=== PATIENT | female | born 1950 | race African-American/Black ===

== ENCOUNTER 2021-03-23 11:01 | Observation (INO) | payer OTHER ==
--- OUTSIDE RECORDS SUMMARY | 2021-03-23 11:04 | XMS REPORT | Continuity of Care Document ---
:1950 Author Organization [facility] t Address [address] [place] [address] [address]. [place] [place] [address] Care Team Providers Name Role Phone Saw Dockery MD Attending Clinician Problems This patient has no known problems. Allergies, Adverse Reactions, Alerts This patient has no known allergies or adverse reactions. Medications This patient has no known medications. Procedures This patient has no known procedures. Encounters Start End Encounter Admission Attending Care Care Encounter Source Date/Time Date/Time Type Type Clinicians Facility Department ID 2021-03-12 2021-03-12 Office GUMARO Dockery [id number] 08:30:27 09:00:27 Visit [facility] [id number] Saw Briceno [id number] Radu [id number] nal 044 Office Building One Results This patient has no known results.
--- NOTE | 2021-03-23 12:38 | RAD REPORT ---
EXAM DESCRIPTION: RAD - Chest Single View - 03/23/2021 12:23 pm CLINICAL HISTORY: right scapular pain, chest pain COMPARISON: July 2017 TECHNIQUE: AP portable chest image was obtained 03/23/2021 12:23 pm . FINDINGS: Lung volumes are much lower than the comparison study. This accentuates heart, vasculature and lung markings. No peripheral mass or consolidations seen. Mild failure or volume overload could be masked in this setting. Heart size magnified by shallow inspiration. No measurable pleural effusio n and no pneumothorax. No acute bony abnormality seen. No acute aortic findings suspected. IMPRESSION: No peripheral mass or consolidation. Heart, vasculature and lung markings are accentuated by shallow inspiration potentially masking mild failure or volume overload.
[2021-03-23 14:21] LABS: Absolute Lymphocytes (CBC) 1.5 K/uL (0.7-4.9); Basophils % 0.9 % (0-1.3); Hematocrit 29.1 % (36.0-45.0); Lymphocytes % 20.8 % (15.3-44.8); RBC Red Blood Cell Count 3.13 M/uL (3.86-4.86)
[2021-03-23 14:29] LABS: Urine Blood Negative (Negative); Urine Glucose Negative (Negative); Urine Protein 2+ (Negative); Urine Specific Gravity 1.015 (1.005-1.030)
[2021-03-23 14:40] LABS: ALT/SGPT 41 U/L (12-78); AST/SGOT 22 U/L (15-37); Albumin 3.3 g/dL (3.4-5.0); Alkaline Phosphatase 115 U/L (45-117); BUN Blood Urea Nitrogen 40 mg/dL (7-18); Bicarbonate 29 mmol/L (21-32); Bilirubin Direct < 0.1 mg/dL (0-0.2); Bilirubin Total 0.2 mg/dL (0.2-1.0); Glucose Level 105 mg/dL (74-106); NT PRO-BNP 319 pg/mL (<125); Potassium 3.8 mmol/L (3.5-5.1); Protein, Total 6.6 g/dL (6.4-8.2); Sodium Level 142 mmol/L (136-145); Troponin (Emerg Dept Use Only) < 0.02 ng/mL (0.0-0.045)
--- NOTE | 2021-03-23 15:20 | ER ---
Nurse's Notes [facility] Name: Sara Duran Age: 70 yrs Sex: Female : 1950 Arrival Date: 03/23/2021 Time: 11:08 Bed 18 Private MD: Tu Dockery Diagnosis: Chest pain, unspecified Presentation: 03/23 11:14 Chief complaint: Patient states: "I am having pain under my right shoulder blade in my jd3 chest. I saw my doctor and he thinks it was a torn muscle and he gave me something over the weekend and it help a little and it seems like it just keeps getting worse.". Coronavirus screen: At this time, the client does not indicate any symptoms associated with coronavirus-19. Ebola Screen: Patient negative for fever greater than or equal to 101.5 degrees Fahrenheit, and additional compatible Ebola Virus Disease symptoms. Initial Sepsis Screen: Does the patient meet any 2 criteria? No. Patient's initial sepsis screen is negative. Does the patient have a suspected source of infection? No. Patient's initial sepsis screen is negative. Risk Assessment: Do you want to hurt yourself or someone else? Patient reports no desire to harm self or others. Onset of symptoms was March 23, 2021. 11:14 Method Of Arrival: Wheelchair jd3 11:14 Acuity: ISIAH 3 jd3 Triage Assessment: 11:15 General: Appears in no apparent distress. uncomfortable, obese, Behavior is bp cooperative, appropriate for age, anxious. Pain: Complains of pain in chest. EENT: No deficits noted. Neuro: No deficits noted. Cardiovascular: Rhythm is sinus rhythm. Respiratory: No deficits noted. GI: No signs and/or symptoms were reported involving the gastrointestinal system. : No signs and/or symptoms were reported regarding the genitourinary system. Derm: No deficits noted. Musculoskeletal: No deficits noted. Historical: - Allergies: 19:37 TETRACYCLINES; jb4 19:37 Suprax; jb4 19:37 Azithromycin; jb4 19:37 Codeine; jb4 19:37 Adhesives; jb4 - PMHx: 19:37 Asthma; Hyperlipidemia; Hypertension; jb4 - Immunization history:: Adult Immunizations up to date, Client reports receiving the 2nd dose of the Covid vaccine. - Social history:: Smoking status: unknown. - Family history:: not pertinent. - Hospitalizations: : No recent hospitalization is reported. Screenin:30 Abuse screen: Denies threats or abuse. Denies injuries from another. Nutritional bp screening: No deficits noted. Tuberculosis screening: No symptoms or risk factors identified. Fall Risk None identified. Assessment: 13:30 Reassessment: UNABLE TO OBTAIN PIV OR BLOOD DESPITE MX NURSE INTERVENTION AND U/S. bp NOTIFIED. 14:01 Reassessment: PHLEBOTOMY AT B/S. PIV ON HOLD PENDING FINAL RESULTS. bp 16:00 Reassessment: No changes from previously documented assessment. Patient and/or family bp updated on plan of care and expected duration. Pain level reassessed. Patient is alert, oriented x 3, equal unlabored respirations, skin warm/dry/pink. ADMIT INITIATED. 18:00 Reassessment: No changes from previously documented assessment. Patient and/or family bp updated on plan of care and expected duration. Pain level reassessed. Patient is alert, oriented x 3, equal unlabored respirations, skin warm/dry/pink. COPY OF COVID VAXX ON CHART. 19:00 Reassessment: Patient appears in no apparent distress at this time. Patient and/or jb4 family updated on plan of care and expected duration. Pain level reassessed. Patient is alert, oriented x 3, equal unlabored respirations, skin warm/dry/pink. 19:38 Reassessment: Patient appears in no apparent distress at this time. Patient and/or jb4 family updated on plan of care and expected duration. Pain level reassessed. Patient is alert, oriented x 3, equal unlabored respirations, skin warm/dry/pink. 19:41 Reassessment: attempted to call report twice, no answer each time. jb4 21:04 Reassessment: Patient appears in no apparent distress at this time. Patient and/or jb4 family updated on plan of care and expected duration. Pain level reassessed. Patient is alert, oriented x 3, equal unlabored respirations, skin warm/dry/pink. Vital Signs: 11:16 BP 168 / 63; Pulse 88; Resp 17 S; Temp 98(TE); Pulse Ox 98% on R/A; Weight 95.25 kg jd3 (R); Height 5 ft. 2 in. (157.48 cm) (R); Pain 10/10; 13:00 BP 142 / 60; Pulse 75; Resp 16; Pulse Ox 98% ; bp 14:00 BP 128 / 64; Pulse 87; Resp 22; Pulse Ox 100% ; bp 16:00 BP 162 / 63; Pulse 84; Resp 17; Pulse Ox 100% ; bp 18:00 BP 141 / 55; Pulse 93; Resp 18; Pulse Ox 99% on R/A; bp 19:00 BP 145 / 59; Pulse 90; Resp 18; Pulse Ox 100% on R/A; jb4 20:00 BP 160 / 54; Pulse 85; Resp 16; Pulse Ox 100% on R/A; jb4 11:16 Body Mass Index 38.41 (95.25 kg, 157.48 cm) jd3 ED Course: 11:08 Patient arrived in ED. ds1 11:09 Tu Dockery MD is Private Physician. ds1 11:16 Triage completed. jd3 11:17 Arm band placed on. jd3 11:19 Patient has correct armband on for positive identification. Placed in gown. Bed in low mh5 position. Call light in reach. Side rails up X 1. Adult w/ patient. Warm blanket given. Pillow given. cardiac monitor on. Pulse ox on. NIBP on. 11:19 EKG done, by ED staff, reviewed by Kenneth Boss MD. mh5 11:25 Kenneth Boss MD is Attending Physician. rn 11:26 Jordan Dhaliwal, ALEJANDRO is Primary Nurse. bp 11:30 Patient maintains SpO2 saturation greater than 95% on room air. bp 11:39 EKG done. mh5 12:23 XRAY Chest (1 view) In Process Unspecified. EDMS 15:20 Sher Boss MD is Hospitalizing Provider. rn 17:00 Inserted saline lock: 22 gauge in left antecubital area, using aseptic technique. ss ,using aseptic technique. Insertion VIA Ultrasound guided by me. Pt tolerated well. 18:26 No provider procedures requiring assistance completed. ss 18:26 Patient admitted, IV remains in place. ss Administered Medications: No medications were administered Outcome: 15:20 Decision to Hospitalize by Provider. rn 20:06 Admitted to Tele accompanied by nurse, via wheelchair, room 406, with chart, Report jb4 called to ALEJANDRO Campuzano 20:06 Condition: stable 20:06 Discharge instructions given to patient, Instructed on the need for admit, Demonstrated understanding of instructions. 21:04 Patient left the ED. jb4 Signatures: Dispatcher [employer] EDMA Whit Otero ds1 Kenneth Boss MD MD rn Smirch, Shelby, RN RN ss Tu Cardenas RN RN jb4 Anamaria Bentley Jonathon, RN RN jJordan Andino RN RN bp
--- NOTE | 2021-03-23 15:20 | EDPHYS ---
Physician Documentation [facility] Name: Sara Duran Age: 70 yrs Sex: Female : 1950 Arrival Date: 03/23/2021 Time: 11:08 Bed 18 Private MD: Tu Dockery ED Physician Kenneth Boss HPI: 03/23 14:33 This 70 yrs old Black Female presents to ER via Wheelchair with complaints of Chest rn Pain. 14:34 The pain does not radiate. Associated signs and symptoms: Pertinent negatives: rn abdominal pain, diaphoresis, palpitations, shortness of breath, syncope, vomiting. The chest pain is described as sharp, stabbing. Duration: The patient or guardian reports multiple episodes, that are intermittent. Modifying factors: The symptoms are alleviated by nothing. the symptoms are aggravated by deep breath. Severity of pain: At its worst the pain was moderate in the emergency department the pain is unchanged. The patient has experienced similar episodes in the past. The patient has been recently seen by a physician:. Reports approx 4 weeks of right scapular region pain, no trauma, no fever or cough, reports pain with deep breath, laying on right side, and movement. Seen by multiple providers and told most likely muscle but she feels is something more serious. . Historical: - Allergies: 19:37 TETRACYCLINES; jb4 19:37 Suprax; jb4 19:37 Azithromycin; jb4 19:37 Codeine; jb4 19:37 Adhesives; jb4 - PMHx: 19:37 Asthma; Hyperlipidemia; Hypertension; jb4 - Immunization history:: Adult Immunizations up to date, Client reports receiving the 2nd dose of the Covid vaccine. - Social history:: Smoking status: unknown. - Family history:: not pertinent. - Hospitalizations: : No recent hospitalization is reported. ROS: 14:34 Constitutional: Negative for fever, chills, and weight loss, Eyes: Negative for injury, rn pain, redness, and discharge, Neck: Negative for injury, pain, and swelling, Cardiovascular: Negative for palpitations, and edema, Respiratory: Negative for shortness of breath, cough, wheezing, and pleuritic chest pain, Abdomen/GI: Negative for abdominal pain, nausea, vomiting, diarrhea, and constipation, Back: Negative for injury : Negative for injury, bleeding, discharge, and swelling, MS/Extremity: Negative for injury and deformity, Skin: Negative for injury, rash, and discoloration, Neuro: Negative for headache, weakness, numbness, tingling, and seizure. Exam: 14:34 Constitutional: This is a well developed, well nourished patient who is awake, alert, rn and in no acute distress. Head/Face: Normocephalic, atraumatic. Eyes: Periorbital areas with no swelling, redness, or edema. Cardiovascular: Regular rate and rhythm. No pulse deficits. Respiratory: No increased work of breathing, no retractions or nasal flaring. Abdomen/GI: soft, non-tender Skin: Warm, dry MS/ Extremity: Pulses equal, no cyanosis. Neuro: Awake and alert, GCS 15 Vital Signs: 11:16 BP 168 / 63; Pulse 88; Resp 17 S; Temp 98(TE); Pulse Ox 98% on R/A; Weight 95.25 kg jd3 (R); Height 5 ft. 2 in. (157.48 cm) (R); Pain 10/10; 13:00 BP 142 / 60; Pulse 75; Resp 16; Pulse Ox 98% ; bp 14:00 BP 128 / 64; Pulse 87; Resp 22; Pulse Ox 100% ; bp 16:00 BP 162 / 63; Pulse 84; Resp 17; Pulse Ox 100% ; bp 18:00 BP 141 / 55; Pulse 93; Resp 18; Pulse Ox 99% on R/A; bp 19:00 BP 145 / 59; Pulse 90; Resp 18; Pulse Ox 100% on R/A; jb4 20:00 BP 160 / 54; Pulse 85; Resp 16; Pulse Ox 100% on R/A; jb4 11:16 Body Mass Index 38.41 (95.25 kg, 157.48 cm) jd3 MDM: 11:25 Patient medically screened. rn 15:18 Differential diagnosis: acute myocardial infarction, acute pericarditis, coronary rn artery disease cholecystitis, Cholelithiasis costochondritis, esophagitis, gastritis, gastroesophageal reflux disease (GERD), pleurisy, pneumothorax, pulmonary embolus, stable angina. Data reviewed: vital signs, nurses notes, lab test result(s), EKG, radiologic studies, plain films, and as a result, I will admit patient. Counseling: I had a detailed discussion with the patient and/or guardian regarding: the historical points, exam findings, and any diagnostic results supporting the discharge/admit diagnosis, lab results, radiology results, the need for further work-up and treatment in the hospital. Response to treatment: the patient's symptoms have mildly improved after treatment, and as a result, I will admit patient. Admission orders: after a detailed discussion of the patient's condition and case, the admit orders are written by me. ED course: Pt with neg trop and NSR on ECG without ischemia, still having scapular pain/chest pain, elevated d-dimer, unable to get IV access at this time and nursing has tried with u/s, attempting midline right now for admission. Creatinine too high for CT PE anyway, will admit to hospitalist service for chest pain rule out and V/Q scan in AM. . 03/23 11:33 Order name: Basic Metabolic Panel; Complete Time: 15:10 03/23 11:33 Order name: CBC with Diff; Complete Time: 14:25 03/23 11:33 Order name: LFT's; Complete Time: 15:10 03/23 11:33 Order name: NT PRO-BNP; Complete Time: 15:10 03/23 11:33 Order name: Troponin (emerg Dept Use Only); Complete Time: 15:10 03/23 11:33 Order name: D-Dimer; Complete Time: 15:10 03/23 11:33 Order name: XRAY Chest (1 view); Complete Time: 12:39 03/23 11:33 Order name: EKG; Complete Time: 11:35 03/23 14:28 Order name: Urine Dipstick-Ancillary; Complete Time: 14:34 [facility] 03/23 16:46 Order name: CT-CHEST WITHOUT CONTRAST [facility] 03/23 16:46 Order name: Creatine Phosphokinase [facility] 03/23 17:34 Order name: CT [facility] 03/23 17:47 Order name: C-Reactive Protein [facility] 03/23 18:11 Order name: Sedimentation Rate, W[place]gren [facility] 03/23 11:33 Order name: Cardiac monitoring; Complete Time: 11:39 03/23 11:33 Order name: EKG - Nurse/Tech; Complete Time: 11:39 03/23 11:33 Order name: IV Saline Lock; Complete Time: 17:45 rn 03/23 11:33 Order name: Labs collected and sent; Complete Time: 14:01 rn 03/23 11:33 Order name: O2 Per Protocol; Complete Time: 14:00 rn 03/23 11:33 Order name: O2 Sat Monitoring; Complete Time: 14:00 rn 03/23 16:46 Order name: Heart Healthy EDMS Administered Medications: No medications were administered Disposition: 03/23/21 15:20 Hospitalization ordered by Sher Boss for Observation. Diagnosis is Chest pain, unspecified. - Bed requested for Telemetry/MedSurg (observation). - Status is Observation. jb4 - Condition is Stable. - Problem is new. - Symptoms are unchanged. Signatures: Dispatcher [employer] EDMS Soo Romero Diana, RN Kenneth Emerson MD MD rn Bryson, James, RN RN jb4 Sukhi Malloy RN ALEJANDRO jd3 Corrections: (The following items were deleted from the chart) 18:04 15:20 Hospitalization Ordered by Sher Boss MD for Observation. Preliminary bd diagnosis is Chest pain, unspecified. Bed requested for Telemetry/MedSurg (observation). Status is Observation. Condition is Stable. Problem is new. Symptoms are unchanged. rn 18:06 18:04 03/23/2021 15:20 Hospitalization Ordered by Sher Boss MD for Observation. dw Preliminary diagnosis is Chest pain, unspecified. Bed requested for Telemetry/MedSurg (observation). Status is Observation. Condition is Stable. Problem is new. Symptoms are unchanged. bd 21:04 18:03/23/2021 15:20 Hospitalization Ordered by Sher Boss MD for Observation. jb4 Preliminary diagnosis is Chest pain, unspecified. Bed requested for Telemetry/MedSurg (observation). Status is Observation. Condition is Stable. Problem is new. Symptoms are unchanged. dw
--- NOTE | 2021-03-23 16:59 | P.HP ---
Certification for Inpatient Patient admitted to: Observation With expected LOS: <2 Midnights Practitioner: I am a practitioner with admitting privileges, knowledge of patient current condition, hospital course, and medical plan of care. Services: Services provided to patient in accordance with Admission requirements found in Title 42 Section 412.3 of the Code of Federal Regulations Patient History Date of Service: 03/23/21 Reason for admission: R subscapular back pain, r/o PE History of Present Illness: 70yo F, PMH: HTN, Asthma, JERRELL, CKD, h/o shingles. Presents to ED due to worsening R thoracic back pain. Pain began ~4 weeks ago, saw pcp and diagnosed with muscle cramps. She continued to stay very active, using some ice on the area with some alleviation of her symptoms. This continued until yesterday when she began to have more severe pain in the same area. Severe enough to limit what she could do around the house. Tylenol and muscle relaxers were not helping - only making her sleepy. Massage helps as well. Deep breathing and exertion can worsen the pain. She reports some mild SOB and cough over the last week or so. In the ED, CXR was unremarkable, labs notable for Cr: 1.8, elevated d-dimer, negative troponin, EKG WNL. Patient to be placed in obs due to intractable pain, elevated d-dimer, unable to obtain CTA to r/o PE. Allergies codeine [Codeine] Allergy (Intermediate, Verified 12/06/12 06:24) Itching Tetracyclines Allergy (Intermediate, Verified 12/06/12 06:24) Nausea/Vomiting No Known Allergies Allergy (Uncoded 08/21/17 16:02) Unknown Home Medications: Aspirin 81 mg PO DAILY 08/21/17 Budesonide/Formoterol Fumarate [Symbicort 160-4.5 Mcg Inhaler] 1 puff IH BID 08/21/17 Carvedilol [Coreg] 25 mg PO BID 08/21/17 Chlorthalidone 25 mg PO DAILY 08/21/17 Gabapentin [Neurontin*] 100 mg PO BID 08/21/17 Hydrochlorothiazide 50 mg PO DAILY 08/21/17 Spironolactone 25 mg PO DAILY 08/21/17 Valsartan 160 mg PO DAILY 08/21/17 Cefixime [Suprax] 200 mg PO BID #28 tab.chew 08/24/17 Oseltamivir Phosphate [Tamiflu Suspension] 5 ml PO DAILY #10 ml 08/24/17 - Past Medical/Surgical History Diabetic: No -: HTN -: HYPERLIPIDEMIA -: ASTHMA -: NEUROPATHY -: SLEEP APNEA -: CKD -: R ROTATOR CUFF -: HYSTERECTOMY -: R ANKLE - Family History Father -: Hypertension, Cancer Notes: prostate cancer Mother -: Kidney disease Notes: dialysis pt - Social History Smoking Status: Never smoker Alcohol use: No CD- Drugs: No Caffeine use: Yes Place of Residence: Home Review of Systems 10-point ROS is otherwise unremarkable Physical Examination - Physical Exam General: Alert, Oriented x3, Mild distress HEENT: Normocephalic, PERRLA, Mucous membr. moist/pink Neck: Supple Respiratory: Clear to auscultation bilaterally, Normal air movement Cardiovascular: Edema (Trace-1+, bilateral to knee) Capillary refill: <2 Seconds Gastrointestinal: Soft and benign, Non-distended, No tenderness Musculoskeletal: Other (Tenderness and swelling of posterior chest between spine and scapula; no skin changes, no abscess or induration palpated) Integumentary: No rashes, No breakdown Neurological: Normal speech, Normal strength at 5/5 x4 extr, Normal affect - Studies Laboratory Data (last 24 hrs) 03/23/21 14:01: WBC 7.10, Hgb 9.4 L, Hct 29.1 L, Plt Count 195 03/23/21 14:01: Sodium 142, Potassium 3.8, BUN 40 H, Creatinine 1.81 H, Glucose 105, Total Bilirubin 0.2, AST 22, ALT 41, Alkaline Phosphatase 115 Assessment and Plan - Advance Directives Does patient have a Living Will: No Does patient have a Durable POA for Healthcare: No Physician Review Additional Text: Problem List R Back pain, intractable elevated D-dimer, SOB HTN asthma JERRELL on CPAP CKD h/o shingles -area of tenderness with noticeable swelling compared to left -will obtain CT w/o IV contrast due to renal function -PRN pain control -VQ scan in AM to r/o PE, lovenox 1mg/kg ordered -likely muscle spasm, pt has not rested and continued to agitate the area -possible PE, possible zoster. no skin lesions on back, very tender / out of proportion to exam -ESR, CRP, cpk ordered VTE: lovenox 1mg/kg Code: full Dispo: anticipate dc home tomorrow, pain control, r/o DVT, further eval Time Spent Managing Pts Care (In Minutes): 60
--- NOTE | 2021-03-23 17:31 | RAD REPORT ---
EXAM DESCRIPTION: CT - Thorax Wo Dave - 03/23/2021 5:12 pm CLINICAL HISTORY: R subscapular pain/swelling COMPARISON: No comparisons TECHNIQUE: Axial 5 mm thick images of the chest were obtained without IV contrast. All CT scans are performed using dose optimization technique as appropriate and may include automated exposure control or mA/KV adjustment according to patient size. FINDINGS: Clustered airspace opacities are present in the posterior aspect mid right chest within th e right lower lobe. This is most likely a mild pneumonia and is potentially the source for the patien t's right thoracic pain. No other lung parenchymal process identifiable. No pleural thickening or ple ural effusion. No pneumothorax. No abnormal mediastinal or hilar masses or lymphadenopathy seen. No gross aortic or pulmonary artery finding suspected. Assessment is limited in the absence of IV contrast. No cardiomegaly or pericardi al effusion. No chest wall mass for acute rib finding seen. No abnormality of the right scapula and adjacent muscu lature. Patient does have bilateral shoulder joint degenerative change and possible rotator cuff repa ir on the right. Multiple small nonspecific bilateral axillary lymph nodes. Limited upper abdomen imaging shows a large lobulated 9 centimeter hypodense mass filling most of brown er segments 4, 8 and 5. Within this hypodense mass are numerous variably sized irregular calcificatio ns. There is no relevant history or prior imaging to explain this mass. A 2 centimeter right adrenal mass shows fat attenuation consistent with adrenal adenoma. There is nodularity of the left adrenal g land. Small low-density mass lateral upper pole left kidney is probably a cyst but is not fully candace cterized. IMPRESSION: A mild or early pneumonia in the upper segment right lower lobe is present and could be a source for the patient's right-sided chest or shoulder blade pain. Patient also has degenerative ch danny at the right shoulder joint with what appears to be a remote rotator cuff tear procedure. More significantly the limited imaging of the liver shows a 9 centimeter low-density mass. Coarse daniel cifications are present within the mass. No comparison imaging or pertinent history available that might explain this mass. Primary liver lynsey gnancy would be a primary consideration and can be further evaluated with follow-up outpatient contra st CT abdomen and pelvis or contrast-enhanced MRI of the liver.
[2021-03-23] MEDS ORDERED: ONDANSETRON 4 MG/2 ML VIAL IV PRN (21:37)
[2021-03-23] MEDS: ENOXAPARIN 100 MG/ML SYR SQ SCH (21:37)
[2021-03-23] MEDS ORDERED: ACETAMINOPHEN 500 MG TAB PO PRN (21:37)
[2021-03-23] MEDS ORDERED: ALBUTEROL 2.5 MG/3 ML NEB SOL NEB PRN (21:37)
[2021-03-23] MEDS ORDERED: MORPHINE 2 MG/ML SYR IV PRN (21:37)
[2021-03-23] MEDS: TRAMADOL HCL 50 MG TAB PO PRN (22:34)
[2021-03-24 00:24] VITALS: BMI 38.4
[2021-03-24 04:14] LABS: Albumin 3.1 g/dL (3.4-5.0); Bilirubin Total 0.2 mg/dL (0.2-1.0); Magnesium 2.3 mg/dL (1.8-2.4); Phosphorus 3.7 mg/dL (2.5-4.9); Protein, Total 6.4 g/dL (6.4-8.2)
[2021-03-24 04:21] LABS: Absolute Lymphocytes (CBC) 1.8 K/uL (0.7-4.9); Basophils % 0.9 % (0-1.3); Hematocrit 27.5 % (36.0-45.0); Lymphocytes % 24.5 % (15.3-44.8); MPV 11.5 fL (7.6-11.3); RBC Red Blood Cell Count 2.96 M/uL (3.86-4.86)
[2021-03-24] MEDS: ENOXAPARIN 100 MG/ML SYR SQ SCH (07:39)
[2021-03-24] MEDS: TRAMADOL HCL 50 MG TAB PO PRN ×2 (07:42→12:47)
--- NOTE | 2021-03-24 09:23 | RAD REPORT ---
EXAM DESCRIPTION: US - Abdomen Exam Limited - 03/24/2021 9:01 am CLINICAL HISTORY: RUQ evaluation, right upper quadrant pain COMPARISON: No comparisons FINDINGS: Gallbladder size is normal. No gallstones, wall thickening or pericholecystic fluid. Commo n bile duct is normal with no common duct stone identified. Liver size is normal and shows increased echogenicity likely a mild fatty infiltration. No focal live r lesion. The pancreas is not visualized. No hydronephrosis or solid mass of the right kidney. An 11 millimeter cyst is present in the lower po le. IMPRESSION: No gallbladder or biliary tree abnormality. Suspected mild fatty infiltration of the liver with no focal liver lesion identifiable.
--- NOTE | 2021-03-24 09:56 | RAD REPORT ---
EXAM DESCRIPTION: NM - Vent Perfusion VQ Scan - 03/24/2021 9:42 am CLINICAL HISTORY: r/o PE, shortness of breath COMPARISON: None. TECHNIQUE: The patient was administered 20.5 mCi Xenon 133 gas with posterior projection inspiration , equilibrium, and washout views obtained. The patient was then administered 7.1 mCi Tc-99m MAA label ed RBCs followed by standard 8 view protocol. FINDINGS: There is good distribution of the Xenon with no ventilation defects identified. Mild to mo derate diffuse bilateral air trapping pattern seen. Mild patchy diminished activity scattered in the lung parenchyma. No lobar or segmental sized defects identifiable. A small subsegmental size defect is present posterior mid right lung field. IMPRESSION: Low probability V/Q scan for pulmonary embolism. No ventilation defects. Mild to moderate diffuse air trapping pattern.
[2021-03-24 10:14] VITALS: TEMP 97.1
[2021-03-24 12:38] VITALS: BP 136/74
--- NOTE | 2021-03-24 12:58 | EKG ---
Test Date: 2021-03-23 Test Time: 11:31:34 First Crusher: ERIK MEASUREMENT RESULTS: Intervals: Rate: 87 CA: 156 QRSD: 90 QT: 382 QTc: 459 Harper: P: 57 CA: 156 QRS: 41 T: 55 INTERPRETIVE STATEMENTS: Normal sinus rhythm Normal ECG Compared to ECG 08/21/2017 00:01:52 Sinus tachycardia no longer present Electronically Signed On 03-24-21 12:54:08 CDT by Paresh Gross
--- NOTE | 2021-03-24 13:58 | P.DS ---
Admission Date: 03/23/21 Discharge Date: 03/24/21 Disposition: ROUTINE DISCHARGE Discharge Condition: FAIR Reason for Admission: R subscapular back pain, r/o PE - Problems (1) Chest pain Status: Acute (2) Hypertension Status: Acute (3) Hepatic hemangioma Status: Acute (4) Obesity (BMI 30.0-34.9) Status: Acute Brief History of Present Illness: 70-year-old woman with a history of hypertension, chronic kidney disease, obstructive sleep apnea, prior history of singles presented to the emergency department due to right thoracic back pain of 4 weeks duration. The pain did not respond to Tylenol and muscle relaxants prescribed by his PCP. She presented to the emergency department due to worsening pain. Her chest x-ray in the ED was unremarkable, D-dimer elevated but could not perform CTA to rule out pulmonary embolism due to elevated creatinine up to 1.8. Patient was placed under observation for further evaluation. Hospital Course: Patient placed under observation on the medical floor. Troponin trended negative. V/Q scan done showed low probability for pulmonary embolus. CT chest without contrast reported 9 cm hypodense lesion in the liver with central calcification. I discussed the CT finding with the patient. Patient stated the liver finding is old and it is a hemangioma. Liver ultrasound performed which showed normal gallbladder. Liver finding on the CT discussed with radiology was stated the lesion may be high up and may not be identify by the ultrasound. No abscess, or lesion noted in the right flank where she has point tenderness. Abdominal ultrasound showed no hydronephrosis, it identified 11 mm cyst in the lower pole of the right kidney. PE has been ruled out. Her pain was managed with Flexeril and tramadol. ACS has also been ruled out. Patient is discharged to follow with the PCP. Vital Signs/Physical Exam: Temp Pulse Resp BP Pulse Ox 97.1 F 79 18 136/74 94 03/24/21 08:00 03/24/21 12:00 03/24/21 12:47 03/24/21 12:00 03/24/21 12:47 General: Alert, In no apparent distress, Oriented x3 HEENT: Mucous membr. moist/pink Neck: JVD not distended Respiratory: Clear to auscultation bilaterally, Normal air movement Cardiovascular: No edema, Regular rate/rhythm, Normal S1 S2 Gastrointestinal: Normal bowel sounds, Soft and benign, No tenderness Musculoskeletal: Tenderness (Right flank.) Neurological: Normal speech, Normal strength at 5/5 x4 extr, Cranial nerves 3-12 intact Lymphatics: No axilla or inguinal lymphadenopathy Laboratory Data at Discharge: WBC 7.30 K/uL (4.3-10.9) 03/24/21 03:31 Hgb 9.1 g/dL (12.0-15.0) L 03/24/21 03:31 Hct 27.5 % (36.0-45.0) L 03/24/21 03:31 Plt Count 169 K/uL (152-406) 03/24/21 03:31 Sodium 143 mmol/L (136-145) 03/24/21 03:31 Potassium 4.0 mmol/L (3.5-5.1) 03/24/21 03:31 BUN 33 mg/dL (7-18) H 03/24/21 03:31 Creatinine 1.77 mg/dL (0.55-1.3) H 03/24/21 03:31 Glucose 136 mg/dL (74-106) H 03/24/21 03:31 Phosphorus 3.7 mg/dL (2.5-4.9) 03/24/21 03:31 Magnesium 2.3 mg/dL (1.8-2.4) 03/24/21 03:31 Total Bilirubin 0.2 mg/dL (0.2-1.0) 03/24/21 03:31 AST 21 U/L (15-37) 03/24/21 03:31 ALT 38 U/L (12-78) 03/24/21 03:31 Alkaline Phosphatase 110 U/L (45-117) 03/24/21 03:31 Troponin I < 0.02 ng/mL (0.0-0.045) 03/24/21 12:12 Home Medications: Albuterol Inhaler [Ventolin Inhaler*] 2 puff IH Q6H PRN 03/23/21 Allopurinol 300 mg PO DAILY 03/23/21 Aspirin [Aspirin EC] 81 mg PO DAILY 03/23/21 Budesonide/Formoterol Fumarate [Budesonide-Formoterol 80-4.5] 1 puff IH BID 03/23/21 Carvedilol [Coreg] 25 mg PO BID 03/23/21 Colchicine 0.6 mg PO DAILY PRN 03/23/21 Cyclobenzaprine HCl [Flexeril] 5 mg PO TID PRN 03/23/21 Furosemide [Lasix] 20 mg PO DAILY 03/23/21 Gabapentin 300 mg PO BID 03/23/21 Hydralazine HCl [Apresoline] 50 mg PO TID 03/23/21 Nystatin 100,000 unit PO QID 03/23/21 traMADol HCL [Ultram*] 50 mg PO Q6H PRN #30 tab 03/24/21 New Medications: traMADol HCL [Ultram*] 50 mg PO Q6H PRN #30 tab PRN Reason: Pain Scale 5-7 (Moderate) Diet: AHA Activity: Ad meredith Followup: Tu Dockery MD [Primary Care Provider] - 1-2 Weeks ([facility] to schedule an appointment)
[2021-03-24 16:28] VITALS: O2SAT 96
[2021-03-25] MEDS ORDERED: ENOXAPARIN 100 MG/ML SYR SQ SCH (09:00)
== END 2021-03-24 16:00 | disposition home or self-care (01) ==
LOC: ER 11:01 → ERHOLD 16:40 → 4TH 20:47
PROVIDERS: ADMIT Hospitalist; ATTEND Internal Medicine
DX: R07.9 Chest pain, unspecified (principal); I10 Essential (primary) hypertension; E66.9 Obesity, unspecified; D18.03 Hemangioma of intra-abdominal structures; I12.9 Hypertensive chronic kidney disease with stage 1 through stage 4 chronic kidney disease, or unspecified chronic kidney disease; N18.9 Chronic kidney disease, unspecified; G47.33 Obstructive sleep apnea (adult) (pediatric); R79.89 Other specified abnormal findings of blood chemistry; J45.909 Unspecified asthma, uncomplicated; E78.5 Hyperlipidemia, unspecified; R06.02 Shortness of breath; Z68.38 Body mass index [BMI] 38.0-38.9, adult
CPT/HCPCS: 93005; 85025 ×2; 80048; 36415 ×2; 83735; 82550; 84100; 85379; 80076; 85652; 81003; 84484 ×4; 80053; 84145; 83880; 86140; 71250; 71045; 76705; 97140; 97161; 94760 ×2; 94660; 78582; 99285; J1650 ×2; A9558; A9540; G0378 ×2

== ENCOUNTER 2024-05-30 13:57 | Emergency (ER) | payer OTHER ==
--- OUTSIDE RECORDS SUMMARY | 2024-05-30 14:29 | XMS REPORT | Continuity of Care Document ---
Author Name Unknown Address [address] [facility] [address] [place] [address] [facility] Address [address] [facility] [address] [place] [address] Care Team Providers Care District Extension Service Agent Name Role Phone SHELLIE JARVIS Primary Care Physician Unavailable Shellie Jarvis Attending Clinician Unava ilTYRELL Aguirre Attending Clinician Unavailable TYRELL VINSON Attending Clinician Unavailable JAYJAY SMALLS Attending Clinician Unavailab JENNY Davis Attending Clinician Unavailable JENNY GUZMÁN Attending Clinician Unavailable JACK ROUSSEAU Attending Clinician Unavailable JACK ROUSSEAU Attending Clinician Unavailable SHELLIE JARVIS Attending Clinician Kayy Shellie Monaco MD Attending Clinician Pob, Ad[facility] Lab Main Attending Clinician UnavailRosetta Low DO Attending Clinician [phone] ROSETTA HAM Attending Clinician Unavailable SETH DIAZ Attending Clinician Unavailable ALYX KENNEDY Attending Clinician Unavailable Alyx Kennedy MD Attending Clinician [phone] Unknown, Attending Attending Clinician UnavailLaura Singh MD Attending Clinician [phone] HERLINDA ROBERTS Attending Clinician UnavailHERLINDA Paris Attending Clinician Unavailabl e Doctor Unassigned, [place] Attending Clinician U navailable Lab, Ang - Db Attending Clinician Unavailable Wayne Steel PT, Dara Attending Clinician Un available Herlinda Roberts MD Attending Clinician +[phone] Provider, Urgent Care Day Attending Clinician Un available Conor Carrizales Attending Clinician [phone] Radha ALLEN, Vanessa Attending Clinician UnavailASAEL Montenegro Attending Clinician Unavailable Krystle Elizalde Attending Clinician + [phone] KRYSTLE CLEARY Attending Clinician Unavailable Bridger ALLEN, Tosha Kaminski Attending Clinician Kayy HAMLET Silva Attending Clinician Unavailable HAMLET KATZ Attending Clinician Unavailable MAY SAUER Attending Clinician Unavailab May De La O Attending Clinician [phone] Saira Hernandez OT Attending Clinician Un available LAURA BOYCE Attending Clinician Unavailable Brooke Bland LMSW Attending Clinician Unava ilSeth Lord MD Attending Clinician + [phone] [facility] Attending Clinician Unavailab rosemary Booth GEAR NICKERJosie Attending Clinician [phone] [facility] Attending Clinician Unav GLADYS Hopper Attending Clinician Unavailable Gladys Carter PA-C Attending Clinician + [phone] HematRicardo jefferson MD Attending Clinician [phone] RADIOLOGY Attending Clinician Unavailable Ciro Robledo Attending Clinician +[phone] Shimon Gaffney Attending Clinician + ANDREA VINSON Attending Clinician Unavailable SHIMON VILLALBA Attending Clinician Unavailable ANNE MARIE LICEA Attending Clinician Unavailab ANNE MARIE Alvarez Attending Clinician Unavailab Andrea Medley MD Attending Clinician [phone] CYDNEY MILLARD Attending Clinician Unavailable HARRIET TINAJERO Attending Clinician Unavailable Harriet Moran Attending Clinician [phone] [facility], [facility] Attending Clinicia n Unavailable Martir Bhatti MD Attending Clinicia n Alison TERRELL, Xin Attending Clinician [phone] XIN MORLEY Attending Clinician Unavailable Nurse, [facility] Attending Clinician Unavailable RACHEL MCDOWELL Attending Clinician Unavailable Ja TERRELL, Korey Attending Clinician [phone] Quan TERRELL, Rachel Graham Attending Clinician [phone] Ashleigh Tapia MD Attending Clinician [phone] ASHLEIGH TAPIA Attending Clinician Unavail Babatunde Rm MD Attending Clinician + [phone] BABATUNDE VITALE Attending Clinician Ora zepeda Nurse, Adc Pob Immunization Attending Clinician Unavailable Yaya Allen DO Attending Clinician [phone] YAYA ALLEN Attending Clinician Unavail winsome Smalls MD, Jayjay Obrien Attending Clinician [phone] Only, [facility] Test Attending Clinician Unavailable Lab, [facility] Pob I Attending Clinician Unavailab Angelica Farris Attending Clinician [phone] LUCILA CANELA Attending Clinician Unavailable TYRELL VINSON Admitting Clinician Unavailable JAYJAY SMALLS Admitting Clinician Unavailab LAURA Zavaleta Admitting Clinician Unavailable BABATUNDE VITALE Admitting Clinician Ora Smalls MD, Jayjay Obrien Admitting Clinician [phone] Payers Payer Name Policy Type Policy Number Effective Date Expirati on Date Source [id number] 2022 00:00:00 [employer] O [id number] 2020 00:00:00 [employer]AGE [id number] 2020 00:00:00 Problems Condition Name Condition Details Condition Category Status Onset Date Resolution Date Last Treatment Date Treating Clinician Comments Source Encounter for screening colonoscop y Encounter for screening colonoscop y Disease Active 5-20 00:00: 00 [facility] Metabolic syndrome Metabolic syndrome Disease Active 2-22 00:00: 00 [facility] Impaired mobility Impaired mobility Disease Active 2022-09 1-15 00:00: 00 [facility] Noncomplia nce with treatment plan Noncomplia nce with treatment plan Disease Active 0 9-19 00:00: 00 [facility] Primary osteoarthr itis of both knees Primary osteoarthr itis of both knees Disease Active 0 9-13 00:00: 00 [facility] Recurrent falls Recurrent falls Disease Active 0 9- 00:00: 00 [facility] Sciatica of left side Sciatica of left side Disease Active 0 9-06 00:00: 00 [facility] Injury of back, sequela Injury of back, sequela Disease Active 0 9- 00:00: 00 [facility] Fall, subsequent encounter Fall, subsequent encounter Disease Active 0 9- 00:00: 00 [facility] Sciatica of left side Sciatica of left side Disease Active 0 9- 00:00: 00 [facility] Contusion of left thigh, initial encounter Contusion of left thigh, initial encounter Disease Active 0 9- 00:00: 00 [facility] Gait instabilit y Gait instabilit y Disease Active 0 9-06 00:00: 00 [facility] Liver mass Liver mass Disease Active 0 8-24 00:00: 00 [facility] Bilateral renal cysts Bilateral renal cysts Disease Active 0 8-24 00:00: 00 [facility] Adrenal adenoma, right Adrenal adenoma, right Disease Active 0 8-24 00:00: 00 [facility] Dyslipidem ia Dyslipidem ia Disease Active 0 8-04 00:00: 00 [facility] Elevated liver enzymes Elevated liver enzymes Disease Active 0 7-07 00:00: 00 [facility] Right hand pain Right hand pain Disease Active 0 7-07 00:00: 00 [facility] Complex regional pain syndrome type 1 affecting right hand Complex regional pain syndrome type 1 affecting right hand Disease Active 0 7-07 00:00: 00 [facility] Chronic pain of both knees Chronic pain of both knees Disease Active 0 6-29 00:00: 00 [facility] Chronic pain of both lower extremitie s Chronic pain of both lower extremitie s Disease Active 0 6-29 00:00: 00 [facility] Idiopathic chronic gout without tophus, 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, unspecifie d site Disease Active 0 4-18 00:00: 00 [facility] Abdominal gas pain Abdominal gas pain Disease Active 0 8-05 00:00: 00 [facility] Lumbar radiculopa thy, chronic Lumbar radiculopa thy, chronic Disease Active 0 8-05 00:00: 00 [facility] Arthritis, multiple joint involvemen t Arthritis, multiple joint involvemen t Disease Active 0 8-05 00:00: 00 [facility] Senile osteoporos is Senile osteoporos is Disease Active 8-05 00:00: 00 [facility] Chronic midline thoracic back pain Chronic midline thoracic back pain Disease Active 0 5-05 00:00: 00 [facility] Chronic midline low back pain with bilateral sciatica Chronic midline low back pain with bilateral sciatica Disease Active 0 5-05 00:00: 00 [facility] Medicare annual wellness visit, subsequent Medicare annual wellness visit, subsequent Disease Active 0 5-05 00:00: 00 [facility] Hepatic hemangioma Hepatic hemangioma Disease Active 0 5-05 00:00: 00 [facility] Prediabete s Prediabete s Disease Active 0 5-05 00:00: 00 [facility] BMI 37.0-37.9, adult BMI 37.0-37.9, adult Disease Active 0 5-05 00:00: 00 [facility] Need for hepatitis C screening test Need for hepatitis C screening test Disease Active 0 5-05 00:00: 00 [facility] Stage 3a chronic kidney disease Stage 3a chronic kidney disease Disease Active 0 5-05 00:00: 00 [facility] Edema of both lower extremitie s Edema of both lower extremitie s Disease Active 5-05 00:00: 00 [facility] Spasm of paraspinal muscle Spasm of paraspinal muscle Disease Active 5-05 00:00: 00 [facility] Chronic kidney disease-mi neral and bone disorder Chronic kidney disease-mi neral and bone disorder Disease Active 2020-09 2-30 00:00: 00 [facility] Secondary hyperparat hyroidism Secondary hyperparat hyroidism Disease Active 3-08 00:00: 00 [facility] Insomnia due to medical condition Insomnia due to medical condition Disease Active 6- 00:00: 00 [facility] Anemia of chronic disease Anemia of chronic disease Disease Active 2018-09 00:00: 00 [facility] Chronic diastolic heart failure Chronic diastolic heart failure Disease Active 2018-09 00:00: 00 [facility] Chronic kidney disease, stage 4 (severe) Chronic kidney disease, stage 4 (severe) Disease Active 2018-09 00:00: 00 Overview: Formattin g of this note might be different from the original. Formattin g of this note might be different from the original. Update for Diagnosis Load [facility] Chronic metabolic acidosis Chronic metabolic acidosis Disease Active 2018-09 00:00: 00 [facility] Inflammato ry neuropathy Inflammato ry neuropathy Disease Active 2018-09 00:00: 00 [facility] Iron deficiency Iron deficiency Disease Active 2018-09 00:00: 00 [facility] Mixed hyperlipid emia Mixed hyperlipid emia Disease Active 2018-09 00:00: 00 [facility] Nephrogeno us proteinuri a Nephrogeno us proteinuri a Disease Active 2018-09 0 00:00: 00 [facility] Vitamin D3 deficiency Vitamin D3 deficiency Disease Active 2018-09 00:00: 00 [facility] JERRELL on CPAP JERRELL on CPAP Disease Active 2015-09 00:00: 00 [facility] Asthma Asthma Disease Active 2015-09 1-14 00:00: 00 [facility] Essential hypertensi on Essential hypertensi on Disease Active 2014-09 0-05 00:00: 00 [facility] Biceps tendinopat hy Biceps tendinopat hy Disease Active 2011-09 2- 00:00: 00 Overview: Formattin g of this note might be different from the original. Formattin g of this note might be different from the original. left [facility] Chronic pain syndrome Chronic pain syndrome Problem [facility] [id number] Sacroiliit is Problem [facility] Benign hypertensi ve heart disease with chronic kidney disease Benign hypertensi ve heart disease with chronic kidney disease Disease Resolve d 5-05 00:00: 00 2023-07-07 00:00:00 2023-07-07 13:13:25 [facility] Oral thrush Oral thrush Disease Resolve d 6-29 00:00: 00 2023-04-29 00:00:00 2023-04-29 15:35:49 [facility] Allergies, Adverse Reactions, Alerts Allergy Name Allergy Type Status Severity Reaction(s) Onset Date Inactive Date Treating Clinician Comments Source IODINATE D CONTRAST MEDIA Drug Class Active Other-Cmnt 12-01 00:00: 00 [facility] Iodinate d Contrast Media Drug Allergy Active Other - See comments 12-01 00:00: 00 [facility] ERYTHROM YCIN DRUG Active Other-Cmnt 2018-09 00:00: 00 [facility] Erythrom ycin Drug Allergy Active Other - See comments 2018-09 00:00: 00 [facility] AZITHROM YCIN DRUG INGREDI Active Other-Cmnt 2017-09 00:00: 00 [facility] Azithrom ycin Propensi ty to adverse reaction s Active Other - See comments 2017-09 00:00: 00 Tingling of hands and fingers [facility] AMOXICIL RAMIREZ-POT CLAVULAN ATE DRUG Active Other-Cmnt 2016-0918 00:00: 00 [facility] CEFIXIME DRUG INGREDI Active Low Anxiety 2016-09 00:00: 00 [facility] Amoxicil ramirez-Pot Clavulan ate Propensi ty to adverse reaction s Active Other - See comments 2016-09 00:00: 00 Severe headache [facility] Cefixime Propensi ty to adverse reaction s Active Anxiety 2016-09 00:00: 00 [facility] CODEINE DRUG INGREDI Active Hallucinates 2014-09 0 00:00: 00 [facility] TETRACYC LINE DRUG INGREDI Active N/V 2014-09 0 00:00: 00 [facility] Codeine Propensi ty to adverse reaction s Active Hallucinatio ns 2014-09 0 00:00: 00 [facility] Tetracyc line Propensi ty to adverse reaction s Active Nausea and/or Vomiting 2014-09 0 00:00: 00 [facility] CODEINE DRUG INGREDI Active Hallucinates 2011-09 00:00: 00 [facility] Codeine Propensi ty to adverse reaction s Active Other - See comments 2011-09 00:00: 00 [facility] codeine codeine Active Unknown [facility] tetracai ne tetracai ne Active Unknown [facility] [id number] Drug allergy Active Unknown [facility] Social History Social Habit Start Date Stop Date Quantity Comments Source Sex Assigned At [facility] History of Tobacco Use [facility] Gender identity [facility] Alcoholic beverage intake 2024-04-18 00:00:00 2024-04-18 00:00:00 0 /d [facility] History of Social function 2024-02-13 00:00:00 2024-02-13 00:00:00 [facility] Alcohol intake 2023-12-21 00:00:00 2023-12-21 00:00:00 0 /d [facility] Exposure to SARS-CoV-2 (event) 2023-02-01 00:00:00 2023-02-11 14:41:00 Not sure [facility] Tobacco use and exposure 2022-04-30 00:00:00 2022-04-30 00:00:00 Smokeless tobacco non-user [facility] Smoking Status Start Date Stop Date Source Never smoked tobacco [facility] Medications Ordered Medication Name Filled Medication Name Start Date Stop Date Current Medication? Ordering Clinician Indication Dosage Frequency Signature (SIG) Comments Components Source traMADol HCl 50 MG traMADol HCl 50 MG 05-07 00:00: 00 No 1{table t_as_ne eded} QD traMADol HCl 50 MG ofloxacin 0.3 % ophthalmic solution 05-03 00:00: 00 05-11 04:59 :00 Yes [id number] 1[drp] Place 1 Drop in both eyes 4 (four) times daily for 7 days. [facility] tiZANidine 2 mg tablet 04-24 00:00: 00 Yes [id number] 2mg Take 1 tablet by mouth every 6 (six) hours as needed for Pain (scale 7-10) (muscle spasm). [facility] HYDROcodone -Acetaminop hen 7.5-325 MG HYDROcodone -Acetaminop hen 7.5-325 MG 04-18 00:00: 00 No 1{table t_as_ne eded} QD HYDROcodon e-Acetamin ophen 7.5-325 MG ciprofloxac in HCl 500 mg tablet 03-27 00:00: 00 03-27 00:00 :00 No [id number] 500mg Take 1 tablet by mouth in the morning. [facility] ergocalcife rol, vitamin d2, 1,250 mcg (50,000 unit) capsule 03-13 00:00: 00 Yes [id number] 74098U Take 1 capsule by mouth weekly. [facility] diclofenac dodium (VOLTAREN) 1 % gel 03-02 00:00: 00 Yes [id number] 4g Apply 4 g to area(s) 4 (four) times daily as needed for Pain. Apply 4 g qidApply to area(s) [facility] water for injection, sterile injection 10 mL 02-17 00:00: 00 02-16 22:55 :00 No [id number] 10mL 10 mL, Intravenou s, ONCE, 1 dose, On Tue02/17/24 at 1900, Routine [facility] lidocaine PF 2% (XYLOCAINE- MPF) injection 20 mL 02-16 23:45: 00 02-16 22:53 :00 No [id number] 20mL 20 mL, Injection, ONCE NOW, 1 dose, On Tue02/17/24 at 1845, Routine [facility] sodium chloride (NS) injection 10 mL 02-16 23:45: 00 02-16 22:55 :07 No [id number] 10mL [facility] bacteriosta tic saline 0.9 % injection 10 mL 02-16 23:45: 00 02-16 19:00 :00 No [id number] 10mL 10 mL, Injection, ONCE, 1 dose, On Tue02/17/24 at 1845, Routine [facility] clostridium botulinum toxin (BOTOX) injection 100 Units 02-16 22:45: 00 02-16 21:46 :00 No [id number] 100U 100 Units, Intramuscu lar, ONCE, 1 dose, On Tue02/17/24 at 1745, Routine, lance crewmember approving Restricted medication : JACK ROUSSEAU [facility] lidocaine (XYLOCAINE) 2 % jelly URO-JET 20 mL 02-16 22:45: 00 02-16 21:55 :00 No [id number] 20mL 20 mL, Urethral, ONCE, 1 dose, On Tue02/17/24 at 1745, Routine [facility] peg-electro lyte soln (GOLYTELY) 236-22.74-6 .74 -5.86 gram solution 4,000 mL 02-12 22:45: 00 02-13 10:44 :00 No 4000mL [facility] methylPREDN ISolone (MEDROL, CAROLE,) 4 mg tablets 01-22 00:00: 00 Yes [id number] 9100 Take by mouth SEE-INSTRU CTIONS. follow package directions [facility] cephALEXin 500 mg capsule 01-22 00:00: 00 01-26 00:00 :00 No [id number] 500mg Take 1 capsule by mouth at bedtime for 6 days. 3 days prior to procedure and 3 days after [facility] cyclobenzap rine 5 mg tablet 12-20 14:41: 12 12-20 00:00 :00 No 5mg Take 1 tablet by mouth in the morning and 1 tablet at noon and 1 tablet in the evening. [facility] KCL 20 mEq tablet 12-20 14:39: 38 12-20 00:00 :00 No 20meq Take 1 tablet by mouth in the morning. [facility] valsartan 160 mg tablet 12-20 14:38: 45 12-20 00:00 :00 No 160mg Take 1 tablet by mouth in the morning. [facility] chlorthalid one 25 mg tablet 12-20 14:36: 20 12-20 00:00 :00 No 25mg Take 1 tablet by mouth in the morning. [facility] furosemide 80 mg tablet 12-20 14:36: 17 12-20 00:00 :00 No 80mg Take 1 tablet by mouth every morning. [facility] spironolact one 50 mg tablet 12-20 14:36: 14 12-20 00:00 :00 No 50mg Take 1 tablet by mouth in the morning. [facility] tiZANidine 2 mg tablet 12-20 00:00: 00 04-18 00:00 :00 No [id number] 2mg Take 1 tablet by mouth every 6 (six) hours as needed for Pain (scale 7-10) (muscle spasm). [facility] ALLOPURINOL 100 mg tablet 12-20 00:00: 00 12-20 00:00 :00 No [id number] 100mg TAKE 1 TABLET BY MOUTH EVERY MORNING [facility] valsartan 160 mg tablet 12-18 12:02: 41 Yes 160mg Take 1 tablet by mouth in the morning. [facility] spironolact one 50 mg tablet 12-18 12:02: 41 Yes 50mg Take 1 tablet by mouth in the morning. [facility] KCL 20 mEq tablet 12-18 12:02: 41 Yes 20meq Take 1 tablet by mouth in the morning. [facility] chlorthalid one 25 mg tablet 12-18 12:02: 41 Yes 25mg Take 1 tablet by mouth in the morning. [facility] cyclobenzap rine 5 mg tablet 11-01 12:12: 08 Yes 5mg Take 1 tablet by mouth in the morning and 1 tablet at noon and 1 tablet in the evening. [facility] Trospium 60 mg capsule 09-28 00:00: 00 12-20 00:00 :00 No [id number] 60mg Take 1 capsule by mouth in the morning. [facility] Nitrofurant oin&Nit. Macrocryst (MACROBID) 100 mg capsule 2022-09 00:00: 00 09-28 05:59 :00 No [id number] 100mg Take 1 capsule by mouth in the morning and 1 capsule in the evening. Do all this for 5 days. [facility] traMADoL 50 mg tablet 2022-09 14:28: 58 04-18 00:00 :00 No 50mg Take 1 tablet by mouth every 6 (six) hours as needed. [facility] methocarbam oL 500 mg tablet 2022-09 00:00: 00 12-20 00:00 :00 No [id number] 500mg Take 1 tablet by mouth 4 (four) times daily. [facility] tiZANidine 2 mg tablet 2022-09 00:00: 00 08-09 00:00 :00 No 2mg Take 1 tablet by mouth every 6 (six) hours as needed. [facility] traMADoL 50 mg tablet 2022-09 13:45: 14 Yes 50mg Take 1 tablet by mouth every 6 (six) hours as needed. [facility] furosemide 80 mg tablet 2022-09 13:15: 48 Yes 80mg Take 1 tablet by mouth every morning. [facility] allopurinoL 100 mg tablet 2022-09 00:00: 00 12-20 00:00 :00 No [id number] 100mg Take 1 tablet by mouth every morning. [facility] furosemide 80 mg tablet 2022-09 08:46: 35 Yes 80mg Take 1 tablet by mouth every morning. [facility] lidocaine-p rilocaine 2.5-2.5 % cream 06-19 00:00: 00 Yes Apply 2 g to area(s) 2 (two) times daily as needed for Pain (scale 4-6) [facility] lidocaine 1.8 % PtMd 06-16 00:00: 00 07-07 00:00 :00 No [id number] 1{patch } Apply 1 Patch to area(s) every 48 (forty-eig ht) hours. [facility] Walker [facility]TRA[facility]LIGH T ROLL[facility] 00 Yes [id number] R55/W19.XX XS/M79.604 /R06.02/I5 0.32/I51.7 /E11.3511: Use daily for ambulation /fall precaution (brand pending insurance approval) [facility] methocarbam oL 500 mg tablet 06-08 00:00: 00 08-09 00:00 :00 No [id number] 500mg Take 1 tablet by mouth 4 (four) times daily. [facility] Capsaicin 0.15 % Liqd 06-01 00:00: 00 07-07 00:00 :00 No [id number] Apply to area(s) 2 (two) times daily as needed for Pain (scale 4-6). [facility] methocarbam oL 500 mg tablet 06-01 00:00: 00 06-08 00:00 :00 No [id number] 500mg Take 1 tablet by mouth 3 (three) times daily as needed (Chronic Pain and muscle spasms). [facility] cyclobenzap rine 5 mg tablet 05-29 00:00: 00 06-01 00:00 :00 No [id number] 5mg Take 1 tablet by mouth in the morning and 1 tablet at noon and 1 tablet in the evening. [facility] tens unit electrodes (TENS UNITS ELECTRODES) 2X2 " Pads 05-19 00:00: 00 07-07 00:00 :00 No [id number] Use as directed [facility] TENS unit and electrodes Cmpk 05-19 00:00: 00 07-07 00:00 :00 No [id number] 1U Take 1 Units in the morning. M54.41. use daily on affected areas. Brand as covered by insurance [facility] tiZANidine 2 mg tablet 05-19 00:00: 00 06-01 00:00 :00 No [facility] traMADoL 50 mg tablet 05-04 00:00: 00 07-07 00:00 :00 No Take 1 tablet (50 mg total) by mouth every 6 (six) hours if needed for moderate pain [facility] lidocaine-p rilocaine 5-2.5-2.5 % PaCr 04-01 00:00: 00 Yes [id number] 2g Apply 2 g to area(s) 2 (two) times daily as needed for Pain (scale 4-6). [facility] Diclofenac Sodium (VOLTAREN) 1 % gel 04-01 00:00: 00 03-02 00:00 :00 No [id number] Apply to area(s) 4 (four) times daily. Apply 4 g qid [facility] lidocaine-p rilocaine 5-2.5-2.5 % PaCr 04-01 00:00: 07-04 00:00 :00 No [id number] 2g Apply 2 g to area(s) 2 (two) times daily as needed for Pain (scale 4-6). [facility] TENS unit and electrodes Cmpk 04-01 00:00: 00 05-19 00:00 :00 No [id number] 1U Take 1 Units in the morning. M54.41. use daily on affected areas. Brand as covered by insurance [facility] methocarbam oL 500 mg tablet 04-01 00:00: 00 04-05 00:00 :00 No [id number] 500mg Take 1 tablet by mouth 4 (four) times daily. [facility] nystatin/ma alox/diphen hydrAMINE/l idocaine 2 % viscous 1:1:1:1 Susp suspension 03-24 00:00: 00 04-29 00:00 :00 No [id number] 5mL Take 5 mL by mouth 4 (four) times daily as needed (Sore throat). Gargle and spit, do not swallow [facility] TENS unit and electrodes [facility] 03-24 00:00: 00 04-01 00:00 :00 No [id number] 1U Take 1 Units in the morning. M54.41. use daily on affected areas. Brand as covered by insurance [facility] tiZANidine 2 mg tablet 03-22 00:00: 00 07-07 00:00 :00 No 2mg Take 1 tablet by mouth in the morning and 1 tablet in the evening. [facility] traMADoL 50 mg tablet 03-21 00:00: 00 04-01 00:00 :00 No [id number] 50mg Take 1 tablet by mouth every 4 (four) hours as needed for Pain (scale 7-10). Indication s: acute pain [facility] vibegron (GEMTESA) 75 mg Tab 03-17 00:00: 00 12-20 00:00 :00 No [id number] 75mg Take 75 mg by mouth in the morning. [facility] Trospium 60 mg capsule 03-17 00:00: 00 07-07 00:00 :00 No [id number] 60mg Take 1 capsule by mouth in the morning. [facility] Trospium 60 mg capsule 6-16 00:00: 00 03-17 00:00 :00 No [id number] 60mg Take 1 capsule by mouth in the morning. [facility] methylPREDN ISolone (MEDROL, CAROLE,) 4 mg tablets 03-08 00:00: 00 04-01 00:00 :00 No [id number] 84mg Take 21 tablets by mouth SEE-INSTRU CTIONS. follow package directions [facility] diclofenac 75 mg EC tablet 03-08 00:00: 00 04-01 00:00 :00 No [id number] 75mg Take 1 tablet by mouth in the morning and 1 tablet in the evening. Take with meals. Do all this for 30 days. [facility] ergocalcife rol, vitamin d2, 1,250 mcg (50,000 unit) capsule 02-27 00:00: 00 03-12 00:00 :00 No [id number] Take 1 capsule by mouth weekly. [facility] hydrocortis one (PROCTOSOL HC) 2.5 % rectal cream 01-14 00:00: 00 Yes [id number] Insert into rectum 2 (two) times daily. [facility] aspirin 81 mg EC tablet 18 16:47: 15 Yes [id number] 81mg Take 1 tablet by mouth in the morning. [facility] budesonide/ formoterol fumarate (BUDESONIDE -FORMOTEROL INHALE) 18 16:47: 15 Yes Inhale 2 (two) times daily. [facility] Diclofenac Sodium (VOLTAREN) 1 % gel 18 00:00: 00 04-01 00:00 :00 No [id number] Apply to area(s) 4 (four) times daily. Apply 4 g qid [facility] tiZANidine 2 mg tablet 18 00:00: 00 04-01 00:00 :00 No [id number] 1mg Take 0.5 tablets by mouth every 8 (eight) hours as needed (muscle spasms). [facility] furosemide 20 mg tablet 01-11 00:00: 00 01-11 00:00 :00 No [id number] 20mg Take 1 tablet by mouth in the morning. [facility] hydrALAZINE 25 mg tablet 12-03 00:00: 00 Yes [id number] 25mg Take 1 tablet by mouth in the morning and 1 tablet at noon and 1 tablet in the evening. [facility] vibegron (GEMTESA) 75 mg Tab 11-26 00:00: 00 03-17 00:00 :00 No [id number] 75mg Take 75 mg by mouth in the morning. [facility] hydrALAZINE 25 mg tablet 11-25 16:19: 43 11-25 00:00 :00 No 25mg Take 1 tablet by mouth in the morning and 1 tablet in the evening. [facility] hydrALAZINE 25 mg tablet 11-25 00:00: 00 12-03 00:00 :00 No [id number] 25mg Take 1 tablet by mouth in the morning and 1 tablet at noon and 1 tablet in the evening. [facility] vibegron (GEMTESA) 75 mg Tab 1- 00:00: 00 11-25 00:00 :00 No [id number] 75mg Take 75 mg by mouth in the morning. [facility] estradioL (ESTRACE) 0.01 % (0.1 mg/gram) vaginal cream 10-13 00:00: 00 Yes [id number] Apply 1g vaginally at bedtime every night for 2 weeks and then 2-3 times per week [facility] Iron-Vitami n C 100-250 mg Tab 1-05 00:00: 00 Yes 1{tbl} Take 1 tablet by mouth in the morning. [facility] estradioL (ESTRACE) 0.01 % (0.1 mg/gram) vaginal cream 2021-09 00:00: 00 11-22 00:00 :00 No [id number] Apply 1g vaginally at bedtime every night for 2 weeks and then apply 1g vaginally at bedtime 2-3 times per week [facility] estradioL (ESTRACE) 0.01 % (0.1 mg/gram) vaginal cream 2021-09 00:00: 00 09-23 00:00 :00 No [id number] Apply 1g vaginally at bedtime every night for 2 weeks and then apply 1g vaginally at bedtime 2-3 times per week [facility] traMADoL 50 mg tablet 2021-09 00:00: 00 03-21 00:00 :00 No [id number] 50mg Take 1 tablet by mouth every 6 (six) hours as needed. [facility] methylPREDN ISolone (MEDROL, CAROLE,) 4 mg tablets 2021-09 00:00: 00 11-22 00:00 :00 No [id number] 84mg Take 21 tablets by mouth SEE-INSTRU CTIONS. follow package directions [facility] tiZANidine 2 mg tablet 2021-09 00:00: 00 01-11 00:00 :00 No [id number] 1mg Take 0.5 tablets by mouth every 8 (eight) hours as needed (muscle spasms). [facility] furosemide 20 mg tablet 2021-09 00:00: 00 01-11 00:00 :00 No [id number] 10mg Take 0.5 tablets by mouth in the morning. [facility] vibegron (GEMTESA) 75 mg Tab 2021-09 00:00: 00 03-17 00:00 :00 No [id number] 75mg Take 75 mg by mouth daily. [facility] FUROSEMIDE 20 mg tablet 2021-09 00:00: 00 08-26 00:00 :00 No [id number] 4102 TAKE 1/2 TABLET BY MOUTH DAILY [facility] lidocaine-p rilocaine 5-2.5-2.5 % PaCr 2021-09 0- 00:00: 00 04-01 00:00 :00 No [id number] 2g Apply 2 g to area(s) 2 (two) times daily as needed for Pain (scale 4-6). [facility] lidocaine-p rilocaine 5-2.5-2.5 % PaCr 2021-09 00:00: 00 04-01 00:00 :00 No [id number] 2g Apply 2 g to area(s) 2 (two) times daily as needed for Pain (scale 4-6). [facility] ergocalcife rol, vitamin d2, 1,250 mcg (50,000 unit) capsule 2021-09 00:00: 00 02-27 00:00 :00 No [id number] Take 1 capsule by mouth weekly. [facility] amitriptyli ne 10 mg tablet 2021-09 00:00: 00 11-25 00:00 :00 No [id number] 10mg Take 1 tablet by mouth at bedtime. [facility] tuberculin ppd (TUBERSOL) injection 5 Units 9-14 22:00: 00 06-09 10:00 :00 No [id number] 5U [facility] Simethicone (GAS-X) 125 mg -05 00:00: 00 12-20 00:00 :00 No [id number] 125mg Take 1 capsule by mouth after meals and at bedtime as needed for Gas. [facility] Diclofenac Sodium (VOLTAREN) 1 % gel 04-30 00:00: 00 01-11 00:00 :00 No [id number] 103 Apply to area(s) 4 (four) times daily. Apply 4 g qid [facility] Lidocaine 5 % cream 8 00:00: 00 07-12 00:00 :00 No [id number] 103 Apply to area(s) 2 (two) times daily as needed for Pain (scale 4-6). Apply 5g to affected areas BID PRN [facility] acetaminoph en 650 mg CR tablet 01-28 00:00: 00 04-01 00:00 :00 No [id number] 650mg Take 1 tablet by mouth every 8 (eight) hours as needed for Pain or Fever. [facility] tiZANidine 2 mg tablet 01-28 00:00: 00 09-05 00:00 :00 No [id number] 1mg Take 0.5 tablets by mouth every 8 (eight) hours as needed (muscle spasms). [facility] furosemide (LASIX) 20 mg tablet 01-28 00:00: 00 07-21 00:00 :00 No [id number] 10mg Take 0.5 tablets by mouth daily. [facility] hydrocortis one (PROCTOSOL HC) 2.5 % rectal cream 12-04 00:00: 00 01-14 00:00 :00 No [id number] Insert into rectum 2 (two) times daily. [facility] aspirin (ASPIRIN LOW DOSE) 81 mg EC tablet 2020-09 15:45: 28 Yes [id number] 81mg Take 81 mg by mouth daily. [facility] budesonide/ formoterol fumarate (BUDESONIDE -FORMOTEROL INHALE) 2020-09 15:45: 28 Yes Inhale 2 (two) times daily. [facility] hydrALAZINE 25 mg tablet 05-27 11:06: 45 Yes 25mg Take 25 mg by mouth 2 (two) times daily. [facility] albuterol 90 mcg/actuati on inhaler 2017-09 00:00: 00 Yes [id number] 2{puff} Inhale 2 Puffs every 6 (six) hours as needed for Wheezing or Shortness of Breath. [facility] Colchicine 0.6 MG Colchicine 0.6 MG No Colchicine 0.6 MG predniSONE 5 MG predniSONE 5 MG No predniSONE 5 MG Gabapentin 300 MG Gabapentin 300 MG No Gabapentin 300 MG Ezetimibe 10 MG Ezetimibe 10 MG No Ezetimibe 10 MG Telmisartan 20 MG Telmisartan 20 MG No Telmisarta n 20 MG Torsemide 20 MG Torsemide 20 MG No Torsemide 20 MG Methocarbam ol 500 MG Methocarbam ol 500 MG No 1{table ts} 6xD Methocarba mol 500 MG Allopurinol 300 MG Allopurinol 300 MG No Allopurino l 300 MG Carvedilol 25 MG Carvedilol 25 MG No Carvedilol 25 MG Trimethopri m 100 MG Trimethopri m 100 MG No Trimethopr im 100 MG Immunizations Ordered Immunization Name Filled Immunization Name Date Status Comments Source SARS-COV-2 COVID-19 MIGUEL-SUCROSE VACCINE 12 YRS+, BIVALENT 0.3ML, IM, ([facility]) 2022-08-17 00:00:00 Completed [facility] SARS-COV-2 COVID-19 MIGUEL-SUCROSE VACCINE 12 YRS+, BIVALENT 0.3ML, IM, ([facility]) 2022-08-17 00:00:00 Completed [facility] SARS-COV-2 COVID-19 MIGUEL-SUCROSE VACCINE 12 YRS+, BIVALENT 0.3ML, IM, ([facility]) 2022-08-17 00:00:00 Completed [facility] SARS-COV-2 COVID-19 MIGUEL-SUCROSE VACCINE 12 YRS+, BIVALENT 0.3ML, IM, ([facility]) 2022-08-17 00:00:00 Completed [facility] SARS-COV-2 COVID-19 MIGUEL-SUCROSE VACCINE 12 YRS+, BIVALENT 0.3ML, IM, ([facility]) 2022-08-17 00:00:00 Completed [facility] SARS-COV-2 COVID-19 MIGUEL-SUCROSE VACCINE 12 YRS+, BIVALENT 0.3ML, IM, ([facility]) 2022-08-17 00:00:00 Completed [facility] SARS-COV-2 COVID-19 MIGUEL-SUCROSE VACCINE 12 YRS+, BIVALENT 0.3ML, IM, ([facility]) 2022-08-17 00:00:00 Completed [facility] SARS-COV-2 COVID-19 MIGUEL-SUCROSE VACCINE 12 YRS+, BIVALENT 0.3ML, IM, ([facility]) 2022-08-17 00:00:00 Completed [facility] SARS-COV-2 COVID-19 MIGUEL-SUCROSE VACCINE 12 YRS+, BIVALENT 0.3ML, IM, ([facility]) 2022-08-17 00:00:00 Completed [facility] SARS-COV-2 COVID-19 MIGUEL-SUCROSE VACCINE 12 YRS+, BIVALENT 0.3ML, IM, ([facility]) 2022-08-17 00:00:00 Completed [facility] SARS-COV-2 COVID-19 MIGUEL-SUCROSE VACCINE 12 YRS+, BIVALENT 0.3ML, IM, ([facility]) 2022-08-17 00:00:00 Completed [facility] SARS-COV-2 COVID-19 MIGUEL-SUCROSE VACCINE 12 YRS+, BIVALENT 0.3ML, IM, ([facility]) 2022-08-17 00:00:00 Completed [facility] SARS-COV-2 COVID-19 MIGUEL-SUCROSE VACCINE 12 YRS+, BIVALENT 0.3ML, IM, ([facility]) 2022-08-17 00:00:00 Completed [facility] SARS-COV-2 COVID-19 MIGUEL-SUCROSE VACCINE 12 YRS+, BIVALENT 0.3ML, IM, ([facility]) 2022-08-17 00:00:00 Completed [facility] SARS-COV-2 COVID-19 MIGUEL-SUCROSE VACCINE 12 YRS+, BIVALENT 0.3ML, IM, ([facility]) 2022-08-17 00:00:00 Completed [facility] SARS-COV-2 COVID-19 MIGUEL-SUCROSE VACCINE 12 YRS+, BIVALENT 0.3ML, IM, ([facility]) 2022-08-17 00:00:00 Completed [facility] SARS-COV-2 COVID-19 MIGUEL-SUCROSE VACCINE 12 YRS+, BIVALENT 0.3ML, IM, ([facility]) 2022-08-17 00:00:00 Completed [facility] SARS-COV-2 COVID-19 MIGUEL-SUCROSE VACCINE 12 YRS+, BIVALENT 0.3ML, IM, ([facility]) 2022-08-17 00:00:00 Completed [facility] SARS-COV-2 COVID-19 MIGUEL-SUCROSE VACCINE 12 YRS+, BIVALENT 0.3ML, IM, ([facility]) 2022-08-17 00:00:00 Completed [facility] SARS-COV-2 COVID-19 MIGUEL-SUCROSE VACCINE 12 YRS+, BIVALENT 0.3ML, IM, ([facility] [employer] [facility]) 2022-08-17 00:00:00 Completed [facility] SARS-COV-2 COVID-19 MIGUEL-SUCROSE VACCINE 12 YRS+, BIVALENT 0.3ML, IM, ([facility] [employer] [facility]) 2022-08-17 00:00:00 Completed [facility] SARS-COV-2 COVID-19 MIGUEL-SUCROSE VACCINE 12 YRS+, BIVALENT 0.3ML, IM, ([facility] [employer]) 2022-08-17 00:00:00 Completed [facility] SARS-COV-2 COVID-19 MIGUEL-SUCROSE VACCINE 12 YRS+, BIVALENT 0.3ML, IM, ([facility]) 2022-08-17 00:00:00 Completed [facility] SARS-COV-2 COVID-19 MIGUEL-SUCROSE VACCINE 12 YRS+, BIVALENT 0.3ML, IM, ([facility]) 2022-08-17 00:00:00 Completed [facility] SARS-COV-2 COVID-19 MIGUEL-SUCROSE VACCINE 12 YRS+, BIVALENT 0.3ML, IM, ([facility]) 2022-08-17 00:00:00 Completed [facility] SARS-COV-2 COVID-19 MIGUEL-SUCROSE VACCINE 12 YRS+, BIVALENT 0.3ML, IM, ([facility]) 2022-08-17 00:00:00 Completed [facility] SARS-COV-2 COVID-19 MIGUEL-SUCROSE VACCINE 12 YRS+, BIVALENT 0.3ML, IM, ([facility]) 2022-08-17 00:00:00 Completed [facility] SARS-COV-2 COVID-19 MIGUEL-SUCROSE VACCINE 12 YRS+, BIVALENT 0.3ML, IM, ([facility]) 2022-08-17 00:00:00 Completed [facility] SARS-COV-2 COVID-19 MIGUEL-SUCROSE VACCINE 12 YRS+, BIVALENT 0.3ML, IM, ([facility]) 2022-08-17 00:00:00 Completed [facility] SARS-COV-2 COVID-19 MIGUEL-SUCROSE VACCINE 12 YRS+, BIVALENT 0.3ML, IM, ([facility]) 2022-08-17 00:00:00 Completed [facility] SARS-COV-2 COVID-19 MIGUEL-SUCROSE VACCINE 12 YRS+, BIVALENT 0.3ML, IM, ([facility]) 2022-08-17 00:00:00 Completed [facility] SARS-COV-2 COVID-19 MIGUEL-SUCROSE VACCINE 12 YRS+, BIVALENT 0.3ML, IM, ([facility]) 2022-08-17 00:00:00 Completed [facility] SARS-COV-2 COVID-19 MIGUEL-SUCROSE VACCINE 12 YRS+, BIVALENT 0.3ML, IM, ([facility]) 2022-08-17 00:00:00 Completed [facility] SARS-COV-2 COVID-19 MIGUEL-SUCROSE VACCINE 12 YRS+, BIVALENT 0.3ML, IM, ([facility]) 2022-08-17 00:00:00 Completed [facility] SARS-COV-2 COVID-19 MIGUEL-SUCROSE VACCINE 12 YRS+, BIVALENT 0.3ML, IM, ([facility]) 2022-08-17 00:00:00 Completed [facility] SARS-COV-2 COVID-19 MIGUEL-SUCROSE VACCINE 12 YRS+, BIVALENT 0.3ML, IM, ([facility]) 2022-08-17 00:00:00 Completed [facility] SARS-COV-2 COVID-19 MIGUEL-SUCROSE VACCINE 12 YRS+, BIVALENT 0.3ML, IM, ([facility]) 2022-08-17 00:00:00 Completed [facility] SARS-COV-2 COVID-19 MIGUEL-SUCROSE VACCINE 12 YRS+, BIVALENT 0.3ML, IM, ([facility]) 2022-08-17 00:00:00 Completed [facility] SARS-COV-2 COVID-19 MIGUEL-SUCROSE VACCINE 12 YRS+, BIVALENT 0.3ML, IM, ([facility]) 2022-08-17 00:00:00 Completed [facility] SARS-COV-2 COVID-19 MIGUEL-SUCROSE VACCINE 12 YRS+, BIVALENT 0.3ML, IM, ([facility]) 2022-08-17 00:00:00 Completed [facility] SARS-COV-2 COVID-19 MIGUEL-SUCROSE VACCINE 12 YRS+, BIVALENT 0.3ML, IM, ([facility]) 2022-08-17 00:00:00 Completed [facility] SARS-COV-2 COVID-19 MIGUEL-SUCROSE VACCINE 12 YRS+, BIVALENT 0.3ML, IM, ([facility]) 2022-08-17 00:00:00 Completed [facility] SARS-COV-2 COVID-19 MIGUEL-SUCROSE VACCINE 12 YRS+, BIVALENT 0.3ML, IM, (P[facility] TOP) 2022-08-17 00:00:00 Completed [facility] SARS-COV-2 COVID-19 MIGUEL-SUCROSE VACCINE 12 YRS+, BIVALENT 0.3ML, IM, (P[facility]ER S[facility] TOP) 2022-08-17 00:00:00 Completed [facility] SARS-COV-2 COVID-19 MIGUEL-SUCROSE VACCINE 12 YRS+, BIVALENT 0.3ML, IM, (PFI[employer]ER SON TOP) 2022-08-17 00:00:00 Completed [facility] SARS-COV-2 COVID-19 MIGUEL-SUCROSE VACCINE 12 YRS+, BIVALENT 0.3ML, IM, (PFI[facility]ER SON TOP) 2022-08-17 00:00:00 Completed [facility] SARS-COV-2 COVID-19 MIGUEL-SUCROSE VACCINE 12 YRS+, BIVALENT 0.3ML, IM, (PFI[facility]ER SON TOP) 2022-08-17 00:00:00 Completed [facility] SARS-COV-2 COVID-19 MIGUEL-SUCROSE VACCINE 12 YRS+, BIVALENT 0.3ML, IM, (PFIZER SON TOP) 2022-08-17 00:00:00 Completed [facility] SARS-COV-2 COVID-19 MIGUEL-SUCROSE VACCINE 12 YRS+, BIVALENT 0.3ML, IM, (PFIZER SON TOP) 2022-08-17 00:00:00 Completed [facility] SARS-COV-2 COVID-19 MIGUEL-SUCROSE VACCINE 12 YRS+, BIVALENT 0.3ML, IM, (PFIZER SON TOP) 2022-08-17 00:00:00 Completed [facility] SARS-COV-2 COVID-19 MIGUEL-SUCROSE VACCINE 12 YRS+, BIVALENT 0.3ML, IM, (PFI[facility]ER SON TOP) 2022-08-17 00:00:00 Completed [facility] SARS-COV-2 COVID-19 MIGUEL-SUCROSE VACCINE 12 YRS+, BIVALENT 0.3ML, IM, (PFIZER SON TOP) 2022-08-17 00:00:00 Completed [facility] SARS-COV-2 COVID-19 MIGUEL-SUCROSE VACCINE 12 YRS+, BIVALENT 0.3ML, IM, (PFIZER SON TOP) 2022-08-17 00:00:00 Completed [facility] SARS-COV-2 COVID-19 MIGUEL-SUCROSE VACCINE 12 YRS+, BIVALENT 0.3ML, IM, (PFIZER SON TOP) 2022-08-17 00:00:00 Completed [facility] SARS-COV-2 COVID-19 MIGUEL-SUCROSE VACCINE 12 YRS+, BIVALENT 0.3ML, IM, (PFI[facility]ER SON TOP) 2022-08-17 00:00:00 Completed [facility] SARS-COV-2 COVID-19 MIGUEL-SUCROSE VACCINE 12 YRS+, BIVALENT 0.3ML, IM, (PFIZER SON TOP) 2022-08-17 00:00:00 Completed [facility] SARS-COV-2 COVID-19 MIGUEL-SUCROSE VACCINE 12 YRS+, BIVALENT 0.3ML, IM, (PFIZER SON TOP) 2022-08-17 00:00:00 Completed [facility] SARS-COV-2 COVID-19 MIGUEL-SUCROSE VACCINE 12 YRS+, BIVALENT 0.3ML, IM, (PFIZER SON TOP) 2022-08-17 00:00:00 Completed [facility] SARS-COV-2 COVID-19 MIGUEL-SUCROSE VACCINE 12 YRS+, BIVALENT 0.3ML, IM, (PFIZER SON TOP) 2022-08-17 00:00:00 Completed [facility] SARS-COV-2 COVID-19 MIGUEL-SUCROSE VACCINE 12 YRS+, BIVALENT 0.3ML, IM, (PFIZER SON TOP) 2022-08-17 00:00:00 Completed [facility] SARS-COV-2 COVID-19 MIGUEL-SUCROSE VACCINE 12 YRS+, BIVALENT 0.3ML, IM, (PFIZER SON TOP) 2022-08-17 00:00:00 Completed [facility] SARS-COV-2 COVID-19 MIGUEL-SUCROSE VACCINE 12 YRS+, BIVALENT 0.3ML, IM, (PFIZER SON TOP) 2022-08-17 00:00:00 Completed [facility] SARS-COV-2 COVID-19 MIGUEL-SUCROSE VACCINE 12 YRS+, BIVALENT 0.3ML, IM, (PFIZER SON TOP) 2022-08-17 00:00:00 Completed [facility] SARS-COV-2 COVID-19 MIGUEL-SUCROSE VACCINE 12 YRS+, BIVALENT 0.3ML, IM, (PFIZER SON TOP) 2022-08-17 00:00:00 Completed [facility] SARS-COV-2 COVID-19 MIGUEL-SUCROSE VACCINE 12 YRS+, BIVALENT 0.3ML, IM, (PFIZER SON TOP) 2022-08-17 00:00:00 Completed [facility] SARS-COV-2 COVID-19 MIGUEL-SUCROSE VACCINE 12 YRS+, BIVALENT 0.3ML, IM, (PFIZER SON TOP) 2022-08-17 00:00:00 Completed [facility] SARS-COV-2 COVID-19 MIGUEL-SUCROSE VACCINE 12 YRS+, BIVALENT 0.3ML, IM, (PFIZER SON TOP) 2022-08-17 00:00:00 Completed [facility] SARS-COV-2 COVID-19 MIGUEL-SUCROSE VACCINE 12 YRS+, BIVALENT 0.3ML, IM, (PFIZER SON TOP) 2022-08-17 00:00:00 Completed [facility] SARS-COV-2 COVID-19 MIGUEL-SUCROSE VACCINE 12 YRS+, BIVALENT 0.3ML, IM, (PFIZER SON TOP) 2022-08-17 00:00:00 Completed [facility] SARS-COV-2 COVID-19 MIGUEL-SUCROSE VACCINE 12 YRS+, BIVALENT 0.3ML, IM, (PFIZER SON TOP) 2022-08-17 00:00:00 Completed [facility] SARS-COV-2 COVID-19 MIGUEL-SUCROSE VACCINE 12 YRS+, BIVALENT 0.3ML, IM, (PFIZER SON TOP) 2022-08-17 00:00:00 Completed [facility] SARS-COV-2 COVID-19 MIGUEL-SUCROSE VACCINE 12 YRS+, BIVALENT 0.3ML, IM, (PFIZER SON TOP) 2022-08-17 00:00:00 Completed [facility] SARS-COV-2 COVID-19 MIGUEL-SUCROSE VACCINE 12 YRS+, BIVALENT 0.3ML, IM, (PFIZER SON TOP) 2022-08-17 00:00:00 Completed [facility] SARS-COV-2 COVID-19 MIGUEL-SUCROSE VACCINE 12 YRS+, BIVALENT 0.3ML, IM, (PFIZER SON TOP) 2022-08-17 00:00:00 Completed [facility] SARS-COV-2 COVID-19 MIGUEL-SUCROSE VACCINE 12 YRS+, BIVALENT 0.3ML, IM, (PFIZER SON TOP) 2022-08-17 00:00:00 Completed [facility] SARS-COV-2 COVID-19 MIGUEL-SUCROSE VACCINE 12 YRS+, BIVALENT 0.3ML, IM, (PFIZER SON TOP) 2022-08-17 00:00:00 Completed [facility] SARS-COV-2 COVID-19 MIGUEL-SUCROSE VACCINE 12 YRS+, BIVALENT 0.3ML, IM, (PFIZER SON TOP) 2022-08-17 00:00:00 Completed [facility] SARS-COV-2 COVID-19 MIGUEL-SUCROSE VACCINE 12 YRS+, BIVALENT 0.3ML, IM, (PFIZER SON TOP) 2022-08-17 00:00:00 Completed [facility] SARS-COV-2 COVID-19 MIGUEL-SUCROSE VACCINE 12 YRS+, BIVALENT 0.3ML, IM, (PFIZER SON TOP) 2022-08-17 00:00:00 Completed [facility] SARS-COV-2 COVID-19 MIGUEL-SUCROSE VACCINE 12 YRS+, BIVALENT 0.3ML, IM, (PFIZER SON TOP) 2022-08-17 00:00:00 Completed [facility] SARS-COV-2 COVID-19 MIGUEL-SUCROSE VACCINE 12 YRS+, BIVALENT 0.3ML, IM, (PFIZER SON TOP) 2022-08-17 00:00:00 Completed [facility] SARS-COV-2 COVID-19 MIGUEL-SUCROSE VACCINE 12 YRS+, BIVALENT 0.3ML, IM, (PFIZER SON TOP) 2022-08-17 00:00:00 Completed [facility] SARS-COV-2 COVID-19 MIGUEL-SUCROSE VACCINE 12 YRS+, BIVALENT 0.3ML, IM, (PFIZER SON TOP) 2022-08-17 00:00:00 Completed [facility] SARS-COV-2 COVID-19 MIGUEL-SUCROSE VACCINE 12 YRS+, BIVALENT 0.3ML, IM, (PFIZER SON TOP) 2022-08-17 00:00:00 Completed [facility] SARS-COV-2 COVID-19 MIGUEL-SUCROSE VACCINE 12 YRS+, BIVALENT 0.3ML, IM, (PFIZER SON TOP) 2022-08-17 00:00:00 Completed [facility] SARS-COV-2 COVID-19 MIGUEL-SUCROSE VACCINE 12 YRS+, BIVALENT 0.3ML, IM, (PFIZER SON TOP) 2022-08-17 00:00:00 Completed [facility] SARS-COV-2 COVID-19 MIGUEL-SUCROSE VACCINE 12 YRS+, BIVALENT 0.3ML, IM, (PFIZER SON TOP) 2022-08-17 00:00:00 Completed [facility] SARS-COV-2 COVID-19 MIGUEL-SUCROSE VACCINE 12 YRS+, BIVALENT 0.3ML, IM, (PFIZER SON TOP) 2022-08-17 00:00:00 Completed [facility] SARS-COV-2 COVID-19 MIGUEL-SUCROSE VACCINE 12 YRS+, BIVALENT 0.3ML, IM, (PFIZER SON TOP) 2022-08-17 00:00:00 Completed [facility] SARS-COV-2 COVID-19 MIGUEL-SUCROSE VACCINE 12 YRS+, BIVALENT 0.3ML, IM, (PFIZER SON TOP) 2022-08-17 00:00:00 Completed [facility] SARS-COV-2 COVID-19 MIGUEL-SUCROSE VACCINE 12 YRS+, BIVALENT 0.3ML, IM, (PFIZER SON TOP) 2022-08-17 00:00:00 Completed [facility] SARS-COV-2 COVID-19 MIGUEL-SUCROSE VACCINE 12 YRS+, BIVALENT 0.3ML, IM, (PFIZER SON TOP) 2022-08-17 00:00:00 Completed [facility] SARS-COV-2 COVID-19 MIGUEL-SUCROSE VACCINE 12 YRS+, BIVALENT 0.3ML, IM, (PFIZER SON TOP) 2022-08-17 00:00:00 Completed [facility] SARS-COV-2 COVID-19 MIGUEL-SUCROSE VACCINE 12 YRS+, BIVALENT 0.3ML, IM, (PFIZER SON TOP) 2022-08-17 00:00:00 Completed [facility] SARS-COV-2 COVID-19 MIGUEL-SUCROSE VACCINE 12 YRS+, BIVALENT 0.3ML, IM, (PFIZER SON TOP) 2022-08-17 00:00:00 Completed [facility] SARS-COV-2 COVID-19 MIGUEL-SUCROSE VACCINE 12 YRS+, BIVALENT 0.3ML, IM, (PFIZER SON TOP) 2022-08-17 00:00:00 Completed [facility] SARS-COV-2 COVID-19 MIGUEL-SUCROSE VACCINE 12 YRS+, BIVALENT 0.3ML, IM, (PFIZER SON TOP) 2022-08-17 00:00:00 Completed [facility] SARS-COV-2 COVID-19 MIGUEL-SUCROSE VACCINE 12 YRS+, BIVALENT 0.3ML, IM, (PFIZER SON TOP) 2022-08-17 00:00:00 Completed [facility] SARS-COV-2 COVID-19 MIGUEL-SUCROSE VACCINE 12 YRS+, BIVALENT 0.3ML, IM, (PFIZER SON TOP) 2022-08-17 00:00:00 Completed [facility] SARS-COV-2 COVID-19 MIGUEL-SUCROSE VACCINE 12 YRS+, BIVALENT 0.3ML, IM, (PFIZER SON TOP) 2022-08-17 00:00:00 Completed [facility] SARS-COV-2 COVID-19 MIGUEL-SUCROSE VACCINE 12 YRS+, BIVALENT 0.3ML, IM, (PFIZER SON TOP) 2022-08-17 00:00:00 Completed [facility] SARS-COV-2 COVID-19 MIGUEL-SUCROSE VACCINE 12 YRS+, BIVALENT 0.3ML, IM, (PFIZER SON TOP) 2022-08-17 00:00:00 Completed [facility] SARS-COV-2 COVID-19 MIGUEL-SUCROSE VACCINE 12 YRS+, BIVALENT 0.3ML, IM, (PFIZER SON TOP) 2022-08-17 00:00:00 Completed [facility] SARS-COV-2 COVID-19 MIGUEL-SUCROSE VACCINE 12 YRS+, BIVALENT 0.3ML, IM, (PFIZER SON TOP) 2022-08-17 00:00:00 Completed [facility] SARS-COV-2 COVID-19 MIGUEL-SUCROSE VACCINE 12 YRS+, BIVALENT 0.3ML, IM, (PFIZER SON TOP) 2022-08-17 00:00:00 Completed [facility] SARS-COV-2 COVID-19 MIGUEL-SUCROSE VACCINE 12 YRS+, BIVALENT 0.3ML, IM, (PFIZER SON TOP) 2022-08-17 00:00:00 Completed [facility] SARS-COV-2 COVID-19 MIGUEL-SUCROSE VACCINE 12 YRS+, BIVALENT 0.3ML, IM, (PFIZER SON TOP) 2022-08-17 00:00:00 Completed [facility] SARS-COV-2 COVID-19 MIGUEL-SUCROSE VACCINE 12 YRS+, BIVALENT 0.3ML, IM, (PFIZER SON TOP) 2022-08-17 00:00:00 Completed [facility] SARS-COV-2 COVID-19 MIGUEL-SUCROSE VACCINE 12 YRS+, BIVALENT 0.3ML, IM, (PFIZER SON TOP) 2022-08-17 00:00:00 Completed [facility] SARS-COV-2 COVID-19 MIGUEL-SUCROSE VACCINE 12 YRS+, BIVALENT 0.3ML, IM, (PFIZER SON TOP) 2022-08-17 00:00:00 Completed [facility] SARS-COV-2 COVID-19 MIGUEL-SUCROSE VACCINE 12 YRS+, BIVALENT 0.3ML, IM, (PFIZER SON TOP) 2022-08-17 00:00:00 Completed [facility] SARS-COV-2 COVID-19 MIGUEL-SUCROSE VACCINE 12 YRS+, BIVALENT 0.3ML, IM, (PFIZER SON TOP) 2022-08-17 00:00:00 Completed [facility] SARS-COV-2 COVID-19 MIGUEL-SUCROSE VACCINE 12 YRS+, BIVALENT 0.3ML, IM, (PFIZER OSN TOP) 2022-08-17 00:00:00 Completed [facility] SARS-COV-2 COVID-19 MIGUEL-SUCROSE VACCINE 12 YRS+, BIVALENT 0.3ML, IM, (PFIZER SON TOP) 2022-08-17 00:00:00 Completed [facility] SARS-COV-2 COVID-19 MIGEUL-SUCROSE VACCINE 12 YRS+, BIVALENT 0.3ML, IM, (PFIZER SON TOP) 2022-08-17 00:00:00 Completed [facility] SARS-COV-2 COVID-19 MIGUEL-SUCROSE VACCINE 12 YRS+, BIVALENT 0.3ML, IM, (PFIZER SON TOP) 2022-08-17 00:00:00 Completed [facility] SARS-COV-2 COVID-19 MIGUEL-SUCROSE VACCINE 12 YRS+, BIVALENT 0.3ML, IM, (PFIZER SON TOP) 2022-08-17 00:00:00 Completed [facility] SARS-COV-2 COVID-19 MIGUEL-SUCROSE VACCINE 12 YRS+, BIVALENT 0.3ML, IM, (PFIZER SON TOP) 2022-08-17 00:00:00 Completed [facility] SARS-COV-2 COVID-19 MIGUEL-SUCROSE VACCINE 12 YRS+, BIVALENT 0.3ML, IM, (PFIZER SON TOP) 2022-08-17 00:00:00 Completed [facility] SARS-COV-2 COVID-19 MIGUEL-SUCROSE VACCINE 12 YRS+, BIVALENT 0.3ML, IM, (PFIZER SON TOP) 2022-08-17 00:00:00 Completed [facility] SARS-COV-2 COVID-19 MIGUEL-SUCROSE VACCINE 12 YRS+, BIVALENT 0.3ML, IM, (PFIZER SON TOP) 2022-08-17 00:00:00 Completed [facility] SARS-COV-2 COVID-19 MIGUEL-SUCROSE VACCINE 12 YRS+, BIVALENT 0.3ML, IM, (PFIZER SON TOP) 2022-08-17 00:00:00 Completed [facility] SARS-COV-2 COVID-19 MIGUEL-SUCROSE VACCINE 12 YRS+, BIVALENT 0.3ML, IM, (PFIZER SON TOP) 2022-08-17 00:00:00 Completed [facility] SARS-COV-2 COVID-19 MIGUEL-SUCROSE VACCINE 12 YRS+, BIVALENT 0.3ML, IM, (PFIZER SON TOP) 2022-08-17 00:00:00 Completed [facility] SARS-COV-2 COVID-19 MIGUEL-SUCROSE VACCINE 12 YRS+, BIVALENT 0.3ML, IM, (PFIZER [facility]) 2022-08-17 00:00:00 Completed [facility] SARS-COV-2 COVID-19 MIGUEL-SUCROSE VACCINE 12 YRS+, BIVALENT 0.3ML, IM, (PFIZER [facility]) 2022-08-17 00:00:00 Completed [facility] PPD (TB) 2022-06-09 00:00:00 Completed [facility] PPD (TB) 2022-06-09 00:00:00 Completed [facility] PPD (TB) 2022-06-09 00:00:00 Completed [facility] PPD (TB) 2022-06-09 00:00:00 Completed [facility] PPD (TB) 2022-06-09 00:00:00 Completed [facility] PPD (TB) 2022-06-09 00:00:00 Completed [facility] PPD (TB) 2022-06-09 00:00:00 Completed [facility] PPD (TB) 2022-06-09 00:00:00 Completed [facility] PPD (TB) 2022-06-09 00:00:00 Completed [facility] PPD (TB) 2022-06-09 00:00:00 Completed [facility] PPD (TB) 2022-06-09 00:00:00 Completed [facility] PPD (TB) 2022-06-09 00:00:00 Completed [facility] PPD (TB) 2022-06-09 00:00:00 Completed [facility] PPD (TB) 2022-06-09 00:00:00 Completed [facility] PPD (TB) 2022-06-09 00:00:00 Completed [facility] PPD (TB) 2022-06-09 00:00:00 Completed [facility] PPD (TB) 2022-06-09 00:00:00 Completed [facility] PPD (TB) 2022-06-09 00:00:00 Completed [facility] PPD (TB) 2022-06-09 00:00:00 Completed [facility] PPD (TB) 2022-06-09 00:00:00 Completed [facility] PPD (TB) 2022-06-09 00:00:00 Completed [facility] PPD (TB) 2022-06-09 00:00:00 Completed [facility] PPD (TB) 2022-06-09 00:00:00 Completed [facility] PPD (TB) 2022-06-09 00:00:00 Completed [facility] PPD (TB) 2022-06-09 00:00:00 Completed [facility] PPD (TB) 2022-06-09 00:00:00 Completed [facility] PPD (TB) 2022-06-09 00:00:00 Completed [facility] PPD (TB) 2022-06-09 00:00:00 Completed [facility] PPD (TB) 2022-06-09 00:00:00 Completed [facility] PPD (TB) 2022-06-09 00:00:00 Completed [facility] PPD (TB) 2022-06-09 00:00:00 Completed [facility] PPD (TB) 2022-06-09 00:00:00 Completed [facility] PPD (TB) 2022-06-09 00:00:00 Completed [facility] PPD (TB) 2022-06-09 00:00:00 Completed [facility] PPD (TB) 2022-06-09 00:00:00 Completed [facility] PPD (TB) 2022-06-09 00:00:00 Completed [facility] PPD (TB) 2022-06-09 00:00:00 Completed [facility] PPD (TB) 2022-06-09 00:00:00 Completed [facility] PPD (TB) 2022-06-09 00:00:00 Completed [facility] PPD (TB) 2022-06-09 00:00:00 Completed [facility] PPD (TB) 2022-06-09 00:00:00 Completed [facility] PPD (TB) 2022-06-09 00:00:00 Completed [facility] PPD (TB) 2022-06-09 00:00:00 Completed [facility] PPD (TB) 2022-06-09 00:00:00 Completed [facility] PPD (TB) 2022-06-09 00:00:00 Completed [facility] PPD (TB) 2022-06-09 00:00:00 Completed [facility] PPD (TB) 2022-06-09 00:00:00 Completed [facility] PPD (TB) 2022-06-09 00:00:00 Completed [facility] PPD (TB) 2022-06-09 00:00:00 Completed [facility] PPD (TB) 2022-06-09 00:00:00 Completed [facility] PPD (TB) 2022-06-09 00:00:00 Completed [facility] PPD (TB) 2022-06-09 00:00:00 Completed [facility] PPD (TB) 2022-06-09 00:00:00 Completed [facility] PPD (TB) 2022-06-09 00:00:00 Completed [facility] PPD (TB) 2022-06-09 00:00:00 Completed [facility] PPD (TB) 2022-06-09 00:00:00 Completed [facility] PPD (TB) 2022-06-09 00:00:00 Completed [facility] PPD (TB) 2022-06-09 00:00:00 Completed [facility] PPD (TB) 2022-06-09 00:00:00 Completed [facility] PPD (TB) 2022-06-09 00:00:00 Completed [facility] PPD (TB) 2022-06-09 00:00:00 Completed [facility] PPD (TB) 2022-06-09 00:00:00 Completed [facility] PPD (TB) 2022-06-09 00:00:00 Completed [facility] PPD (TB) 2022-06-09 00:00:00 Completed [facility] PPD (TB) 2022-06-09 00:00:00 Completed [facility] PPD (TB) 2022-06-09 00:00:00 Completed [facility] PPD (TB) 2022-06-09 00:00:00 Completed [facility] PPD (TB) 2022-06-09 00:00:00 Completed [facility] PPD (TB) 2022-06-09 00:00:00 Completed [facility] PPD (TB) 2022-06-09 00:00:00 Completed [facility] PPD (TB) 2022-06-09 00:00:00 Completed [facility] PPD (TB) 2022-06-09 00:00:00 Completed [facility] PPD (TB) 2022-06-09 00:00:00 Completed [facility] PPD (TB) 2022-06-09 00:00:00 Completed [facility] PPD (TB) 2022-06-09 00:00:00 Completed [facility] PPD (TB) 2022-06-09 00:00:00 Completed [facility] PPD (TB) 2022-06-09 00:00:00 Completed [facility] PPD (TB) 2022-06-09 00:00:00 Completed [facility] PPD (TB) 2022-06-09 00:00:00 Completed [facility] PPD (TB) 2022-06-09 00:00:00 Completed [facility] PPD (TB) 2022-06-09 00:00:00 Completed [facility] PPD (TB) 2022-06-09 00:00:00 Completed [facility] PPD (TB) 2022-06-09 00:00:00 Completed [facility] PPD (TB) 2022-06-09 00:00:00 Completed [facility] PPD (TB) 2022-06-09 00:00:00 Completed [facility] PPD (TB) 2022-06-09 00:00:00 Completed [facility] PPD (TB) 2022-06-09 00:00:00 Completed [facility] PPD (TB) 2022-06-09 00:00:00 Completed [facility] PPD (TB) 2022-06-09 00:00:00 Completed [facility] PPD (TB) 2022-06-09 00:00:00 Completed [facility] PPD (TB) 2022-06-09 00:00:00 Completed [facility] PPD (TB) 2022-06-09 00:00:00 Completed [facility] PPD (TB) 2022-06-09 00:00:00 Completed [facility] PPD (TB) 2022-06-09 00:00:00 Completed [facility] PPD (TB) 2022-06-09 00:00:00 Completed [facility] PPD (TB) 2022-06-09 00:00:00 Completed [facility] PPD (TB) 2022-06-09 00:00:00 Completed [facility] PPD (TB) 2022-06-09 00:00:00 Completed [facility] PPD (TB) 2022-06-09 00:00:00 Completed [facility] PPD (TB) 2022-06-09 00:00:00 Completed [facility] PPD (TB) 2022-06-09 00:00:00 Completed [facility] PPD (TB) 2022-06-09 00:00:00 Completed [facility] PPD (TB) 2022-06-09 00:00:00 Completed [facility] PPD (TB) 2022-06-09 00:00:00 Completed [facility] PPD (TB) 2022-06-09 00:00:00 Completed [facility] PPD (TB) 2022-06-09 00:00:00 Completed [facility] PPD (TB) 2022-06-09 00:00:00 Completed [facility] PPD (TB) 2022-06-09 00:00:00 Completed [facility] PPD (TB) 2022-06-09 00:00:00 Completed [facility] PPD (TB) 2022-06-09 00:00:00 Completed [facility] PPD (TB) 2022-06-09 00:00:00 Completed [facility] PPD (TB) 2022-06-09 00:00:00 Completed [facility] PPD (TB) 2022-06-09 00:00:00 Completed [facility] PPD (TB) 2022-06-09 00:00:00 Completed [facility] PPD (TB) 2022-06-09 00:00:00 Completed [facility] PPD (TB) 2022-06-09 00:00:00 Completed [facility] PPD (TB) 2022-06-09 00:00:00 Completed [facility] PPD (TB) 2022-06-09 00:00:00 Completed [facility] PPD (TB) 2022-06-09 00:00:00 Completed [facility] PPD (TB) 2022-06-09 00:00:00 Completed [facility] PPD (TB) 2022-06-09 00:00:00 Completed [facility] PPD (TB) 2022-06-09 00:00:00 Completed [facility] PPD (TB) 2022-06-09 00:00:00 Completed [facility] PPD (TB) 2022-06-09 00:00:00 Completed [facility] PPD (TB) 2022-06-09 00:00:00 Completed [facility] PPD (TB) 2022-06-09 00:00:00 Completed [facility] PPD (TB) 2022-06-09 00:00:00 Completed [facility] PPD (TB) 2022-06-09 00:00:00 Completed [facility] PPD (TB) 2022-06-09 00:00:00 Completed [facility] PPD (TB) 2022-06-09 00:00:00 Completed [facility] PPD (TB) 2022-06-09 00:00:00 Completed [facility] PPD (TB) 2022-06-09 00:00:00 Completed [facility] PPD (TB) 2022-06-09 00:00:00 Completed [facility] PPD (TB) 2022-06-09 00:00:00 Completed [facility] PPD (TB) 2022-06-09 00:00:00 Completed [facility] PPD (TB) 2022-06-09 00:00:00 Completed [facility] PPD (TB) 2022-06-09 00:00:00 Completed [facility] PPD (TB) 2022-06-09 00:00:00 Completed [facility] PPD (TB) 2022-06-09 00:00:00 Completed [facility] PPD (TB) 2022-06-09 00:00:00 Completed [facility] PPD (TB) 2022-06-09 00:00:00 Completed [facility] PPD (TB) 2022-06-09 00:00:00 Completed [facility] PPD (TB) 2022-06-09 00:00:00 Completed [facility] PPD (TB) 2022-06-09 00:00:00 Completed [facility] PPD (TB) 2022-06-09 00:00:00 Completed [facility] PPD (TB) 2022-06-09 00:00:00 Completed [facility] PPD (TB) 2022-06-09 00:00:00 Completed [facility] PPD (TB) 2022-06-09 00:00:00 Completed [facility] PPD (TB) 2022-06-09 00:00:00 Completed [facility] PPD (TB) 2022-06-09 00:00:00 Completed [facility] PPD (TB) 2022-06-09 00:00:00 Completed [facility] PPD (TB) 2022-06-09 00:00:00 Completed [facility] PPD (TB) 2022-06-09 00:00:00 Completed [facility] PPD (TB) 2022-06-09 00:00:00 Completed [facility] PPD (TB) 2022-06-09 00:00:00 Completed [facility] PPD (TB) 2022-06-09 00:00:00 Completed [facility] PPD (TB) 2022-06-09 00:00:00 Completed [facility] PPD (TB) 2022-06-09 00:00:00 Completed [facility] PPD (TB) 2022-06-09 00:00:00 Completed [facility] PPD (TB) 2022-06-09 00:00:00 Completed [facility] PPD (TB) 2022-06-09 00:00:00 Completed [facility] PPD (TB) 2022-06-09 00:00:00 Completed [facility] PPD (TB) 2022-06-09 00:00:00 Completed [facility] PPD (TB) 2022-06-09 00:00:00 Completed [facility] PPD (TB) 2022-06-09 00:00:00 Completed [facility] PPD (TB) 2022-06-09 00:00:00 Completed [facility] PPD (TB) 2022-06-09 00:00:00 Completed [facility] PPD (TB) 2022-06-09 00:00:00 Completed [facility] PPD (TB) 2022-06-09 00:00:00 Completed [facility] PPD (TB) 2022-06-09 00:00:00 Completed [facility] PPD (TB) 2022-06-09 00:00:00 Completed [facility] PPD (TB) 2022-06-09 00:00:00 Completed [facility] PPD (TB) 2022-06-09 00:00:00 Completed [facility] PPD (TB) 2022-06-09 00:00:00 Completed [facility] PPD (TB) 2022-06-09 00:00:00 Completed [facility] PPD (TB) 2022-06-09 00:00:00 Completed [facility] PPD (TB) 2022-06-09 00:00:00 Completed [facility] PPD (TB) 2022-06-09 00:00:00 Completed [facility] PPD (TB) 2022-06-09 00:00:00 Completed [facility] PPD (TB) 2022-06-09 00:00:00 Completed [facility] PPD (TB) 2022-06-09 00:00:00 Completed [facility] PPD (TB) 2022-06-09 00:00:00 Completed [facility] PPD (TB) 2022-06-09 00:00:00 Completed [facility] PPD (TB) 2022-06-09 00:00:00 Completed [facility] PPD (TB) 2022-06-09 00:00:00 Completed [facility] PPD (TB) 2022-06-09 00:00:00 Completed [facility] PPD (TB) 2022-06-09 00:00:00 Completed [facility] PPD (TB) 2022-06-09 00:00:00 Completed [facility] PPD (TB) 2022-06-09 00:00:00 Completed [facility] PPD (TB) 2022-06-09 00:00:00 Completed [facility] PPD (TB) 2022-06-09 00:00:00 Completed [facility] PPD (TB) 2022-06-09 00:00:00 Completed [facility] PPD (TB) 2022-06-09 00:00:00 Completed [facility] PPD (TB) 2022-06-09 00:00:00 Completed [facility] PPD (TB) 2022-06-09 00:00:00 Completed [facility] PPD (TB) 2022-06-09 00:00:00 Completed [facility] PPD (TB) 2022-06-09 00:00:00 Completed [facility] PPD (TB) 2022-06-09 00:00:00 Completed [facility] PPD (TB) 2022-06-09 00:00:00 Completed [facility] PPD (TB) 2022-06-09 00:00:00 Completed [facility] PPD (TB) 2022-06-09 00:00:00 Completed [facility] PPD (TB) 2022-06-09 00:00:00 Completed [facility] SARS-COV-2 COVID-19 PFIZER VACCINE 2022-03-30 00:00:00 Completed [facility] SARS-COV-2 COVID-19 PFIZER VACCINE 2022-03-30 00:00:00 Completed [facility] SARS-COV-2 COVID-19 PFIZER VACCINE 2022-03-30 00:00:00 Completed [facility] SARS-COV-2 COVID-19 PFIZER VACCINE 2022-03-30 00:00:00 Completed [facility] SARS-COV-2 COVID-19 PFIZER VACCINE 2022-03-30 00:00:00 Completed [facility] SARS-COV-2 COVID-19 PFIZER VACCINE 2022-03-30 00:00:00 Completed [facility] SARS-COV-2 COVID-19 PFIZER VACCINE 2022-03-30 00:00:00 Completed [facility] SARS-COV-2 COVID-19 PFIZER VACCINE 2022-03-30 00:00:00 Completed [facility] SARS-COV-2 COVID-19 PFIZER VACCINE 2022-03-30 00:00:00 Completed [facility] SARS-COV-2 COVID-19 PFIZER VACCINE 2022-03-30 00:00:00 Completed [facility] SARS-COV-2 COVID-19 PFIZER VACCINE 2022-03-30 00:00:00 Completed [facility] SARS-COV-2 COVID-19 PFIZER VACCINE 2022-03-30 00:00:00 Completed [facility] SARS-COV-2 COVID-19 PFIZER VACCINE 2022-03-30 00:00:00 Completed [facility] SARS-COV-2 COVID-19 PFIZER VACCINE 2022-03-30 00:00:00 Completed [facility] SARS-COV-2 COVID-19 PFIZER VACCINE 2022-03-30 00:00:00 Completed [facility] SARS-COV-2 COVID-19 PFIZER VACCINE 2022-03-30 00:00:00 Completed [facility] SARS-COV-2 COVID-19 PFIZER VACCINE 2022-03-30 00:00:00 Completed [facility] SARS-COV-2 COVID-19 PFIZER VACCINE 2022-03-30 00:00:00 Completed [facility] SARS-COV-2 COVID-19 PFIZER VACCINE 2022-03-30 00:00:00 Completed [facility] SARS-COV-2 COVID-19 PFIZER VACCINE 2022-03-30 00:00:00 Completed [facility] SARS-COV-2 COVID-19 PFIZER VACCINE 2022-03-30 00:00:00 Completed [facility] SARS-COV-2 COVID-19 PFIZER VACCINE 2022-03-30 00:00:00 Completed [facility] SARS-COV-2 COVID-19 PFIZER VACCINE 2022-03-30 00:00:00 Completed [facility] SARS-COV-2 COVID-19 PFIZER VACCINE 2022-03-30 00:00:00 Completed [facility] SARS-COV-2 COVID-19 PFIZER VACCINE 2022-03-30 00:00:00 Completed [facility] SARS-COV-2 COVID-19 PFIZER VACCINE 2022-03-30 00:00:00 Completed [facility] SARS-COV-2 COVID-19 PFIZER VACCINE 2022-03-30 00:00:00 Completed [facility] SARS-COV-2 COVID-19 PFIZER VACCINE 2022-03-30 00:00:00 Completed [facility] SARS-COV-2 COVID-19 PFIZER VACCINE 2022-03-30 00:00:00 Completed [facility] SARS-COV-2 COVID-19 PFIZER VACCINE 2022-03-30 00:00:00 Completed [facility] SARS-COV-2 COVID-19 PFIZER VACCINE 2022-03-30 00:00:00 Completed [facility] SARS-COV-2 COVID-19 PFIZER VACCINE 2022-03-30 00:00:00 Completed [facility] SARS-COV-2 COVID-19 PFIZER VACCINE 2022-03-30 00:00:00 Completed [facility] SARS-COV-2 COVID-19 PFIZER VACCINE 2022-03-30 00:00:00 Completed [facility] SARS-COV-2 COVID-19 PFIZER VACCINE 2022-03-30 00:00:00 Completed [facility] SARS-COV-2 COVID-19 PFIZER VACCINE 2022-03-30 00:00:00 Completed [facility] SARS-COV-2 COVID-19 PFIZER VACCINE 2022-03-30 00:00:00 Completed [facility] SARS-COV-2 COVID-19 PFIZER VACCINE 2022-03-30 00:00:00 Completed [facility] SARS-COV-2 COVID-19 PFIZER VACCINE 2022-03-30 00:00:00 Completed [facility] SARS-COV-2 COVID-19 PFIZER VACCINE 2022-03-30 00:00:00 Completed [facility] SARS-COV-2 COVID-19 PFIZER VACCINE 2022-03-30 00:00:00 Completed [facility] SARS-COV-2 COVID-19 PFIZER VACCINE 2022-03-30 00:00:00 Completed [facility] SARS-COV-2 COVID-19 PFIZER VACCINE 2022-03-30 00:00:00 Completed [facility] SARS-COV-2 COVID-19 PFIZER VACCINE 2022-03-30 00:00:00 Completed [facility] SARS-COV-2 COVID-19 PFIZER VACCINE 2022-03-30 00:00:00 Completed [facility] SARS-COV-2 COVID-19 PFIZER VACCINE 2022-03-30 00:00:00 Completed [facility] SARS-COV-2 COVID-19 PFIZER VACCINE 2022-03-30 00:00:00 Completed [facility] SARS-COV-2 COVID-19 PFIZER VACCINE 2022-03-30 00:00:00 Completed [facility] SARS-COV-2 COVID-19 PFIZER VACCINE 2022-03-30 00:00:00 Completed [facility] SARS-COV-2 COVID-19 PFIZER VACCINE 2022-03-30 00:00:00 Completed [facility] SARS-COV-2 COVID-19 PFIZER VACCINE 2022-03-30 00:00:00 Completed [facility] SARS-COV-2 COVID-19 PFIZER VACCINE 2022-03-30 00:00:00 Completed [facility] SARS-COV-2 COVID-19 PFIZER VACCINE 2022-03-30 00:00:00 Completed [facility] SARS-COV-2 COVID-19 PFIZER VACCINE 2022-03-30 00:00:00 Completed [facility] SARS-COV-2 COVID-19 PFIZER VACCINE 2022-03-30 00:00:00 Completed [facility] SARS-COV-2 COVID-19 PFIZER VACCINE 2022-03-30 00:00:00 Completed [facility] SARS-COV-2 COVID-19 PFIZER VACCINE 2022-03-30 00:00:00 Completed [facility] SARS-COV-2 COVID-19 PFIZER VACCINE 2022-03-30 00:00:00 Completed [facility] SARS-COV-2 COVID-19 PFIZER VACCINE 2022-03-30 00:00:00 Completed [facility] SARS-COV-2 COVID-19 PFIZER VACCINE 2022-03-30 00:00:00 Completed [facility] SARS-COV-2 COVID-19 PFIZER VACCINE 2022-03-30 00:00:00 Completed [facility] SARS-COV-2 COVID-19 PFIZER VACCINE 2022-03-30 00:00:00 Completed [facility] SARS-COV-2 COVID-19 PFIZER VACCINE 2022-03-30 00:00:00 Completed [facility] SARS-COV-2 COVID-19 PFIZER VACCINE 2022-03-30 00:00:00 Completed [facility] SARS-COV-2 COVID-19 PFIZER VACCINE 2022-03-30 00:00:00 Completed [facility] SARS-COV-2 COVID-19 PFIZER VACCINE 2022-03-30 00:00:00 Completed [facility] SARS-COV-2 COVID-19 PFIZER VACCINE 2022-03-30 00:00:00 Completed [facility] SARS-COV-2 COVID-19 PFIZER VACCINE 2022-03-30 00:00:00 Completed [facility] SARS-COV-2 COVID-19 PFIZER VACCINE 2022-03-30 00:00:00 Completed [facility] SARS-COV-2 COVID-19 PFIZER VACCINE 2022-03-30 00:00:00 Completed [facility] SARS-COV-2 COVID-19 PFIZER VACCINE 2022-03-30 00:00:00 Completed [facility] SARS-COV-2 COVID-19 PFIZER VACCINE 2022-03-30 00:00:00 Completed [facility] SARS-COV-2 COVID-19 PFIZER VACCINE 2022-03-30 00:00:00 Completed [facility] SARS-COV-2 COVID-19 PFIZER VACCINE 2022-03-30 00:00:00 Completed [facility] SARS-COV-2 COVID-19 PFIZER VACCINE 2022-03-30 00:00:00 Completed [facility] SARS-COV-2 COVID-19 PFIZER VACCINE 2022-03-30 00:00:00 Completed [facility] SARS-COV-2 COVID-19 PFIZER VACCINE 2022-03-30 00:00:00 Completed [facility] SARS-COV-2 COVID-19 PFIZER VACCINE 2022-03-30 00:00:00 Completed [facility] SARS-COV-2 COVID-19 PFIZER VACCINE 2022-03-30 00:00:00 Completed [facility] SARS-COV-2 COVID-19 PFIZER VACCINE 2022-03-30 00:00:00 Completed [facility] SARS-COV-2 COVID-19 PFIZER VACCINE 2022-03-30 00:00:00 Completed [facility] SARS-COV-2 COVID-19 PFIZER VACCINE 2022-03-30 00:00:00 Completed [facility] SARS-COV-2 COVID-19 PFIZER VACCINE 2022-03-30 00:00:00 Completed [facility] SARS-COV-2 COVID-19 PFIZER VACCINE 2022-03-30 00:00:00 Completed [facility] SARS-COV-2 COVID-19 PFIZER VACCINE 2022-03-30 00:00:00 Completed [facility] SARS-COV-2 COVID-19 PFIZER VACCINE 2022-03-30 00:00:00 Completed [facility] SARS-COV-2 COVID-19 PFIZER VACCINE 2022-03-30 00:00:00 Completed [facility] SARS-COV-2 COVID-19 PFIZER VACCINE 2022-03-30 00:00:00 Completed [facility] SARS-COV-2 COVID-19 PFIZER VACCINE 2022-03-30 00:00:00 Completed [facility] SARS-COV-2 COVID-19 PFIZER VACCINE 2022-03-30 00:00:00 Completed [facility] SARS-COV-2 COVID-19 PFIZER VACCINE 2022-03-30 00:00:00 Completed [facility] SARS-COV-2 COVID-19 PFIZER VACCINE 2022-03-30 00:00:00 Completed [facility] SARS-COV-2 COVID-19 PFIZER VACCINE 2022-03-30 00:00:00 Completed [facility] SARS-COV-2 COVID-19 PFIZER VACCINE 2022-03-30 00:00:00 Completed [facility] SARS-COV-2 COVID-19 PFIZER VACCINE 2022-03-30 00:00:00 Completed [facility] SARS-COV-2 COVID-19 PFIZER VACCINE 2022-03-30 00:00:00 Completed [facility] SARS-COV-2 COVID-19 PFIZER VACCINE 2022-03-30 00:00:00 Completed [facility] SARS-COV-2 COVID-19 PFIZER VACCINE 2022-03-30 00:00:00 Completed [facility] SARS-COV-2 COVID-19 PFIZER VACCINE 2022-03-30 00:00:00 Completed [facility] SARS-COV-2 COVID-19 PFIZER VACCINE 2022-03-30 00:00:00 Completed [facility] SARS-COV-2 COVID-19 PFIZER VACCINE 2022-03-30 00:00:00 Completed [facility] SARS-COV-2 COVID-19 PFIZER VACCINE 2022-03-30 00:00:00 Completed [facility] SARS-COV-2 COVID-19 PFIZER VACCINE 2022-03-30 00:00:00 Completed [facility] SARS-COV-2 COVID-19 PFIZER VACCINE 2022-03-30 00:00:00 Completed [facility] SARS-COV-2 COVID-19 PFIZER VACCINE 2022-03-30 00:00:00 Completed [facility] SARS-COV-2 COVID-19 PFIZER VACCINE 2022-03-30 00:00:00 Completed [facility] SARS-COV-2 COVID-19 PFIZER VACCINE 2022-03-30 00:00:00 Completed [facility] SARS-COV-2 COVID-19 PFIZER VACCINE 2022-03-30 00:00:00 Completed [facility] SARS-COV-2 COVID-19 PFIZER VACCINE 2022-03-30 00:00:00 Completed [facility] SARS-COV-2 COVID-19 PFIZER VACCINE 2022-03-30 00:00:00 Completed [facility] SARS-COV-2 COVID-19 PFIZER VACCINE 2022-03-30 00:00:00 Completed [facility] SARS-COV-2 COVID-19 PFIZER VACCINE 2022-03-30 00:00:00 Completed [facility] SARS-COV-2 COVID-19 PFIZER VACCINE 2022-03-30 00:00:00 Completed [facility] SARS-COV-2 COVID-19 PFIZER VACCINE 2022-03-30 00:00:00 Completed [facility] SARS-COV-2 COVID-19 PFIZER VACCINE 2022-03-30 00:00:00 Completed [facility] SARS-COV-2 COVID-19 PFIZER VACCINE 2022-03-30 00:00:00 Completed [facility] SARS-COV-2 COVID-19 PFIZER VACCINE 2022-03-30 00:00:00 Completed [facility] SARS-COV-2 COVID-19 PFIZER VACCINE 2022-03-30 00:00:00 Completed [facility] SARS-COV-2 COVID-19 PFIZER VACCINE 2022-03-30 00:00:00 Completed [facility] SARS-COV-2 COVID-19 PFIZER VACCINE 2022-03-30 00:00:00 Completed [facility] SARS-COV-2 COVID-19 PFIZER VACCINE 2022-03-30 00:00:00 Completed [facility] SARS-COV-2 COVID-19 PFIZER VACCINE 2022-03-30 00:00:00 Completed [facility] SARS-COV-2 COVID-19 PFIZER VACCINE 2022-03-30 00:00:00 Completed [facility] SARS-COV-2 COVID-19 PFIZER VACCINE 2022-03-30 00:00:00 Completed [facility] SARS-COV-2 COVID-19 PFIZER VACCINE 2022-03-30 00:00:00 Completed [facility] SARS-COV-2 COVID-19 PFIZER VACCINE 2022-03-30 00:00:00 Completed [facility] SARS-COV-2 COVID-19 PFIZER VACCINE 2022-03-30 00:00:00 Completed [facility] SARS-COV-2 COVID-19 PFIZER VACCINE 2022-03-30 00:00:00 Completed [facility] SARS-COV-2 COVID-19 PFIZER VACCINE 2022-03-30 00:00:00 Completed [facility] SARS-COV-2 COVID-19 PFIZER VACCINE 2022-03-30 00:00:00 Completed [facility] SARS-COV-2 COVID-19 PFIZER VACCINE 2022-03-30 00:00:00 Completed [facility] SARS-COV-2 COVID-19 PFIZER VACCINE 2022-03-30 00:00:00 Completed [facility] SARS-COV-2 COVID-19 PFIZER VACCINE 2022-03-30 00:00:00 Completed [facility] SARS-COV-2 COVID-19 PFIZER VACCINE 2022-03-30 00:00:00 Completed [facility] SARS-COV-2 COVID-19 PFIZER VACCINE 2022-03-30 00:00:00 Completed [facility] SARS-COV-2 COVID-19 PFIZER VACCINE 2022-03-30 00:00:00 Completed [facility] SARS-COV-2 COVID-19 PFIZER VACCINE 2022-03-30 00:00:00 Completed [facility] SARS-COV-2 COVID-19 PFIZER VACCINE 2022-03-30 00:00:00 Completed [facility] SARS-COV-2 COVID-19 PFIZER VACCINE 2022-03-30 00:00:00 Completed [facility] SARS-COV-2 COVID-19 PFIZER VACCINE 2022-03-30 00:00:00 Completed [facility] SARS-COV-2 COVID-19 PFIZER VACCINE 2022-03-30 00:00:00 Completed [facility] SARS-COV-2 COVID-19 PFIZER VACCINE 2022-03-30 00:00:00 Completed [facility] SARS-COV-2 COVID-19 PFIZER VACCINE 2022-03-30 00:00:00 Completed [facility] SARS-COV-2 COVID-19 PFIZER VACCINE 2022-03-30 00:00:00 Completed [facility] SARS-COV-2 COVID-19 PFIZER VACCINE 2022-03-30 00:00:00 Completed [facility] SARS-COV-2 COVID-19 PFIZER VACCINE 2022-03-30 00:00:00 Completed [facility] SARS-COV-2 COVID-19 PFIZER VACCINE 2022-03-30 00:00:00 Completed [facility] SARS-COV-2 COVID-19 PFIZER VACCINE 2022-03-30 00:00:00 Completed [facility] SARS-COV-2 COVID-19 PFIZER VACCINE 2022-03-30 00:00:00 Completed [facility] SARS-COV-2 COVID-19 PFIZER VACCINE 2022-03-30 00:00:00 Completed [facility] SARS-COV-2 COVID-19 PFIZER VACCINE 2022-03-30 00:00:00 Completed [facility] SARS-COV-2 COVID-19 PFIZER VACCINE 2022-03-30 00:00:00 Completed [facility] SARS-COV-2 COVID-19 PFIZER VACCINE 2022-03-30 00:00:00 Completed [facility] SARS-COV-2 COVID-19 PFIZER VACCINE 2022-03-30 00:00:00 Completed [facility] SARS-COV-2 COVID-19 PFIZER VACCINE 2022-03-30 00:00:00 Completed [facility] SARS-COV-2 COVID-19 PFIZER VACCINE 2022-03-30 00:00:00 Completed [facility] SARS-COV-2 COVID-19 PFIZER VACCINE 2022-03-30 00:00:00 Completed [facility] SARS-COV-2 COVID-19 PFIZER VACCINE 2022-03-30 00:00:00 Completed [facility] SARS-COV-2 COVID-19 PFIZER VACCINE 2022-03-30 00:00:00 Completed [facility] SARS-COV-2 COVID-19 PFIZER VACCINE 2022-03-30 00:00:00 Completed [facility] SARS-COV-2 COVID-19 PFIZER VACCINE 2022-03-30 00:00:00 Completed [facility] SARS-COV-2 COVID-19 PFIZER VACCINE 2022-03-30 00:00:00 Completed [facility] SARS-COV-2 COVID-19 PFIZER VACCINE 2022-03-30 00:00:00 Completed [facility] SARS-COV-2 COVID-19 PFIZER VACCINE 2022-03-30 00:00:00 Completed [facility] SARS-COV-2 COVID-19 PFIZER VACCINE 2022-03-30 00:00:00 Completed [facility] SARS-COV-2 COVID-19 PFIZER VACCINE 2022-03-30 00:00:00 Completed [facility] SARS-COV-2 COVID-19 PFIZER VACCINE 2022-03-30 00:00:00 Completed [facility] SARS-COV-2 COVID-19 PFIZER VACCINE 2022-03-30 00:00:00 Completed [facility] SARS-COV-2 COVID-19 PFIZER VACCINE 2022-03-30 00:00:00 Completed [facility] SARS-COV-2 COVID-19 PFIZER VACCINE 2022-03-30 00:00:00 Completed [facility] SARS-COV-2 COVID-19 PFIZER VACCINE 2022-03-30 00:00:00 Completed [facility] SARS-COV-2 COVID-19 PFIZER VACCINE 2022-03-30 00:00:00 Completed [facility] SARS-COV-2 COVID-19 PFIZER VACCINE 2022-03-30 00:00:00 Completed [facility] SARS-COV-2 COVID-19 PFIZER VACCINE 2022-03-30 00:00:00 Completed [facility] SARS-COV-2 COVID-19 PFIZER VACCINE 2022-03-30 00:00:00 Completed [facility] SARS-COV-2 COVID-19 PFIZER VACCINE 2022-03-30 00:00:00 Completed [facility] SARS-COV-2 COVID-19 PFIZER VACCINE 2022-03-30 00:00:00 Completed [facility] SARS-COV-2 COVID-19 PFIZER VACCINE 2022-03-30 00:00:00 Completed [facility] SARS-COV-2 COVID-19 PFIZER VACCINE 2022-03-30 00:00:00 Completed [facility] SARS-COV-2 COVID-19 PFIZER VACCINE 2022-03-30 00:00:00 Completed [facility] SARS-COV-2 COVID-19 PFIZER VACCINE 2022-03-30 00:00:00 Completed [facility] SARS-COV-2 COVID-19 PFIZER VACCINE 2022-03-30 00:00:00 Completed [facility] SARS-COV-2 COVID-19 PFIZER VACCINE 2022-03-30 00:00:00 Completed [facility] SARS-COV-2 COVID-19 PFIZER VACCINE 2022-03-30 00:00:00 Completed [facility] SARS-COV-2 COVID-19 PFIZER VACCINE 2022-03-30 00:00:00 Completed [facility] SARS-COV-2 COVID-19 PFIZER VACCINE 2022-03-30 00:00:00 Completed [facility] SARS-COV-2 COVID-19 PFIZER VACCINE 2022-03-30 00:00:00 Completed [facility] SARS-COV-2 COVID-19 PFIZER VACCINE 2022-03-30 00:00:00 Completed [facility] SARS-COV-2 COVID-19 PFIZER VACCINE 2022-03-30 00:00:00 Completed [facility] SARS-COV-2 COVID-19 PFIZER VACCINE 2022-03-30 00:00:00 Completed [facility] SARS-COV-2 COVID-19 PFIZER VACCINE 2022-03-30 00:00:00 Completed [facility] SARS-COV-2 COVID-19 PFIZER VACCINE 2022-03-30 00:00:00 Completed [facility] SARS-COV-2 COVID-19 PFIZER VACCINE 2022-03-30 00:00:00 Completed [facility] SARS-COV-2 COVID-19 PFIZER VACCINE 2022-03-30 00:00:00 Completed [facility] SARS-COV-2 COVID-19 PFIZER VACCINE 2022-03-30 00:00:00 Completed [facility] SARS-COV-2 COVID-19 PFIZER VACCINE 2022-03-30 00:00:00 Completed [facility] SARS-COV-2 COVID-19 PFIZER VACCINE 2022-03-30 00:00:00 Completed [facility] SARS-COV-2 COVID-19 PFIZER VACCINE 2022-03-30 00:00:00 Completed [facility] SARS-COV-2 COVID-19 PFIZER VACCINE 2022-03-30 00:00:00 Completed [facility] SARS-COV-2 COVID-19 PFIZER VACCINE 2022-03-30 00:00:00 Completed [facility] SARS-COV-2 COVID-19 PFIZER VACCINE 2022-03-30 00:00:00 Completed [facility] SARS-COV-2 COVID-19 PFIZER VACCINE 2022-03-30 00:00:00 Completed [facility] Pneumococcal Polysaccharide, PPSV23 (PNEUMOVAX) 2021-09-07 00:00:00 Completed [facility] Pneumococcal Polysaccharide, PPSV23 (PNEUMOVAX) 2021-09-07 00:00:00 Completed [facility] Pneumococcal Polysaccharide, PPSV23 (PNEUMOVAX) 2021-09-07 00:00:00 Completed [facility] Pneumococcal Polysaccharide, PPSV23 (PNEUMOVAX) 2021-09-07 00:00:00 Completed [facility] Pneumococcal Polysaccharide, PPSV23 (PNEUMOVAX) 2021-09-07 00:00:00 Completed [facility] Pneumococcal Polysaccharide, PPSV23 (PNEUMOVAX) 2021-09-07 00:00:00 Completed [facility] Pneumococcal Polysaccharide, PPSV23 (PNEUMOVAX) 2021-09-07 00:00:00 Completed [facility] Pneumococcal Polysaccharide, PPSV23 (PNEUMOVAX) 2021-09-07 00:00:00 Completed [facility] Pneumococcal Polysaccharide, PPSV23 (PNEUMOVAX) 2021-09-07 00:00:00 Completed [facility] Pneumococcal Polysaccharide, PPSV23 (PNEUMOVAX) 2021-09-07 00:00:00 Completed [facility] Pneumococcal Polysaccharide, PPSV23 (PNEUMOVAX) 2021-09-07 00:00:00 Completed [facility] Pneumococcal Polysaccharide, PPSV23 (PNEUMOVAX) 2021-09-07 00:00:00 Completed [facility] Pneumococcal Polysaccharide, PPSV23 (PNEUMOVAX) 2021-09-07 00:00:00 Completed [facility] Pneumococcal Polysaccharide, PPSV23 (PNEUMOVAX) 2021-09-07 00:00:00 Completed [facility] Pneumococcal Polysaccharide, PPSV23 (PNEUMOVAX) 2021-09-07 00:00:00 Completed [facility] Pneumococcal Polysaccharide, PPSV23 (PNEUMOVAX) 2021-09-07 00:00:00 Completed [facility] Pneumococcal Polysaccharide, PPSV23 (PNEUMOVAX) 2021-09-07 00:00:00 Completed [facility] Pneumococcal Polysaccharide, PPSV23 (PNEUMOVAX) 2021-09-07 00:00:00 Completed [facility] Pneumococcal Polysaccharide, PPSV23 (PNEUMOVAX) 2021-09-07 00:00:00 Completed [facility] Pneumococcal Polysaccharide, PPSV23 (PNEUMOVAX) 2021-09-07 00:00:00 Completed [facility] Pneumococcal Polysaccharide, PPSV23 (PNEUMOVAX) 2021-09-07 00:00:00 Completed [facility] Pneumococcal Polysaccharide, PPSV23 (PNEUMOVAX) 2021-09-07 00:00:00 Completed [facility] Pneumococcal Polysaccharide, PPSV23 (PNEUMOVAX) 2021-09-07 00:00:00 Completed [facility] Pneumococcal Polysaccharide, PPSV23 (PNEUMOVAX) 2021-09-07 00:00:00 Completed [facility] Pneumococcal Polysaccharide, PPSV23 (PNEUMOVAX) 2021-09-07 00:00:00 Completed [facility] Pneumococcal Polysaccharide, PPSV23 (PNEUMOVAX) 2021-09-07 00:00:00 Completed [facility] Pneumococcal Polysaccharide, PPSV23 (PNEUMOVAX) 2021-09-07 00:00:00 Completed [facility] Pneumococcal Polysaccharide, PPSV23 (PNEUMOVAX) 2021-09-07 00:00:00 Completed [facility] Pneumococcal Polysaccharide, PPSV23 (PNEUMOVAX) 2021-09-07 00:00:00 Completed [facility] Pneumococcal Polysaccharide, PPSV23 (PNEUMOVAX) 2021-09-07 00:00:00 Completed [facility] Pneumococcal Polysaccharide, PPSV23 (PNEUMOVAX) 2021-09-07 00:00:00 Completed [facility] Pneumococcal Polysaccharide, PPSV23 (PNEUMOVAX) 2021-09-07 00:00:00 Completed [facility] Pneumococcal Polysaccharide, PPSV23 (PNEUMOVAX) 2021-09-07 00:00:00 Completed [facility] Pneumococcal Polysaccharide, PPSV23 (PNEUMOVAX) 2021-09-07 00:00:00 Completed [facility] Pneumococcal Polysaccharide, PPSV23 (PNEUMOVAX) 2021-09-07 00:00:00 Completed [facility] Pneumococcal Polysaccharide, PPSV23 (PNEUMOVAX) 2021-09-07 00:00:00 Completed [facility] Pneumococcal Polysaccharide, PPSV23 (PNEUMOVAX) 2021-09-07 00:00:00 Completed [facility] Pneumococcal Polysaccharide, PPSV23 (PNEUMOVAX) 2021-09-07 00:00:00 Completed [facility] Pneumococcal Polysaccharide, PPSV23 (PNEUMOVAX) 2021-09-07 00:00:00 Completed [facility] Pneumococcal Polysaccharide, PPSV23 (PNEUMOVAX) 2021-09-07 00:00:00 Completed [facility] Pneumococcal Polysaccharide, PPSV23 (PNEUMOVAX) 2021-09-07 00:00:00 Completed [facility] Pneumococcal Polysaccharide, PPSV23 (PNEUMOVAX) 2021-09-07 00:00:00 Completed [facility] Pneumococcal Polysaccharide, PPSV23 (PNEUMOVAX) 2021-09-07 00:00:00 Completed [facility] Pneumococcal Polysaccharide, PPSV23 (PNEUMOVAX) 2021-09-07 00:00:00 Completed [facility] Pneumococcal Polysaccharide, PPSV23 (PNEUMOVAX) 2021-09-07 00:00:00 Completed [facility] Pneumococcal Polysaccharide, PPSV23 (PNEUMOVAX) 2021-09-07 00:00:00 Completed [facility] Pneumococcal Polysaccharide, PPSV23 (PNEUMOVAX) 2021-09-07 00:00:00 Completed [facility] Pneumococcal Polysaccharide, PPSV23 (PNEUMOVAX) 2021-09-07 00:00:00 Completed [facility] Pneumococcal Polysaccharide, PPSV23 (PNEUMOVAX) 2021-09-07 00:00:00 Completed [facility] Pneumococcal Polysaccharide, PPSV23 (PNEUMOVAX) 2021-09-07 00:00:00 Completed [facility] Pneumococcal Polysaccharide, PPSV23 (PNEUMOVAX) 2021-09-07 00:00:00 Completed [facility] Pneumococcal Polysaccharide, PPSV23 (PNEUMOVAX) 2021-09-07 00:00:00 Completed [facility] Pneumococcal Polysaccharide, PPSV23 (PNEUMOVAX) 2021-09-07 00:00:00 Completed [facility] Pneumococcal Polysaccharide, PPSV23 (PNEUMOVAX) 2021-09-07 00:00:00 Completed [facility] Pneumococcal Polysaccharide, PPSV23 (PNEUMOVAX) 2021-09-07 00:00:00 Completed [facility] Pneumococcal Polysaccharide, PPSV23 (PNEUMOVAX) 2021-09-07 00:00:00 Completed [facility] Pneumococcal Polysaccharide, PPSV23 (PNEUMOVAX) 2021-09-07 00:00:00 Completed [facility] Pneumococcal Polysaccharide, PPSV23 (PNEUMOVAX) 2021-09-07 00:00:00 Completed [facility] Pneumococcal Polysaccharide, PPSV23 (PNEUMOVAX) 2021-09-07 00:00:00 Completed [facility] Pneumococcal Polysaccharide, PPSV23 (PNEUMOVAX) 2021-09-07 00:00:00 Completed [facility] Pneumococcal Polysaccharide, PPSV23 (PNEUMOVAX) 2021-09-07 00:00:00 Completed [facility] Pneumococcal Polysaccharide, PPSV23 (PNEUMOVAX) 2021-09-07 00:00:00 Completed [facility] Pneumococcal Polysaccharide, PPSV23 (PNEUMOVAX) 2021-09-07 00:00:00 Completed [facility] Pneumococcal Polysaccharide, PPSV23 (PNEUMOVAX) 2021-09-07 00:00:00 Completed [facility] Pneumococcal Polysaccharide, PPSV23 (PNEUMOVAX) 2021-09-07 00:00:00 Completed [facility] Pneumococcal Polysaccharide, PPSV23 (PNEUMOVAX) 2021-09-07 00:00:00 Completed [facility] Pneumococcal Polysaccharide, PPSV23 (PNEUMOVAX) 2021-09-07 00:00:00 Completed [facility] Pneumococcal Polysaccharide, PPSV23 (PNEUMOVAX) 2021-09-07 00:00:00 Completed [facility] Pneumococcal Polysaccharide, PPSV23 (PNEUMOVAX) 2021-09-07 00:00:00 Completed [facility] Pneumococcal Polysaccharide, PPSV23 (PNEUMOVAX) 2021-09-07 00:00:00 Completed [facility] Pneumococcal Polysaccharide, PPSV23 (PNEUMOVAX) 2021-09-07 00:00:00 Completed [facility] Pneumococcal Polysaccharide, PPSV23 (PNEUMOVAX) 2021-09-07 00:00:00 Completed [facility] Pneumococcal Polysaccharide, PPSV23 (PNEUMOVAX) 2021-09-07 00:00:00 Completed [facility] Pneumococcal Polysaccharide, PPSV23 (PNEUMOVAX) 2021-09-07 00:00:00 Completed [facility] Pneumococcal Polysaccharide, PPSV23 (PNEUMOVAX) 2021-09-07 00:00:00 Completed [facility] Pneumococcal Polysaccharide, PPSV23 (PNEUMOVAX) 2021-09-07 00:00:00 Completed [facility] Pneumococcal Polysaccharide, PPSV23 (PNEUMOVAX) 2021-09-07 00:00:00 Completed [facility] Pneumococcal Polysaccharide, PPSV23 (PNEUMOVAX) 2021-09-07 00:00:00 Completed [facility] Pneumococcal Polysaccharide, PPSV23 (PNEUMOVAX) 2021-09-07 00:00:00 Completed [facility] Pneumococcal Polysaccharide, PPSV23 (PNEUMOVAX) 2021-09-07 00:00:00 Completed [facility] Pneumococcal Polysaccharide, PPSV23 (PNEUMOVAX) 2021-09-07 00:00:00 Completed [facility] Pneumococcal Polysaccharide, PPSV23 (PNEUMOVAX) 2021-09-07 00:00:00 Completed [facility] Pneumococcal Polysaccharide, PPSV23 (PNEUMOVAX) 2021-09-07 00:00:00 Completed [facility] Pneumococcal Polysaccharide, PPSV23 (PNEUMOVAX) 2021-09-07 00:00:00 Completed [facility] Pneumococcal Polysaccharide, PPSV23 (PNEUMOVAX) 2021-09-07 00:00:00 Completed [facility] Pneumococcal Polysaccharide, PPSV23 (PNEUMOVAX) 2021-09-07 00:00:00 Completed [facility] Pneumococcal Polysaccharide, PPSV23 (PNEUMOVAX) 2021-09-07 00:00:00 Completed [facility] Pneumococcal Polysaccharide, PPSV23 (PNEUMOVAX) 2021-09-07 00:00:00 Completed [facility] Pneumococcal Polysaccharide, PPSV23 (PNEUMOVAX) 2021-09-07 00:00:00 Completed [facility] Pneumococcal Polysaccharide, PPSV23 (PNEUMOVAX) 2021-09-07 00:00:00 Completed [facility] Pneumococcal Polysaccharide, PPSV23 (PNEUMOVAX) 2021-09-07 00:00:00 Completed [facility] Pneumococcal Polysaccharide, PPSV23 (PNEUMOVAX) 2021-09-07 00:00:00 Completed [facility] Pneumococcal Polysaccharide, PPSV23 (PNEUMOVAX) 2021-09-07 00:00:00 Completed [facility] Pneumococcal Polysaccharide, PPSV23 (PNEUMOVAX) 2021-09-07 00:00:00 Completed [facility] Pneumococcal Polysaccharide, PPSV23 (PNEUMOVAX) 2021-09-07 00:00:00 Completed [facility] Pneumococcal Polysaccharide, PPSV23 (PNEUMOVAX) 2021-09-07 00:00:00 Completed [facility] Pneumococcal Polysaccharide, PPSV23 (PNEUMOVAX) 2021-09-07 00:00:00 Completed [facility] Pneumococcal Polysaccharide, PPSV23 (PNEUMOVAX) 2021-09-07 00:00[facility]00 [facility] [facility] Pneumococcal Polysaccharide, PPSV23 (PNEUMOVAX) 2021-09-07 00:00:00 Completed [facility] Pneumococcal Polysaccharide, PPSV23 (PNEUMOVAX) 2021-09-07 00:00:00 Completed [facility] Pneumococcal Polysaccharide, PPSV23 (PNEUMOVAX) 2021-09-07 00:00:00 Completed [facility] Pneumococcal Polysaccharide, PPSV23 (PNEUMOVAX) 2021-09-07 00:00:00 Completed [facility] Pneumococcal Polysaccharide, PPSV23 (PNEUMOVAX) 2021-09-07 00:00:00 Completed [facility] Pneumococcal Polysaccharide, PPSV23 (PNEUMOVAX) 2021-09-07 00:00:00 Completed [facility] Pneumococcal Polysaccharide, PPSV23 (PNEUMOVAX) 2021-09-07 00:00:00 Completed [facility] Pneumococcal Polysaccharide, PPSV23 (PNEUMOVAX) 2021-09-07 00:00:00 Completed [facility] Pneumococcal Polysaccharide, PPSV23 (PNEUMOVAX) 2021-09-07 00:00:00 Completed [facility] Pneumococcal Polysaccharide, PPSV23 (PNEUMOVAX) 2021-09-07 00:00:00 Completed [facility] Pneumococcal Polysaccharide, PPSV23 (PNEUMOVAX) 2021-09-07 00:00:00 Completed [facility] Pneumococcal Polysaccharide, PPSV23 (PNEUMOVAX) 2021-09-07 00:00:00 Completed [facility] Pneumococcal Polysaccharide, PPSV23 (PNEUMOVAX) 2021-09-07 00:00:00 Completed [facility] Pneumococcal Polysaccharide, PPSV23 (PNEUMOVAX) 2021-09-07 00:00:00 Completed [facility] Pneumococcal Polysaccharide, PPSV23 (PNEUMOVAX) 2021-09-07 00:00:00 Completed [facility] Pneumococcal Polysaccharide, PPSV23 (PNEUMOVAX) 2021-09-07 00:00:00 Completed [facility] Pneumococcal Polysaccharide, PPSV23 (PNEUMOVAX) 2021-09-07 00:00:00 Completed [facility] Pneumococcal Polysaccharide, PPSV23 (PNEUMOVAX) 2021-09-07 00:00:00 Completed [facility] Pneumococcal Polysaccharide, PPSV23 (PNEUMOVAX) 2021-09-07 00:00:00 Completed [facility] Pneumococcal Polysaccharide, PPSV23 (PNEUMOVAX) 2021-09-07 00:00:00 Completed [facility] Pneumococcal Polysaccharide, PPSV23 (PNEUMOVAX) 2021-09-07 00:00:00 Completed [facility] Pneumococcal Polysaccharide, PPSV23 (PNEUMOVAX) 2021-09-07 00:00:00 Completed [facility] Pneumococcal Polysaccharide, PPSV23 (PNEUMOVAX) 2021-09-07 00:00:00 Completed [facility] Pneumococcal Polysaccharide, PPSV23 (PNEUMOVAX) 2021-09-07 00:00:00 Completed [facility] Pneumococcal Polysaccharide, PPSV23 (PNEUMOVAX) 2021-09-07 00:00:00 Completed [facility] Pneumococcal Polysaccharide, PPSV23 (PNEUMOVAX) 2021-09-07 00:00:00 Completed [facility] Pneumococcal Polysaccharide, PPSV23 (PNEUMOVAX) 2021-09-07 00:00:00 Completed [facility] Pneumococcal Polysaccharide, PPSV23 (PNEUMOVAX) 2021-09-07 00:00:00 Completed [facility] Pneumococcal Polysaccharide, PPSV23 (PNEUMOVAX) 2021-09-07 00:00:00 Completed [facility] Pneumococcal Polysaccharide, PPSV23 (PNEUMOVAX) 2021-09-07 00:00:00 Completed [facility] Pneumococcal Polysaccharide, PPSV23 (PNEUMOVAX) 2021-09-07 00:00:00 Completed [facility] Pneumococcal Polysaccharide, PPSV23 (PNEUMOVAX) 2021-09-07 00:00:00 Completed [facility] Pneumococcal Polysaccharide, PPSV23 (PNEUMOVAX) 2021-09-07 00:00:00 Completed [facility] Pneumococcal Polysaccharide, PPSV23 (PNEUMOVAX) 2021-09-07 00:00:00 Completed [facility] Pneumococcal Polysaccharide, PPSV23 (PNEUMOVAX) 2021-09-07 00:00:00 Completed [facility] Pneumococcal Polysaccharide, PPSV23 (PNEUMOVAX) 2021-09-07 00:00:00 Completed [facility] Pneumococcal Polysaccharide, PPSV23 (PNEUMOVAX) 2021-09-07 00:00:00 Completed [facility] Pneumococcal Polysaccharide, PPSV23 (PNEUMOVAX) 2021-09-07 00:00:00 Completed [facility] Pneumococcal Polysaccharide, PPSV23 (PNEUMOVAX) 2021-09-07 00:00:00 Completed [facility] Pneumococcal Polysaccharide, PPSV23 (PNEUMOVAX) 2021-09-07 00:00:00 Completed [facility] Pneumococcal Polysaccharide, PPSV23 (PNEUMOVAX) 2021-09-07 00:00:00 Completed [facility] Pneumococcal Polysaccharide, PPSV23 (PNEUMOVAX) 2021-09-07 00:00:00 Completed [facility] Pneumococcal Polysaccharide, PPSV23 (PNEUMOVAX) 2021-09-07 00:00:00 Completed [facility] Pneumococcal Polysaccharide, PPSV23 (PNEUMOVAX) 2021-09-07 00:00:00 Completed [facility] Pneumococcal Polysaccharide, PPSV23 (PNEUMOVAX) 2021-09-07 00:00:00 Completed [facility] Pneumococcal Polysaccharide, PPSV23 (PNEUMOVAX) 2021-09-07 00:00:00 Completed [facility] Pneumococcal Polysaccharide, PPSV23 (PNEUMOVAX) 2021-09-07 00:00:00 Completed [facility] Pneumococcal Polysaccharide, PPSV23 (PNEUMOVAX) 2021-09-07 00:00:00 Completed [facility] Pneumococcal Polysaccharide, PPSV23 (PNEUMOVAX) 2021-09-07 00:00:00 Completed [facility] Pneumococcal Polysaccharide, PPSV23 (PNEUMOVAX) 2021-09-07 00:00:00 Completed [facility] Pneumococcal Polysaccharide, PPSV23 (PNEUMOVAX) 2021-09-07 00:00:00 Completed [facility] Pneumococcal Polysaccharide, PPSV23 (PNEUMOVAX) 2021-09-07 00:00:00 Completed [facility] Pneumococcal Polysaccharide, PPSV23 (PNEUMOVAX) 2021-09-07 00:00:00 Completed [facility] Pneumococcal Polysaccharide, PPSV23 (PNEUMOVAX) 2021-09-07 00:00:00 Completed [facility] Pneumococcal Polysaccharide, PPSV23 (PNEUMOVAX) 2021-09-07 00:00:00 Completed [facility] Pneumococcal Polysaccharide, PPSV23 (PNEUMOVAX) 2021-09-07 00:00:00 Completed [facility] Pneumococcal Polysaccharide, PPSV23 (PNEUMOVAX) 2021-09-07 00:00:00 Completed [facility] Pneumococcal Polysaccharide, PPSV23 (PNEUMOVAX) 2021-09-07 00:00:00 Completed [facility] Pneumococcal Polysaccharide, PPSV23 (PNEUMOVAX) 2021-09-07 00:00:00 Completed [facility] Pneumococcal Polysaccharide, PPSV23 (PNEUMOVAX) 2021-09-07 00:00:00 Completed [facility] Pneumococcal Polysaccharide, PPSV23 (PNEUMOVAX) 2021-09-07 00:00:00 Completed [facility] Pneumococcal Polysaccharide, PPSV23 (PNEUMOVAX) 2021-09-07 00:00:00 Completed [facility] Pneumococcal Polysaccharide, PPSV23 (PNEUMOVAX) 2021-09-07 00:00:00 Completed [facility] Pneumococcal Polysaccharide, PPSV23 (PNEUMOVAX) 2021-09-07 00:00:00 Completed [facility] Pneumococcal Polysaccharide, PPSV23 (PNEUMOVAX) 2021-09-07 00:00:00 Completed [facility] Pneumococcal Polysaccharide, PPSV23 (PNEUMOVAX) 2021-09-07 00:00:00 Completed [facility] Pneumococcal Polysaccharide, PPSV23 (PNEUMOVAX) 2021-09-07 00:00:00 Completed [facility] Pneumococcal Polysaccharide, PPSV23 (PNEUMOVAX) 2021-09-07 00:00:00 Completed [facility] Pneumococcal Polysaccharide, PPSV23 (PNEUMOVAX) 2021-09-07 00:00:00 Completed [facility] Pneumococcal Polysaccharide, PPSV23 (PNEUMOVAX) 2021-09-07 00:00:00 Completed [facility] Pneumococcal Polysaccharide, PPSV23 (PNEUMOVAX) 2021-09-07 00:00:00 Completed [facility] Pneumococcal Polysaccharide, PPSV23 (PNEUMOVAX) 2021-09-07 00:00:00 Completed [facility] Pneumococcal Polysaccharide, PPSV23 (PNEUMOVAX) 2021-09-07 00:00:00 Completed [facility] Pneumococcal Polysaccharide, PPSV23 (PNEUMOVAX) 2021-09-07 00:00:00 Completed [facility] Pneumococcal Polysaccharide, PPSV23 (PNEUMOVAX) 2021-09-07 00:00:00 Completed [facility] Pneumococcal Polysaccharide, PPSV23 (PNEUMOVAX) 2021-09-07 00:00:00 Completed [facility] Pneumococcal Polysaccharide, PPSV23 (PNEUMOVAX) 2021-09-07 00:00:00 Completed [facility] Pneumococcal Polysaccharide, PPSV23 (PNEUMOVAX) 2021-09-07 00:00:00 Completed [facility] Pneumococcal Polysaccharide, PPSV23 (PNEUMOVAX) 2021-09-07 00:00:00 Completed [facility] Pneumococcal Polysaccharide, PPSV23 (PNEUMOVAX) 2021-09-07 00:00:00 Completed [facility] Pneumococcal Polysaccharide, PPSV23 (PNEUMOVAX) 2021-09-07 00:00:00 Completed [facility] Pneumococcal Polysaccharide, PPSV23 (PNEUMOVAX) 2021-09-07 00:00:00 Completed [facility] Pneumococcal Polysaccharide, PPSV23 (PNEUMOVAX) 2021-09-07 00:00:00 Completed [facility] Pneumococcal Polysaccharide, PPSV23 (PNEUMOVAX) 2021-09-07 00:00:00 Completed [facility] Pneumococcal Polysaccharide, PPSV23 (PNEUMOVAX) 2021-09-07 00:00:00 Completed [facility] Pneumococcal Polysaccharide, PPSV23 (PNEUMOVAX) 2021-09-07 00:00:00 Completed [facility] Pneumococcal Polysaccharide, PPSV23 (PNEUMOVAX) 2021-09-07 00:00:00 Completed [facility] Pneumococcal Polysaccharide, PPSV23 (PNEUMOVAX) 2021-09-07 00:00:00 Completed [facility] Pneumococcal Polysaccharide, PPSV23 (PNEUMOVAX) 2021-09-07 00:00:00 Completed [facility] Pneumococcal Polysaccharide, PPSV23 (PNEUMOVAX) 2021-09-07 00:00:00 Completed [facility] Pneumococcal Polysaccharide, PPSV23 (PNEUMOVAX) 2021-09-07 00:00:00 Completed [facility] Pneumococcal Polysaccharide, PPSV23 (PNEUMOVAX) 2021-09-07 00:00:00 Completed [facility] Pneumococcal Polysaccharide, PPSV23 (PNEUMOVAX) 2021-09-07 00:00:00 Completed [facility] Pneumococcal Polysaccharide, PPSV23 (PNEUMOVAX) 2021-09-07 00:00:00 Completed [facility] Pneumococcal Polysaccharide, PPSV23 (PNEUMOVAX) 2021-09-07 00:00:00 Completed [facility] Pneumococcal Polysaccharide, PPSV23 (PNEUMOVAX) 2021-09-07 00:00:00 Completed [facility] Pneumococcal Polysaccharide, PPSV23 (PNEUMOVAX) 2021-09-07 00:00:00 Completed [facility] Pneumococcal Polysaccharide, PPSV23 (PNEUMOVAX) 2021-09-07 00:00:00 Completed [facility] Pneumococcal Polysaccharide, PPSV23 (PNEUMOVAX) 2021-09-07 00:00:00 Completed [facility] Pneumococcal Polysaccharide, PPSV23 (PNEUMOVAX) 2021-09-07 00:00:00 Completed [facility] Pneumococcal Polysaccharide, PPSV23 (PNEUMOVAX) 2021-09-07 00:00:00 Completed [facility] Pneumococcal Polysaccharide, PPSV23 (PNEUMOVAX) 2021-09-07 00:00:00 Completed [facility] Pneumococcal Polysaccharide, PPSV23 (PNEUMOVAX) 2021-09-07 00:00:00 Completed [facility] Pneumococcal Polysaccharide, PPSV23 (PNEUMOVAX) 2021-09-07 00:00:00 Completed [facility] Influenza High Dose 2021-08-24 00:00:00 Completed [facility] Influenza High Dose 2021-08-24 00:00:00 Completed [facility] Influenza High Dose 2021-08-24 00:00:00 Completed [facility] Influenza High Dose 2021-08-24 00:00:00 Completed [facility] Influenza High Dose 2021-08-24 00:00:00 Completed [facility] Influenza High Dose 2021-08-24 00:00:00 Completed [facility] Influenza High Dose 2021-08-24 00:00:00 Completed [facility] Influenza High Dose 2021-08-24 00:00:00 Completed [facility] Influenza High Dose 2021-08-24 00:00:00 Completed [facility] Influenza High Dose 2021-08-24 00:00:00 Completed [facility] Influenza High Dose 2021-08-24 00:00:00 Completed [facility] Influenza High Dose 2021-08-24 00:00:00 Completed [facility] Influenza High Dose 2021-08-24 00:00:00 Completed [facility] Influenza High Dose 2021-08-24 00:00:00 Completed [facility] Influenza High Dose 2021-08-24 00:00:00 Completed [facility] Influenza High Dose 2021-08-24 00:00:00 Completed [facility] Influenza High Dose 2021-08-24 00:00:00 Completed [facility] Influenza High Dose 2021-08-24 00:00:00 Completed [facility] Influenza High Dose 2021-08-24 00:00:00 Completed [facility] Influenza High Dose 2021-08-24 00:00:00 Completed [facility] Influenza High Dose 2021-08-24 00:00:00 Completed [facility] Influenza High Dose 2021-08-24 00:00:00 Completed [facility] Influenza High Dose 2021-08-24 00:00:00 Completed [facility] Influenza High Dose 2021-08-24 00:00:00 Completed [facility] Influenza High Dose 2021-08-24 00:00:00 Completed [facility] Influenza High Dose 2021-08-24 00:00:00 Completed [facility] Influenza High Dose 2021-08-24 00:00:00 Completed [facility] Influenza High Dose 2021-08-24 00:00:00 Completed [facility] Influenza High Dose 2021-08-24 00:00:00 Completed [facility] Influenza High Dose 2021-08-24 00:00:00 Completed [facility] Influenza High Dose 2021-08-24 00:00:00 Completed [facility] Influenza High Dose 2021-08-24 00:00:00 Completed [facility] Influenza High Dose 2021-08-24 00:00:00 Completed [facility] Influenza High Dose 2021-08-24 00:00:00 Completed [facility] Influenza High Dose 2021-08-24 00:00:00 Completed [facility] Influenza High Dose 2021-08-24 00:00:00 Completed [facility] Influenza High Dose 2021-08-24 00:00:00 Completed [facility] Influenza High Dose 2021-08-24 00:00:00 Completed [facility] Influenza High Dose 2021-08-24 00:00:00 Completed [facility] Influenza High Dose 2021-08-24 00:00:00 Completed [facility] Influenza High Dose 2021-08-24 00:00:00 Completed [facility] Influenza High Dose 2021-08-24 00:00:00 Completed [facility] Influenza High Dose 2021-08-24 00:00:00 Completed [facility] Influenza High Dose 2021-08-24 00:00:00 Completed [facility] Influenza High Dose 2021-08-24 00:00:00 Completed [facility] Influenza High Dose 2021-08-24 00:00:00 Completed [facility] Influenza High Dose 2021-08-24 00:00:00 Completed [facility] Influenza High Dose 2021-08-24 00:00:00 Completed [facility] Influenza High Dose 2021-08-24 00:00:00 Completed [facility] Influenza High Dose 2021-08-24 00:00:00 Completed [facility] Influenza High Dose 2021-08-24 00:00:00 Completed [facility] Influenza High Dose 2021-08-24 00:00:00 Completed [facility] Influenza High Dose 2021-08-24 00:00:00 Completed [facility] Influenza High Dose 2021-08-24 00:00:00 Completed [facility] Influenza High Dose 2021-08-24 00:00:00 Completed [facility] Influenza High Dose 2021-08-24 00:00:00 Completed [facility] Influenza High Dose 2021-08-24 00:00:00 Completed [facility] Influenza High Dose 2021-08-24 00:00:00 Completed [facility] Influenza High Dose 2021-08-24 00:00:00 Completed [facility] Influenza High Dose 2021-08-24 00:00:00 Completed [facility] Influenza High Dose 2021-08-24 00:00:00 Completed [facility] Influenza High Dose 2021-08-24 00:00:00 Completed [facility] Influenza High Dose 2021-08-24 00:00:00 Completed [facility] Influenza High Dose 2021-08-24 00:00:00 Completed [facility] Influenza High Dose 2021-08-24 00:00:00 Completed [facility] Influenza High Dose 2021-08-24 00:00:00 Completed [facility] Influenza High Dose 2021-08-24 00:00:00 Completed [facility] Influenza High Dose 2021-08-24 00:00:00 Completed [facility] Influenza High Dose 2021-08-24 00:00:00 Completed [facility] Influenza High Dose 2021-08-24 00:00:00 Completed [facility] Influenza High Dose 2021-08-24 00:00:00 Completed [facility] Influenza High Dose 2021-08-24 00:00:00 Completed [facility] Influenza High Dose 2021-08-24 00:00:00 Completed [facility] Influenza High Dose 2021-08-24 00:00:00 Completed [facility] Influenza High Dose 2021-08-24 00:00:00 Completed [facility] Influenza High Dose 2021-08-24 00:00:00 Completed [facility] Influenza High Dose 2021-08-24 00:00:00 Completed [facility] Influenza High Dose 2021-08-24 00:00:00 Completed [facility] Influenza High Dose 2021-08-24 00:00:00 Completed [facility] Influenza High Dose 2021-08-24 00:00:00 Completed [facility] Influenza High Dose 2021-08-24 00:00:00 Completed [facility] Influenza High Dose 2021-08-24 00:00:00 Completed [facility] Influenza High Dose 2021-08-24 00:00:00 Completed [facility] Influenza High Dose 2021-08-24 00:00:00 Completed [facility] Influenza High Dose 2021-08-24 00:00:00 Completed [facility] Influenza High Dose 2021-08-24 00:00:00 Completed [facility] Influenza High Dose 2021-08-24 00:00:00 Completed [facility] Influenza High Dose 2021-08-24 00:00:00 Completed [facility] Influenza High Dose 2021-08-24 00:00:00 Completed [facility] Influenza High Dose 2021-08-24 00:00:00 Completed [facility] Influenza High Dose 2021-08-24 00:00:00 Completed [facility] Influenza High Dose 2021-08-24 00:00:00 Completed [facility] Influenza High Dose 2021-08-24 00:00:00 Completed [facility] Influenza High Dose 2021-08-24 00:00:00 Completed [facility] Influenza High Dose 2021-08-24 00:00:00 Completed [facility] Influenza High Dose 2021-08-24 00:00:00 Completed [facility] Influenza High Dose 2021-08-24 00:00:00 Completed [facility] Influenza High Dose 2021-08-24 00:00:00 Completed [facility] Influenza High Dose 2021-08-24 00:00:00 Completed [facility] Influenza High Dose 2021-08-24 00:00:00 Completed [facility] Influenza High Dose 2021-08-24 00:00:00 Completed [facility] Influenza High Dose 2021-08-24 00:00:00 Completed [facility] Influenza High Dose 2021-08-24 00:00:00 Completed [facility] Influenza High Dose 2021-08-24 00:00:00 Completed [facility] Influenza High Dose 2021-08-24 00:00:00 Completed [facility] Influenza High Dose 2021-08-24 00:00:00 Completed [facility] Influenza High Dose 2021-08-24 00:00:00 Completed [facility] Influenza High Dose 2021-08-24 00:00:00 Completed [facility] Influenza High Dose 2021-08-24 00:00:00 Completed [facility] Influenza High Dose 2021-08-24 00:00:00 Completed [facility] Influenza High Dose 2021-08-24 00:00:00 Completed [facility] Influenza High Dose 2021-08-24 00:00:00 Completed [facility] Influenza High Dose 2021-08-24 00:00:00 Completed [facility] Influenza High Dose 2021-08-24 00:00:00 Completed [facility] Influenza High Dose 2021-08-24 00:00:00 Completed [facility] Influenza High Dose 2021-08-24 00:00:00 Completed [facility] Influenza High Dose 2021-08-24 00:00:00 Completed [facility] Influenza High Dose 2021-08-24 00:00:00 Completed [facility] Influenza High Dose 2021-08-24 00:00:00 Completed [facility] Influenza High Dose 2021-08-24 00:00:00 Completed [facility] Influenza High Dose 2021-08-24 00:00:00 Completed [facility] Influenza High Dose 2021-08-24 00:00:00 Completed [facility] Influenza High Dose 2021-08-24 00:00:00 Completed [facility] Influenza High Dose 2021-08-24 00:00:00 Completed [facility] Influenza High Dose 2021-08-24 00:00:00 Completed [facility] Influenza High Dose 2021-08-24 00:00:00 Completed [facility] Influenza High Dose 2021-08-24 00:00:00 Completed [facility] Influenza High Dose 2021-08-24 00:00:00 Completed [facility] Influenza High Dose 2021-08-24 00:00:00 Completed [facility] Influenza High Dose 2021-08-24 00:00:00 Completed [facility] Influenza High Dose 2021-08-24 00:00:00 Completed [facility] Influenza High Dose 2021-08-24 00:00:00 Completed [facility] Influenza High Dose 2021-08-24 00:00:00 Completed [facility] Influenza High Dose 2021-08-24 00:00:00 Completed [facility] Influenza High Dose 2021-08-24 00:00:00 Completed [facility] Influenza High Dose 2021-08-24 00:00:00 Completed [facility] Influenza High Dose 2021-08-24 00:00:00 Completed [facility] Influenza High Dose 2021-08-24 00:00:00 Completed [facility] Influenza High Dose 2021-08-24 00:00:00 Completed [facility] Influenza High Dose 2021-08-24 00:00:00 Completed [facility] Influenza High Dose 2021-08-24 00:00:00 Completed [facility] Influenza High Dose 2021-08-24 00:00:00 Completed [facility] Influenza High Dose 2021-08-24 00:00:00 Completed [facility] Influenza High Dose 2021-08-24 00:00:00 Completed [facility] Influenza High Dose 2021-08-24 00:00:00 Completed [facility] Influenza High Dose 2021-08-24 00:00:00 Completed [facility] Influenza High Dose 2021-08-24 00:00:00 Completed [facility] Influenza High Dose 2021-08-24 00:00:00 Completed [facility] Influenza High Dose 2021-08-24 00:00:00 Completed [facility] Influenza High Dose 2021-08-24 00:00:00 Completed [facility] Influenza High Dose 2021-08-24 00:00:00 Completed [facility] Influenza High Dose 2021-08-24 00:00:00 Completed [facility] Influenza High Dose 2021-08-24 00:00:00 Completed [facility] Influenza High Dose 2021-08-24 00:00:00 Completed [facility] Influenza High Dose 2021-08-24 00:00:00 Completed [facility] Influenza High Dose 2021-08-24 00:00:00 Completed [facility] Influenza High Dose 2021-08-24 00:00:00 Completed [facility] Influenza High Dose 2021-08-24 00:00:00 Completed [facility] Influenza High Dose 2021-08-24 00:00:00 Completed [facility] Influenza High Dose 2021-08-24 00:00:00 Completed [facility] Influenza High Dose 2021-08-24 00:00:00 Completed [facility] Influenza High Dose 2021-08-24 00:00:00 Completed [facility] Influenza High Dose 2021-08-24 00:00:00 Completed [facility] Influenza High Dose 2021-08-24 00:00:00 Completed [facility] Influenza High Dose 2021-08-24 00:00:00 Completed [facility] Influenza High Dose 2021-08-24 00:00:00 Completed [facility] Influenza High Dose 2021-08-24 00:00:00 Completed [facility] Influenza High Dose 2021-08-24 00:00:00 Completed [facility] Influenza High Dose 2021-08-24 00:00:00 Completed [facility] Influenza High Dose 2021-08-24 00:00:00 Completed [facility] Influenza High Dose 2021-08-24 00:00:00 Completed [facility] Influenza High Dose 2021-08-24 00:00:00 Completed [facility] Influenza High Dose 2021-08-24 00:00:00 Completed [facility] Influenza High Dose 2021-08-24 00:00:00 Completed [facility] Influenza High Dose 2021-08-24 00:00:00 Completed [facility] Influenza High Dose 2021-08-24 00:00:00 Completed [facility] Influenza High Dose 2021-08-24 00:00:00 Completed [facility] Influenza High Dose 2021-08-24 00:00:00 Completed [facility] Influenza High Dose 2021-08-24 00:00:00 Completed [facility] Influenza High Dose 2021-08-24 00:00:00 Completed [facility] Influenza High Dose 2021-08-24 00:00:00 Completed [facility] Influenza High Dose 2021-08-24 00:00:00 Completed [facility] Influenza High Dose 2021-08-24 00:00:00 Completed [facility] Influenza High Dose 2021-08-24 00:00:00 Completed [facility] Influenza High Dose 2021-08-24 00:00:00 Completed [facility] Influenza High Dose 2021-08-24 00:00:00 Completed [facility] Influenza High Dose 2021-08-24 00:00:00 Completed [facility] Influenza High Dose 2021-08-24 00:00:00 Completed [facility] Influenza High Dose 2021-08-24 00:00:00 Completed [facility] Influenza High Dose 2021-08-24 00:00:00 Completed [facility] Influenza High Dose 2021-08-24 00:00:00 Completed [facility] Influenza High Dose 2021-08-24 00:00:00 Completed [facility] Influenza High Dose 2021-08-24 00:00:00 Completed [facility] Influenza High Dose 2021-08-24 00:00:00 Completed [facility] Influenza High Dose 2021-08-24 00:00:00 Completed [facility] Influenza High Dose 2021-08-24 00:00:00 Completed [facility] Influenza High Dose 2021-08-24 00:00:00 Completed [facility] Influenza High Dose 2021-08-24 00:00:00 Completed [facility] Influenza High Dose 2021-08-24 00:00:00 Completed [facility] Influenza High Dose 2021-08-24 00:00:00 Completed [facility] Influenza High Dose 2021-08-24 00:00:00 Completed [facility] Influenza High Dose 2021-08-24 00:00:00 Completed [facility] SARS-COV-2 COVID-19 PFIZER VACCINE 2021-06-29 00:00:00 Completed [facility] SARS-COV-2 COVID-19 PFIZER VACCINE 2021-06-29 00:00:00 Completed [facility] SARS-COV-2 COVID-19 PFIZER VACCINE 2021-06-29 00:00:00 Completed [facility] SARS-COV-2 COVID-19 PFIZER VACCINE 2021-06-29 00:00:00 Completed [facility] SARS-COV-2 COVID-19 PFIZER VACCINE 2021-06-29 00:00:00 Completed [facility] SARS-COV-2 COVID-19 PFIZER VACCINE 2021-06-29 00:00:00 Completed [facility] SARS-COV-2 COVID-19 PFIZER VACCINE 2021-06-29 00:00:00 Completed [facility] SARS-COV-2 COVID-19 PFIZER VACCINE 2021-06-29 00:00:00 Completed [facility] SARS-COV-2 COVID-19 PFIZER VACCINE 2021-06-29 00:00:00 Completed [facility] SARS-COV-2 COVID-19 PFIZER VACCINE 2021-06-29 00:00:00 Completed [facility] SARS-COV-2 COVID-19 PFIZER VACCINE 2021-06-29 00:00:00 Completed [facility] SARS-COV-2 COVID-19 PFIZER VACCINE 2021-06-29 00:00:00 Completed [facility] SARS-COV-2 COVID-19 PFIZER VACCINE 2021-06-29 00:00:00 Completed [facility] SARS-COV-2 COVID-19 PFIZER VACCINE 2021-06-29 00:00:00 Completed [facility] SARS-COV-2 COVID-19 PFIZER VACCINE 2021-06-29 00:00:00 Completed [facility] SARS-COV-2 COVID-19 PFIZER VACCINE 2021-06-29 00:00:00 Completed [facility] SARS-COV-2 COVID-19 PFIZER VACCINE 2021-06-29 00:00:00 Completed [facility] SARS-COV-2 COVID-19 PFIZER VACCINE 2021-06-29 00:00:00 Completed [facility] SARS-COV-2 COVID-19 PFIZER VACCINE 2021-06-29 00:00:00 Completed [facility] SARS-COV-2 COVID-19 PFIZER VACCINE 2021-06-29 00:00:00 Completed [facility] SARS-COV-2 COVID-19 PFIZER VACCINE 2021-06-29 00:00:00 Completed [facility] SARS-COV-2 COVID-19 PFIZER VACCINE 2021-06-29 00:00:00 Completed [facility] SARS-COV-2 COVID-19 PFIZER VACCINE 2021-06-29 00:00:00 Completed [facility] SARS-COV-2 COVID-19 PFIZER VACCINE 2021-06-29 00:00:00 Completed [facility] SARS-COV-2 COVID-19 PFIZER VACCINE 2021-06-29 00:00:00 Completed [facility] SARS-COV-2 COVID-19 PFIZER VACCINE 2021-06-29 00:00:00 Completed [facility] SARS-COV-2 COVID-19 PFIZER VACCINE 2021-06-29 00:00:00 Completed [facility] SARS-COV-2 COVID-19 PFIZER VACCINE 2021-06-29 00:00:00 Completed [facility] SARS-COV-2 COVID-19 PFIZER VACCINE 2021-06-29 00:00:00 Completed [facility] SARS-COV-2 COVID-19 PFIZER VACCINE 2021-06-29 00:00:00 Completed [facility] SARS-COV-2 COVID-19 PFIZER VACCINE 2021-06-29 00:00:00 Completed [facility] SARS-COV-2 COVID-19 PFIZER VACCINE 2021-06-29 00:00:00 Completed [facility] SARS-COV-2 COVID-19 PFIZER VACCINE 2021-06-29 00:00:00 Completed [facility] SARS-COV-2 COVID-19 PFIZER VACCINE 2021-06-29 00:00:00 Completed [facility] SARS-COV-2 COVID-19 PFIZER VACCINE 2021-06-29 00:00:00 Completed [facility] SARS-COV-2 COVID-19 PFIZER VACCINE 2021-06-29 00:00:00 Completed [facility] SARS-COV-2 COVID-19 PFIZER VACCINE 2021-06-29 00:00:00 Completed [facility] SARS-COV-2 COVID-19 PFIZER VACCINE 2021-06-29 00:00:00 Completed [facility] SARS-COV-2 COVID-19 PFIZER VACCINE 2021-06-29 00:00:00 Completed [facility] SARS-COV-2 COVID-19 PFIZER VACCINE 2021-06-29 00:00:00 Completed [facility] SARS-COV-2 COVID-19 PFIZER VACCINE 2021-06-29 00:00:00 Completed [facility] SARS-COV-2 COVID-19 PFIZER VACCINE 2021-06-29 00:00:00 Completed [facility] SARS-COV-2 COVID-19 PFIZER VACCINE 2021-06-29 00:00:00 Completed [facility] SARS-COV-2 COVID-19 PFIZER VACCINE 2021-06-29 00:00:00 Completed [facility] SARS-COV-2 COVID-19 PFIZER VACCINE 2021-06-29 00:00:00 Completed [facility] SARS-COV-2 COVID-19 PFIZER VACCINE 2021-06-29 00:00:00 Completed [facility] SARS-COV-2 COVID-19 PFIZER VACCINE 2021-06-29 00:00:00 Completed [facility] SARS-COV-2 COVID-19 PFIZER VACCINE 2021-06-29 00:00:00 Completed [facility] SARS-COV-2 COVID-19 PFIZER VACCINE 2021-06-29 00:00:00 Completed [facility] SARS-COV-2 COVID-19 PFIZER VACCINE 2021-06-29 00:00:00 Completed [facility] SARS-COV-2 COVID-19 PFIZER VACCINE 2021-06-29 00:00:00 Completed [facility] SARS-COV-2 COVID-19 PFIZER VACCINE 2021-06-29 00:00:00 Completed [facility] SARS-COV-2 COVID-19 PFIZER VACCINE 2021-06-29 00:00:00 Completed [facility] SARS-COV-2 COVID-19 PFIZER VACCINE 2021-06-29 00:00:00 Completed [facility] SARS-COV-2 COVID-19 PFIZER VACCINE 2021-06-29 00:00:00 Completed [facility] SARS-COV-2 COVID-19 PFIZER VACCINE 2021-06-29 00:00:00 Completed [facility] SARS-COV-2 COVID-19 PFIZER VACCINE 2021-06-29 00:00:00 Completed [facility] SARS-COV-2 COVID-19 PFIZER VACCINE 2021-06-29 00:00:00 Completed [facility] SARS-COV-2 COVID-19 PFIZER VACCINE 2021-06-29 00:00:00 Completed [facility] SARS-COV-2 COVID-19 PFIZER VACCINE 2021-06-29 00:00:00 Completed [facility] SARS-COV-2 COVID-19 PFIZER VACCINE 2021-06-29 00:00:00 Completed [facility] SARS-COV-2 COVID-19 PFIZER VACCINE 2021-06-29 00:00:00 Completed [facility] SARS-COV-2 COVID-19 PFIZER VACCINE 2021-06-29 00:00:00 Completed [facility] SARS-COV-2 COVID-19 PFIZER VACCINE 2021-06-29 00:00:00 Completed [facility] SARS-COV-2 COVID-19 PFIZER VACCINE 2021-06-29 00:00:00 Completed [facility] SARS-COV-2 COVID-19 PFIZER VACCINE 2021-06-29 00:00:00 Completed [facility] SARS-COV-2 COVID-19 PFIZER VACCINE 2021-06-29 00:00:00 Completed [facility] SARS-COV-2 COVID-19 PFIZER VACCINE 2021-06-29 00:00:00 Completed [facility] SARS-COV-2 COVID-19 PFIZER VACCINE 2021-06-29 00:00:00 Completed [facility] SARS-COV-2 COVID-19 PFIZER VACCINE 2021-06-29 00:00:00 Completed [facility] SARS-COV-2 COVID-19 PFIZER VACCINE 2021-06-29 00:00:00 Completed [facility] SARS-COV-2 COVID-19 PFIZER VACCINE 2021-06-29 00:00:00 Completed [facility] SARS-COV-2 COVID-19 PFIZER VACCINE 2021-06-29 00:00:00 Completed [facility] SARS-COV-2 COVID-19 PFIZER VACCINE 2021-06-29 00:00:00 Completed [facility] SARS-COV-2 COVID-19 PFIZER VACCINE 2021-06-29 00:00:00 Completed [facility] SARS-COV-2 COVID-19 PFIZER VACCINE 2021-06-29 00:00:00 Completed [facility] SARS-COV-2 COVID-19 PFIZER VACCINE 2021-06-29 00:00:00 Completed [facility] SARS-COV-2 COVID-19 PFIZER VACCINE 2021-06-29 00:00:00 Completed [facility] SARS-COV-2 COVID-19 PFIZER VACCINE 2021-06-29 00:00:00 Completed [facility] SARS-COV-2 COVID-19 PFIZER VACCINE 2021-06-29 00:00:00 Completed [facility] SARS-COV-2 COVID-19 PFIZER VACCINE 2021-06-29 00:00:00 Completed [facility] SARS-COV-2 COVID-19 PFIZER VACCINE 2021-06-29 00:00:00 Completed [facility] SARS-COV-2 COVID-19 PFIZER VACCINE 2021-06-29 00:00:00 Completed [facility] SARS-COV-2 COVID-19 PFIZER VACCINE 2021-06-29 00:00:00 Completed [facility] SARS-COV-2 COVID-19 PFIZER VACCINE 2021-06-29 00:00:00 Completed [facility] SARS-COV-2 COVID-19 PFIZER VACCINE 2021-06-29 00:00:00 Completed [facility] SARS-COV-2 COVID-19 PFIZER VACCINE 2021-06-29 00:00:00 Completed [facility] SARS-COV-2 COVID-19 PFIZER VACCINE 2021-06-29 00:00:00 Completed [facility] SARS-COV-2 COVID-19 PFIZER VACCINE 2021-06-29 00:00:00 Completed [facility] SARS-COV-2 COVID-19 PFIZER VACCINE 2021-06-29 00:00:00 Completed [facility] SARS-COV-2 COVID-19 PFIZER VACCINE 2021-06-29 00:00:00 Completed [facility] SARS-COV-2 COVID-19 PFIZER VACCINE 2021-06-29 00:00:00 Completed [facility] SARS-COV-2 COVID-19 PFIZER VACCINE 2021-06-29 00:00:00 Completed [facility] SARS-COV-2 COVID-19 PFIZER VACCINE 2021-06-29 00:00:00 Completed [facility] SARS-COV-2 COVID-19 PFIZER VACCINE 2021-06-29 00:00:00 Completed [facility] SARS-COV-2 COVID-19 PFIZER VACCINE 2021-06-29 00:00:00 Completed [facility] SARS-COV-2 COVID-19 PFIZER VACCINE 2021-06-29 00:00:00 Completed [facility] SARS-COV-2 COVID-19 PFIZER VACCINE 2021-06-29 00:00:00 Completed [facility] SARS-COV-2 COVID-19 PFIZER VACCINE 2021-06-29 00:00:00 Completed [facility] SARS-COV-2 COVID-19 PFIZER VACCINE 2021-06-29 00:00:00 Completed [facility] SARS-COV-2 COVID-19 PFIZER VACCINE 2021-06-29 00:00:00 Completed [facility] SARS-COV-2 COVID-19 PFIZER VACCINE 2021-06-29 00:00:00 Completed [facility] SARS-COV-2 COVID-19 PFIZER VACCINE 2021-06-29 00:00:00 Completed [facility] SARS-COV-2 COVID-19 PFIZER VACCINE 2021-06-29 00:00:00 Completed [facility] SARS-COV-2 COVID-19 PFIZER VACCINE 2021-06-29 00:00:00 Completed [facility] SARS-COV-2 COVID-19 PFIZER VACCINE 2021-06-29 00:00:00 Completed [facility] SARS-COV-2 COVID-19 PFIZER VACCINE 2021-06-29 00:00:00 Completed [facility] SARS-COV-2 COVID-19 PFIZER VACCINE 2021-06-29 00:00:00 Completed [facility] SARS-COV-2 COVID-19 PFIZER VACCINE 2021-06-29 00:00:00 Completed [facility] SARS-COV-2 COVID-19 PFIZER VACCINE 2021-06-29 00:00:00 Completed [facility] SARS-COV-2 COVID-19 PFIZER VACCINE 2021-06-29 00:00:00 Completed [facility] SARS-COV-2 COVID-19 PFIZER VACCINE 2021-06-29 00:00:00 Completed [facility] SARS-COV-2 COVID-19 PFIZER VACCINE 2021-06-29 00:00:00 Completed [facility] SARS-COV-2 COVID-19 PFIZER VACCINE 2021-06-29 00:00:00 Completed [facility] SARS-COV-2 COVID-19 PFIZER VACCINE 2021-06-29 00:00:00 Completed [facility] SARS-COV-2 COVID-19 PFIZER VACCINE 2021-06-29 00:00:00 Completed [facility] SARS-COV-2 COVID-19 PFIZER VACCINE 2021-06-29 00:00:00 Completed [facility] SARS-COV-2 COVID-19 PFIZER VACCINE 2021-06-29 00:00:00 Completed [facility] SARS-COV-2 COVID-19 PFIZER VACCINE 2021-06-29 00:00:00 Completed [facility] SARS-COV-2 COVID-19 PFIZER VACCINE 2021-06-29 00:00:00 Completed [facility] SARS-COV-2 COVID-19 PFIZER VACCINE 2021-06-29 00:00:00 Completed [facility] SARS-COV-2 COVID-19 PFIZER VACCINE 2021-06-29 00:00:00 Completed [facility] SARS-COV-2 COVID-19 PFIZER VACCINE 2021-06-29 00:00:00 Completed [facility] SARS-COV-2 COVID-19 PFIZER VACCINE 2021-06-29 00:00:00 Completed [facility] SARS-COV-2 COVID-19 PFIZER VACCINE 2021-06-29 00:00:00 Completed [facility] SARS-COV-2 COVID-19 PFIZER VACCINE 2021-06-29 00:00:00 Completed [facility] SARS-COV-2 COVID-19 PFIZER VACCINE 2021-06-29 00:00:00 Completed [facility] SARS-COV-2 COVID-19 PFIZER VACCINE 2021-06-29 00:00:00 Completed [facility] SARS-COV-2 COVID-19 PFIZER VACCINE 2021-06-29 00:00:00 Completed [facility] SARS-COV-2 COVID-19 PFIZER VACCINE 2021-06-29 00:00:00 Completed [facility] SARS-COV-2 COVID-19 PFIZER VACCINE 2021-06-29 00:00:00 Completed [facility] SARS-COV-2 COVID-19 PFIZER VACCINE 2021-06-29 00:00:00 Completed [facility] SARS-COV-2 COVID-19 PFIZER VACCINE 2021-06-29 00:00:00 Completed [facility] SARS-COV-2 COVID-19 PFIZER VACCINE 2021-06-29 00:00:00 Completed [facility] SARS-COV-2 COVID-19 PFIZER VACCINE 2021-06-29 00:00:00 Completed [facility] SARS-COV-2 COVID-19 PFIZER VACCINE 2021-06-29 00:00:00 Completed [facility] SARS-COV-2 COVID-19 PFIZER VACCINE 2021-06-29 00:00:00 Completed [facility] SARS-COV-2 COVID-19 PFIZER VACCINE 2021-06-29 00:00:00 Completed [facility] SARS-COV-2 COVID-19 PFIZER VACCINE 2021-06-29 00:00:00 Completed [facility] SARS-COV-2 COVID-19 PFIZER VACCINE 2021-06-29 00:00:00 Completed [facility] SARS-COV-2 COVID-19 PFIZER VACCINE 2021-06-29 00:00:00 Completed [facility] SARS-COV-2 COVID-19 PFIZER VACCINE 2021-06-29 00:00:00 Completed [facility] SARS-COV-2 COVID-19 PFIZER VACCINE 2021-06-29 00:00:00 Completed [facility] SARS-COV-2 COVID-19 PFIZER VACCINE 2021-06-29 00:00:00 Completed [facility] SARS-COV-2 COVID-19 PFIZER VACCINE 2021-06-29 00:00:00 Completed [facility] SARS-COV-2 COVID-19 PFIZER VACCINE 2021-06-29 00:00:00 Completed [facility] SARS-COV-2 COVID-19 PFIZER VACCINE 2021-06-29 00:00:00 Completed [facility] SARS-COV-2 COVID-19 PFIZER VACCINE 2021-06-29 00:00:00 Completed [facility] SARS-COV-2 COVID-19 PFIZER VACCINE 2021-06-29 00:00:00 Completed [facility] SARS-COV-2 COVID-19 PFIZER VACCINE 2021-06-29 00:00:00 Completed [facility] SARS-COV-2 COVID-19 PFIZER VACCINE 2021-06-29 00:00:00 Completed [facility] SARS-COV-2 COVID-19 PFIZER VACCINE 2021-06-29 00:00:00 Completed [facility] SARS-COV-2 COVID-19 PFIZER VACCINE 2021-06-29 00:00:00 Completed [facility] SARS-COV-2 COVID-19 PFIZER VACCINE 2021-06-29 00:00:00 Completed [facility] SARS-COV-2 COVID-19 PFIZER VACCINE 2021-06-29 00:00:00 Completed [facility] SARS-COV-2 COVID-19 PFIZER VACCINE 2021-06-29 00:00:00 Completed [facility] SARS-COV-2 COVID-19 PFIZER VACCINE 2021-06-29 00:00:00 Completed [facility] SARS-COV-2 COVID-19 PFIZER VACCINE 2021-06-29 00:00:00 Completed [facility] SARS-COV-2 COVID-19 PFIZER VACCINE 2021-06-29 00:00:00 Completed [facility] SARS-COV-2 COVID-19 PFIZER VACCINE 2021-06-29 00:00:00 Completed [facility] SARS-COV-2 COVID-19 PFIZER VACCINE 2021-06-29 00:00:00 Completed [facility] SARS-COV-2 COVID-19 PFIZER VACCINE 2021-06-29 00:00:00 Completed [facility] SARS-COV-2 COVID-19 PFIZER VACCINE 2021-06-29 00:00:00 Completed [facility] SARS-COV-2 COVID-19 PFIZER VACCINE 2021-06-29 00:00:00 Completed [facility] SARS-COV-2 COVID-19 PFIZER VACCINE 2021-06-29 00:00:00 Completed [facility] SARS-COV-2 COVID-19 PFIZER VACCINE 2021-06-29 00:00:00 Completed [facility] SARS-COV-2 COVID-19 PFIZER VACCINE 2021-06-29 00:00:00 Completed [facility] SARS-COV-2 COVID-19 PFIZER VACCINE 2021-06-29 00:00:00 Completed [facility] SARS-COV-2 COVID-19 PFIZER VACCINE 2021-06-29 00:00:00 Completed [facility] SARS-COV-2 COVID-19 PFIZER VACCINE 2021-06-29 00:00:00 Completed [facility] SARS-COV-2 COVID-19 PFIZER VACCINE 2021-06-29 00:00:00 Completed [facility] SARS-COV-2 COVID-19 PFIZER VACCINE 2021-06-29 00:00:00 Completed [facility] SARS-COV-2 COVID-19 PFIZER VACCINE 2021-06-29 00:00:00 Completed [facility] SARS-COV-2 COVID-19 PFIZER VACCINE 2021-06-29 00:00:00 Completed [facility] SARS-COV-2 COVID-19 PFIZER VACCINE 2021-06-29 00:00:00 Completed [facility] SARS-COV-2 COVID-19 PFIZER VACCINE 2021-06-29 00:00:00 Completed [facility] SARS-COV-2 COVID-19 PFIZER VACCINE 2021-06-29 00:00:00 Completed [facility] SARS-COV-2 COVID-19 PFIZER VACCINE 2021-06-29 00:00:00 Completed [facility] SARS-COV-2 COVID-19 PFIZER VACCINE 2021-06-29 00:00:00 Completed [facility] SARS-COV-2 COVID-19 PFIZER VACCINE 2021-06-29 00:00:00 Completed [facility] SARS-COV-2 COVID-19 PFIZER VACCINE 2021-06-29 00:00:00 Completed [facility] SARS-COV-2 COVID-19 PFIZER VACCINE 2021-06-29 00:00:00 Completed [facility] SARS-COV-2 COVID-19 PFIZER VACCINE 2021-06-29 00:00:00 Completed [facility] SARS-COV-2 COVID-19 PFIZER VACCINE 2021-06-29 00:00:00 Completed [facility] SARS-COV-2 COVID-19 PFIZER VACCINE 2021-06-29 00:00:00 Completed [facility] SARS-COV-2 COVID-19 PFIZER VACCINE 2021-06-29 00:00:00 Completed [facility] SARS-COV-2 COVID-19 PFIZER VACCINE 2021-06-29 00:00:00 Completed [facility] SARS-COV-2 COVID-19 PFIZER VACCINE 2021-06-29 00:00:00 Completed [facility] SARS-COV-2 COVID-19 PFIZER VACCINE 2021-06-29 00:00:00 Completed [facility] SARS-COV-2 COVID-19 PFIZER VACCINE 2021-06-29 00:00:00 Completed [facility] SARS-COV-2 COVID-19 PFIZER VACCINE 2021-06-29 00:00:00 Completed [facility] SARS-COV-2 COVID-19 PFIZER VACCINE 2021-06-29 00:00:00 Completed [facility] SARS-COV-2 COVID-19 PFIZER VACCINE 2021-06-29 00:00:00 Completed [facility] SARS-COV-2 COVID-19 PFIZER VACCINE 2021-06-29 00:00:00 Completed [facility] SARS-COV-2 COVID-19 PFIZER VACCINE 2021-06-29 00:00:00 Completed [facility] SARS-COV-2 COVID-19 PFIZER VACCINE 2021-06-29 00:00:00 Completed [facility] SARS-COV-2 COVID-19 PFIZER VACCINE 2021-06-29 00:00:00 Completed [facility] SARS-COV-2 COVID-19 PFIZER VACCINE 2021-06-29 00:00:00 Completed [facility] SARS-COV-2 COVID-19 PFIZER VACCINE 2021-06-29 00:00:00 Completed [facility] SARS-COV-2 COVID-19 PFIZER VACCINE 2021-06-29 00:00:00 Completed [facility] SARS-COV-2 COVID-19 PFIZER VACCINE 2021-06-29 00:00:00 Completed [facility] SARS-COV-2 COVID-19 PFIZER VACCINE 2021-06-29 00:00:00 Completed [facility] SARS-COV-2 COVID-19 PFIZER VACCINE 2020-11-20 00:00:00 Completed [facility] SARS-COV-2 COVID-19 PFIZER VACCINE 2020-11-20 00:00:00 Completed [facility] SARS-COV-2 COVID-19 PFIZER VACCINE 2020-11-20 00:00:00 Completed [facility] SARS-COV-2 COVID-19 PFIZER VACCINE 2020-11-20 00:00:00 Completed [facility] SARS-COV-2 COVID-19 PFIZER VACCINE 2020-11-20 00:00:00 Completed [facility] SARS-COV-2 COVID-19 PFIZER VACCINE 2020-11-20 00:00:00 Completed [facility] SARS-COV-2 COVID-19 PFIZER VACCINE 2020-11-20 00:00:00 Completed [facility] SARS-COV-2 COVID-19 PFIZER VACCINE 2020-11-20 00:00:00 Completed [facility] SARS-COV-2 COVID-19 PFIZER VACCINE 2020-11-20 00:00:00 Completed [facility] SARS-COV-2 COVID-19 PFIZER VACCINE 2020-11-20 00:00:00 Completed [facility] SARS-COV-2 COVID-19 PFIZER VACCINE 2020-11-20 00:00:00 Completed [facility] SARS-COV-2 COVID-19 PFIZER VACCINE 2020-11-20 00:00:00 Completed [facility] SARS-COV-2 COVID-19 PFIZER VACCINE 2020-11-20 00:00:00 Completed [facility] SARS-COV-2 COVID-19 PFIZER VACCINE 2020-11-20 00:00:00 Completed [facility] SARS-COV-2 COVID-19 PFIZER VACCINE 2020-11-20 00:00:00 Completed [facility] SARS-COV-2 COVID-19 PFIZER VACCINE 2020-11-20 00:00:00 Completed [facility] SARS-COV-2 COVID-19 PFIZER VACCINE 2020-11-20 00:00:00 Completed [facility] SARS-COV-2 COVID-19 PFIZER VACCINE 2020-11-20 00:00:00 Completed [facility] SARS-COV-2 COVID-19 PFIZER VACCINE 2020-11-20 00:00:00 Completed [facility] SARS-COV-2 COVID-19 PFIZER VACCINE 2020-11-20 00:00:00 Completed [facility] SARS-COV-2 COVID-19 PFIZER VACCINE 2020-11-20 00:00:00 Completed [facility] SARS-COV-2 COVID-19 PFIZER VACCINE 2020-11-20 00:00:00 Completed [facility] SARS-COV-2 COVID-19 PFIZER VACCINE 2020-11-20 00:00:00 Completed [facility] SARS-COV-2 COVID-19 PFIZER VACCINE 2020-11-20 00:00:00 Completed [facility] SARS-COV-2 COVID-19 PFIZER VACCINE 2020-11-20 00:00:00 Completed [facility] SARS-COV-2 COVID-19 PFIZER VACCINE 2020-11-20 00:00:00 Completed [facility] SARS-COV-2 COVID-19 PFIZER VACCINE 2020-11-20 00:00:00 Completed [facility] SARS-COV-2 COVID-19 PFIZER VACCINE 2020-11-20 00:00:00 Completed [facility] SARS-COV-2 COVID-19 PFIZER VACCINE 2020-11-20 00:00:00 Completed [facility] SARS-COV-2 COVID-19 PFIZER VACCINE 2020-11-20 00:00:00 Completed [facility] SARS-COV-2 COVID-19 PFIZER VACCINE 2020-11-20 00:00:00 Completed [facility] SARS-COV-2 COVID-19 PFIZER VACCINE 2020-11-20 00:00:00 Completed [facility] SARS-COV-2 COVID-19 PFIZER VACCINE 2020-11-20 00:00:00 Completed [facility] SARS-COV-2 COVID-19 PFIZER VACCINE 2020-11-20 00:00:00 Completed [facility] SARS-COV-2 COVID-19 PFIZER VACCINE 2020-11-20 00:00:00 Completed [facility] SARS-COV-2 COVID-19 PFIZER VACCINE 2020-11-20 00:00:00 Completed [facility] SARS-COV-2 COVID-19 PFIZER VACCINE 2020-11-20 00:00:00 Completed [facility] SARS-COV-2 COVID-19 PFIZER VACCINE 2020-11-20 00:00:00 Completed [facility] SARS-COV-2 COVID-19 PFIZER VACCINE 2020-11-20 00:00:00 Completed [facility] SARS-COV-2 COVID-19 PFIZER VACCINE 2020-11-20 00:00:00 Completed [facility] SARS-COV-2 COVID-19 PFIZER VACCINE 2020-11-20 00:00:00 Completed [facility] SARS-COV-2 COVID-19 PFIZER VACCINE 2020-11-20 00:00:00 Completed [facility] SARS-COV-2 COVID-19 PFIZER VACCINE 2020-11-20 00:00:00 Completed [facility] SARS-COV-2 COVID-19 PFIZER VACCINE 2020-11-20 00:00:00 Completed [facility] SARS-COV-2 COVID-19 PFIZER VACCINE 2020-11-20 00:00:00 Completed [facility] SARS-COV-2 COVID-19 PFIZER VACCINE 2020-11-20 00:00:00 Completed [facility] SARS-COV-2 COVID-19 PFIZER VACCINE 2020-11-20 00:00:00 Completed [facility] SARS-COV-2 COVID-19 PFIZER VACCINE 2020-11-20 00:00:00 Completed [facility] SARS-COV-2 COVID-19 PFIZER VACCINE 2020-11-20 00:00:00 Completed [facility] SARS-COV-2 COVID-19 PFIZER VACCINE 2020-11-20 00:00:00 Completed [facility] SARS-COV-2 COVID-19 PFIZER VACCINE 2020-11-20 00:00:00 Completed [facility] SARS-COV-2 COVID-19 PFIZER VACCINE 2020-11-20 00:00:00 Completed [facility] SARS-COV-2 COVID-19 PFIZER VACCINE 2020-11-20 00:00:00 Completed [facility] SARS-COV-2 COVID-19 PFIZER VACCINE 2020-11-20 00:00:00 Completed [facility] SARS-COV-2 COVID-19 PFIZER VACCINE 2020-11-20 00:00:00 Completed [facility] SARS-COV-2 COVID-19 PFIZER VACCINE 2020-11-20 00:00:00 Completed [facility] SARS-COV-2 COVID-19 PFIZER VACCINE 2020-11-20 00:00:00 Completed [facility] SARS-COV-2 COVID-19 PFIZER VACCINE 2020-11-20 00:00:00 Completed [facility] SARS-COV-2 COVID-19 PFIZER VACCINE 2020-11-20 00:00:00 Completed [facility] SARS-COV-2 COVID-19 PFIZER VACCINE 2020-11-20 00:00:00 Completed [facility] SARS-COV-2 COVID-19 PFIZER VACCINE 2020-11-20 00:00:00 Completed [facility] SARS-COV-2 COVID-19 PFIZER VACCINE 2020-11-20 00:00:00 Completed [facility] SARS-COV-2 COVID-19 PFIZER VACCINE 2020-11-20 00:00:00 Completed [facility] SARS-COV-2 COVID-19 PFIZER VACCINE 2020-11-20 00:00:00 Completed [facility] SARS-COV-2 COVID-19 PFIZER VACCINE 2020-11-20 00:00:00 Completed [facility] SARS-COV-2 COVID-19 PFIZER VACCINE 2020-11-20 00:00:00 Completed [facility] SARS-COV-2 COVID-19 PFIZER VACCINE 2020-11-20 00:00:00 Completed [facility] SARS-COV-2 COVID-19 PFIZER VACCINE 2020-11-20 00:00:00 Completed [facility] SARS-COV-2 COVID-19 PFIZER VACCINE 2020-11-20 00:00:00 Completed [facility] SARS-COV-2 COVID-19 PFIZER VACCINE 2020-11-20 00:00:00 Completed [facility] SARS-COV-2 COVID-19 PFIZER VACCINE 2020-11-20 00:00:00 Completed [facility] SARS-COV-2 COVID-19 PFIZER VACCINE 2020-11-20 00:00:00 Completed [facility] SARS-COV-2 COVID-19 PFIZER VACCINE 2020-11-20 00:00:00 Completed [facility] SARS-COV-2 COVID-19 PFIZER VACCINE 2020-11-20 00:00:00 Completed [facility] SARS-COV-2 COVID-19 PFIZER VACCINE 2020-11-20 00:00:00 Completed [facility] SARS-COV-2 COVID-19 PFIZER VACCINE 2020-11-20 00:00:00 Completed [facility] SARS-COV-2 COVID-19 PFIZER VACCINE 2020-11-20 00:00:00 Completed [facility] SARS-COV-2 COVID-19 PFIZER VACCINE 2020-11-20 00:00:00 Completed [facility] SARS-COV-2 COVID-19 PFIZER VACCINE 2020-11-20 00:00:00 Completed [facility] SARS-COV-2 COVID-19 PFIZER VACCINE 2020-11-20 00:00:00 Completed [facility] SARS-COV-2 COVID-19 PFIZER VACCINE 2020-11-20 00:00:00 Completed [facility] SARS-COV-2 COVID-19 PFIZER VACCINE 2020-11-20 00:00:00 Completed [facility] SARS-COV-2 COVID-19 PFIZER VACCINE 2020-11-20 00:00:00 Completed [facility] SARS-COV-2 COVID-19 PFIZER VACCINE 2020-11-20 00:00:00 Completed [facility] SARS-COV-2 COVID-19 PFIZER VACCINE 2020-11-20 00:00:00 Completed [facility] SARS-COV-2 COVID-19 PFIZER VACCINE 2020-11-20 00:00:00 Completed [facility] SARS-COV-2 COVID-19 PFIZER VACCINE 2020-11-20 00:00:00 Completed [facility] SARS-COV-2 COVID-19 PFIZER VACCINE 2020-11-20 00:00:00 Completed [facility] SARS-COV-2 COVID-19 PFIZER VACCINE 2020-11-20 00:00:00 Completed [facility] SARS-COV-2 COVID-19 PFIZER VACCINE 2020-11-20 00:00:00 Completed [facility] SARS-COV-2 COVID-19 PFIZER VACCINE 2020-11-20 00:00:00 Completed [facility] SARS-COV-2 COVID-19 PFIZER VACCINE 2020-11-20 00:00:00 Completed [facility] SARS-COV-2 COVID-19 PFIZER VACCINE 2020-11-20 00:00:00 Completed [facility] SARS-COV-2 COVID-19 PFIZER VACCINE 2020-11-20 00:00:00 Completed [facility] SARS-COV-2 COVID-19 PFIZER VACCINE 2020-11-20 00:00:00 Completed [facility] SARS-COV-2 COVID-19 PFIZER VACCINE 2020-11-20 00:00:00 Completed [facility] SARS-COV-2 COVID-19 PFIZER VACCINE 2020-11-20 00:00:00 Completed [facility] SARS-COV-2 COVID-19 PFIZER VACCINE 2020-11-20 00:00:00 Completed [facility] SARS-COV-2 COVID-19 PFIZER VACCINE 2020-11-20 00:00:00 Completed [facility] SARS-COV-2 COVID-19 PFIZER VACCINE 2020-11-20 00:00:00 Completed [facility] SARS-COV-2 COVID-19 PFIZER VACCINE 2020-11-20 00:00:00 Completed [facility] SARS-COV-2 COVID-19 PFIZER VACCINE 2020-11-20 00:00:00 Completed [facility] SARS-COV-2 COVID-19 PFIZER VACCINE 2020-11-20 00:00:00 Completed [facility] SARS-COV-2 COVID-19 PFIZER VACCINE 2020-11-20 00:00:00 Completed [facility] SARS-COV-2 COVID-19 PFIZER VACCINE 2020-11-20 00:00:00 Completed [facility] SARS-COV-2 COVID-19 PFIZER VACCINE 2020-11-20 00:00:00 Completed [facility] SARS-COV-2 COVID-19 PFIZER VACCINE 2020-11-20 00:00:00 Completed [facility] SARS-COV-2 COVID-19 PFIZER VACCINE 2020-11-20 00:00:00 Completed [facility] SARS-COV-2 COVID-19 PFIZER VACCINE 2020-11-20 00:00:00 Completed [facility] SARS-COV-2 COVID-19 PFIZER VACCINE 2020-11-20 00:00:00 Completed [facility] SARS-COV-2 COVID-19 PFIZER VACCINE 2020-11-20 00:00:00 Completed [facility] SARS-COV-2 COVID-19 PFIZER VACCINE 2020-11-20 00:00:00 Completed [facility] SARS-COV-2 COVID-19 PFIZER VACCINE 2020-11-20 00:00:00 Completed [facility] SARS-COV-2 COVID-19 PFIZER VACCINE 2020-11-20 00:00:00 Completed [facility] SARS-COV-2 COVID-19 PFIZER VACCINE 2020-11-20 00:00:00 Completed [facility] SARS-COV-2 COVID-19 PFIZER VACCINE 2020-11-20 00:00:00 Completed [facility] SARS-COV-2 COVID-19 PFIZER VACCINE 2020-11-20 00:00:00 Completed [facility] SARS-COV-2 COVID-19 PFIZER VACCINE 2020-11-20 00:00:00 Completed [facility] SARS-COV-2 COVID-19 PFIZER VACCINE 2020-11-20 00:00:00 Completed [facility] SARS-COV-2 COVID-19 PFIZER VACCINE 2020-11-20 00:00:00 Completed [facility] SARS-COV-2 COVID-19 PFIZER VACCINE 2020-11-20 00:00:00 Completed [facility] SARS-COV-2 COVID-19 PFIZER VACCINE 2020-11-20 00:00:00 Completed [facility] SARS-COV-2 COVID-19 PFIZER VACCINE 2020-11-20 00:00:00 Completed [facility] SARS-COV-2 COVID-19 PFIZER VACCINE 2020-11-20 00:00:00 Completed [facility] SARS-COV-2 COVID-19 PFIZER VACCINE 2020-11-20 00:00:00 Completed [facility] SARS-COV-2 COVID-19 PFIZER VACCINE 2020-11-20 00:00:00 Completed [facility] SARS-COV-2 COVID-19 PFIZER VACCINE 2020-11-20 00:00:00 Completed [facility] SARS-COV-2 COVID-19 PFIZER VACCINE 2020-11-20 00:00:00 Completed [facility] SARS-COV-2 COVID-19 PFIZER VACCINE 2020-11-20 00:00:00 Completed [facility] SARS-COV-2 COVID-19 PFIZER VACCINE 2020-11-20 00:00:00 Completed [facility] SARS-COV-2 COVID-19 PFIZER VACCINE 2020-11-20 00:00:00 Completed [facility] SARS-COV-2 COVID-19 PFIZER VACCINE 2020-11-20 00:00:00 Completed [facility] SARS-COV-2 COVID-19 PFIZER VACCINE 2020-11-20 00:00:00 Completed [facility] SARS-COV-2 COVID-19 PFIZER VACCINE 2020-11-20 00:00:00 Completed [facility] SARS-COV-2 COVID-19 PFIZER VACCINE 2020-11-20 00:00:00 Completed [facility] SARS-COV-2 COVID-19 PFIZER VACCINE 2020-11-20 00:00:00 Completed [facility] SARS-COV-2 COVID-19 PFIZER VACCINE 2020-11-20 00:00:00 Completed [facility] SARS-COV-2 COVID-19 PFIZER VACCINE 2020-11-20 00:00:00 Completed [facility] SARS-COV-2 COVID-19 PFIZER VACCINE 2020-11-20 00:00:00 Completed [facility] SARS-COV-2 COVID-19 PFIZER VACCINE 2020-11-20 00:00:00 Completed [facility] SARS-COV-2 COVID-19 PFIZER VACCINE 2020-11-20 00:00:00 Completed [facility] SARS-COV-2 COVID-19 PFIZER VACCINE 2020-11-20 00:00:00 Completed [facility] SARS-COV-2 COVID-19 PFIZER VACCINE 2020-11-20 00:00:00 Completed [facility] SARS-COV-2 COVID-19 PFIZER VACCINE 2020-11-20 00:00:00 Completed [facility] SARS-COV-2 COVID-19 PFIZER VACCINE 2020-11-20 00:00:00 Completed [facility] SARS-COV-2 COVID-19 PFIZER VACCINE 2020-11-20 00:00:00 Completed [facility] SARS-COV-2 COVID-19 PFIZER VACCINE 2020-11-20 00:00:00 Completed [facility] SARS-COV-2 COVID-19 PFIZER VACCINE 2020-11-20 00:00:00 Completed [facility] SARS-COV-2 COVID-19 PFIZER VACCINE 2020-11-20 00:00:00 Completed [facility] SARS-COV-2 COVID-19 PFIZER VACCINE 2020-11-20 00:00:00 Completed [facility] SARS-COV-2 COVID-19 PFIZER VACCINE 2020-11-20 00:00:00 Completed [facility] SARS-COV-2 COVID-19 PFIZER VACCINE 2020-11-20 00:00:00 Completed [facility] SARS-COV-2 COVID-19 PFIZER VACCINE 2020-11-20 00:00:00 Completed [facility] SARS-COV-2 COVID-19 PFIZER VACCINE 2020-11-20 00:00:00 Completed [facility] SARS-COV-2 COVID-19 PFIZER VACCINE 2020-11-20 00:00:00 Completed [facility] SARS-COV-2 COVID-19 PFIZER VACCINE 2020-11-20 00:00:00 Completed [facility] SARS-COV-2 COVID-19 PFIZER VACCINE 2020-11-20 00:00:00 Completed [facility] SARS-COV-2 COVID-19 PFIZER VACCINE 2020-11-20 00:00:00 Completed [facility] SARS-COV-2 COVID-19 PFIZER VACCINE 2020-11-20 00:00:00 Completed [facility] SARS-COV-2 COVID-19 PFIZER VACCINE 2020-11-20 00:00:00 Completed [facility] SARS-COV-2 COVID-19 PFIZER VACCINE 2020-11-20 00:00:00 Completed [facility] SARS-COV-2 COVID-19 PFIZER VACCINE 2020-11-20 00:00:00 Completed [facility] SARS-COV-2 COVID-19 PFIZER VACCINE 2020-11-20 00:00:00 Completed [facility] SARS-COV-2 COVID-19 PFIZER VACCINE 2020-11-20 00:00:00 Completed [facility] SARS-COV-2 COVID-19 PFIZER VACCINE 2020-11-20 00:00:00 Completed [facility] SARS-COV-2 COVID-19 PFIZER VACCINE 2020-11-20 00:00:00 Completed [facility] SARS-COV-2 COVID-19 PFIZER VACCINE 2020-11-20 00:00:00 Completed [facility] SARS-COV-2 COVID-19 PFIZER VACCINE 2020-11-20 00:00:00 Completed [facility] SARS-COV-2 COVID-19 PFIZER VACCINE 2020-11-20 00:00:00 Completed [facility] SARS-COV-2 COVID-19 PFIZER VACCINE 2020-11-20 00:00:00 Completed [facility] SARS-COV-2 COVID-19 PFIZER VACCINE 2020-11-20 00:00:00 Completed [facility] SARS-COV-2 COVID-19 PFIZER VACCINE 2020-11-20 00:00:00 Completed [facility] SARS-COV-2 COVID-19 PFIZER VACCINE 2020-11-20 00:00:00 Completed [facility] SARS-COV-2 COVID-19 PFIZER VACCINE 2020-11-20 00:00:00 Completed [facility] SARS-COV-2 COVID-19 PFIZER VACCINE 2020-11-20 00:00:00 Completed [facility] SARS-COV-2 COVID-19 PFIZER VACCINE 2020-11-20 00:00:00 Completed [facility] SARS-COV-2 COVID-19 PFIZER VACCINE 2020-11-20 00:00:00 Completed [facility] SARS-COV-2 COVID-19 PFIZER VACCINE 2020-11-20 00:00:00 Completed [facility] SARS-COV-2 COVID-19 PFIZER VACCINE 2020-11-20 00:00:00 Completed [facility] SARS-COV-2 COVID-19 PFIZER VACCINE 2020-11-20 00:00:00 Completed [facility] SARS-COV-2 COVID-19 PFIZER VACCINE 2020-11-20 00:00:00 Completed [facility] SARS-COV-2 COVID-19 PFIZER VACCINE 2020-11-20 00:00:00 Completed [facility] SARS-COV-2 COVID-19 PFIZER VACCINE 2020-11-20 00:00:00 Completed [facility] SARS-COV-2 COVID-19 PFIZER VACCINE 2020-11-20 00:00:00 Completed [facility] SARS-COV-2 COVID-19 PFIZER VACCINE 2020-11-20 00:00:00 Completed [facility] SARS-COV-2 COVID-19 PFIZER VACCINE 2020-11-20 00:00:00 Completed [facility] SARS-COV-2 COVID-19 PFIZER VACCINE 2020-11-20 00:00:00 Completed [facility] SARS-COV-2 COVID-19 PFIZER VACCINE 2020-11-20 00:00:00 Completed [facility] SARS-COV-2 COVID-19 PFIZER VACCINE 2020-11-20 00:00:00 Completed [facility] SARS-COV-2 COVID-19 PFIZER VACCINE 2020-11-20 00:00:00 Completed [facility] SARS-COV-2 COVID-19 PFIZER VACCINE 2020-11-20 00:00:00 Completed [facility] SARS-COV-2 COVID-19 PFIZER VACCINE 2020-11-20 00:00:00 Completed [facility] SARS-COV-2 COVID-19 PFIZER VACCINE 2020-11-20 00:00:00 Completed [facility] SARS-COV-2 COVID-19 PFIZER VACCINE 2020-11-20 00:00:00 Completed [facility] SARS-COV-2 COVID-19 PFIZER VACCINE 2020-11-20 00:00:00 Completed [facility] SARS-COV-2 COVID-19 PFIZER VACCINE 2020-11-20 00:00:00 Completed [facility] SARS-COV-2 COVID-19 PFIZER VACCINE 2020-11-20 00:00:00 Completed [facility] SARS-COV-2 COVID-19 PFIZER VACCINE 2020-11-20 00:00:00 Completed [facility] SARS-COV-2 COVID-19 PFIZER VACCINE 2020-11-20 00:00:00 Completed [facility] SARS-COV-2 COVID-19 PFIZER VACCINE 2020-11-20 00:00:00 Completed [facility] SARS-COV-2 COVID-19 PFIZER VACCINE 2020-11-20 00:00:00 Completed [facility] SARS-COV-2 COVID-19 PFIZER VACCINE 2020-11-20 00:00:00 Completed [facility] SARS-COV-2 COVID-19 PFIZER VACCINE 2020-10-23 00:00:00 Completed [facility] SARS-COV-2 COVID-19 PFIZER VACCINE 2020-10-23 00:00:00 Completed [facility] SARS-COV-2 COVID-19 PFIZER VACCINE 2020-10-23 00:00:00 Completed [facility] SARS-COV-2 COVID-19 PFIZER VACCINE 2020-10-23 00:00:00 Completed [facility] SARS-COV-2 COVID-19 PFIZER VACCINE 2020-10-23 00:00:00 Completed [facility] SARS-COV-2 COVID-19 PFIZER VACCINE 2020-10-23 00:00:00 Completed [facility] SARS-COV-2 COVID-19 PFIZER VACCINE 2020-10-23 00:00:00 Completed [facility] SARS-COV-2 COVID-19 PFIZER VACCINE 2020-10-23 00:00:00 Completed [facility] SARS-COV-2 COVID-19 PFIZER VACCINE 2020-10-23 00:00:00 Completed [facility] SARS-COV-2 COVID-19 PFIZER VACCINE 2020-10-23 00:00:00 Completed [facility] SARS-COV-2 COVID-19 PFIZER VACCINE 2020-10-23 00:00:00 Completed [facility] SARS-COV-2 COVID-19 PFIZER VACCINE 2020-10-23 00:00:00 Completed [facility] SARS-COV-2 COVID-19 PFIZER VACCINE 2020-10-23 00:00:00 Completed [facility] SARS-COV-2 COVID-19 PFIZER VACCINE 2020-10-23 00:00:00 Completed [facility] SARS-COV-2 COVID-19 PFIZER VACCINE 2020-10-23 00:00:00 Completed [facility] SARS-COV-2 COVID-19 PFIZER VACCINE 2020-10-23 00:00:00 Completed [facility] SARS-COV-2 COVID-19 PFIZER VACCINE 2020-10-23 00:00:00 Completed [facility] SARS-COV-2 COVID-19 PFIZER VACCINE 2020-10-23 00:00:00 Completed [facility] SARS-COV-2 COVID-19 PFIZER VACCINE 2020-10-23 00:00:00 Completed [facility] SARS-COV-2 COVID-19 PFIZER VACCINE 2020-10-23 00:00:00 Completed [facility] SARS-COV-2 COVID-19 PFIZER VACCINE 2020-10-23 00:00:00 Completed [facility] SARS-COV-2 COVID-19 PFIZER VACCINE 2020-10-23 00:00:00 Completed [facility] SARS-COV-2 COVID-19 PFIZER VACCINE 2020-10-23 00:00:00 Completed [facility] SARS-COV-2 COVID-19 PFIZER VACCINE 2020-10-23 00:00:00 Completed [facility] SARS-COV-2 COVID-19 PFIZER VACCINE 2020-10-23 00:00:00 Completed [facility] SARS-COV-2 COVID-19 PFIZER VACCINE 2020-10-23 00:00:00 Completed [facility] SARS-COV-2 COVID-19 PFIZER VACCINE 2020-10-23 00:00:00 Completed [facility] SARS-COV-2 COVID-19 PFIZER VACCINE 2020-10-23 00:00:00 Completed [facility] SARS-COV-2 COVID-19 PFIZER VACCINE 2020-10-23 00:00:00 Completed [facility] SARS-COV-2 COVID-19 PFIZER VACCINE 2020-10-23 00:00:00 Completed [facility] SARS-COV-2 COVID-19 PFIZER VACCINE 2020-10-23 00:00:00 Completed [facility] SARS-COV-2 COVID-19 PFIZER VACCINE 2020-10-23 00:00:00 Completed [facility] SARS-COV-2 COVID-19 PFIZER VACCINE 2020-10-23 00:00:00 Completed [facility] SARS-COV-2 COVID-19 PFIZER VACCINE 2020-10-23 00:00:00 Completed [facility] SARS-COV-2 COVID-19 PFIZER VACCINE 2020-10-23 00:00:00 Completed [facility] SARS-COV-2 COVID-19 PFIZER VACCINE 2020-10-23 00:00:00 Completed [facility] SARS-COV-2 COVID-19 PFIZER VACCINE 2020-10-23 00:00:00 Completed [facility] SARS-COV-2 COVID-19 PFIZER VACCINE 2020-10-23 00:00:00 Completed [facility] SARS-COV-2 COVID-19 PFIZER VACCINE 2020-10-23 00:00:00 Completed [facility] SARS-COV-2 COVID-19 PFIZER VACCINE 2020-10-23 00:00:00 Completed [facility] SARS-COV-2 COVID-19 PFIZER VACCINE 2020-10-23 00:00:00 Completed [facility] SARS-COV-2 COVID-19 PFIZER VACCINE 2020-10-23 00:00:00 Completed [facility] SARS-COV-2 COVID-19 PFIZER VACCINE 2020-10-23 00:00:00 Completed [facility] SARS-COV-2 COVID-19 PFIZER VACCINE 2020-10-23 00:00:00 Completed [facility] SARS-COV-2 COVID-19 PFIZER VACCINE 2020-10-23 00:00:00 Completed [facility] SARS-COV-2 COVID-19 PFIZER VACCINE 2020-10-23 00:00:00 Completed [facility] SARS-COV-2 COVID-19 PFIZER VACCINE 2020-10-23 00:00:00 Completed [facility] SARS-COV-2 COVID-19 PFIZER VACCINE 2020-10-23 00:00:00 Completed [facility] SARS-COV-2 COVID-19 PFIZER VACCINE 2020-10-23 00:00:00 Completed [facility] SARS-COV-2 COVID-19 PFIZER VACCINE 2020-10-23 00:00:00 Completed [facility] SARS-COV-2 COVID-19 PFIZER VACCINE 2020-10-23 00:00:00 Completed [facility] SARS-COV-2 COVID-19 PFIZER VACCINE 2020-10-23 00:00:00 Completed [facility] SARS-COV-2 COVID-19 PFIZER VACCINE 2020-10-23 00:00:00 Completed [facility] SARS-COV-2 COVID-19 PFIZER VACCINE 2020-10-23 00:00:00 Completed [facility] SARS-COV-2 COVID-19 PFIZER VACCINE 2020-10-23 00:00:00 Completed [facility] SARS-COV-2 COVID-19 PFIZER VACCINE 2020-10-23 00:00:00 Completed [facility] SARS-COV-2 COVID-19 PFIZER VACCINE 2020-10-23 00:00:00 [facility] [place] SARS-COV-2 COVID-19 PFIZER VACCINE 2020-10-23 00:00:00 Completed [facility] [place] SARS-COV-2 COVID-19 PFIZER VACCINE 2020-10-23 00:00:00 Completed [facility] SARS-COV-2 COVID-19 PFIZER VACCINE 2020-10-23 00:00:00 Completed [facility] SARS-COV-2 COVID-19 PFIZER VACCINE 2020-10-23 00:00:00 Completed [facility] SARS-COV-2 COVID-19 PFIZER VACCINE 2020-10-23 00:00:00 Completed [facility] SARS-COV-2 COVID-19 PFIZER VACCINE 2020-10-23 00:00:00 Completed [facility] SARS-COV-2 COVID-19 PFIZER VACCINE 2020-10-23 00:00:00 Completed [facility] SARS-COV-2 COVID-19 PFIZER VACCINE 2020-10-23 00:00:00 Completed [facility] SARS-COV-2 COVID-19 PFIZER VACCINE 2020-10-23 00:00:00 Completed [facility] SARS-COV-2 COVID-19 PFIZER VACCINE 2020-10-23 00:00:00 Completed [facility] SARS-COV-2 COVID-19 PFIZER VACCINE 2020-10-23 00:00:00 Completed [facility] SARS-COV-2 COVID-19 PFIZER VACCINE 2020-10-23 00:00:00 Completed [facility] SARS-COV-2 COVID-19 PFIZER VACCINE 2020-10-23 00:00:00 Completed [facility] SARS-COV-2 COVID-19 PFIZER VACCINE 2020-10-23 00:00:00 Completed [facility] SARS-COV-2 COVID-19 PFIZER VACCINE 2020-10-23 00:00:00 Completed [facility] SARS-COV-2 COVID-19 PFIZER VACCINE 2020-10-23 00:00:00 Completed [facility] SARS-COV-2 COVID-19 PFIZER VACCINE 2020-10-23 00:00:00 Completed [facility] SARS-COV-2 COVID-19 PFIZER VACCINE 2020-10-23 00:00:00 Completed [facility] SARS-COV-2 COVID-19 PFIZER VACCINE 2020-10-23 00:00:00 Completed [facility] SARS-COV-2 COVID-19 PFIZER VACCINE 2020-10-23 00:00:00 Completed [facility] SARS-COV-2 COVID-19 PFIZER VACCINE 2020-10-23 00:00:00 Completed [facility] SARS-COV-2 COVID-19 PFIZER VACCINE 2020-10-23 00:00:00 Completed [facility] SARS-COV-2 COVID-19 PFIZER VACCINE 2020-10-23 00:00:00 Completed [facility] SARS-COV-2 COVID-19 PFIZER VACCINE 2020-10-23 00:00:00 Completed [facility] SARS-COV-2 COVID-19 PFIZER VACCINE 2020-10-23 00:00:00 Completed [facility] SARS-COV-2 COVID-19 PFIZER VACCINE 2020-10-23 00:00:00 Completed [facility] SARS-COV-2 COVID-19 PFIZER VACCINE 2020-10-23 00:00:00 Completed [facility] SARS-COV-2 COVID-19 PFIZER VACCINE 2020-10-23 00:00:00 Completed [facility] SARS-COV-2 COVID-19 PFIZER VACCINE 2020-10-23 00:00:00 Completed [facility] SARS-COV-2 COVID-19 PFIZER VACCINE 2020-10-23 00:00:00 Completed [facility] SARS-COV-2 COVID-19 PFIZER VACCINE 2020-10-23 00:00:00 Completed [facility] SARS-COV-2 COVID-19 PFIZER VACCINE 2020-10-23 00:00:00 Completed [facility] SARS-COV-2 COVID-19 PFIZER VACCINE 2020-10-23 00:00:00 Completed [facility] SARS-COV-2 COVID-19 PFIZER VACCINE 2020-10-23 00:00:00 Completed [facility] SARS-COV-2 COVID-19 PFIZER VACCINE 2020-10-23 00:00:00 Completed [facility] SARS-COV-2 COVID-19 PFIZER VACCINE 2020-10-23 00:00:00 Completed [facility] SARS-COV-2 COVID-19 PFIZER VACCINE 2020-10-23 00:00:00 Completed [facility] SARS-COV-2 COVID-19 PFIZER VACCINE 2020-10-23 00:00:00 Completed [facility] SARS-COV-2 COVID-19 PFIZER VACCINE 2020-10-23 00:00:00 Completed [facility] SARS-COV-2 COVID-19 PFIZER VACCINE 2020-10-23 00:00:00 Completed [facility] SARS-COV-2 COVID-19 PFIZER VACCINE 2020-10-23 00:00:00 Completed [facility] SARS-COV-2 COVID-19 PFIZER VACCINE 2020-10-23 00:00:00 Completed [facility] SARS-COV-2 COVID-19 PFIZER VACCINE 2020-10-23 00:00:00 Completed [facility] SARS-COV-2 COVID-19 PFIZER VACCINE 2020-10-23 00:00:00 Completed [facility] SARS-COV-2 COVID-19 PFIZER VACCINE 2020-10-23 00:00:00 Completed [facility] SARS-COV-2 COVID-19 PFIZER VACCINE 2020-10-23 00:00:00 Completed [facility] SARS-COV-2 COVID-19 PFIZER VACCINE 2020-10-23 00:00:00 Completed [facility] SARS-COV-2 COVID-19 PFIZER VACCINE 2020-10-23 00:00:00 Completed [facility] SARS-COV-2 COVID-19 PFIZER VACCINE 2020-10-23 00:00:00 Completed [facility] SARS-COV-2 COVID-19 PFIZER VACCINE 2020-10-23 00:00:00 Completed [facility] SARS-COV-2 COVID-19 PFIZER VACCINE 2020-10-23 00:00:00 Completed [facility] SARS-COV-2 COVID-19 PFIZER VACCINE 2020-10-23 00:00:00 Completed [facility] SARS-COV-2 COVID-19 PFIZER VACCINE 2020-10-23 00:00:00 Completed [facility] SARS-COV-2 COVID-19 PFIZER VACCINE 2020-10-23 00:00:00 Completed [facility] SARS-COV-2 COVID-19 PFIZER VACCINE 2020-10-23 00:00:00 Completed [facility] SARS-COV-2 COVID-19 PFIZER VACCINE 2020-10-23 00:00:00 Completed [facility] SARS-COV-2 COVID-19 PFIZER VACCINE 2020-10-23 00:00:00 Completed [facility] SARS-COV-2 COVID-19 PFIZER VACCINE 2020-10-23 00:00:00 Completed [facility] SARS-COV-2 COVID-19 PFIZER VACCINE 2020-10-23 00:00:00 Completed [facility] SARS-COV-2 COVID-19 PFIZER VACCINE 2020-10-23 00:00:00 Completed [facility] SARS-COV-2 COVID-19 PFIZER VACCINE 2020-10-23 00:00:00 Completed [facility] SARS-COV-2 COVID-19 PFIZER VACCINE 2020-10-23 00:00:00 Completed [facility] SARS-COV-2 COVID-19 PFIZER VACCINE 2020-10-23 00:00:00 Completed [facility] SARS-COV-2 COVID-19 PFIZER VACCINE 2020-10-23 00:00:00 Completed [facility] SARS-COV-2 COVID-19 PFIZER VACCINE 2020-10-23 00:00:00 Completed [facility] SARS-COV-2 COVID-19 PFIZER VACCINE 2020-10-23 00:00:00 Completed [facility] SARS-COV-2 COVID-19 PFIZER VACCINE 2020-10-23 00:00:00 Completed [facility] SARS-COV-2 COVID-19 PFIZER VACCINE 2020-10-23 00:00:00 Completed [facility] SARS-COV-2 COVID-19 PFIZER VACCINE 2020-10-23 00:00:00 Completed [facility] SARS-COV-2 COVID-19 PFIZER VACCINE 2020-10-23 00:00:00 Completed [facility] SARS-COV-2 COVID-19 PFIZER VACCINE 2020-10-23 00:00:00 Completed [facility] SARS-COV-2 COVID-19 PFIZER VACCINE 2020-10-23 00:00:00 Completed [facility] SARS-COV-2 COVID-19 PFIZER VACCINE 2020-10-23 00:00:00 Completed [facility] SARS-COV-2 COVID-19 PFIZER VACCINE 2020-10-23 00:00:00 Completed [facility] SARS-COV-2 COVID-19 PFIZER VACCINE 2020-10-23 00:00:00 Completed [facility] SARS-COV-2 COVID-19 PFIZER VACCINE 2020-10-23 00:00:00 Completed [facility] SARS-COV-2 COVID-19 PFIZER VACCINE 2020-10-23 00:00:00 Completed [facility] SARS-COV-2 COVID-19 PFIZER VACCINE 2020-10-23 00:00:00 Completed [facility] SARS-COV-2 COVID-19 PFIZER VACCINE 2020-10-23 00:00:00 Completed [facility] SARS-COV-2 COVID-19 PFIZER VACCINE 2020-10-23 00:00:00 Completed [facility] SARS-COV-2 COVID-19 PFIZER VACCINE 2020-10-23 00:00:00 Completed [facility] SARS-COV-2 COVID-19 PFIZER VACCINE 2020-10-23 00:00:00 Completed [facility] SARS-COV-2 COVID-19 PFIZER VACCINE 2020-10-23 00:00:00 Completed [facility] SARS-COV-2 COVID-19 PFIZER VACCINE 2020-10-23 00:00:00 Completed [facility] SARS-COV-2 COVID-19 PFIZER VACCINE 2020-10-23 00:00:00 Completed [facility] SARS-COV-2 COVID-19 PFIZER VACCINE 2020-10-23 00:00:00 Completed [facility] SARS-COV-2 COVID-19 PFIZER VACCINE 2020-10-23 00:00:00 Completed [facility] SARS-COV-2 COVID-19 PFIZER VACCINE 2020-10-23 00:00:00 Completed [facility] SARS-COV-2 COVID-19 PFIZER VACCINE 2020-10-23 00:00:00 Completed [facility] SARS-COV-2 COVID-19 PFIZER VACCINE 2020-10-23 00:00:00 Completed [facility] SARS-COV-2 COVID-19 PFIZER VACCINE 2020-10-23 00:00:00 Completed [facility] SARS-COV-2 COVID-19 PFIZER VACCINE 2020-10-23 00:00:00 Completed [facility] SARS-COV-2 COVID-19 PFIZER VACCINE 2020-10-23 00:00:00 Completed [facility] SARS-COV-2 COVID-19 PFIZER VACCINE 2020-10-23 00:00:00 Completed [facility] SARS-COV-2 COVID-19 PFIZER VACCINE 2020-10-23 00:00:00 Completed [facility] SARS-COV-2 COVID-19 PFIZER VACCINE 2020-10-23 00:00:00 Completed [facility] SARS-COV-2 COVID-19 PFIZER VACCINE 2020-10-23 00:00:00 Completed [facility] SARS-COV-2 COVID-19 PFIZER VACCINE 2020-10-23 00:00:00 Completed [facility] SARS-COV-2 COVID-19 PFIZER VACCINE 2020-10-23 00:00:00 Completed [facility] SARS-COV-2 COVID-19 PFIZER VACCINE 2020-10-23 00:00:00 Completed [facility] SARS-COV-2 COVID-19 PFIZER VACCINE 2020-10-23 00:00:00 Completed [facility] SARS-COV-2 COVID-19 PFIZER VACCINE 2020-10-23 00:00:00 Completed [facility] SARS-COV-2 COVID-19 PFIZER VACCINE 2020-10-23 00:00:00 Completed [facility] SARS-COV-2 COVID-19 PFIZER VACCINE 2020-10-23 00:00:00 Completed [facility] SARS-COV-2 COVID-19 PFIZER VACCINE 2020-10-23 00:00:00 Completed [facility] SARS-COV-2 COVID-19 PFIZER VACCINE 2020-10-23 00:00:00 Completed [facility] SARS-COV-2 COVID-19 PFIZER VACCINE 2020-10-23 00:00:00 Completed [facility] SARS-COV-2 COVID-19 PFIZER VACCINE 2020-10-23 00:00:00 Completed [facility] SARS-COV-2 COVID-19 PFIZER VACCINE 2020-10-23 00:00:00 Completed [facility] SARS-COV-2 COVID-19 PFIZER VACCINE 2020-10-23 00:00:00 Completed [facility] SARS-COV-2 COVID-19 PFIZER VACCINE 2020-10-23 00:00:00 Completed [facility] SARS-COV-2 COVID-19 PFIZER VACCINE 2020-10-23 00:00:00 Completed [facility] SARS-COV-2 COVID-19 PFIZER VACCINE 2020-10-23 00:00:00 Completed [facility] SARS-COV-2 COVID-19 PFIZER VACCINE 2020-10-23 00:00:00 Completed [facility] SARS-COV-2 COVID-19 PFIZER VACCINE 2020-10-23 00:00:00 Completed [facility] SARS-COV-2 COVID-19 PFIZER VACCINE 2020-10-23 00:00:00 Completed [facility] SARS-COV-2 COVID-19 PFIZER VACCINE 2020-10-23 00:00:00 Completed [facility] SARS-COV-2 COVID-19 PFIZER VACCINE 2020-10-23 00:00:00 Completed [facility] SARS-COV-2 COVID-19 PFIZER VACCINE 2020-10-23 00:00:00 Completed [facility] SARS-COV-2 COVID-19 PFIZER VACCINE 2020-10-23 00:00:00 Completed [facility] SARS-COV-2 COVID-19 PFIZER VACCINE 2020-10-23 00:00:00 Completed [facility] SARS-COV-2 COVID-19 PFIZER VACCINE 2020-10-23 00:00:00 Completed [facility] SARS-COV-2 COVID-19 PFIZER VACCINE 2020-10-23 00:00:00 Completed [facility] SARS-COV-2 COVID-19 PFIZER VACCINE 2020-10-23 00:00:00 Completed [facility] SARS-COV-2 COVID-19 PFIZER VACCINE 2020-10-23 00:00:00 Completed [facility] SARS-COV-2 COVID-19 PFIZER VACCINE 2020-10-23 00:00:00 Completed [facility] SARS-COV-2 COVID-19 PFIZER VACCINE 2020-10-23 00:00:00 Completed [facility] SARS-COV-2 COVID-19 PFIZER VACCINE 2020-10-23 00:00:00 Completed [facility] SARS-COV-2 COVID-19 PFIZER VACCINE 2020-10-23 00:00:00 Completed [facility] SARS-COV-2 COVID-19 PFIZER VACCINE 2020-10-23 00:00:00 Completed [facility] SARS-COV-2 COVID-19 PFIZER VACCINE 2020-10-23 00:00:00 Completed [facility] SARS-COV-2 COVID-19 PFIZER VACCINE 2020-10-23 00:00:00 Completed [facility] SARS-COV-2 COVID-19 PFIZER VACCINE 2020-10-23 00:00:00 Completed [facility] SARS-COV-2 COVID-19 PFIZER VACCINE 2020-10-23 00:00:00 Completed [facility] SARS-COV-2 COVID-19 PFIZER VACCINE 2020-10-23 00:00:00 Completed [facility] SARS-COV-2 COVID-19 PFIZER VACCINE 2020-10-23 00:00:00 Completed [facility] SARS-COV-2 COVID-19 PFIZER VACCINE 2020-10-23 00:00:00 Completed [facility] SARS-COV-2 COVID-19 PFIZER VACCINE 2020-10-23 00:00:00 Completed [facility] SARS-COV-2 COVID-19 PFIZER VACCINE 2020-10-23 00:00:00 Completed [facility] SARS-COV-2 COVID-19 PFIZER VACCINE 2020-10-23 00:00:00 Completed [facility] SARS-COV-2 COVID-19 PFIZER VACCINE 2020-10-23 00:00:00 Completed [facility] SARS-COV-2 COVID-19 PFIZER VACCINE 2020-10-23 00:00:00 Completed [facility] SARS-COV-2 COVID-19 PFIZER VACCINE 2020-10-23 00:00:00 Completed [facility] SARS-COV-2 COVID-19 PFIZER VACCINE 2020-10-23 00:00:00 Completed [facility] SARS-COV-2 COVID-19 PFIZER VACCINE 2020-10-23 00:00:00 Completed [facility] Influenza High [facility]ose [facility] 2020-05-30 00:00:00 Completed [facility] Influenza High Dose [facility] 2020-05-30 00:00:00 Completed [facility] Influenza High Dose [facility] 2020-05-30 00:00:00 Completed [facility] Influenza High Dose [facility] 2020-05-30 00:00:00 Completed [facility] Influenza High Dose [facility] 2020-05-30 00:00:00 Completed [facility] Influenza High Dose [place] 2020-05-30 00:00:00 Completed [facility] Influenza High Dose [place] 2020-05-30 00:00:00 Completed [facility] Influenza High [facility]ose [place] 2020-05-30 00:00:00 Completed [facility] Influenza High Dose [place] 2020-05-30 00:00:00 Completed [facility] Influenza High Dose [place] 2020-05-30 00:00:00 Completed [facility] Influenza High Dose [place] 2020-05-30 00:00:00 Completed [facility] Influenza High Dose [place] 2020-05-30 00:00:00 Completed [facility] Influenza High Dose [place] 2020-05-30 00:00:00 Completed [facility] Influenza High Dose [place] 2020-05-30 00:00:00 Completed [facility] Influenza High [facility]ose [place] 2020-05-30 00:00:00 Completed [facility] Influenza High Dose [place] 2020-05-30 00:00:00 Completed [facility] Influenza High Dose [place] 2020-05-30 00:00:00 Completed [facility] Influenza High Dose [place] 2020-05-30 00:00:00 Completed [facility] Influenza High Dose [place] 2020-05-30 00:00:00 Completed [facility] Influenza High [facility]ose [place] 2020-05-30 00:00:00 Completed [facility] Influenza High Dose [place] 2020-05-30 00:00:00 Completed [facility] Influenza High Dose [place] 2020-05-30 00:00:00 Completed [facility] Influenza High Dose [place] 2020-05-30 00:00:00 Completed [facility] Influenza High Dose [place] 2020-05-30 00:00:00 Completed [facility] Influenza High Dose [place] 2020-05-30 00:00:00 Completed [facility] Influenza High Dose [place] 2020-05-30 00:00:00 Completed [facility] Influenza High Dose [place] 2020-05-30 00:00:00 Completed [facility] Influenza High Dose [place] 2020-05-30 00:00:00 Completed [facility] Influenza High Dose [place] 2020-05-30 00:00:00 Completed [facility] Influenza High Dose [place] 2020-05-30 00:00:00 Completed [facility] Influenza High Dose [place] 2020-05-30 00:00:00 Completed [facility] Influenza [facility] [place] 2020-05-30 00:00:00 Completed [facility] Influenza High [facility]ose [place] 2020-05-30 00:00:00 Completed [facility] Influenza High Dose [place] 2020-05-30 00:00:00 Completed [facility] Influenza High [facility]ose [place] 2020-05-30 00:00:00 Completed [facility] Influenza High [facility]ose [place] 2020-05-30 00:00:00 Completed [facility] Influenza High [facility]ose [place] 2020-05-30 00:00:00 Completed [facility] Influenza High Dose [place] 2020-05-30 00:00:00 Completed [facility] Influenza High Dose [place] 2020-05-30 00:00:00 Completed [facility] Influenza High [facility] [place] 2020-05-30 00:00:00 Completed [facility] Influenza High [facility]ose [place] 2020-05-30 00:00:00 Completed [facility] Influenza High Dose [place] 2020-05-30 00:00:00 Completed [facility] Influenza High Dose [place] 2020-05-30 00:00:00 Completed [facility] Influenza High [facility] [place] 2020-05-30 00:00:00 Completed [facility] Influenza High [facility]ose [facility] 2020-05-30 00:00:00 Completed [facility] Influenza High Dose [place] 2020-05-30 00:00:00 Completed [facility] Influenza [facility] [place] 2020-05-30 00:00:00 Completed [facility] Influenza High [facility] [place] 2020-05-30 00:00:00 Completed [facility] Influenza [facility] [place] 2020-05-30 00:00:00 Completed [facility] Influenza High [facility]ose [place] 2020-05-30 00:00:00 Completed [facility] Influenza High Dose [place] 2020-05-30 00:00:00 Completed [facility] Influenza [facility] [place] 2020-05-30 00:00:00 Completed [facility] Influenza [facility] [place] 2020-05-30 00:00:00 Completed [facility] Influenza [facility] [place] 2020-05-30 00:00:00 Completed [facility] Influenza High [facility] [place] 2020-05-30 00:00:00 Completed [facility] Influenza [facility] [place] 2020-05-30 00:00:00 Completed [facility] Influenza High [facility] [place] 2020-05-30 00:00:00 Completed [facility] Influenza High [facility] [place] 2020-05-30 00:00:00 Completed [facility] Influenza High Dose [facility] 2020-05-30 00:00:00 Completed [facility] Influenza High [facility] [place] 2020-05-30 00:00:00 Completed [facility] Influenza High [facility] [place] 2020-05-30 00:00:00 Completed [facility] Influenza High Dose [facility] 2020-05-30 00:00:00 Completed [facility] Influenza High Dose [facility] 2020-05-30 00:00:00 Completed [facility] Influenza High Dose [facility] 2020-05-30 00:00:00 Completed [facility] Influenza High Dose [facility] 2020-05-30 00:00:00 Completed [facility] Influenza High Dose [facility] 2020-05-30 00:00:00 Completed [facility] Influenza High Dose [facility] 2020-05-30 00:00:00 Completed [facility] Influenza High Dose [facility] 2020-05-30 00:00:00 Completed [facility] Influenza High Dose [facility] 2020-05-30 00:00:00 Completed [facility] Influenza High Dose [facility] 2020-05-30 00:00:00 Completed [facility] Influenza High Dose [facility] 2020-05-30 00:00:00 Completed [facility] Influenza High Dose [facility] 2020-05-30 00:00:00 Completed [facility] Influenza High Dose [facility] 2020-05-30 00:00:00 Completed [facility] Influenza High Dose [facility] 2020-05-30 00:00:00 Completed [facility] Influenza High Dose [facility] 2020-05-30 00:00:00 Completed [facility] Influenza High Dose [facility] 2020-05-30 00:00:00 Completed [facility] Influenza High Dose [facility] 2020-05-30 00:00:00 Completed [facility] Influenza High Dose [facility] 2020-05-30 00:00:00 Completed [facility] Influenza High Dose [facility] 2020-05-30 00:00:00 Completed [facility] Influenza High Dose [facility] 2020-05-30 00:00:00 Completed [facility] Influenza High Dose [facility] 2020-05-30 00:00:00 Completed [facility] Influenza High Dose [facility] 2020-05-30 00:00:00 Completed [facility] Influenza High Dose [facility] 2020-05-30 00:00:00 Completed [facility] Influenza High Dose [facility] 2020-05-30 00:00:00 Completed [facility] Influenza High Dose [facility] 2020-05-30 00:00:00 Completed [facility] Influenza High Dose [facility] 2020-05-30 00:00:00 Completed [facility] Influenza High Dose [facility] 2020-05-30 00:00:00 Completed [facility] Influenza High Dose [facility] 2020-05-30 00:00:00 Completed [facility] Influenza High Dose [facility] 2020-05-30 00:00:00 Completed [facility] Influenza High Dose [facility] 2020-05-30 00:00:00 Completed [facility] Influenza High Dose [facility] 2020-05-30 00:00:00 Completed [facility] Influenza High Dose [facility] 2020-05-30 00:00:00 Completed [facility] Influenza High Dose [facility] 2020-05-30 00:00:00 Completed [facility] Influenza High Dose [facility] 2020-05-30 00:00:00 Completed [facility] Influenza High Dose [facility] 2020-05-30 00:00:00 Completed [facility] Influenza High Dose [facility] 2020-05-30 00:00:00 Completed [facility] Influenza High Dose [facility] 2020-05-30 00:00:00 Completed [facility] Influenza High Dose [facility] 2020-05-30 00:00:00 Completed [facility] Influenza High Dose [facility] 2020-05-30 00:00:00 Completed [facility] Influenza High Dose [facility] 2020-05-30 00:00:00 Completed [facility] Influenza High Dose [facility] 2020-05-30 00:00:00 Completed [facility] Influenza High Dose [facility] 2020-05-30 00:00:00 Completed [facility] Influenza High Dose [facility] 2020-05-30 00:00:00 Completed [facility] Influenza High Dose [facility] 2020-05-30 00:00:00 Completed [facility] Influenza High Dose [facility] 2020-05-30 00:00:00 Completed [facility] Influenza High Dose [facility] 2020-05-30 00:00:00 Completed [facility] Influenza High Dose [facility] 2020-05-30 00:00:00 Completed [facility] Influenza High Dose [facility] 2020-05-30 00:00:00 Completed [facility] Influenza High Dose [facility] 2020-05-30 00:00:00 Completed [facility] Influenza High Dose [facility] 2020-05-30 00:00:00 Completed [facility] Influenza High Dose [facility] 2020-05-30 00:00:00 Completed [facility] Influenza High Dose [facility] 2020-05-30 00:00:00 Completed [facility] Influenza High Dose [facility] 2020-05-30 00:00:00 Completed [facility] Influenza High Dose [facility] 2020-05-30 00:00:00 Completed [facility] Influenza High Dose [facility] 2020-05-30 00:00:00 Completed [facility] Influenza High Dose [facility] 2020-05-30 00:00:00 Completed [facility] Influenza High Dose [facility] 2020-05-30 00:00:00 Completed [facility] Influenza High Dose Quad 2020-05-30 00:00:00 Completed [facility] Influenza High Dose Quad 2020-05-30 00:00:00 Completed [facility] Influenza High Dose Quad 2020-05-30 00:00:00 Completed [facility] Influenza High Dose Quad 2020-05-30 00:00:00 Completed [facility] Influenza High Dose Quad 2020-05-30 00:00:00 Completed [facility] Influenza High Dose Quad 2020-05-30 00:00:00 Completed [facility] Influenza High Dose Quad 2020-05-30 00:00:00 Completed [facility] Influenza High Dose Quad 2020-05-30 00:00:00 Completed [facility] Influenza High Dose Quad 2020-05-30 00:00:00 Completed [facility] Influenza High Dose Quad 2020-05-30 00:00:00 Completed [facility] Influenza High Dose Quad 2020-05-30 00:00:00 Completed [facility] Influenza High Dose Quad 2020-05-30 00:00:00 Completed [facility] Influenza High Dose Quad 2020-05-30 00:00:00 Completed [facility] Influenza High Dose Quad 2020-05-30 00:00:00 Completed [facility] Influenza High Dose Quad 2020-05-30 00:00:00 Completed [facility] Influenza High Dose Quad 2020-05-30 00:00:00 Completed [facility] Influenza High Dose Quad 2020-05-30 00:00:00 Completed [facility] Influenza High Dose Quad 2020-05-30 00:00:00 Completed [facility] Influenza High Dose Quad 2020-05-30 00:00:00 Completed [facility] Influenza High Dose Quad 2020-05-30 00:00:00 Completed [facility] Influenza High Dose Quad 2020-05-30 00:00:00 Completed [facility] Influenza High Dose Quad 2020-05-30 00:00:00 Completed [facility] Influenza High Dose Quad 2020-05-30 00:00:00 Completed [facility] Influenza High Dose Quad 2020-05-30 00:00:00 Completed [facility] Influenza Virus Vaccine Quad IM 3+ YRS 2019-06-25 00:00:00 Completed [facility] Influenza Virus Vaccine Quad IM 3+ YRS 2019-06-25 00:00:00 Completed [facility] Influenza Virus Vaccine Quad IM 3+ YRS 2019-06-25 00:00:00 Completed [facility] Influenza Virus Vaccine Quad IM 3+ YRS 2019-06-25 00:00:00 Completed [facility] Influenza Virus Vaccine Quad IM 3+ YRS 2019-06-25 00:00:00 Completed [facility] Influenza Virus Vaccine Quad IM 3+ YRS 2019-06-25 00:00:00 Completed [facility] Influenza Virus Vaccine Quad IM 3+ YRS 2019-06-25 00:00:00 Completed [facility] Influenza Virus Vaccine Quad IM 3+ YRS 2019-06-25 00:00:00 Completed [facility] Influenza Virus Vaccine Quad IM 3+ YRS 2019-06-25 00:00:00 Completed [facility] Influenza Virus Vaccine Quad IM 3+ YRS 2019-06-25 00:00:00 Completed [facility] Influenza Virus Vaccine Quad IM 3+ YRS 2019-06-25 00:00:00 Completed [facility] Influenza Virus Vaccine Quad IM 3+ YRS 2019-06-25 00:00:00 Completed [facility] Influenza Virus Vaccine Quad IM 3+ YRS 2019-06-25 00:00:00 Completed [facility] Influenza Virus Vaccine Quad IM 3+ YRS 2019-06-25 00:00:00 Completed [facility] Influenza Virus Vaccine Quad IM 3+ YRS 2019-06-25 00:00:00 Completed [facility] Influenza Virus Vaccine Quad IM 3+ YRS 2019-06-25 00:00:00 Completed [facility] Influenza Virus Vaccine Quad IM 3+ YRS 2019-06-25 00:00:00 Completed [facility] Influenza Virus Vaccine Quad IM 3+ YRS 2019-06-25 00:00:00 Completed [facility] Influenza Virus Vaccine Quad IM 3+ YRS 2019-06-25 00:00:00 Completed [facility] Influenza Virus Vaccine Quad IM 3+ YRS 2019-06-25 00:00:00 Completed [facility] Influenza Virus Vaccine Quad IM 3+ YRS 2019-06-25 00:00:00 Completed [facility] Influenza Virus Vaccine Quad IM 3+ YRS 2019-06-25 00:00:00 Completed [facility] Influenza Virus Vaccine Quad IM 3+ YRS 2019-06-25 00:00:00 Completed [facility] Influenza Virus Vaccine Quad IM 3+ YRS 2019-06-25 00:00:00 Completed [facility] Influenza Virus Vaccine Quad IM 3+ YRS 2019-06-25 00:00:00 Completed [facility] Influenza Virus Vaccine Quad IM 3+ YRS 2019-06-25 00:00:00 Completed [facility] Influenza Virus Vaccine Quad IM 3+ YRS 2019-06-25 00:00:00 Completed [facility] Influenza Virus Vaccine Quad IM 3+ YRS 2019-06-25 00:00:00 Completed [facility] Influenza Virus Vaccine Quad IM 3+ YRS 2019-06-25 00:00:00 Completed [facility] Influenza Virus Vaccine Quad IM 3+ YRS 2019-06-25 00:00:00 Completed [facility] Influenza Virus Vaccine Quad IM 3+ YRS 2019-06-25 00:00:00 Completed [facility] Influenza Virus Vaccine Quad IM 3+ YRS 2019-06-25 00:00:00 Completed [facility] Influenza Virus Vaccine Quad IM 3+ YRS 2019-06-25 00:00:00 Completed [facility] Influenza Virus Vaccine Quad IM 3+ YRS 2019-06-25 00:00:00 Completed [facility] Influenza Virus Vaccine Quad IM 3+ YRS 2019-06-25 00:00:00 Completed [facility] Influenza Virus Vaccine Quad IM 3+ YRS 2019-06-25 00:00:00 Completed [facility] Influenza Virus Vaccine Quad IM 3+ YRS 2019-06-25 00:00:00 Completed [facility] Influenza Virus Vaccine Quad IM 3+ YRS 2019-06-25 00:00:00 Completed [facility] Influenza Virus Vaccine Quad IM 3+ YRS 2019-06-25 00:00:00 Completed [facility] Influenza Virus Vaccine Quad IM 3+ YRS 2019-06-25 00:00:00 Completed [facility] Influenza Virus Vaccine Quad IM 3+ YRS 2019-06-25 00:00:00 Completed [facility] Influenza Virus Vaccine Quad IM 3+ YRS 2019-06-25 00:00:00 Completed [facility] Influenza Virus Vaccine Quad IM 3+ YRS 2019-06-25 00:00:00 Completed [facility] Influenza Virus Vaccine Quad IM 3+ YRS 2019-06-25 00:00:00 Completed [facility] Influenza Virus Vaccine Quad IM 3+ YRS 2019-06-25 00:00:00 Completed [facility] Influenza Virus Vaccine Quad IM 3+ YRS 2019-06-25 00:00:00 Completed [facility] Influenza Virus Vaccine Quad IM 3+ YRS 2019-06-25 00:00:00 Completed [facility] Influenza Virus Vaccine Quad IM 3+ YRS 2019-06-25 00:00:00 Completed [facility] Influenza Virus Vaccine Quad IM 3+ YRS 2019-06-25 00:00:00 Completed [facility] Influenza Virus Vaccine Quad IM 3+ YRS 2019-06-25 00:00:00 Completed [facility] Influenza Virus Vaccine Quad IM 3+ YRS 2019-06-25 00:00:00 Completed [facility] Influenza Virus Vaccine Quad IM 3+ YRS 2019-06-25 00:00:00 Completed [facility] Influenza Virus Vaccine Quad IM 3+ YRS 2019-06-25 00:00:00 Completed [facility] Influenza Virus Vaccine Quad IM 3+ YRS 2019-06-25 00:00:00 Completed [facility] Influenza Virus Vaccine Quad IM 3+ YRS 2019-06-25 00:00:00 Completed [facility] Influenza Virus Vaccine Quad IM 3+ YRS 2019-06-25 00:00:00 Completed [facility] Influenza Virus Vaccine Quad IM 3+ YRS 2019-06-25 00:00:00 Completed [facility] Influenza Virus Vaccine Quad IM 3+ YRS 2019-06-25 00:00:00 Completed [facility] Influenza Virus Vaccine Quad IM 3+ YRS 2019-06-25 00:00:00 Completed [facility] Influenza Virus Vaccine Quad IM 3+ YRS 2019-06-25 00:00:00 Completed [facility] Influenza Virus Vaccine Quad IM 3+ YRS 2019-06-25 00:00:00 Completed [facility] Influenza Virus Vaccine Quad IM 3+ YRS 2019-06-25 00:00:00 Completed [facility] Influenza Virus Vaccine Quad IM 3+ YRS 2019-06-25 00:00:00 Completed [facility] Influenza Virus Vaccine Quad IM 3+ YRS 2019-06-25 00:00:00 Completed [facility] Influenza Virus Vaccine Quad IM 3+ YRS 2019-06-25 00:00:00 Completed [facility] Influenza Virus Vaccine Quad IM 3+ YRS 2019-06-25 00:00:00 Completed [facility] Influenza Virus Vaccine Quad IM 3+ YRS 2019-06-25 00:00:00 Completed [facility] Influenza Virus Vaccine Quad IM 3+ YRS 2019-06-25 00:00:00 Completed [facility] Influenza Virus Vaccine Quad IM 3+ YRS 2019-06-25 00:00:00 Completed [facility] Influenza Virus Vaccine Quad IM 3+ YRS 2019-06-25 00:00:00 Completed [facility] Influenza Virus Vaccine Quad IM 3+ YRS 2019-06-25 00:00:00 Completed [facility] Influenza Virus Vaccine Quad IM 3+ YRS 2019-06-25 00:00:00 Completed [facility] Influenza Virus Vaccine Quad IM 3+ YRS 2019-06-25 00:00:00 Completed [facility] Influenza Virus Vaccine Quad IM 3+ YRS 2019-06-25 00:00:00 Completed [facility] Influenza Virus Vaccine Quad IM 3+ YRS 2019-06-25 00:00:00 Completed [facility] Influenza Virus Vaccine Quad IM 3+ YRS 2019-06-25 00:00:00 Completed [facility] Influenza Virus Vaccine Quad IM 3+ YRS 2019-06-25 00:00:00 Completed [facility] Influenza Virus Vaccine Quad IM 3+ YRS 2019-06-25 00:00:00 Completed [facility] Influenza Virus Vaccine Quad IM 3+ YRS 2019-06-25 00:00:00 Completed [facility] Influenza Virus Vaccine Quad IM 3+ YRS 2019-06-25 00:00:00 Completed [facility] Influenza Virus Vaccine Quad IM 3+ YRS 2019-06-25 00:00:00 Completed [facility] Influenza Virus Vaccine Quad IM 3+ YRS 2019-06-25 00:00:00 Completed [facility] Influenza Virus Vaccine Quad IM 3+ YRS 2019-06-25 00:00:00 Completed [facility] Influenza Virus Vaccine Quad IM 3+ YRS 2019-06-25 00:00:00 Completed [facility] Influenza Virus Vaccine Quad IM 3+ YRS 2019-06-25 00:00:00 Completed [facility] Influenza Virus Vaccine Quad IM 3+ YRS 2019-06-25 00:00:00 Completed [facility] Influenza Virus Vaccine Quad IM 3+ YRS 2019-06-25 00:00:00 Completed [facility] Influenza Virus Vaccine Quad IM 3+ YRS 2019-06-25 00:00:00 Completed [facility] Influenza Virus Vaccine Quad IM 3+ YRS 2019-06-25 00:00:00 Completed [facility] Influenza Virus Vaccine Quad IM 3+ YRS 2019-06-25 00:00:00 Completed [facility] Influenza Virus Vaccine Quad IM 3+ YRS 2019-06-25 00:00:00 Completed [facility] Influenza Virus Vaccine Quad IM 3+ YRS 2019-06-25 00:00:00 Completed [facility] Influenza Virus Vaccine Quad IM 3+ YRS 2019-06-25 00:00:00 Completed [facility] Influenza Virus Vaccine Quad IM 3+ YRS 2019-06-25 00:00:00 Completed [facility] Influenza Virus Vaccine Quad IM 3+ YRS 2019-06-25 00:00:00 Completed [facility] Influenza Virus Vaccine Quad IM 3+ YRS 2019-06-25 00:00:00 Completed [facility] Influenza Virus Vaccine Quad IM 3+ YRS 2019-06-25 00:00:00 Completed [facility] Influenza Virus Vaccine Quad IM 3+ 2019-06-25 00:00:00 Completed [facility] Influenza Virus Vaccine Quad IM 3+ YRS 2019-06-25 00:00:00 Completed [facility] Influenza Virus Vaccine Quad IM 3+ YRS 2019-06-25 00:00:00 Completed [facility] Influenza Virus Vaccine Quad IM 3+ YRS 2019-06-25 00:00:00 Completed [facility] Influenza Virus Vaccine Quad IM 3+ YRS 2019-06-25 00:00:00 Completed [facility] Influenza Virus Vaccine Quad IM 3+ YRS 2019-06-25 00:00:00 Completed [facility] Influenza Virus Vaccine Quad IM 3+ YRS 2019-06-25 00:00:00 Completed [facility] Influenza Virus Vaccine Quad IM 3+ YRS 2019-06-25 00:00:00 Completed [facility] Influenza Virus Vaccine Quad IM 3+ YRS 2019-06-25 00:00:00 Completed [facility] Influenza Virus Vaccine Quad IM 3+ YRS 2019-06-25 00:00:00 Completed [facility] Influenza Virus Vaccine Quad IM 3+ YRS 2019-06-25 00:00:00 Completed [facility] Influenza Virus Vaccine Quad IM 3+ YRS 2019-06-25 00:00:00 Completed [facility] Influenza Virus Vaccine Quad IM 3+ YRS 2019-06-25 00:00:00 Completed [facility] Influenza Virus Vaccine Quad IM 3+ YRS 2019-06-25 00:00:00 Completed [facility] Influenza Virus Vaccine Quad IM 3+ YRS 2019-06-25 00:00:00 Completed [facility] Influenza Virus Vaccine Quad IM 3+ YRS 2019-06-25 00:00:00 Completed [facility] Influenza Virus Vaccine Quad IM 3+ YRS 2019-06-25 00:00:00 Completed [facility] Influenza Virus Vaccine Quad IM 3+ YRS 2019-06-25 00:00:00 Completed [facility] Influenza Virus Vaccine Quad IM 3+ YRS 2019-06-25 00:00:00 Completed [facility] Influenza Virus Vaccine Quad IM 3+ YRS 2019-06-25 00:00:00 Completed [facility] Influenza Virus Vaccine Quad IM 3+ YRS 2019-06-25 00:00:00 Completed [facility] Influenza Virus Vaccine Quad IM 3+ YRS 2019-06-25 00:00:00 Completed [facility] Influenza Virus Vaccine Quad IM 3+ YRS 2019-06-25 00:00:00 Completed [facility] Influenza Virus Vaccine Quad IM 3+ YRS 2019-06-25 00:00:00 Completed [facility] Influenza Virus Vaccine Quad IM 3+ YRS 2019-06-25 00:00:00 Completed [facility] Influenza Virus Vaccine Quad IM 3+ YRS 2019-06-25 00:00:00 Completed [facility] Influenza Virus Vaccine Quad IM 3+ YRS 2019-06-25 00:00:00 Completed [facility] Influenza Virus Vaccine Quad IM 3+ YRS 2019-06-25 00:00:00 Completed [facility] Influenza Virus Vaccine Quad IM 3+ YRS 2019-06-25 00:00:00 Completed [facility] Influenza Virus Vaccine Quad IM 3+ YRS 2019-06-25 00:00:00 Completed [facility] Influenza Virus Vaccine Quad IM 3+ YRS 2019-06-25 00:00:00 Completed [facility] Influenza Virus Vaccine Quad IM 3+ YRS 2019-06-25 00:00:00 Completed [facility] Influenza Virus Vaccine Quad IM 3+ YRS 2019-06-25 00:00:00 Completed [facility] Influenza Virus Vaccine Quad IM 3+ YRS 2019-06-25 00:00:00 Completed [facility] Influenza Virus Vaccine Quad IM 3+ YRS 2019-06-25 00:00:00 Completed [facility] Influenza Virus Vaccine Quad IM 3+ YRS 2019-06-25 00:00:00 Completed [facility] Influenza Virus Vaccine Quad IM 3+ YRS 2019-06-25 00:00:00 Completed [facility] Influenza Virus Vaccine Quad IM 3+ YRS 2019-06-25 00:00:00 Completed [facility] Influenza Virus Vaccine Quad IM 3+ YRS 2019-06-25 00:00:00 Completed [facility] Influenza Virus Vaccine Quad IM 3+ YRS 2019-06-25 00:00:00 Completed [facility] Influenza Virus Vaccine Quad IM 3+ YRS 2019-06-25 00:00:00 Completed [facility] Influenza Virus Vaccine Quad IM 3+ YRS 2019-06-25 00:00:00 Completed [facility] Influenza Virus Vaccine Quad IM 3+ YRS 2019-06-25 00:00:00 Completed [facility] Influenza Virus Vaccine Quad IM 3+ YRS 2019-06-25 00:00:00 Completed [facility] Pneumococcal 13 Conjugate, PCV13 (Prevnar 13) 2018-03-26 00:00:00 Completed [facility] Influenza Virus Vaccine 2018-03-26 00:00:00 Completed [facility] Pneumococcal 13 Conjugate, PCV13 (Prevnar 13) 2018-03-26 00:00:00 Completed [facility] Influenza Virus Vaccine 2018-03-26 00:00:00 Completed [facility] Pneumococcal 13 Conjugate, PCV13 (Prevnar 13) 2018-03-26 00:00:00 Completed [facility] Influenza Virus Vaccine 2018-03-26 00:00:00 Completed [facility] Pneumococcal 13 Conjugate, PCV13 (Prevnar 13) 2018-03-26 00:00:00 Completed [facility] Influenza Virus Vaccine 2018-03-26 00:00:00 Completed [facility] Pneumococcal 13 Conjugate, PCV13 (Prevnar 13) 2018-03-26 00:00:00 Completed [facility] Influenza Virus Vaccine 2018-03-26 00:00:00 Completed [facility] Pneumococcal 13 Conjugate, PCV13 (Prevnar 13) 2018-03-26 00:00:00 Completed [facility] Influenza Virus Vaccine 2018-03-26 00:00:00 Completed [facility] Pneumococcal 13 Conjugate, PCV13 (Prevnar 13) 2018-03-26 00:00:00 Completed [facility] Influenza Virus Vaccine 2018-03-26 00:00:00 Completed [facility] Pneumococcal 13 Conjugate, PCV13 (Prevnar 13) 2018-03-26 00:00:00 Completed [facility] Influenza Virus Vaccine 2018-03-26 00:00:00 Completed [facility] Pneumococcal 13 Conjugate, PCV13 (Prevnar 13) 2018-03-26 00:00:00 Completed [facility] Influenza Virus Vaccine 2018-03-26 00:00:00 Completed [facility] Pneumococcal 13 Conjugate, PCV13 (Prevnar 13) 2018-03-26 00:00:00 Completed [facility] Influenza Virus Vaccine 2018-03-26 00:00:00 Completed [facility] Pneumococcal 13 Conjugate, PCV13 (Prevnar 13) 2018-03-26 00:00:00 Completed [facility] Influenza Virus Vaccine 2018-03-26 00:00:00 Completed [facility] Pneumococcal 13 Conjugate, PCV13 (Prevnar 13) 2018-03-26 00:00:00 Completed [facility] Influenza Virus Vaccine 2018-03-26 00:00:00 Completed [facility] Pneumococcal 13 Conjugate, PCV13 (Prevnar 13) 2018-03-26 00:00:00 Completed [facility] Influenza Virus Vaccine 2018-03-26 00:00:00 Completed [facility] Pneumococcal 13 Conjugate, PCV13 (Prevnar 13) 2018-03-26 00:00:00 Completed [facility] Influenza Virus Vaccine 2018-03-26 00:00:00 Completed [facility] Pneumococcal 13 Conjugate, PCV13 (Prevnar 13) 2018-03-26 00:00:00 Completed [facility] Influenza Virus Vaccine 2018-03-26 00:00:00 Completed [facility] Pneumococcal 13 Conjugate, PCV13 (Prevnar 13) 2018-03-26 00:00:00 Completed [facility] Influenza Virus Vaccine 2018-03-26 00:00:00 Completed [facility] Pneumococcal 13 Conjugate, PCV13 (Prevnar 13) 2018-03-26 00:00:00 Completed [facility] Influenza Virus Vaccine 2018-03-26 00:00:00 Completed [facility] Pneumococcal 13 Conjugate, PCV13 (Prevnar 13) 2018-03-26 00:00:00 Completed [facility] Influenza Virus Vaccine 2018-03-26 00:00:00 Completed [facility] Pneumococcal 13 Conjugate, PCV13 (Prevnar 13) 2018-03-26 00:00:00 Completed [facility] Influenza Virus Vaccine 2018-03-26 00:00:00 Completed [facility] Pneumococcal 13 Conjugate, PCV13 (Prevnar 13) 2018-03-26 00:00:00 Completed [facility] Influenza Virus Vaccine 2018-03-26 00:00:00 Completed [facility] Pneumococcal 13 Conjugate, PCV13 (Prevnar 13) 2018-03-26 00:00:00 Completed [facility] Influenza Virus Vaccine 2018-03-26 00:00:00 Completed [facility] Pneumococcal 13 Conjugate, PCV13 (Prevnar 13) 2018-03-26 00:00:00 Completed [facility] Influenza Virus Vaccine 2018-03-26 00:00:00 Completed [facility] Pneumococcal 13 Conjugate, PCV13 (Prevnar 13) 2018-03-26 00:00:00 Completed [facility] Influenza Virus Vaccine 2018-03-26 00:00:00 Completed [facility] Pneumococcal 13 Conjugate, PCV13 (Prevnar 13) 2018-03-26 00:00:00 Completed [facility] Influenza Virus Vaccine 2018-03-26 00:00:00 Completed [facility] Pneumococcal 13 Conjugate, PCV13 (Prevnar 13) 2018-03-26 00:00:00 Completed [facility] Influenza Virus Vaccine 2018-03-26 00:00:00 Completed [facility] Pneumococcal 13 Conjugate, PCV13 (Prevnar 13) 2018-03-26 00:00:00 Completed [facility] Influenza Virus Vaccine 2018-03-26 00:00:00 Completed [facility] Pneumococcal 13 Conjugate, PCV13 (Prevnar 13) 2018-03-26 00:00:00 Completed [facility] Influenza Virus Vaccine 2018-03-26 00:00:00 Completed [facility] Pneumococcal 13 Conjugate, PCV13 (Prevnar 13) 2018-03-26 00:00:00 Completed [facility] Influenza Virus Vaccine 2018-03-26 00:00:00 Completed [facility] Pneumococcal 13 Conjugate, PCV13 (Prevnar 13) 2018-03-26 00:00:00 Completed [facility] Influenza Virus Vaccine 2018-03-26 00:00:00 Completed [facility] Pneumococcal 13 Conjugate, PCV13 (Prevnar 13) 2018-03-26 00:00:00 Completed [facility] Influenza Virus Vaccine 2018-03-26 00:00:00 Completed [facility] Pneumococcal 13 Conjugate, PCV13 (Prevnar 13) 2018-03-26 00:00:00 Completed [facility] Influenza Virus Vaccine 2018-03-26 00:00:00 Completed [facility] Pneumococcal 13 Conjugate, PCV13 (Prevnar 13) 2018-03-26 00:00:00 Completed [facility] Influenza Virus Vaccine 2018-03-26 00:00:00 Completed [facility] Pneumococcal 13 Conjugate, PCV13 (Prevnar 13) 2018-03-26 00:00:00 Completed [facility] Influenza Virus Vaccine 2018-03-26 00:00:00 Completed [facility] Pneumococcal 13 Conjugate, PCV13 (Prevnar 13) 2018-03-26 00:00:00 Completed [facility] Influenza Virus Vaccine 2018-03-26 00:00:00 Completed [facility] Pneumococcal 13 Conjugate, PCV13 (Prevnar 13) 2018-03-26 00:00:00 Completed [facility] Influenza Virus Vaccine 2018-03-26 00:00:00 Completed [facility] Pneumococcal 13 Conjugate, PCV13 (Prevnar 13) 2018-03-26 00:00:00 Completed [facility] Influenza Virus Vaccine 2018-03-26 00:00:00 Completed [facility] Pneumococcal 13 Conjugate, PCV13 (Prevnar 13) 2018-03-26 00:00:00 Completed [facility] Influenza Virus Vaccine 2018-03-26 00:00:00 Completed [facility] Pneumococcal 13 Conjugate, PCV13 (Prevnar 13) 2018-03-26 00:00:00 Completed [facility] Influenza Virus Vaccine 2018-03-26 00:00:00 Completed [facility] Pneumococcal 13 Conjugate, PCV13 (Prevnar 13) 2018-03-26 00:00:00 Completed [facility] Influenza Virus Vaccine 2018-03-26 00:00:00 Completed [facility] Pneumococcal 13 Conjugate, PCV13 (Prevnar 13) 2018-03-26 00:00:00 Completed [facility] Influenza Virus Vaccine 2018-03-26 00:00:00 Completed [facility] Pneumococcal 13 Conjugate, PCV13 (Prevnar 13) 2018-03-26 00:00:00 Completed [facility] Influenza Virus Vaccine 2018-03-26 00:00:00 Completed [facility] Pneumococcal 13 Conjugate, PCV13 (Prevnar 13) 2018-03-26 00:00:00 Completed [facility] Influenza Virus Vaccine 2018-03-26 00:00:00 Completed [facility] Pneumococcal 13 Conjugate, PCV13 (Prevnar 13) 2018-03-26 00:00:00 Completed [facility] Influenza Virus Vaccine 2018-03-26 00:00:00 Completed [facility] Pneumococcal 13 Conjugate, PCV13 (Prevnar 13) 2018-03-26 00:00:00 Completed [facility] Influenza Virus Vaccine 2018-03-26 00:00:00 Completed [facility] Pneumococcal 13 Conjugate, PCV13 (Prevnar 13) 2018-03-26 00:00:00 Completed [facility] Influenza Virus Vaccine 2018-03-26 00:00:00 Completed [facility] Pneumococcal 13 Conjugate, PCV13 (Prevnar 13) 2018-03-26 00:00:00 Completed [facility] Influenza Virus Vaccine 2018-03-26 00:00:00 Completed [facility] Pneumococcal 13 Conjugate, PCV13 (Prevnar 13) 2018-03-26 00:00:00 Completed [facility] Influenza Virus Vaccine 2018-03-26 00:00:00 Completed [facility] Pneumococcal 13 Conjugate, PCV13 (Prevnar 13) 2018-03-26 00:00:00 Completed [facility] Influenza Virus Vaccine 2018-03-26 00:00:00 Completed [facility] Pneumococcal 13 Conjugate, PCV13 (Prevnar 13) 2018-03-26 00:00:00 Completed [facility] Influenza Virus Vaccine 2018-03-26 00:00:00 Completed [facility] Pneumococcal 13 Conjugate, PCV13 (Prevnar 13) 2018-03-26 00:00:00 Completed [facility] Influenza Virus Vaccine 2018-03-26 00:00:00 Completed [facility] Pneumococcal 13 Conjugate, PCV13 (Prevnar 13) 2018-03-26 00:00:00 Completed [facility] Influenza Virus Vaccine 2018-03-26 00:00:00 Completed [facility] Pneumococcal 13 Conjugate, PCV13 (Prevnar 13) 2018-03-26 00:00:00 Completed [facility] Influenza Virus Vaccine 2018-03-26 00:00:00 Completed [facility] Pneumococcal 13 Conjugate, PCV13 (Prevnar 13) 2018-03-26 00:00:00 Completed [facility] Influenza Virus Vaccine 2018-03-26 00:00:00 Completed [facility] Pneumococcal 13 Conjugate, PCV13 (Prevnar 13) 2018-03-26 00:00:00 Completed [facility] Influenza Virus Vaccine 2018-03-26 00:00:00 Completed [facility] Pneumococcal 13 Conjugate, PCV13 (Prevnar 13) 2018-03-26 00:00:00 Completed [facility] Influenza Virus Vaccine 2018-03-26 00:00:00 Completed [facility] Pneumococcal 13 Conjugate, PCV13 (Prevnar 13) 2018-03-26 00:00:00 Completed [facility] Influenza Virus Vaccine 2018-03-26 00:00:00 Completed [facility] Pneumococcal 13 Conjugate, PCV13 (Prevnar 13) 2018-03-26 00:00:00 Completed [facility] Influenza Virus Vaccine 2018-03-26 00:00:00 Completed [facility] Pneumococcal 13 Conjugate, PCV13 (Prevnar 13) 2018-03-26 00:00:00 Completed [facility] Influenza Virus Vaccine 2018-03-26 00:00:00 Completed [facility] Pneumococcal 13 Conjugate, PCV13 (Prevnar 13) 2018-03-26 00:00:00 Completed [facility] Influenza Virus Vaccine 2018-03-26 00:00:00 Completed [facility] Pneumococcal 13 Conjugate, PCV13 (Prevnar 13) 2018-03-26 00:00:00 Completed [facility] Influenza Virus Vaccine 2018-03-26 00:00:00 Completed [facility] Pneumococcal 13 Conjugate, PCV13 (Prevnar 13) 2018-03-26 00:00:00 Completed [facility] Influenza Virus Vaccine 2018-03-26 00:00:00 Completed [facility] Pneumococcal 13 Conjugate, PCV13 (Prevnar 13) 2018-03-26 00:00:00 Completed [facility] Influenza Virus Vaccine 2018-03-26 00:00:00 Completed [facility] Pneumococcal 13 Conjugate, PCV13 (Prevnar 13) 2018-03-26 00:00:00 Completed [facility] Influenza Virus Vaccine 2018-03-26 00:00:00 Completed [facility] Pneumococcal 13 Conjugate, PCV13 (Prevnar 13) 2018-03-26 00:00:00 Completed [facility] Influenza Virus Vaccine 2018-03-26 00:00:00 Completed [facility] Pneumococcal 13 Conjugate, PCV13 (Prevnar 13) 2018-03-26 00:00:00 Completed [facility] Influenza Virus Vaccine 2018-03-26 00:00:00 Completed [facility] Pneumococcal 13 Conjugate, PCV13 (Prevnar 13) 2018-03-26 00:00:00 Completed [facility] Influenza Virus Vaccine 2018-03-26 00:00:00 Completed [facility] Pneumococcal 13 Conjugate, PCV13 (Prevnar 13) 2018-03-26 00:00:00 Completed [facility] Influenza Virus Vaccine 2018-03-26 00:00:00 Completed [facility] Pneumococcal 13 Conjugate, PCV13 (Prevnar 13) 2018-03-26 00:00:00 Completed [facility] Influenza Virus Vaccine 2018-03-26 00:00:00 Completed [facility] Pneumococcal 13 Conjugate, PCV13 (Prevnar 13) 2018-03-26 00:00:00 Completed [facility] Influenza Virus Vaccine 2018-03-26 00:00:00 Completed [facility] Pneumococcal 13 Conjugate, PCV13 (Prevnar 13) 2018-03-26 00:00:00 Completed [facility] Influenza Virus Vaccine 2018-03-26 00:00:00 Completed [facility] Pneumococcal 13 Conjugate, PCV13 (Prevnar 13) 2018-03-26 00:00:00 Completed [facility] Influenza Virus Vaccine 2018-03-26 00:00:00 Completed [facility] Pneumococcal 13 Conjugate, PCV13 (Prevnar 13) 2018-03-26 00:00:00 Completed [facility] Influenza Virus Vaccine 2018-03-26 00:00:00 Completed [facility] Pneumococcal 13 Conjugate, PCV13 (Prevnar 13) 2018-03-26 00:00:00 Completed [facility] Influenza Virus Vaccine 2018-03-26 00:00:00 Completed [facility] Pneumococcal 13 Conjugate, PCV13 (Prevnar 13) 2018-03-26 00:00:00 Completed [facility] Influenza Virus Vaccine 2018-03-26 00:00:00 Completed [facility] Pneumococcal 13 Conjugate, PCV13 (Prevnar 13) 2018-03-26 00:00:00 Completed [facility] Influenza Virus Vaccine 2018-03-26 00:00:00 Completed [facility] Pneumococcal 13 Conjugate, PCV13 (Prevnar 13) 2018-03-26 00:00:00 Completed [facility] Influenza Virus Vaccine 2018-03-26 00:00:00 Completed [facility] Pneumococcal 13 Conjugate, PCV13 (Prevnar 13) 2018-03-26 00:00:00 Completed [facility] Influenza Virus Vaccine 2018-03-26 00:00:00 Completed [facility] Pneumococcal 13 Conjugate, PCV13 (Prevnar 13) 2018-03-26 00:00:00 Completed [facility] Influenza Virus Vaccine 2018-03-26 00:00:00 Completed [facility] Pneumococcal 13 Conjugate, PCV13 (Prevnar 13) 2018-03-26 00:00:00 Completed [facility] Influenza Virus Vaccine 2018-03-26 00:00:00 Completed [facility] Pneumococcal 13 Conjugate, PCV13 (Prevnar 13) 2018-03-26 00:00:00 Completed [facility] Influenza Virus Vaccine 2018-03-26 00:00:00 Completed [facility] Pneumococcal 13 Conjugate, PCV13 (Prevnar 13) 2018-03-26 00:00:00 Completed [facility] Influenza Virus Vaccine 2018-03-26 00:00:00 Completed [facility] Pneumococcal 13 Conjugate, PCV13 (Prevnar 13) 2018-03-26 00:00:00 Completed [facility] Influenza Virus Vaccine 2018-03-26 00:00:00 Completed [facility] Pneumococcal 13 Conjugate, PCV13 (Prevnar 13) 2018-03-26 00:00:00 Completed [facility] Influenza Virus Vaccine 2018-03-26 00:00:00 Completed [facility] Pneumococcal 13 Conjugate, PCV13 (Prevnar 13) 2018-03-26 00:00:00 Completed [facility] Influenza Virus Vaccine 2018-03-26 00:00:00 Completed [facility] Pneumococcal 13 Conjugate, PCV13 (Prevnar 13) 2018-03-26 00:00:00 Completed [facility] Influenza Virus Vaccine 2018-03-26 00:00:00 Completed [facility] Pneumococcal 13 Conjugate, PCV13 (Prevnar 13) 2018-03-26 00:00:00 Completed [facility] Influenza Virus Vaccine 2018-03-26 00:00:00 Completed [facility] Pneumococcal 13 Conjugate, PCV13 (Prevnar 13) 2018-03-26 00:00:00 Completed [facility] Influenza Virus Vaccine 2018-03-26 00:00:00 Completed [facility] Pneumococcal 13 Conjugate, PCV13 (Prevnar 13) 2018-03-26 00:00:00 Completed [facility] Influenza Virus Vaccine 2018-03-26 00:00:00 Completed [facility] Pneumococcal 13 Conjugate, PCV13 (Prevnar 13) 2018-03-26 00:00:00 Completed [facility] Influenza Virus Vaccine 2018-03-26 00:00:00 Completed [facility] Pneumococcal 13 Conjugate, PCV13 (Prevnar 13) 2018-03-26 00:00:00 Completed [facility] Influenza Virus Vaccine 2018-03-26 00:00:00 Completed [facility] Pneumococcal 13 Conjugate, PCV13 (Prevnar 13) 2018-03-26 00:00:00 Completed [facility] Influenza Virus Vaccine 2018-03-26 00:00:00 Completed [facility] Pneumococcal 13 Conjugate, PCV13 (Prevnar 13) 2018-03-26 00:00:00 Completed [facility] Influenza Virus Vaccine 2018-03-26 00:00:00 Completed [facility] Pneumococcal 13 Conjugate, PCV13 (Prevnar 13) 2018-03-26 00:00:00 Completed [facility] Influenza Virus Vaccine 2018-03-26 00:00:00 Completed [facility] Pneumococcal 13 Conjugate, PCV13 (Prevnar 13) 2018-03-26 00:00:00 Completed [facility] Influenza Virus Vaccine 2018-03-26 00:00:00 Completed [facility] Pneumococcal 13 Conjugate, PCV13 (Prevnar 13) 2018-03-26 00:00:00 Completed [facility] Influenza Virus Vaccine 2018-03-26 00:00:00 Completed [facility] Pneumococcal 13 Conjugate, PCV13 (Prevnar 13) 2018-03-26 00:00:00 Completed [facility] Influenza Virus Vaccine 2018-03-26 00:00:00 Completed [facility] Pneumococcal 13 Conjugate, PCV13 (Prevnar 13) 2018-03-26 00:00:00 Completed [facility] Influenza Virus Vaccine 2018-03-26 00:00:00 Completed [facility] Pneumococcal 13 Conjugate, PCV13 (Prevnar 13) 2018-03-26 00:00:00 Completed [facility] Influenza Virus Vaccine 2018-03-26 00:00:00 Completed [facility] Pneumococcal 13 Conjugate, PCV13 (Prevnar 13) 2018-03-26 00:00:00 Completed [facility] Influenza Virus Vaccine 2018-03-26 00:00:00 Completed [facility] Pneumococcal 13 Conjugate, PCV13 (Prevnar 13) 2018-03-26 00:00:00 Completed [facility] Influenza Virus Vaccine 2018-03-26 00:00:00 Completed [facility] Pneumococcal 13 Conjugate, PCV13 (Prevnar 13) 2018-03-26 00:00:00 Completed [facility] Influenza Virus Vaccine 2018-03-26 00:00:00 Completed [facility] Pneumococcal 13 Conjugate, PCV13 (Prevnar 13) 2018-03-26 00:00:00 Completed [facility] Influenza Virus Vaccine 2018-03-26 00:00:00 Completed [facility] Pneumococcal 13 Conjugate, PCV13 (Prevnar 13) 2018-03-26 00:00:00 Completed [facility] Influenza Virus Vaccine 2018-03-26 00:00:00 Completed [facility] Pneumococcal 13 Conjugate, PCV13 (Prevnar 13) 2018-03-26 00:00:00 Completed [facility] Influenza Virus Vaccine 2018-03-26 00:00:00 Completed [facility] Pneumococcal 13 Conjugate, PCV13 (Prevnar 13) 2018-03-26 00:00:00 Completed [facility] Influenza Virus Vaccine 2018-03-26 00:00:00 Completed [facility] Pneumococcal 13 Conjugate, PCV13 (Prevnar 13) 2018-03-26 00:00:00 Completed [facility] Influenza Virus Vaccine 2018-03-26 00:00:00 Completed [facility] Pneumococcal 13 Conjugate, PCV13 (Prevnar 13) 2018-03-26 00:00:00 Completed [facility] Influenza Virus Vaccine 2018-03-26 00:00:00 Completed [facility] Pneumococcal 13 Conjugate, PCV13 (Prevnar 13) 2018-03-26 00:00:00 Completed [facility] Influenza Virus Vaccine 2018-03-26 00:00:00 Completed [facility] Pneumococcal 13 Conjugate, PCV13 (Prevnar 13) 2018-03-26 00:00:00 Completed [facility] Influenza Virus Vaccine 2018-03-26 00:00:00 Completed [facility] Pneumococcal 13 Conjugate, PCV13 (Prevnar 13) 2018-03-26 00:00:00 Completed [facility] Influenza Virus Vaccine 2018-03-26 00:00:00 Completed [facility] Pneumococcal 13 Conjugate, PCV13 (Prevnar 13) 2018-03-26 00:00:00 Completed [facility] Influenza Virus Vaccine 2018-03-26 00:00:00 Completed [facility] Pneumococcal 13 Conjugate, PCV13 (Prevnar 13) 2018-03-26 00:00:00 Completed [facility] Influenza Virus Vaccine 2018-03-26 00:00:00 Completed [facility] Pneumococcal 13 Conjugate, PCV13 (Prevnar 13) 2018-03-26 00:00:00 Completed [facility] Influenza Virus Vaccine 2018-03-26 00:00:00 Completed [facility] Pneumococcal 13 Conjugate, PCV13 (Prevnar 13) 2018-03-26 00:00:00 Completed [facility] Influenza Virus Vaccine 2018-03-26 00:00:00 Completed [facility] Pneumococcal 13 Conjugate, PCV13 (Prevnar 13) 2018-03-26 00:00:00 Completed [facility] Influenza Virus Vaccine 2018-03-26 00:00:00 Completed [facility] Pneumococcal 13 Conjugate, PCV13 (Prevnar 13) 2018-03-26 00:00:00 Completed [facility] Influenza Virus Vaccine 2018-03-26 00:00:00 Completed [facility] Pneumococcal 13 Conjugate, PCV13 (Prevnar 13) 2018-03-26 00:00:00 Completed [facility] Influenza Virus Vaccine 2018-03-26 00:00:00 Completed [facility] Pneumococcal 13 Conjugate, PCV13 (Prevnar 13) 2018-03-26 00:00:00 Completed [facility] Influenza Virus Vaccine 2018-03-26 00:00:00 Completed [facility] Pneumococcal 13 Conjugate, PCV13 (Prevnar 13) 2018-03-26 00:00:00 Completed [facility] Influenza Virus Vaccine 2018-03-26 00:00:00 Completed [facility] Pneumococcal 13 Conjugate, PCV13 (Prevnar 13) 2018-03-26 00:00:00 Completed [facility] Influenza Virus Vaccine 2018-03-26 00:00:00 Completed [facility] Pneumococcal 13 Conjugate, PCV13 (Prevnar 13) 2018-03-26 00:00:00 Completed [facility] Influenza Virus Vaccine 2018-03-26 00:00:00 Completed [facility] Pneumococcal 13 Conjugate, PCV13 (Prevnar 13) 2018-03-26 00:00:00 Completed [facility] Influenza Virus Vaccine 2018-03-26 00:00:00 Completed [facility] Pneumococcal 13 Conjugate, PCV13 (Prevnar 13) 2018-03-26 00:00:00 Completed [facility] Influenza Virus Vaccine 2018-03-26 00:00:00 Completed [facility] Pneumococcal 13 Conjugate, PCV13 (Prevnar 13) 2018-03-26 00:00:00 Completed [facility] Influenza Virus Vaccine 2018-03-26 00:00:00 Completed [facility] Pneumococcal 13 Conjugate, PCV13 (Prevnar 13) 2018-03-26 00:00:00 Completed [facility] Influenza Virus Vaccine 2018-03-26 00:00:00 Completed [facility] Pneumococcal 13 Conjugate, PCV13 (Prevnar 13) 2018-03-26 00:00:00 Completed [facility] Influenza Virus Vaccine 2018-03-26 00:00:00 Completed [facility] Pneumococcal 13 Conjugate, PCV13 (Prevnar 13) 2018-03-26 00:00:00 Completed [facility] Influenza Virus Vaccine 2018-03-26 00:00:00 Completed [facility] Pneumococcal 13 Conjugate, PCV13 (Prevnar 13) 2018-03-26 00:00:00 Completed [facility] Influenza Virus Vaccine 2018-03-26 00:00:00 Completed [facility] Pneumococcal 13 Conjugate, PCV13 (Prevnar 13) 2018-03-26 00:00:00 Completed [facility] Influenza Virus Vaccine 2018-03-26 00:00:00 Completed [facility] Pneumococcal 13 Conjugate, PCV13 (Prevnar 13) 2018-03-26 00:00:00 Completed [facility] Influenza Virus Vaccine 2018-03-26 00:00:00 Completed [facility] Pneumococcal 13 Conjugate, PCV13 (Prevnar 13) 2018-03-26 00:00:00 Completed [facility] Influenza Virus Vaccine 2018-03-26 00:00:00 Completed [facility] Pneumococcal 13 Conjugate, PCV13 (Prevnar 13) 2018-03-26 00:00:00 Completed [facility] Influenza Virus Vaccine 2018-03-26 00:00:00 Completed [facility] Pneumococcal 13 Conjugate, PCV13 (Prevnar 13) 2018-03-26 00:00:00 Completed [facility] Influenza Virus Vaccine 2018-03-26 00:00:00 Completed [facility] Pneumococcal 13 Conjugate, PCV13 (Prevnar 13) 2018-03-26 00:00:00 Completed [facility] Influenza Virus Vaccine 2018-03-26 00:00:00 Completed [facility] Pneumococcal 13 Conjugate, PCV13 (Prevnar 13) 2018-03-26 00:00:00 Completed [facility] Influenza Virus Vaccine 2018-03-26 00:00:00 Completed [facility] Pneumococcal 13 Conjugate, PCV13 (Prevnar 13) 2018-03-26 00:00:00 Completed [facility] Influenza Virus Vaccine 2018-03-26 00:00:00 Completed [facility] Pneumococcal 13 Conjugate, PCV13 (Prevnar 13) 2018-03-26 00:00:00 Completed [facility] Influenza Virus Vaccine 2018-03-26 00:00:00 Completed [facility] Pneumococcal 13 Conjugate, PCV13 (Prevnar 13) 2018-03-26 00:00:00 Completed [facility] Influenza Virus Vaccine 2018-03-26 00:00:00 Completed [facility] Pneumococcal 13 Conjugate, PCV13 (Prevnar 13) 2018-03-26 00:00:00 Completed [facility] Influenza Virus Vaccine 2018-03-26 00:00:00 Completed [facility] Pneumococcal 13 Conjugate, PCV13 (Prevnar 13) 2018-03-26 00:00:00 Completed [facility] Influenza Virus Vaccine 2018-03-26 00:00:00 Completed [facility] Pneumococcal 13 Conjugate, PCV13 (Prevnar 13) 2018-03-26 00:00:00 Completed [facility] Influenza Virus Vaccine 2018-03-26 00:00:00 Completed [facility] Pneumococcal 13 Conjugate, PCV13 (Prevnar 13) 2018-03-26 00:00:00 Completed [facility] Influenza Virus Vaccine 2018-03-26 00:00:00 Completed [facility] Pneumococcal 13 Conjugate, PCV13 (Prevnar 13) 2018-03-26 00:00:00 Completed [facility] Influenza Virus Vaccine 2018-03-26 00:00:00 Completed [facility] Pneumococcal 13 Conjugate, PCV13 (Prevnar 13) 2018-03-26 00:00:00 Completed [facility] Influenza Virus Vaccine 2018-03-26 00:00:00 Completed [facility] Pneumococcal 13 Conjugate, PCV13 (Prevnar 13) 2018-03-26 00:00:00 Completed [facility] Influenza Virus Vaccine 2018-03-26 00:00:00 Completed [facility] Pneumococcal 13 Conjugate, PCV13 (Prevnar 13) 2018-03-26 00:00:00 Completed [facility] Influenza Virus Vaccine 2018-03-26 00:00:00 Completed [facility] Pneumococcal 13 Conjugate, PCV13 (Prevnar 13) 2018-03-26 00:00:00 Completed [facility] Influenza Virus Vaccine 2018-03-26 00:00:00 Completed [facility] Pneumococcal 13 Conjugate, PCV13 (Prevnar 13) 2018-03-26 00:00:00 Completed [facility] Influenza Virus Vaccine 2018-03-26 00:00:00 Completed [facility] Pneumococcal 13 Conjugate, PCV13 (Prevnar 13) 2018-03-26 00:00:00 Completed [facility] Influenza Virus Vaccine 2018-03-26 00:00:00 Completed [facility] Pneumococcal 13 Conjugate, PCV13 (Prevnar 13) 2018-03-26 00:00:00 Completed [facility] Influenza Virus Vaccine 2018-03-26 00:00:00 Completed [facility] Pneumococcal 13 Conjugate, PCV13 (Prevnar 13) 2018-03-26 00:00:00 Completed [facility] Influenza Virus Vaccine 2018-03-26 00:00:00 Completed [facility] Pneumococcal 13 Conjugate, PCV13 (Prevnar 13) 2018-03-26 00:00:00 Completed [facility] Influenza Virus Vaccine 2018-03-26 00:00:00 Completed [facility] Pneumococcal 13 Conjugate, PCV13 (Prevnar 13) 2018-03-26 00:00:00 Completed [facility] Influenza Virus Vaccine 2018-03-26 00:00:00 Completed [facility] Pneumococcal 13 Conjugate, PCV13 (Prevnar 13) 2018-03-26 00:00:00 Completed [facility] Influenza Virus Vaccine 2018-03-26 00:00:00 Completed [facility] Pneumococcal 13 Conjugate, PCV13 (Prevnar 13) 2018-03-26 00:00:00 Completed [facility] Influenza Virus Vaccine 2018-03-26 00:00:00 Completed [facility] Pneumococcal 13 Conjugate, PCV13 (Prevnar 13) 2018-03-26 00:00:00 Completed [facility] Influenza Virus Vaccine 2018-03-26 00:00:00 Completed [facility] Pneumococcal 13 Conjugate, PCV13 (Prevnar 13) 2018-03-26 00:00:00 Completed [facility] Influenza Virus Vaccine 2018-03-26 00:00:00 Completed [facility] Pneumococcal 13 Conjugate, PCV13 (Prevnar 13) 2018-03-26 00:00:00 Completed [facility] Influenza Virus Vaccine 2018-03-26 00:00:00 Completed [facility] Pneumococcal 13 Conjugate, PCV13 (Prevnar 13) 2018-03-26 00:00:00 Completed [facility] Influenza Virus Vaccine 2018-03-26 00:00:00 Completed [facility] Pneumococcal 13 Conjugate, PCV13 (Prevnar 13) 2018-03-26 00:00:00 Completed [facility] Influenza Virus Vaccine 2018-03-26 00:00:00 Completed [facility] Pneumococcal 13 Conjugate, PCV13 (Prevnar 13) 2018-03-26 00:00:00 Completed [facility] Influenza Virus Vaccine 2018-03-26 00:00:00 Completed [facility] Pneumococcal 13 Conjugate, PCV13 (Prevnar 13) 2018-03-26 00:00:00 Completed [facility] Influenza Virus Vaccine 2018-03-26 00:00:00 Completed [facility] Pneumococcal 13 Conjugate, PCV13 (Prevnar 13) 2018-03-26 00:00:00 Completed [facility] Influenza Virus Vaccine 2018-03-26 00:00:00 Completed [facility] Pneumococcal 13 Conjugate, PCV13 (Prevnar 13) 2018-03-26 00:00:00 Completed [facility] Influenza Virus Vaccine 2018-03-26 00:00:00 Completed [facility] Pneumococcal 13 Conjugate, PCV13 (Prevnar 13) 2018-03-26 00:00:00 Completed [facility] Influenza Virus Vaccine 2018-03-26 00:00:00 Completed [facility] Pneumococcal 13 Conjugate, PCV13 (Prevnar 13) 2018-03-26 00:00:00 Completed [facility] Influenza Virus Vaccine 2018-03-26 00:00:00 Completed [facility] Pneumococcal 13 Conjugate, PCV13 (Prevnar 13) 2018-03-26 00:00:00 Completed [facility] Influenza Virus Vaccine 2018-03-26 00:00:00 Completed [facility] Pneumococcal 13 Conjugate, PCV13 (Prevnar 13) 2018-03-26 00:00:00 Completed [facility] Influenza Virus Vaccine 2018-03-26 00:00:00 Completed [facility] Pneumococcal 13 Conjugate, PCV13 (Prevnar 13) 2018-03-26 00:00:00 Completed [facility] Influenza Virus Vaccine 2018-03-26 00:00:00 Completed [facility] Pneumococcal 13 Conjugate, PCV13 (Prevnar 13) 2018-03-26 00:00:00 Completed [facility] Influenza Virus Vaccine 2018-03-26 00:00:00 Completed [facility] Pneumococcal 13 Conjugate, PCV13 (Prevnar 13) 2018-03-26 00:00:00 Completed [facility] Influenza Virus Vaccine 2018-03-26 00:00:00 Completed [facility] Pneumococcal 13 Conjugate, PCV13 (Prevnar 13) 2018-03-26 00:00:00 Completed [facility] Influenza Virus Vaccine 2018-03-26 00:00:00 Completed [facility] Pneumococcal 13 Conjugate, PCV13 (Prevnar 13) 2018-03-26 00:00:00 Completed [facility] Influenza Virus Vaccine 2018-03-26 00:00:00 Completed [facility] Pneumococcal 13 Conjugate, PCV13 (Prevnar 13) 2018-03-26 00:00:00 Completed [facility] Influenza Virus Vaccine 2018-03-26 00:00:00 Completed [facility] Pneumococcal 13 Conjugate, PCV13 (Prevnar 13) 2018-03-26 00:00:00 Completed [facility] Influenza Virus Vaccine 2018-03-26 00:00:00 Completed [facility] Pneumococcal 13 Conjugate, PCV13 (Prevnar 13) 2018-03-26 00:00:00 Completed [facility] Influenza Virus Vaccine 2018-03-26 00:00:00 Completed [facility] Pneumococcal 13 Conjugate, PCV13 (Prevnar 13) 2018-03-26 00:00:00 Completed [facility] Influenza Virus Vaccine 2018-03-26 00:00:00 Completed [facility] Pneumococcal 13 Conjugate, PCV13 (Prevnar 13) 2018-03-26 00:00:00 Completed [facility] Influenza Virus Vaccine 2018-03-26 00:00:00 Completed [facility] Pneumococcal 13 Conjugate, PCV13 (Prevnar 13) 2018-03-26 00:00:00 Completed [facility] Influenza Virus Vaccine 2018-03-26 00:00:00 Completed [facility] Pneumococcal 13 Conjugate, PCV13 (Prevnar 13) 2018-03-26 00:00:00 Completed [facility] Influenza Virus Vaccine 2018-03-26 00:00:00 Completed [facility] Pneumococcal 13 Conjugate, PCV13 (Prevnar 13) 2018-03-26 00:00:00 Completed [facility] Influenza Virus Vaccine 2018-03-26 00:00:00 Completed [facility] Pneumococcal 13 Conjugate, PCV13 (Prevnar 13) 2018-03-26 00:00:00 Completed [facility] Influenza Virus Vaccine 2018-03-26 00:00:00 Completed [facility] Pneumococcal 13 Conjugate, PCV13 (Prevnar 13) 2018-03-26 00:00:00 Completed [facility] Influenza Virus Vaccine 2018-03-26 00:00:00 Completed [facility] Pneumococcal 13 Conjugate, PCV13 (Prevnar 13) 2018-03-26 00:00:00 Completed [facility] Influenza Virus Vaccine 2018-03-26 00:00:00 Completed [facility] Pneumococcal 13 Conjugate, PCV13 (Prevnar 13) 2018-03-26 00:00:00 Completed [facility] Influenza Virus Vaccine 2018-03-26 00:00:00 Completed [facility] Pneumococcal 13 Conjugate, PCV13 (Prevnar 13) 2018-03-26 00:00:00 Completed [facility] Influenza Virus Vaccine 2018-03-26 00:00:00 Completed [facility] Pneumococcal 13 Conjugate, PCV13 (Prevnar 13) 2018-03-26 00:00:00 Completed [facility] Influenza Virus Vaccine 2018-03-26 00:00:00 Completed [facility] Pneumococcal 13 Conjugate, PCV13 (Prevnar 13) 2018-03-26 00:00:00 Completed [facility] Influenza Virus Vaccine 2018-03-26 00:00:00 Completed [facility] Pneumococcal 13 Conjugate, PCV13 (Prevnar 13) 2018-03-26 00:00:00 Completed [facility] Influenza Virus Vaccine 2018-03-26 00:00:00 Completed [facility] Pneumococcal 13 Conjugate, PCV13 (Prevnar 13) 2018-03-26 00:00:00 Completed [facility] Influenza Virus Vaccine 2018-03-26 00:00:00 Completed [facility] Pneumococcal 13 Conjugate, PCV13 (Prevnar 13) 2018-03-26 00:00:00 Completed [facility] Influenza Virus Vaccine 2018-03-26 00:00:00 Completed [facility] Pneumococcal 13 Conjugate, PCV13 (Prevnar 13) 2018-03-26 00:00:00 Completed [facility] Influenza Virus Vaccine 2018-03-26 00:00:00 Completed [facility] Pneumococcal 13 Conjugate, PCV13 (Prevnar 13) 2018-03-26 00:00:00 Completed [facility] Influenza Virus Vaccine 2018-03-26 00:00:00 Completed [facility] Pneumococcal 13 Conjugate, PCV13 (Prevnar 13) 2018-03-26 00:00:00 Completed [facility] Influenza Virus Vaccine 2018-03-26 00:00:00 Completed [facility] Pneumococcal 13 Conjugate, PCV13 (Prevnar 13) 2018-03-26 00:00:00 Completed [facility] Influenza Virus Vaccine 2018-03-26 00:00:00 Completed [facility] Pneumococcal 13 Conjugate, PCV13 (Prevnar 13) 2018-03-26 00:00:00 Completed [facility] Influenza Virus Vaccine 2018-03-26 00:00:00 Completed [facility] Pneumococcal 13 Conjugate, PCV13 (Prevnar 13) 2018-03-26 00:00:00 Completed [facility] Influenza Virus Vaccine 2018-03-26 00:00:00 Completed [facility] Pneumococcal 13 Conjugate, PCV13 (Prevnar 13) 2018-03-26 00:00:00 Completed [facility] Influenza Virus Vaccine 2018-03-26 00:00:00 Completed [facility] Pneumococcal 13 Conjugate, PCV13 (Prevnar 13) 2018-03-26 00:00:00 Completed [facility] Influenza Virus Vaccine 2018-03-26 00:00:00 Completed [facility] Pneumococcal 13 Conjugate, PCV13 (Prevnar 13) 2018-03-26 00:00:00 Completed [facility] Influenza Virus Vaccine 2018-03-26 00:00:00 Completed [facility] Pneumococcal 13 Conjugate, PCV13 (Prevnar 13) 2018-03-26 00:00:00 Completed [facility] Influenza Virus Vaccine 2018-03-26 00:00:00 Completed [facility] Pneumococcal 13 Conjugate, PCV13 (Prevnar 13) 2018-03-26 00:00:00 Completed [facility] Influenza Virus Vaccine 2018-03-26 00:00:00 Completed [facility] Influenza High Dose 2015-06-30 00:00:00 Completed [facility] Influenza High Dose 2015-06-30 00:00:00 Completed [facility] Influenza High Dose 2015-06-30 00:00:00 Completed [facility] Influenza High Dose 2015-06-30 00:00:00 Completed [facility] Influenza High Dose 2015-06-30 00:00:00 Completed [facility] Influenza High Dose 2015-06-30 00:00:00 Completed [facility] Influenza High Dose 2015-06-30 00:00:00 Completed [facility] Influenza High Dose 2015-06-30 00:00:00 Completed [facility] Influenza High Dose 2015-06-30 00:00:00 Completed [facility] Influenza High Dose 2015-06-30 00:00:00 Completed [facility] Influenza High Dose 2015-06-30 00:00:00 Completed [facility] Influenza High Dose 2015-06-30 00:00:00 Completed [facility] Influenza High Dose 2015-06-30 00:00:00 Completed [facility] Influenza High Dose 2015-06-30 00:00:00 Completed [facility] Influenza High Dose 2015-06-30 00:00:00 Completed [facility] Influenza High Dose 2015-06-30 00:00:00 Completed [facility] Influenza High Dose 2015-06-30 00:00:00 Completed [facility] Influenza High Dose 2015-06-30 00:00:00 Completed [facility] Influenza High Dose 2015-06-30 00:00:00 Completed [facility] Influenza High Dose 2015-06-30 00:00:00 Completed [facility] Influenza High Dose 2015-06-30 00:00:00 Completed [facility] Influenza High Dose 2015-06-30 00:00:00 Completed [facility] Influenza High Dose 2015-06-30 00:00:00 Completed [facility] Influenza High Dose 2015-06-30 00:00:00 Completed [facility] Influenza High Dose 2015-06-30 00:00:00 Completed [facility] Influenza High Dose 2015-06-30 00:00:00 Completed [facility] Influenza High Dose 2015-06-30 00:00:00 Completed [facility] Influenza High Dose 2015-06-30 00:00:00 Completed [facility] Influenza High Dose 2015-06-30 00:00:00 Completed [facility] Influenza High Dose 2015-06-30 00:00:00 Completed [facility] Influenza High Dose 2015-06-30 00:00:00 Completed [facility] Influenza High Dose 2015-06-30 00:00:00 Completed [facility] Influenza High Dose 2015-06-30 00:00:00 Completed [facility] Influenza High Dose 2015-06-30 00:00:00 Completed [facility] Influenza High Dose 2015-06-30 00:00:00 Completed [facility] Influenza High Dose 2015-06-30 00:00:00 Completed [facility] Influenza High Dose 2015-06-30 00:00:00 Completed [facility] Influenza High Dose 2015-06-30 00:00:00 Completed [facility] Influenza High Dose 2015-06-30 00:00:00 Completed [facility] Influenza High Dose 2015-06-30 00:00:00 Completed [facility] Influenza High Dose 2015-06-30 00:00:00 Completed [facility] Influenza High Dose 2015-06-30 00:00:00 Completed [facility] Influenza High Dose 2015-06-30 00:00:00 Completed [facility] Influenza High Dose 2015-06-30 00:00:00 Completed [facility] Influenza High Dose 2015-06-30 00:00:00 Completed [facility] Influenza High Dose 2015-06-30 00:00:00 Completed [facility] Influenza High Dose 2015-06-30 00:00:00 Completed [facility] Influenza High Dose 2015-06-30 00:00:00 Completed [facility] Influenza High Dose 2015-06-30 00:00:00 Completed [facility] Influenza High Dose 2015-06-30 00:00:00 Completed [facility] Influenza High Dose 2015-06-30 00:00:00 Completed [facility] Influenza High Dose 2015-06-30 00:00:00 Completed [facility] Influenza High Dose 2015-06-30 00:00:00 Completed [facility] Influenza High Dose 2015-06-30 00:00:00 Completed [facility] Influenza High Dose 2015-06-30 00:00:00 Completed [facility] Influenza High Dose 2015-06-30 00:00:00 Completed [facility] Influenza High Dose 2015-06-30 00:00:00 Completed [facility] Influenza High Dose 2015-06-30 00:00:00 Completed [facility] Influenza High Dose 2015-06-30 00:00:00 Completed [facility] Influenza High Dose 2015-06-30 00:00:00 Completed [facility] Influenza High Dose 2015-06-30 00:00:00 Completed [facility] Influenza High Dose 2015-06-30 00:00:00 Completed [facility] Influenza High Dose 2015-06-30 00:00:00 Completed [facility] Influenza High Dose 2015-06-30 00:00:00 Completed [facility] Influenza High Dose 2015-06-30 00:00:00 Completed [facility] Influenza High Dose 2015-06-30 00:00:00 Completed [facility] Influenza High Dose 2015-06-30 00:00:00 Completed [facility] Influenza High Dose 2015-06-30 00:00:00 Completed [facility] Influenza High Dose 2015-06-30 00:00:00 Completed [facility] Influenza High Dose 2015-06-30 00:00:00 Completed [facility] Influenza High Dose 2015-06-30 00:00:00 Completed [facility] Influenza High Dose 2015-06-30 00:00:00 Completed [facility] Influenza High Dose 2015-06-30 00:00:00 Completed [facility] Influenza High Dose 2015-06-30 00:00:00 Completed [facility] Influenza High Dose 2015-06-30 00:00:00 Completed [facility] Influenza High Dose 2015-06-30 00:00:00 Completed [facility] Influenza High Dose 2015-06-30 00:00:00 Completed [facility] Influenza High Dose 2015-06-30 00:00:00 Completed [facility] Influenza High Dose 2015-06-30 00:00:00 Completed [facility] Influenza High Dose 2015-06-30 00:00:00 Completed [facility] Influenza High Dose 2015-06-30 00:00:00 Completed [facility] Influenza High Dose 2015-06-30 00:00:00 Completed [facility] Influenza High Dose 2015-06-30 00:00:00 Completed [facility] Influenza High Dose 2015-06-30 00:00:00 Completed [facility] Influenza High Dose 2015-06-30 00:00:00 Completed [facility] Influenza High Dose 2015-06-30 00:00:00 Completed [facility] Influenza High Dose 2015-06-30 00:00:00 Completed [facility] Influenza High Dose 2015-06-30 00:00:00 Completed [facility] Influenza High Dose 2015-06-30 00:00:00 Completed [facility] Influenza High Dose 2015-06-30 00:00:00 Completed [facility] Influenza High Dose 2015-06-30 00:00:00 Completed [facility] Influenza High Dose 2015-06-30 00:00:00 Completed [facility] Influenza High Dose 2015-06-30 00:00:00 Completed [facility] Influenza High Dose 2015-06-30 00:00:00 Completed [facility] Influenza High Dose 2015-06-30 00:00:00 Completed [facility] Influenza High Dose 2015-06-30 00:00:00 Completed [facility] Influenza High Dose 2015-06-30 00:00:00 Completed [facility] Influenza High Dose 2015-06-30 00:00:00 Completed [facility] Influenza High Dose 2015-06-30 00:00:00 Completed [facility] Influenza High Dose 2015-06-30 00:00:00 Completed [facility] Influenza High Dose 2015-06-30 00:00:00 Completed [facility] Influenza High Dose 2015-06-30 00:00:00 Completed [facility] Influenza High Dose 2015-06-30 00:00:00 Completed [facility] Influenza High Dose 2015-06-30 00:00:00 Completed [facility] Influenza High Dose 2015-06-30 00:00:00 Completed [facility] Influenza High Dose 2015-06-30 00:00:00 Completed [facility] Influenza High Dose 2015-06-30 00:00:00 Completed [facility] Influenza High Dose 2015-06-30 00:00:00 Completed [facility] Influenza High Dose 2015-06-30 00:00:00 Completed [facility] Influenza High Dose 2015-06-30 00:00:00 Completed [facility] Influenza High Dose 2015-06-30 00:00:00 Completed [facility] Influenza High Dose 2015-06-30 00:00:00 Completed [facility] Influenza High Dose 2015-06-30 00:00:00 Completed [facility] Influenza High Dose 2015-06-30 00:00:00 Completed [facility] Influenza High Dose 2015-06-30 00:00:00 Completed [facility] Influenza High Dose 2015-06-30 00:00:00 Completed [facility] Influenza High Dose 2015-06-30 00:00:00 Completed [facility] Influenza High Dose 2015-06-30 00:00:00 Completed [facility] Influenza High Dose 2015-06-30 00:00:00 Completed [facility] Influenza High Dose 2015-06-30 00:00:00 Completed [facility] Influenza High Dose 2015-06-30 00:00:00 Completed [facility] Influenza High Dose 2015-06-30 00:00:00 Completed [facility] Influenza High Dose 2015-06-30 00:00:00 Completed [facility] Influenza High Dose 2015-06-30 00:00:00 Completed [facility] Influenza High Dose 2015-06-30 00:00:00 Completed [facility] Influenza High Dose 2015-06-30 00:00:00 Completed [facility] Influenza High Dose 2015-06-30 00:00:00 Completed [facility] Influenza High Dose 2015-06-30 00:00:00 Completed [facility] Influenza High Dose 2015-06-30 00:00:00 Completed [facility] Influenza High Dose 2015-06-30 00:00:00 Completed [facility] Influenza High Dose 2015-06-30 00:00:00 Completed [facility] Influenza High Dose 2015-06-30 00:00:00 Completed [facility] Influenza High Dose 2015-06-30 00:00:00 Completed [facility] Influenza High Dose 2015-06-30 00:00:00 Completed [facility] Influenza High Dose 2015-06-30 00:00:00 Completed [facility] Influenza High Dose 2015-06-30 00:00:00 Completed [facility] Influenza High Dose 2015-06-30 00:00:00 Completed [facility] Influenza High Dose 2015-06-30 00:00:00 Completed [facility] Influenza High Dose 2015-06-30 00:00:00 Completed [facility] Influenza High Dose 2015-06-30 00:00:00 Completed [facility] Influenza High Dose 2015-06-30 00:00:00 Completed [facility] Influenza High Dose 2015-06-30 00:00:00 Completed [facility] Influenza High Dose 2015-06-30 00:00:00 Completed [facility] Influenza High Dose 2015-06-30 00:00:00 Completed [facility] Influenza High Dose 2015-06-30 00:00:00 Completed [facility] Influenza High Dose 2015-06-30 00:00:00 Completed [facility] Influenza High Dose 2015-06-30 00:00:00 Completed [facility] Influenza High Dose 2015-06-30 00:00:00 Completed [facility] Influenza High Dose 2015-06-30 00:00:00 Completed [facility] Influenza High Dose 2015-06-30 00:00:00 Completed [facility] Influenza High Dose 2015-06-30 00:00:00 Completed [facility] Influenza High Dose 2015-06-30 00:00:00 Completed [facility] Influenza High Dose 2015-06-30 00:00:00 Completed [facility] Influenza High Dose 2015-06-30 00:00:00 Completed [facility] Influenza High Dose 2015-06-30 00:00:00 Completed [facility] Influenza High Dose 2015-06-30 00:00:00 Completed [facility] Influenza High Dose 2015-06-30 00:00:00 Completed [facility] Influenza High Dose 2015-06-30 00:00:00 Completed [facility] Influenza High Dose 2015-06-30 00:00:00 Completed [facility] Influenza High Dose 2015-06-30 00:00:00 Completed [facility] Influenza High Dose 2015-06-30 00:00:00 Completed [facility] Influenza High Dose 2015-06-30 00:00:00 Completed [facility] Influenza High Dose 2015-06-30 00:00:00 Completed [facility] Influenza High Dose 2015-06-30 00:00:00 Completed [facility] Influenza High Dose 2015-06-30 00:00:00 Completed [facility] Influenza High Dose 2015-06-30 00:00:00 Completed [facility] Influenza High Dose 2015-06-30 00:00:00 Completed [facility] Influenza High Dose 2015-06-30 00:00:00 Completed [facility] Influenza High Dose 2015-06-30 00:00:00 Completed [facility] Influenza High Dose 2015-06-30 00:00:00 Completed [facility] Influenza High Dose 2015-06-30 00:00:00 Completed [facility] Influenza High Dose 2015-06-30 00:00:00 Completed [facility] Influenza High Dose 2015-06-30 00:00:00 Completed [facility] Influenza High Dose 2015-06-30 00:00:00 Completed [facility] Influenza High Dose 2015-06-30 00:00:00 Completed [facility] Influenza High Dose 2015-06-30 00:00:00 Completed [facility] Influenza High Dose 2015-06-30 00:00:00 Completed [facility] Influenza High Dose 2015-06-30 00:00:00 Completed [facility] Influenza High Dose 2015-06-30 00:00:00 Completed [facility] Influenza High Dose 2015-06-30 00:00:00 Completed [facility] Influenza High Dose 2015-06-30 00:00:00 Completed [facility] Influenza High Dose 2015-06-30 00:00:00 Completed [facility] Influenza High Dose 2015-06-30 00:00:00 Completed [facility] Influenza High Dose 2015-06-30 00:00:00 Completed [facility] Influenza High Dose 2015-06-30 00:00:00 Completed [facility] Influenza High Dose 2015-06-30 00:00:00 Completed [facility] Influenza High Dose 2015-06-30 00:00:00 Completed [facility] Influenza High Dose 2015-06-30 00:00:00 Completed [facility] Influenza High Dose 2015-06-30 00:00:00 Completed [facility] Influenza High Dose 2015-06-30 00:00:00 Completed [facility] [facility] Influenza High Dose 2015-06-30 00:00:00 Completed [facility] Influenza High Dose 2015-06-30 00:00:00 Completed [facility] Influenza High Dose 2015-06-30 00:00:00 Completed [facility] Influenza High Dose 2015-06-30 00:00:00 Completed [facility] Influenza High Dose 2015-06-30 00:00:00 Completed [facility] Influenza High Dose 2015-06-30 00:00:00 Completed [facility] Influenza High Dose 2015-06-30 00:00:00 Completed [facility] Influenza High Dose 2015-06-30 00:00:00 Completed [facility] Influenza High Dose 2015-06-30 00:00:00 Completed [facility] Influenza High Dose 2015-06-30 00:00:00 Completed [facility] Influenza High Dose 2015-06-30 00:00:00 Completed [facility] Influenza High Dose 2015-06-30 00:00:00 Completed [facility] Influenza High Dose Unknown Completed [facility] Pneumococcal 13 Conjugate, PCV13 (Prevnar 13) Unknown Completed [facility] Influenza Virus Vaccine Unknown Completed [facility] SARS-COV-2 COVID-19 PFIZER VACCINE Unknown Completed [facility] SARS-COV-2 COVID-19 PFIZER VACCINE Unknown Completed [facility] SARS-COV-2 COVID-19 PFIZER VACCINE Unknown Completed [facility] Influenza High Dose Unknown Completed [facility] Pneumococcal Polysaccharide, PPSV23 (PNEUMOVAX) Unknown Completed [facility] SARS-COV-2 COVID-19 PFIZER VACCINE Unknown Completed [facility] PPD (TB) Unknown Completed [facility] Influenza Virus Vaccine Quad IM 3+ YRS Unknown Completed [facility] Influenza High Dose Quad Unknown Completed [facility] SARS-COV-2 COVID-19 MIGUEL-SUCROSE VACCINE 12 YRS+, BIVALENT 0.3ML, IM, (PFIZER SON TOP) Unknown Completed [facility] Influenza High Dose Unknown Completed [facility] Pneumococcal 13 Conjugate, PCV13 (Prevnar 13) Unknown Completed [facility] Influenza Virus Vaccine Unknown Completed [facility] SARS-COV-2 COVID-19 PFIZER VACCINE Unknown Completed [facility] SARS-COV-2 COVID-19 PFIZER VACCINE Unknown Completed [facility] SARS-COV-2 COVID-19 PFIZER VACCINE Unknown Completed [facility] Influenza High Dose Unknown Completed [facility] Pneumococcal Polysaccharide, PPSV23 (PNEUMOVAX) Unknown Completed [facility] SARS-COV-2 COVID-19 PFIZER VACCINE Unknown Completed [facility] PPD (TB) Unknown Completed [facility] Influenza Virus Vaccine Quad IM 3+ YRS Unknown Completed [facility] Influenza High Dose Quad Unknown Completed [facility] SARS-COV-2 COVID-19 MIGUEL-SUCROSE VACCINE 12 YRS+, BIVALENT 0.3ML, IM, (PFIZER SON TOP) Unknown Completed [facility] Influenza High Dose Unknown Completed [facility] Pneumococcal 13 Conjugate, PCV13 (Prevnar 13) Unknown Completed [facility] Influenza Virus Vaccine Unknown Completed [facility] SARS-COV-2 COVID-19 PFIZER VACCINE Unknown Completed [facility] SARS-COV-2 COVID-19 PFIZER VACCINE Unknown Completed [facility] SARS-COV-2 COVID-19 PFIZER VACCINE Unknown Completed [facility] Influenza High Dose Unknown Completed [facility] Pneumococcal Polysaccharide, PPSV23 (PNEUMOVAX) Unknown Completed [facility] SARS-COV-2 COVID-19 PFIZER VACCINE Unknown Completed [facility] PPD (TB) Unknown Completed [facility] Influenza Virus Vaccine Quad IM 3+ YRS Unknown Completed [facility] Influenza High Dose Quad Unknown Completed [facility] SARS-COV-2 COVID-19 MIGUEL-SUCROSE VACCINE 12 YRS+, BIVALENT 0.3ML, IM, (PFIZER SON TOP) Unknown Completed [facility] Influenza High Dose Unknown Completed [facility] Pneumococcal 13 Conjugate, PCV13 (Prevnar 13) Unknown Completed [facility] Influenza Virus Vaccine Unknown Completed [facility] SARS-COV-2 COVID-19 PFIZER VACCINE Unknown Completed [facility] SARS-COV-2 COVID-19 PFIZER VACCINE Unknown Completed [facility] SARS-COV-2 COVID-19 PFIZER VACCINE Unknown Completed [facility] Influenza High Dose Unknown Completed [facility] Pneumococcal Polysaccharide, PPSV23 (PNEUMOVAX) Unknown Completed [facility] SARS-COV-2 COVID-19 PFIZER VACCINE Unknown Completed [facility] PPD (TB) Unknown Completed [facility] Influenza Virus Vaccine Quad IM 3+ YRS Unknown Completed [facility] Influenza High Dose Quad Unknown Completed [facility] SARS-COV-2 COVID-19 MIGUEL-SUCROSE VACCINE 12 YRS+, BIVALENT 0.3ML, IM, (PFIZER SON TOP) Unknown Completed [facility] Influenza High Dose Unknown Completed [facility] Pneumococcal 13 Conjugate, PCV13 (Prevnar 13) Unknown Completed [facility] Influenza Virus Vaccine Unknown Completed [facility] SARS-COV-2 COVID-19 PFIZER VACCINE Unknown Completed [facility] SARS-COV-2 COVID-19 PFIZER VACCINE Unknown Completed [facility] SARS-COV-2 COVID-19 PFIZER VACCINE Unknown Completed [facility] Influenza High Dose Unknown Completed [facility] Pneumococcal Polysaccharide, PPSV23 (PNEUMOVAX) Unknown Completed [facility] SARS-COV-2 COVID-19 PFIZER VACCINE Unknown Completed [facility] PPD (TB) Unknown Completed [facility] Influenza Virus Vaccine Quad IM 3+ YRS Unknown Completed [facility] Influenza High Dose Quad Unknown Completed [facility] SARS-COV-2 COVID-19 MIGUEL-SUCROSE VACCINE 12 YRS+, BIVALENT 0.3ML, IM, (PFIZER SON TOP) Unknown Completed [facility] Influenza High Dose Unknown Completed [facility] Pneumococcal 13 Conjugate, PCV13 (Prevnar 13) Unknown Completed [facility] Influenza Virus Vaccine Unknown Completed [facility] SARS-COV-2 COVID-19 PFIZER VACCINE Unknown Completed [facility] SARS-COV-2 COVID-19 PFIZER VACCINE Unknown Completed [facility] SARS-COV-2 COVID-19 PFIZER VACCINE Unknown Completed [facility] Influenza High Dose Unknown Completed [facility] Pneumococcal Polysaccharide, PPSV23 (PNEUMOVAX) Unknown Completed [facility] SARS-COV-2 COVID-19 PFIZER VACCINE Unknown Completed [facility] PPD (TB) Unknown Completed [facility] Influenza Virus Vaccine Quad IM 3+ YRS Unknown Completed [facility] Influenza High Dose Quad Unknown Completed [facility] SARS-COV-2 COVID-19 MIGUEL-SUCROSE VACCINE 12 YRS+, BIVALENT 0.3ML, IM, (PFIZER SON TOP) Unknown Completed [facility] Influenza High Dose Unknown Completed [facility] Pneumococcal 13 Conjugate, PCV13 (Prevnar 13) Unknown Completed [facility] Influenza Virus Vaccine Unknown Completed [facility] SARS-COV-2 COVID-19 PFIZER VACCINE Unknown Completed [facility] SARS-COV-2 COVID-19 PFIZER VACCINE Unknown Completed [facility] SARS-COV-2 COVID-19 PFIZER VACCINE Unknown Completed [facility] Influenza High Dose Unknown Completed [facility] Pneumococcal Polysaccharide, PPSV23 (PNEUMOVAX) Unknown Completed [facility] SARS-COV-2 COVID-19 PFIZER VACCINE Unknown Completed [facility] PPD (TB) Unknown Completed [facility] Influenza Virus Vaccine Quad IM 3+ YRS Unknown Completed [facility] Influenza High Dose Quad Unknown Completed [facility] SARS-COV-2 COVID-19 MIGUEL-SUCROSE VACCINE 12 YRS+, BIVALENT 0.3ML, IM, (PFIZER SON TOP) Unknown Completed [facility] Influenza High Dose Unknown Completed [facility] Pneumococcal 13 Conjugate, PCV13 (Prevnar 13) Unknown Completed [facility] Influenza Virus Vaccine Unknown Completed [facility] SARS-COV-2 COVID-19 PFIZER VACCINE Unknown Completed [facility] SARS-COV-2 COVID-19 PFIZER VACCINE Unknown Completed [facility] SARS-COV-2 COVID-19 PFIZER VACCINE Unknown Completed [facility] Influenza High Dose Unknown Completed [facility] Pneumococcal Polysaccharide, PPSV23 (PNEUMOVAX) Unknown Completed [facility] SARS-COV-2 COVID-19 PFIZER VACCINE Unknown Completed [facility] PPD (TB) Unknown Completed [facility] Influenza Virus Vaccine Quad IM 3+ YRS Unknown Completed [facility] Influenza High Dose Quad Unknown Completed [facility] SARS-COV-2 COVID-19 MIGUEL-SUCROSE VACCINE 12 YRS+, BIVALENT 0.3ML, IM, (PFIZER SON TOP) Unknown Completed [facility] Influenza High Dose Unknown Completed [facility] Pneumococcal 13 Conjugate, PCV13 (Prevnar 13) Unknown Completed [facility] Influenza Virus Vaccine Unknown Completed [facility] SARS-COV-2 COVID-19 PFIZER VACCINE Unknown Completed [facility] SARS-COV-2 COVID-19 PFIZER VACCINE Unknown Completed [facility] SARS-COV-2 COVID-19 PFIZER VACCINE Unknown Completed [facility] Influenza High Dose Unknown Completed [facility] Pneumococcal Polysaccharide, PPSV23 (PNEUMOVAX) Unknown Completed [facility] SARS-COV-2 COVID-19 PFIZER VACCINE Unknown Completed [facility] PPD (TB) Unknown Completed [facility] Influenza Virus Vaccine Quad IM 3+ YRS Unknown Completed [facility] Influenza High Dose Quad Unknown Completed [facility] SARS-COV-2 COVID-19 MIGUEL-SUCROSE VACCINE 12 YRS+, BIVALENT 0.3ML, IM, (PFIZER SON TOP) Unknown Completed [facility] Influenza High Dose Unknown Completed [facility] Pneumococcal 13 Conjugate, PCV13 (Prevnar 13) Unknown Completed [facility] Influenza Virus Vaccine Unknown Completed [facility] SARS-COV-2 COVID-19 PFIZER VACCINE Unknown Completed [facility] SARS-COV-2 COVID-19 PFIZER VACCINE Unknown Completed [facility] SARS-COV-2 COVID-19 PFIZER VACCINE Unknown Completed [facility] Influenza High Dose Unknown Completed [facility] Pneumococcal Polysaccharide, PPSV23 (PNEUMOVAX) Unknown Completed [facility] SARS-COV-2 COVID-19 PFIZER VACCINE Unknown Completed [facility] PPD (TB) Unknown Completed [facility] Influenza Virus Vaccine Quad IM 3+ YRS Unknown Completed [facility] Influenza High Dose Quad Unknown Completed [facility] SARS-COV-2 COVID-19 MIGUEL-SUCROSE VACCINE 12 YRS+, BIVALENT 0.3ML, IM, (PFIZER SON TOP) Unknown Completed [facility] Influenza High Dose Unknown Completed [facility] Pneumococcal 13 Conjugate, PCV13 (Prevnar 13) Unknown Completed [facility] Influenza Virus Vaccine Unknown Completed [facility] SARS-COV-2 COVID-19 PFIZER VACCINE Unknown Completed [facility] SARS-COV-2 COVID-19 PFIZER VACCINE Unknown Completed [facility] SARS-COV-2 COVID-19 PFIZER VACCINE Unknown Completed [facility] Influenza High Dose Unknown Completed [facility] Pneumococcal Polysaccharide, PPSV23 (PNEUMOVAX) Unknown Completed [facility] SARS-COV-2 COVID-19 PFIZER VACCINE Unknown Completed [facility] PPD (TB) Unknown Completed [facility] Influenza Virus Vaccine Quad IM 3+ YRS Unknown Completed [facility] Influenza High Dose Quad Unknown Completed [facility] SARS-COV-2 COVID-19 MIGUEL-SUCROSE VACCINE 12 YRS+, BIVALENT 0.3ML, IM, (PFIZER SON TOP) Unknown Completed [facility] Influenza High Dose Unknown Completed [facility] Pneumococcal 13 Conjugate, PCV13 (Prevnar 13) Unknown Completed [facility] Influenza Virus Vaccine Unknown Completed [facility] SARS-COV-2 COVID-19 PFIZER VACCINE Unknown Completed [facility] SARS-COV-2 COVID-19 PFIZER VACCINE Unknown Completed [facility] SARS-COV-2 COVID-19 PFIZER VACCINE Unknown Completed [facility] Influenza High Dose Unknown Completed [facility] Pneumococcal Polysaccharide, PPSV23 (PNEUMOVAX) Unknown Completed [facility] SARS-COV-2 COVID-19 PFIZER VACCINE Unknown Completed [facility] PPD (TB) Unknown Completed [facility] Influenza Virus Vaccine Quad IM 3+ YRS Unknown Completed [facility] Influenza High Dose Quad Unknown Completed [facility] SARS-COV-2 COVID-19 MIGUEL-SUCROSE VACCINE 12 YRS+, BIVALENT 0.3ML, IM, (PFIZER SON TOP) Unknown Completed [facility] Influenza High Dose Unknown Completed [facility] Pneumococcal 13 Conjugate, PCV13 (Prevnar 13) Unknown Completed [facility] Influenza Virus Vaccine Unknown Completed [facility] SARS-COV-2 COVID-19 PFIZER VACCINE Unknown Completed [facility] SARS-COV-2 COVID-19 PFIZER VACCINE Unknown Completed [facility] SARS-COV-2 COVID-19 PFIZER VACCINE Unknown Completed [facility] Influenza High Dose Unknown Completed [facility] Pneumococcal Polysaccharide, PPSV23 (PNEUMOVAX) Unknown Completed [facility] SARS-COV-2 COVID-19 PFIZER VACCINE Unknown Completed [facility] PPD (TB) Unknown Completed [facility] Influenza Virus Vaccine Quad IM 3+ YRS Unknown Completed [facility] Influenza High Dose Quad Unknown Completed [facility] SARS-COV-2 COVID-19 MIGUEL-SUCROSE VACCINE 12 YRS+, BIVALENT 0.3ML, IM, (PFIZER SON TOP) Unknown Completed [facility] Influenza High Dose Unknown Completed [facility] Pneumococcal 13 Conjugate, PCV13 (Prevnar 13) Unknown Completed [facility] Influenza Virus Vaccine Unknown Completed [facility] SARS-COV-2 COVID-19 PFIZER VACCINE Unknown Completed [facility] SARS-COV-2 COVID-19 PFIZER VACCINE Unknown Completed [facility] SARS-COV-2 COVID-19 PFIZER VACCINE Unknown Completed [facility] Influenza High Dose Unknown Completed [facility] Pneumococcal Polysaccharide, PPSV23 (PNEUMOVAX) Unknown Completed [facility] SARS-COV-2 COVID-19 PFIZER VACCINE Unknown Completed [facility] PPD (TB) Unknown Completed [facility] Influenza Virus Vaccine Quad IM 3+ YRS Unknown Completed [facility] Influenza High Dose Quad Unknown Completed [facility] SARS-COV-2 COVID-19 MIGUEL-SUCROSE VACCINE 12 YRS+, BIVALENT 0.3ML, IM, (PFIZER SON TOP) Unknown Completed [facility] Influenza High Dose Unknown Completed [facility] Pneumococcal 13 Conjugate, PCV13 (Prevnar 13) Unknown Completed [facility] Influenza Virus Vaccine Unknown Completed [facility] SARS-COV-2 COVID-19 PFIZER VACCINE Unknown Completed [facility] SARS-COV-2 COVID-19 PFIZER VACCINE Unknown Completed [facility] SARS-COV-2 COVID-19 PFIZER VACCINE Unknown Completed [facility] Influenza High Dose Unknown Completed [facility] Pneumococcal Polysaccharide, PPSV23 (PNEUMOVAX) Unknown Completed [facility] SARS-COV-2 COVID-19 PFIZER VACCINE Unknown Completed [facility] PPD (TB) Unknown Completed [facility] Influenza Virus Vaccine Quad IM 3+ YRS Unknown Completed [facility] Influenza High Dose Quad Unknown Completed [facility] SARS-COV-2 COVID-19 MIGUEL-SUCROSE VACCINE 12 YRS+, BIVALENT 0.3ML, IM, (PFIZER SON TOP) Unknown Completed [facility] Influenza High Dose Unknown Completed [facility] Pneumococcal 13 Conjugate, PCV13 (Prevnar 13) Unknown Completed [facility] Influenza Virus Vaccine Unknown Completed [facility] SARS-COV-2 COVID-19 PFIZER VACCINE Unknown Completed [facility] SARS-COV-2 COVID-19 PFIZER VACCINE Unknown Completed [facility] SARS-COV-2 COVID-19 PFIZER VACCINE Unknown Completed [facility] Influenza High Dose Unknown Completed [facility] Pneumococcal Polysaccharide, PPSV23 (PNEUMOVAX) Unknown Completed [facility] SARS-COV-2 COVID-19 PFIZER VACCINE Unknown Completed [facility] PPD (TB) Unknown Completed [facility] Influenza Virus Vaccine Quad IM 3+ YRS Unknown Completed [facility] Influenza High Dose Quad Unknown Completed [facility] SARS-COV-2 COVID-19 MIGUEL-SUCROSE VACCINE 12 YRS+, BIVALENT 0.3ML, IM, (PFIZER SON TOP) Unknown Completed [facility] Influenza High Dose Unknown Completed [facility] Pneumococcal 13 Conjugate, PCV13 (Prevnar 13) Unknown Completed [facility] Influenza Virus Vaccine Unknown Completed [facility] SARS-COV-2 COVID-19 PFIZER VACCINE Unknown Completed [facility] SARS-COV-2 COVID-19 PFIZER VACCINE Unknown Completed [facility] SARS-COV-2 COVID-19 PFIZER VACCINE Unknown Completed [facility] Influenza High Dose Unknown Completed [facility] Pneumococcal Polysaccharide, PPSV23 (PNEUMOVAX) Unknown Completed [facility] SARS-COV-2 COVID-19 PFIZER VACCINE Unknown Completed [facility] PPD (TB) Unknown Completed [facility] Influenza Virus Vaccine Quad IM 3+ YRS Unknown Completed [facility] Influenza High Dose Quad Unknown Completed [facility] SARS-COV-2 COVID-19 MIGUEL-SUCROSE VACCINE 12 YRS+, BIVALENT 0.3ML, IM, (PFIZER SON TOP) Unknown Completed [facility] Influenza High Dose Unknown Completed [facility] Pneumococcal 13 Conjugate, PCV13 (Prevnar 13) Unknown Completed [facility] Influenza Virus Vaccine Unknown Completed [facility] SARS-COV-2 COVID-19 PFIZER VACCINE Unknown Completed [facility] SARS-COV-2 COVID-19 PFIZER VACCINE Unknown Completed [facility] SARS-COV-2 COVID-19 PFIZER VACCINE Unknown Completed [facility] Influenza High Dose Unknown Completed [facility] Pneumococcal Polysaccharide, PPSV23 (PNEUMOVAX) Unknown Completed [facility] SARS-COV-2 COVID-19 PFIZER VACCINE Unknown Completed [facility] PPD (TB) Unknown Completed [facility] Influenza Virus Vaccine Quad IM 3+ YRS Unknown Completed [facility] Influenza High Dose Quad Unknown Completed [facility] SARS-COV-2 COVID-19 MIGUEL-SUCROSE VACCINE 12 YRS+, BIVALENT 0.3ML, IM, (PFIZER SON TOP) Unknown Completed [facility] Influenza High Dose Unknown Completed [facility] Pneumococcal 13 Conjugate, PCV13 (Prevnar 13) Unknown Completed [facility] Influenza Virus Vaccine Unknown Completed [facility] SARS-COV-2 COVID-19 PFIZER VACCINE Unknown Completed [facility] SARS-COV-2 COVID-19 PFIZER VACCINE Unknown Completed [facility] SARS-COV-2 COVID-19 PFIZER VACCINE Unknown Completed [facility] Influenza High Dose Unknown Completed [facility] Pneumococcal Polysaccharide, PPSV23 (PNEUMOVAX) Unknown [facility]-C[facility] COVID-19 PFIZER VACCINE Unknown Completed [facility] PPD (TB) Unknown Completed [facility] Influenza Virus Vaccine Quad IM 3+ YRS Unknown Completed [facility] Influenza High Dose Quad Unknown Completed [facility] SARS-COV-2 COVID-19 MIGUEL-SUCROSE VACCINE 12 YRS+, BIVALENT 0.3ML, IM, (PFIZER SON TOP) Unknown Completed [facility] Influenza High Dose Unknown Completed [facility] Pneumococcal 13 Conjugate, PCV13 (Prevnar 13) Unknown Completed [facility] Influenza Virus Vaccine Unknown Completed [facility] SARS-COV-2 COVID-19 PFIZER VACCINE Unknown Completed [facility] SARS-COV-2 COVID-19 PFIZER VACCINE Unknown Completed [facility] SARS-COV-2 COVID-19 PFIZER VACCINE Unknown Completed [facility] Influenza High Dose Unknown Completed [facility] Pneumococcal Polysaccharide, PPSV23 (PNEUMOVAX) Unknown Completed [facility] SARS-COV-2 COVID-19 PFIZER VACCINE Unknown Completed [facility] PPD (TB) Unknown Completed [facility] Influenza Virus Vaccine Quad IM 3+ YRS Unknown Completed [facility] Influenza High Dose Quad Unknown Completed [facility] SARS-COV-2 COVID-19 MIGUEL-SUCROSE VACCINE 12 YRS+, BIVALENT 0.3ML, IM, (PFIZER SON TOP) Unknown Completed [facility] Influenza Virus Vaccine,quad Im,preserve Free 65+ (FLUAD) Unknown Completed [facility] Influenza High Dose Unknown Completed [facility] Pneumococcal 13 Conjugate, PCV13 (Prevnar 13) Unknown Completed [facility] Influenza Virus Vaccine Unknown Completed [facility] SARS-COV-2 COVID-19 PFIZER VACCINE Unknown Completed [facility] SARS-COV-2 COVID-19 PFIZER VACCINE Unknown Completed [facility] SARS-COV-2 COVID-19 PFIZER VACCINE Unknown Completed [facility] Influenza High Dose Unknown Completed [facility] Pneumococcal Polysaccharide, PPSV23 (PNEUMOVAX) Unknown Completed [facility] SARS-COV-2 COVID-19 PFIZER VACCINE Unknown Completed [facility] PPD (TB) Unknown Completed [facility] Influenza Virus Vaccine Quad IM 3+ YRS Unknown Completed [facility] Influenza High Dose Quad Unknown Completed [facility] SARS-COV-2 COVID-19 MIGUEL-SUCROSE VACCINE 12 YRS+, BIVALENT 0.3ML, IM, (PFIZER SON TOP) Unknown Completed [facility] Influenza Virus Vaccine,quad Im,preserve Free 65+ (FLUAD) Unknown Completed [facility] Influenza High Dose Unknown Completed [facility] Pneumococcal 13 Conjugate, PCV13 (Prevnar 13) Unknown Completed [facility] Influenza Virus Vaccine Unknown Completed [facility] SARS-COV-2 COVID-19 PFIZER VACCINE Unknown Completed [facility] SARS-COV-2 COVID-19 PFIZER VACCINE Unknown Completed [facility] SARS-COV-2 COVID-19 PFIZER VACCINE Unknown Completed [facility] Influenza High Dose Unknown Completed [facility] Pneumococcal Polysaccharide, PPSV23 (PNEUMOVAX) Unknown Completed [facility] SARS-COV-2 COVID-19 PFIZER VACCINE Unknown Completed [facility] PPD (TB) Unknown Completed [facility] Influenza Virus Vaccine Quad IM 3+ YRS Unknown Completed [facility] Influenza High Dose Quad Unknown Completed [facility] SARS-COV-2 COVID-19 MIGUEL-SUCROSE VACCINE 12 YRS+, BIVALENT 0.3ML, IM, (PFIZER SON TOP) Unknown Completed [facility] Influenza Virus Vaccine,quad Im,preserve Free 65+ (FLUAD) Unknown Completed [facility] Influenza High Dose Unknown Completed [facility] Pneumococcal 13 Conjugate, PCV13 (Prevnar 13) Unknown Completed [facility] Influenza Virus Vaccine Unknown Completed [facility] SARS-COV-2 COVID-19 PFIZER VACCINE Unknown Completed [facility] SARS-COV-2 COVID-19 PFIZER VACCINE Unknown Completed [facility] SARS-COV-2 COVID-19 PFIZER VACCINE Unknown Completed [facility] Influenza High Dose Unknown Completed [facility] Pneumococcal Polysaccharide, PPSV23 (PNEUMOVAX) Unknown Completed [facility] SARS-COV-2 COVID-19 PFIZER VACCINE Unknown Completed [facility] PPD (TB) Unknown Completed [facility] Influenza Virus Vaccine Quad IM 3+ YRS Unknown Completed [facility] Influenza High Dose Quad Unknown Completed [facility] SARS-COV-2 COVID-19 MIGUEL-SUCROSE VACCINE 12 YRS+, BIVALENT 0.3ML, IM, (PFIZER SON TOP) Unknown Completed [facility] Influenza Virus Vaccine,quad Im,preserve Free 65+ (FLUAD) Unknown Completed [facility] Influenza High Dose Unknown Completed [facility] Pneumococcal 13 Conjugate, PCV13 (Prevnar 13) Unknown Completed [facility] Influenza Virus Vaccine Unknown Completed [facility] SARS-COV-2 COVID-19 PFIZER VACCINE Unknown Completed [facility] SARS-COV-2 COVID-19 PFIZER VACCINE Unknown Completed [facility] SARS-COV-2 COVID-19 PFIZER VACCINE Unknown Completed [facility] Influenza High Dose Unknown Completed [facility] Pneumococcal Polysaccharide, PPSV23 (PNEUMOVAX) Unknown Completed [facility] SARS-COV-2 COVID-19 PFIZER VACCINE Unknown Completed [facility] PPD (TB) Unknown Completed [facility] Influenza Virus Vaccine Quad IM 3+ YRS Unknown Completed [facility] Influenza High Dose Quad Unknown Completed [facility] SARS-COV-2 COVID-19 MIGUEL-SUCROSE VACCINE 12 YRS+, BIVALENT 0.3ML, IM, (PFIZER SON TOP) Unknown Completed [facility] Influenza Virus Vaccine,quad Im,preserve Free 65+ (FLUAD) Unknown Completed [facility] Influenza High Dose Unknown Completed [facility] Pneumococcal 13 Conjugate, PCV13 (Prevnar 13) Unknown Completed [facility] Influenza Virus Vaccine Unknown Completed [facility] SARS-COV-2 COVID-19 PFIZER VACCINE Unknown Completed [facility] SARS-COV-2 COVID-19 PFIZER VACCINE Unknown Completed [facility] SARS-COV-2 COVID-19 PFIZER VACCINE Unknown Completed [facility] Influenza High Dose Unknown Completed [facility] Pneumococcal Polysaccharide, PPSV23 (PNEUMOVAX) Unknown Completed [facility] SARS-COV-2 COVID-19 PFIZER VACCINE Unknown Completed [facility] PPD (TB) Unknown Completed [facility] Influenza Virus Vaccine Quad IM 3+ YRS Unknown Completed [facility] Influenza High Dose Quad Unknown Completed [facility] SARS-COV-2 COVID-19 MIGUEL-SUCROSE VACCINE 12 YRS+, BIVALENT 0.3ML, IM, (PFIZER SON TOP) Unknown Completed [facility] Influenza Virus Vaccine,quad Im,preserve Free 65+ (FLUAD) Unknown Completed [facility] Influenza High Dose Unknown Completed [facility] Pneumococcal 13 Conjugate, PCV13 (Prevnar 13) Unknown Completed [facility] Influenza Virus Vaccine Unknown Completed [facility] SARS-COV-2 COVID-19 PFIZER VACCINE Unknown Completed [facility] SARS-COV-2 COVID-19 PFIZER VACCINE Unknown Completed [facility] SARS-COV-2 COVID-19 PFIZER VACCINE Unknown Completed [facility] Influenza High Dose Unknown Completed [facility] Pneumococcal Polysaccharide, PPSV23 (PNEUMOVAX) Unknown Completed [facility] SARS-COV-2 COVID-19 PFIZER VACCINE Unknown Completed [facility] PPD (TB) Unknown Completed [facility] Influenza Virus Vaccine Quad IM 3+ YRS Unknown Completed [facility] Influenza High Dose Quad Unknown Completed [facility] SARS-COV-2 COVID-19 MIGUEL-SUCROSE VACCINE 12 YRS+, BIVALENT 0.3ML, IM, (PFIZER SON TOP) Unknown Completed [facility] Influenza Virus Vaccine,quad Im,preserve Free 65+ (FLUAD) Unknown Completed [facility] Influenza High Dose Unknown Completed [facility] Pneumococcal 13 Conjugate, PCV13 (Prevnar 13) Unknown Completed [facility] Influenza Virus Vaccine Unknown Completed [facility] SARS-COV-2 COVID-19 PFIZER VACCINE Unknown Completed [facility] SARS-COV-2 COVID-19 PFIZER VACCINE Unknown Completed [facility] SARS-COV-2 COVID-19 PFIZER VACCINE Unknown Completed [facility] Influenza High Dose Unknown Completed [facility] Pneumococcal Polysaccharide, PPSV23 (PNEUMOVAX) Unknown Completed [facility] SARS-COV-2 COVID-19 PFIZER VACCINE Unknown Completed [facility] PPD (TB) Unknown Completed [facility] Influenza Virus Vaccine Quad IM 3+ YRS Unknown Completed [facility] Influenza High Dose Quad Unknown Completed [facility] SARS-COV-2 COVID-19 MIGUEL-SUCROSE VACCINE 12 YRS+, BIVALENT 0.3ML, IM, (PFIZER SON TOP) Unknown Completed [facility] Influenza Virus Vaccine,quad Im,preserve Free 65+ (FLUAD) Unknown Completed [facility] Influenza High Dose Unknown Completed [facility] Pneumococcal 13 Conjugate, PCV13 (Prevnar 13) Unknown Completed [facility] Influenza Virus Vaccine Unknown Completed [facility] SARS-COV-2 COVID-19 PFIZER VACCINE Unknown Completed [facility] SARS-COV-2 COVID-19 PFIZER VACCINE Unknown Completed [facility] SARS-COV-2 COVID-19 PFIZER VACCINE Unknown Completed [facility] Influenza High Dose Unknown Completed [facility] Pneumococcal Polysaccharide, PPSV23 (PNEUMOVAX) Unknown Completed [facility] SARS-COV-2 COVID-19 PFIZER VACCINE Unknown Completed [facility] PPD (TB) Unknown Completed [facility] Influenza Virus Vaccine Quad IM 3+ YRS Unknown Completed [facility] Influenza High Dose Quad Unknown Completed [facility] SARS-COV-2 COVID-19 MIGUEL-SUCROSE VACCINE 12 YRS+, BIVALENT 0.3ML, IM, (PFIZER SON TOP) Unknown Completed [facility] Influenza Virus Vaccine,quad Im,preserve Free 65+ (FLUAD) Unknown Completed [facility] Influenza High Dose Unknown Completed [facility] Pneumococcal 13 Conjugate, PCV13 (Prevnar 13) Unknown Completed [facility] Influenza Virus Vaccine Unknown Completed [facility] SARS-COV-2 COVID-19 PFIZER VACCINE Unknown Completed [facility] SARS-COV-2 COVID-19 PFIZER VACCINE Unknown Completed [facility] SARS-COV-2 COVID-19 PFIZER VACCINE Unknown Completed [facility] Influenza High Dose Unknown Completed [facility] Pneumococcal Polysaccharide, PPSV23 (PNEUMOVAX) Unknown Completed [facility] SARS-COV-2 COVID-19 PFIZER VACCINE Unknown Completed [facility] PPD (TB) Unknown Completed [facility] Influenza Virus Vaccine Quad IM 3+ YRS Unknown Completed [facility] Influenza High Dose Quad Unknown Completed [facility] SARS-COV-2 COVID-19 MIGUEL-SUCROSE VACCINE 12 YRS+, BIVALENT 0.3ML, IM, (PFIZER SON TOP) Unknown Completed [facility] Influenza Virus Vaccine,quad Im,preserve Free 65+ (FLUAD) Unknown Completed [facility] Influenza High Dose Unknown Completed [facility] Pneumococcal 13 Conjugate, PCV13 (Prevnar 13) Unknown Completed [facility] Influenza Virus Vaccine Unknown Completed [facility] SARS-COV-2 COVID-19 PFIZER VACCINE Unknown Completed [facility] SARS-COV-2 COVID-19 PFIZER VACCINE Unknown Completed [facility] SARS-COV-2 COVID-19 PFIZER VACCINE Unknown Completed [facility] Influenza High Dose Unknown Completed [facility] Pneumococcal Polysaccharide, PPSV23 (PNEUMOVAX) Unknown Completed [facility] SARS-COV-2 COVID-19 PFIZER VACCINE Unknown Completed [facility] PPD (TB) Unknown Completed [facility] Influenza Virus Vaccine Quad IM 3+ YRS Unknown Completed [facility] Influenza High Dose Quad Unknown Completed [facility] SARS-COV-2 COVID-19 MIGUEL-SUCROSE VACCINE 12 YRS+, BIVALENT 0.3ML, IM, (PFIZER SON TOP) Unknown Completed [facility] Influenza Virus Vaccine,quad Im,preserve Free 65+ (FLUAD) Unknown Completed [facility] Influenza High Dose Unknown Completed [facility] Pneumococcal 13 Conjugate, PCV13 (Prevnar 13) Unknown Completed [facility] Influenza Virus Vaccine Unknown Completed [facility] SARS-COV-2 COVID-19 PFIZER VACCINE Unknown Completed [facility] SARS-COV-2 COVID-19 PFIZER VACCINE Unknown Completed [facility] SARS-COV-2 COVID-19 PFIZER VACCINE Unknown Completed [facility] Influenza High Dose Unknown Completed [facility] Pneumococcal Polysaccharide, PPSV23 (PNEUMOVAX) Unknown Completed [facility] SARS-COV-2 COVID-19 PFIZER VACCINE Unknown Completed [facility] PPD (TB) Unknown Completed [facility] Influenza Virus Vaccine Quad IM 3+ YRS Unknown Completed [facility] Influenza High Dose Quad Unknown Completed [facility] SARS-COV-2 COVID-19 MIGUEL-SUCROSE VACCINE 12 YRS+, BIVALENT 0.3ML, IM, (PFIZER SON TOP) Unknown Completed [facility] Influenza Virus Vaccine,quad Im,preserve Free 65+ (FLUAD) Unknown Completed [facility] Influenza High Dose Unknown Completed [facility] Pneumococcal 13 Conjugate, PCV13 (Prevnar 13) Unknown Completed [facility] Influenza Virus Vaccine Unknown Completed [facility] SARS-COV-2 COVID-19 PFIZER VACCINE Unknown Completed [facility] SARS-COV-2 COVID-19 PFIZER VACCINE Unknown Completed [facility] SARS-COV-2 COVID-19 PFIZER VACCINE Unknown Completed [facility] Influenza High Dose Unknown Completed [facility] Pneumococcal Polysaccharide, PPSV23 (PNEUMOVAX) Unknown Completed [facility] SARS-COV-2 COVID-19 PFIZER VACCINE Unknown Completed [facility] PPD (TB) Unknown Completed [facility] Influenza Virus Vaccine Quad IM 3+ YRS Unknown Completed [facility] Influenza High Dose Quad Unknown Completed [facility] SARS-COV-2 COVID-19 MIGUEL-SUCROSE VACCINE 12 YRS+, BIVALENT 0.3ML, IM, (PFIZER SON TOP) Unknown Completed [facility] Influenza Virus Vaccine,quad Im,preserve Free 65+ (FLUAD) Unknown Completed [facility] Influenza High Dose Unknown Completed [facility] Pneumococcal 13 Conjugate, PCV13 (Prevnar 13) Unknown Completed [facility] Influenza Virus Vaccine Unknown Completed [facility] SARS-COV-2 COVID-19 PFIZER VACCINE Unknown Completed [facility] SARS-COV-2 COVID-19 PFIZER VACCINE Unknown Completed [facility] SARS-COV-2 COVID-19 PFIZER VACCINE Unknown Completed [facility] Influenza High Dose Unknown Completed [facility] Pneumococcal Polysaccharide, PPSV23 (PNEUMOVAX) Unknown Completed [facility] SARS-COV-2 COVID-19 PFIZER VACCINE Unknown Completed [facility] PPD (TB) Unknown Completed [facility] Influenza Virus Vaccine Quad IM 3+ YRS Unknown Completed [facility] Influenza High Dose Quad Unknown Completed [facility] SARS-COV-2 COVID-19 MIGUEL-SUCROSE VACCINE 12 YRS+, BIVALENT 0.3ML, IM, (PFIZER SON TOP) Unknown Completed [facility] Influenza Virus Vaccine,quad Im,preserve Free 65+ (FLUAD) Unknown Completed [facility] Influenza High Dose Unknown Completed [facility] Pneumococcal 13 Conjugate, PCV13 (Prevnar 13) Unknown Completed [facility] Influenza Virus Vaccine Unknown Completed [facility] SARS-COV-2 COVID-19 PFIZER VACCINE Unknown Completed [facility] SARS-COV-2 COVID-19 PFIZER VACCINE Unknown Completed [facility] SARS-COV-2 COVID-19 PFIZER VACCINE Unknown Completed [facility] Influenza High Dose Unknown Completed [facility] Pneumococcal Polysaccharide, PPSV23 (PNEUMOVAX) Unknown Completed [facility] SARS-COV-2 COVID-19 PFIZER VACCINE Unknown Completed [facility] PPD (TB) Unknown Completed [facility] Influenza Virus Vaccine Quad IM 3+ YRS Unknown Completed [facility] Influenza High Dose Quad Unknown Completed [facility] SARS-COV-2 COVID-19 MIGUEL-SUCROSE VACCINE 12 YRS+, BIVALENT 0.3ML, IM, (PFIZER SON TOP) Unknown Completed [facility] Influenza Virus Vaccine,quad Im,preserve Free 65+ (FLUAD) Unknown Completed [facility] Influenza High Dose Unknown Completed [facility] Pneumococcal 13 Conjugate, PCV13 (Prevnar 13) Unknown Completed [facility] Influenza Virus Vaccine Unknown Completed [facility] SARS-COV-2 COVID-19 PFIZER VACCINE Unknown Completed [facility] SARS-COV-2 COVID-19 PFIZER VACCINE Unknown Completed [facility] SARS-COV-2 COVID-19 PFIZER VACCINE Unknown Completed [facility] Influenza High Dose Unknown Completed [facility] Pneumococcal Polysaccharide, PPSV23 (PNEUMOVAX) Unknown Completed [facility] SARS-COV-2 COVID-19 PFIZER VACCINE Unknown Completed [facility] PPD (TB) Unknown Completed [facility] Influenza Virus Vaccine Quad IM 3+ YRS Unknown Completed [facility] Influenza High Dose Quad Unknown Completed [facility] SARS-COV-2 COVID-19 MIGUEL-SUCROSE VACCINE 12 YRS+, BIVALENT 0.3ML, IM, (PFIZER OSN TOP) Unknown Completed [facility] Influenza Virus Vaccine,quad Im,preserve Free 65+ (FLUAD) Unknown Completed [facility] Influenza High Dose Unknown Completed [facility] Pneumococcal 13 Conjugate, PCV13 (Prevnar 13) Unknown Completed [facility] Influenza Virus Vaccine Unknown Completed [facility] SARS-COV-2 COVID-19 PFIZER VACCINE Unknown Completed [facility] SARS-COV-2 COVID-19 PFIZER VACCINE Unknown Completed [facility] SARS-COV-2 COVID-19 PFIZER VACCINE Unknown Completed [facility] Influenza High Dose Unknown Completed [facility] Pneumococcal Polysaccharide, PPSV23 (PNEUMOVAX) Unknown Completed [facility] SARS-COV-2 COVID-19 PFIZER VACCINE Unknown Completed [facility] PPD (TB) Unknown Completed [facility] Influenza Virus Vaccine Quad IM 3+ YRS Unknown Completed [facility] Influenza High Dose Quad Unknown Completed [facility] SARS-COV-2 COVID-19 MIGUEL-SUCROSE VACCINE 12 YRS+, BIVALENT 0.3ML, IM, (PFIZER SON TOP) Unknown Completed [facility] Influenza Virus Vaccine,quad Im,preserve Free 65+ (FLUAD) Unknown Completed [facility] Influenza High Dose Unknown Completed [facility] Pneumococcal 13 Conjugate, PCV13 (Prevnar 13) Unknown Completed [facility] Influenza Virus Vaccine Unknown Completed [facility] SARS-COV-2 COVID-19 PFIZER VACCINE Unknown Completed [facility] SARS-COV-2 COVID-19 PFIZER VACCINE Unknown Completed [facility] SARS-COV-2 COVID-19 PFIZER VACCINE Unknown Completed [facility] Influenza High Dose Unknown Completed [facility] Pneumococcal Polysaccharide, PPSV23 (PNEUMOVAX) Unknown Completed [facility] SARS-COV-2 COVID-19 PFIZER VACCINE Unknown Completed [facility] PPD (TB) Unknown Completed [facility] Influenza Virus Vaccine Quad IM 3+ YRS Unknown Completed [facility] Influenza High Dose Quad Unknown Completed [facility] SARS-COV-2 COVID-19 MIGUEL-SUCROSE VACCINE 12 YRS+, BIVALENT 0.3ML, IM, (PFIZER SON TOP) Unknown Completed [facility] Influenza Virus Vaccine,quad Im,preserve Free 65+ (FLUAD) Unknown Completed [facility] Influenza High Dose Unknown Completed [facility] Pneumococcal 13 Conjugate, PCV13 (Prevnar 13) Unknown Completed [facility] Influenza Virus Vaccine Unknown Completed [facility] SARS-COV-2 COVID-19 PFIZER VACCINE Unknown Completed [facility] SARS-COV-2 COVID-19 PFIZER VACCINE Unknown Completed [facility] SARS-COV-2 COVID-19 PFIZER VACCINE Unknown Completed [facility] Influenza High Dose Unknown Completed [facility] Pneumococcal Polysaccharide, PPSV23 (PNEUMOVAX) Unknown Completed [facility] SARS-COV-2 COVID-19 PFIZER VACCINE Unknown Completed [facility] PPD (TB) Unknown Completed [facility] Influenza Virus Vaccine Quad IM 3+ YRS Unknown Completed [facility] Influenza High Dose Quad Unknown Completed [facility] SARS-COV-2 COVID-19 MIGUEL-SUCROSE VACCINE 12 YRS+, BIVALENT 0.3ML, IM, (PFIZER SON TOP) Unknown Completed [facility] Influenza High Dose Unknown Completed [facility] Pneumococcal 13 Conjugate, PCV13 (Prevnar 13) Unknown Completed [facility] Influenza Virus Vaccine Unknown Completed [facility] SARS-COV-2 COVID-19 PFIZER VACCINE Unknown Completed [facility] SARS-COV-2 COVID-19 PFIZER VACCINE Unknown Completed [facility] SARS-COV-2 COVID-19 PFIZER VACCINE Unknown Completed [facility] Influenza High Dose Unknown Completed [facility] Pneumococcal Polysaccharide, PPSV23 (PNEUMOVAX) Unknown Completed [facility] SARS-COV-2 COVID-19 PFIZER VACCINE Unknown Completed [facility] PPD (TB) Unknown Completed [facility] Influenza Virus Vaccine Quad IM 3+ YRS Unknown Completed [facility] Influenza High Dose Quad Unknown Completed [facility] SARS-COV-2 COVID-19 MIGUEL-SUCROSE VACCINE 12 YRS+, BIVALENT 0.3ML, IM, (PFIZER SON TOP) Unknown Completed [facility] Influenza High Dose Unknown Completed [facility] Pneumococcal 13 Conjugate, PCV13 (Prevnar 13) Unknown Completed [facility] Influenza Virus Vaccine Unknown Completed [facility] SARS-COV-2 COVID-19 PFIZER VACCINE Unknown Completed [facility] SARS-COV-2 COVID-19 PFIZER VACCINE Unknown Completed [facility] SARS-COV-2 COVID-19 PFIZER VACCINE Unknown Completed [facility] Influenza High Dose Unknown Completed [facility] Pneumococcal Polysaccharide, PPSV23 (PNEUMOVAX) Unknown Completed [facility] SARS-COV-2 COVID-19 PFIZER VACCINE Unknown Completed [facility] PPD (TB) Unknown Completed [facility] Influenza Virus Vaccine Quad IM 3+ YRS Unknown Completed [facility] Influenza High Dose Quad Unknown Completed [facility] SARS-COV-2 COVID-19 MIGUEL-SUCROSE VACCINE 12 YRS+, BIVALENT 0.3ML, IM, (PFIZER SON TOP) Unknown Completed [facility] Influenza Virus Vaccine,quad Im,preserve Free 65+ (FLUAD) Unknown Completed [facility] Influenza High Dose Unknown Completed [facility] Pneumococcal 13 Conjugate, PCV13 (Prevnar 13) Unknown Completed [facility] Influenza Virus Vaccine Unknown Completed [facility] SARS-COV-2 COVID-19 PFIZER VACCINE Unknown Completed [facility] SARS-COV-2 COVID-19 PFIZER VACCINE Unknown Completed [facility] SARS-COV-2 COVID-19 PFIZER VACCINE Unknown Completed [facility] Influenza High Dose Unknown Completed [facility] Pneumococcal Polysaccharide, PPSV23 (PNEUMOVAX) Unknown Completed [facility] SARS-COV-2 COVID-19 PFIZER VACCINE Unknown Completed [facility] PPD (TB) Unknown Completed [facility] Influenza Virus Vaccine Quad IM 3+ YRS Unknown Completed [facility] Influenza High Dose Quad Unknown Completed [facility] SARS-COV-2 COVID-19 MIGUEL-SUCROSE VACCINE 12 YRS+, BIVALENT 0.3ML, IM, (PFIZER SON TOP) Unknown Completed [facility] Influenza Virus Vaccine,quad Im,preserve Free 65+ (FLUAD) Unknown Completed [facility] Influenza High Dose Unknown Completed [facility] Pneumococcal 13 Conjugate, PCV13 (Prevnar 13) Unknown Completed [facility] Influenza Virus Vaccine Unknown Completed [facility] SARS-COV-2 COVID-19 PFIZER VACCINE Unknown Completed [facility] SARS-COV-2 COVID-19 PFIZER VACCINE Unknown Completed [facility] SARS-COV-2 COVID-19 PFIZER VACCINE Unknown Completed [facility] Influenza High Dose Unknown Completed [facility] Pneumococcal Polysaccharide, PPSV23 (PNEUMOVAX) Unknown Completed [facility] SARS-COV-2 COVID-19 PFIZER VACCINE Unknown Completed [facility] PPD (TB) Unknown Completed [facility] Influenza Virus Vaccine Quad IM 3+ YRS Unknown Completed [facility] Influenza High Dose Quad Unknown Completed [facility] SARS-COV-2 COVID-19 MIGUEL-SUCROSE VACCINE 12 YRS+, BIVALENT 0.3ML, IM, (PFIZER SON TOP) Unknown Completed [facility] Influenza Virus Vaccine,quad Im,preserve Free 65+ (FLUAD) Unknown Completed [facility] Influenza High Dose Unknown Completed [facility] Pneumococcal 13 Conjugate, PCV13 (Prevnar 13) Unknown Completed [facility] Influenza Virus Vaccine Unknown Completed [facility] SARS-COV-2 COVID-19 PFIZER VACCINE Unknown Completed [facility] SARS-COV-2 COVID-19 PFIZER VACCINE Unknown Completed [facility] SARS-COV-2 COVID-19 PFIZER VACCINE Unknown Completed [facility] Influenza High Dose Unknown Completed [facility] Pneumococcal Polysaccharide, PPSV23 (PNEUMOVAX) Unknown Completed [facility] SARS-COV-2 COVID-19 PFIZER VACCINE Unknown Completed [facility] PPD (TB) Unknown Completed [facility] Influenza Virus Vaccine Quad IM 3+ YRS Unknown Completed [facility] Influenza High Dose Quad Unknown Completed [facility] SARS-COV-2 COVID-19 MIGUEL-SUCROSE VACCINE 12 YRS+, BIVALENT 0.3ML, IM, (PFIZER SON TOP) Unknown Completed [facility] Influenza Virus Vaccine,quad Im,preserve Free 65+ (FLUAD) Unknown Completed [facility] Influenza High Dose Unknown Completed [facility] Pneumococcal 13 Conjugate, PCV13 (Prevnar 13) Unknown Completed [facility] Influenza Virus Vaccine Unknown Completed [facility] SARS-COV-2 COVID-19 PFIZER VACCINE Unknown Completed [facility] SARS-COV-2 COVID-19 PFIZER VACCINE Unknown Completed [facility] SARS-COV-2 COVID-19 PFIZER VACCINE Unknown Completed [facility] Influenza High Dose Unknown Completed [facility] Pneumococcal Polysaccharide, PPSV23 (PNEUMOVAX) Unknown Completed [facility] SARS-COV-2 COVID-19 PFIZER VACCINE Unknown Completed [facility] PPD (TB) Unknown Completed [facility] Influenza Virus Vaccine Quad IM 3+ YRS Unknown Completed [facility] Influenza High Dose Quad Unknown Completed [facility] SARS-COV-2 COVID-19 MIGUEL-SUCROSE VACCINE 12 YRS+, BIVALENT 0.3ML, IM, (PFIZER SON TOP) Unknown Completed [facility] Influenza Virus Vaccine,quad Im,preserve Free 65+ (FLUAD) Unknown Completed [facility] Influenza High Dose Unknown Completed [facility] Pneumococcal 13 Conjugate, PCV13 (Prevnar 13) Unknown Completed [facility] Influenza Virus Vaccine Unknown Completed [facility] SARS-COV-2 COVID-19 PFIZER VACCINE Unknown Completed [facility] SARS-COV-2 COVID-19 PFIZER VACCINE Unknown Completed [facility] SARS-COV-2 COVID-19 PFIZER VACCINE Unknown Completed [facility] Influenza High Dose Unknown Completed [facility] Pneumococcal Polysaccharide, PPSV23 (PNEUMOVAX) Unknown Completed [facility] SARS-COV-2 COVID-19 PFIZER VACCINE Unknown Completed [facility] PPD (TB) Unknown Completed [facility] Influenza Virus Vaccine Quad IM 3+ YRS Unknown Completed [facility] Influenza High Dose Quad Unknown Completed [facility] SARS-COV-2 COVID-19 MIGUEL-SUCROSE VACCINE 12 YRS+, BIVALENT 0.3ML, IM, (PFIZER SON TOP) Unknown Completed [facility] Influenza Virus Vaccine,quad Im,preserve Free 65+ (FLUAD) Unknown Completed [facility] Influenza High Dose Unknown Completed [facility] Pneumococcal 13 Conjugate, PCV13 (Prevnar 13) Unknown Completed [facility] Influenza Virus Vaccine Unknown Completed [facility] SARS-COV-2 COVID-19 PFIZER VACCINE Unknown Completed [facility] SARS-COV-2 COVID-19 PFIZER VACCINE Unknown Completed [facility] SARS-COV-2 COVID-19 PFIZER VACCINE Unknown Completed [facility] Influenza High Dose Unknown Completed [facility] Pneumococcal Polysaccharide, PPSV23 (PNEUMOVAX) Unknown Completed [facility] SARS-COV-2 COVID-19 PFIZER VACCINE Unknown Completed [facility] PPD (TB) Unknown Completed [facility] Influenza Virus Vaccine Quad IM 3+ YRS Unknown Completed [facility] Influenza High Dose Quad Unknown Completed [facility] SARS-COV-2 COVID-19 MIGUEL-SUCROSE VACCINE 12 YRS+, BIVALENT 0.3ML, IM, (PFIZER SON TOP) Unknown Completed [facility] Influenza Virus Vaccine,quad Im,preserve Free 65+ (FLUAD) Unknown Completed [facility] Influenza High Dose Unknown Completed [facility] Pneumococcal 13 Conjugate, PCV13 (Prevnar 13) Unknown Completed [facility] Influenza Virus Vaccine Unknown Completed [facility] SARS-COV-2 COVID-19 PFIZER VACCINE Unknown Completed [facility] SARS-COV-2 COVID-19 PFIZER VACCINE Unknown Completed [facility] SARS-COV-2 COVID-19 PFIZER VACCINE Unknown Completed [facility] Influenza High Dose Unknown Completed [facility] Pneumococcal Polysaccharide, PPSV23 (PNEUMOVAX) Unknown Completed [facility] SARS-COV-2 COVID-19 PFIZER VACCINE Unknown Completed [facility] PPD (TB) Unknown Completed [facility] Influenza Virus Vaccine Quad IM 3+ YRS Unknown Completed [facility] Influenza High Dose Quad Unknown Completed [facility] SARS-COV-2 COVID-19 MIGUEL-SUCROSE VACCINE 12 YRS+, BIVALENT 0.3ML, IM, (PFIZER SON TOP) Unknown Completed [facility] Influenza Virus Vaccine,quad Im,preserve Free 65+ (FLUAD) Unknown Completed [facility] Influenza High Dose Unknown Completed [facility] Pneumococcal 13 Conjugate, PCV13 (Prevnar 13) Unknown Completed [facility] Influenza Virus Vaccine Unknown Completed [facility] SARS-COV-2 COVID-19 PFIZER VACCINE Unknown Completed [facility] SARS-COV-2 COVID-19 PFIZER VACCINE Unknown Completed [facility] SARS-COV-2 COVID-19 PFIZER VACCINE Unknown Completed [facility] Influenza High Dose Unknown Completed [facility] Pneumococcal Polysaccharide, PPSV23 (PNEUMOVAX) Unknown Completed [facility] SARS-COV-2 COVID-19 PFIZER VACCINE Unknown Completed [facility] PPD (TB) Unknown Completed [facility] Influenza Virus Vaccine Quad IM 3+ YRS Unknown Completed [facility] Influenza High Dose Quad Unknown Completed [facility] SARS-COV-2 COVID-19 MIGUEL-SUCROSE VACCINE 12 YRS+, BIVALENT 0.3ML, IM, (PFIZER SON TOP) Unknown Completed [facility] Influenza Virus Vaccine,quad Im,preserve Free 65+ (FLUAD) Unknown Completed [facility] Influenza High Dose Unknown Completed [facility] Pneumococcal 13 Conjugate, PCV13 (Prevnar 13) Unknown Completed [facility] Influenza Virus Vaccine Unknown Completed [facility] SARS-COV-2 COVID-19 PFIZER VACCINE Unknown Completed [facility] SARS-COV-2 COVID-19 PFIZER VACCINE Unknown Completed [facility] SARS-COV-2 COVID-19 PFIZER VACCINE Unknown Completed [facility] Influenza High Dose Unknown Completed [facility] Pneumococcal Polysaccharide, PPSV23 (PNEUMOVAX) Unknown Completed [facility] SARS-COV-2 COVID-19 PFIZER VACCINE Unknown Completed [facility] PPD (TB) Unknown Completed [facility] Influenza Virus Vaccine Quad IM 3+ YRS Unknown Completed [facility] Influenza High Dose Quad Unknown Completed [facility] SARS-COV-2 COVID-19 MIGUEL-SUCROSE VACCINE 12 YRS+, BIVALENT 0.3ML, IM, (PFIZER SON TOP) Unknown Completed [facility] Influenza Virus Vaccine,quad Im,preserve Free 65+ (FLUAD) Unknown Completed [facility] Influenza High Dose Unknown Completed [facility] Pneumococcal 13 Conjugate, PCV13 (Prevnar 13) Unknown Completed [facility] Influenza Virus Vaccine Unknown Completed [facility] SARS-COV-2 COVID-19 PFIZER VACCINE Unknown Completed [facility] SARS-COV-2 COVID-19 PFIZER VACCINE Unknown Completed [facility] SARS-COV-2 COVID-19 PFIZER VACCINE Unknown Completed [facility] Influenza High Dose Unknown Completed [facility] Pneumococcal Polysaccharide, PPSV23 (PNEUMOVAX) Unknown Completed [facility] SARS-COV-2 COVID-19 PFIZER VACCINE Unknown Completed [facility] PPD (TB) Unknown Completed [facility] Influenza Virus Vaccine Quad IM 3+ YRS Unknown Completed [facility] Influenza High Dose Quad Unknown Completed [facility] SARS-COV-2 COVID-19 MIGUEL-SUCROSE VACCINE 12 YRS+, BIVALENT 0.3ML, IM, (PFIZER SON TOP) Unknown Completed [facility] Influenza Virus Vaccine,quad Im,preserve Free 65+ (FLUAD) Unknown Completed [facility] Influenza High Dose Unknown Completed [facility] Pneumococcal 13 Conjugate, PCV13 (Prevnar 13) Unknown Completed [facility] Influenza Virus Vaccine Unknown Completed [facility] SARS-COV-2 COVID-19 PFIZER VACCINE Unknown Completed [facility] SARS-COV-2 COVID-19 PFIZER VACCINE Unknown Completed [facility] SARS-COV-2 COVID-19 PFIZER VACCINE Unknown Completed [facility] Influenza High Dose Unknown Completed [facility] Pneumococcal Polysaccharide, PPSV23 (PNEUMOVAX) Unknown Completed [facility] SARS-COV-2 COVID-19 PFIZER VACCINE Unknown Completed [facility] PPD (TB) Unknown Completed [facility] Influenza Virus Vaccine Quad IM 3+ YRS Unknown Completed [facility] Influenza High Dose Quad Unknown Completed [facility] SARS-COV-2 COVID-19 MIGUEL-SUCROSE VACCINE 12 YRS+, BIVALENT 0.3ML, IM, (PFIZER SON TOP) Unknown Completed [facility] Influenza Virus Vaccine,quad Im,preserve Free 65+ (FLUAD) Unknown Completed [facility] Influenza High Dose Unknown Completed [facility] Pneumococcal 13 Conjugate, PCV13 (Prevnar 13) Unknown Completed [facility] Influenza Virus Vaccine Unknown Completed [facility] SARS-COV-2 COVID-19 PFIZER VACCINE Unknown Completed [facility] SARS-COV-2 COVID-19 PFIZER VACCINE Unknown Completed [facility] SARS-COV-2 COVID-19 PFIZER VACCINE Unknown Completed [facility] Influenza High Dose Unknown Completed [facility] Pneumococcal Polysaccharide, PPSV23 (PNEUMOVAX) Unknown Completed [facility] SARS-COV-2 COVID-19 PFIZER VACCINE Unknown Completed [facility] PPD (TB) Unknown Completed [facility] Influenza Virus Vaccine Quad IM 3+ YRS Unknown Completed [facility] Influenza High Dose Quad Unknown Completed [facility] SARS-COV-2 COVID-19 MIGUEL-SUCROSE VACCINE 12 YRS+, BIVALENT 0.3ML, IM, (PFIZER SON TOP) Unknown Completed [facility] Influenza Virus Vaccine,quad Im,preserve Free 65+ (FLUAD) Unknown Completed [facility] Influenza High Dose Unknown Completed [facility] Pneumococcal 13 Conjugate, PCV13 (Prevnar 13) Unknown Completed [facility] Influenza Virus Vaccine Unknown Completed [facility] SARS-COV-2 COVID-19 PFIZER VACCINE Unknown Completed [facility] SARS-COV-2 COVID-19 PFIZER VACCINE Unknown Completed [facility] SARS-COV-2 COVID-19 PFIZER VACCINE Unknown Completed [facility] Influenza High Dose Unknown Completed [facility] Pneumococcal Polysaccharide, PPSV23 (PNEUMOVAX) Unknown Completed [facility] SARS-COV-2 COVID-19 PFIZER VACCINE Unknown Completed [facility] PPD (TB) Unknown Completed [facility] Influenza Virus Vaccine Quad IM 3+ YRS Unknown Completed [facility] Influenza High Dose Quad Unknown Completed [facility] SARS-COV-2 COVID-19 MIGUEL-SUCROSE VACCINE 12 YRS+, BIVALENT 0.3ML, IM, (PFIZER SON TOP) Unknown Completed [facility] Influenza Virus Vaccine,quad Im,preserve Free 65+ (FLUAD) Unknown Completed [facility] Influenza High Dose Unknown Completed [facility] Pneumococcal 13 Conjugate, PCV13 (Prevnar 13) Unknown Completed [facility] Influenza Virus Vaccine Unknown Completed [facility] SARS-COV-2 COVID-19 PFIZER VACCINE Unknown Completed [facility] SARS-COV-2 COVID-19 PFIZER VACCINE Unknown Completed [facility] SARS-COV-2 COVID-19 PFIZER VACCINE Unknown Completed [facility] Influenza High Dose Unknown Completed [facility] Pneumococcal Polysaccharide, PPSV23 (PNEUMOVAX) Unknown Completed [facility] SARS-COV-2 COVID-19 PFIZER VACCINE Unknown Completed [facility] PPD (TB) Unknown Completed [facility] Influenza Virus Vaccine Quad IM 3+ YRS Unknown Completed [facility] Influenza High Dose Quad Unknown Completed [facility] SARS-COV-2 COVID-19 MIGUEL-SUCROSE VACCINE 12 YRS+, BIVALENT 0.3ML, IM, (PFIZER SON TOP) Unknown Completed [facility] Influenza Virus Vaccine,quad Im,preserve Free 65+ (FLUAD) Unknown Completed [facility] Influenza High Dose Unknown Completed [facility] Pneumococcal 13 Conjugate, PCV13 (Prevnar 13) Unknown Completed [facility] Influenza Virus Vaccine Unknown Completed [facility] SARS-COV-2 COVID-19 PFIZER VACCINE Unknown Completed [facility] SARS-COV-2 COVID-19 PFIZER VACCINE Unknown Completed [facility] SARS-COV-2 COVID-19 PFIZER VACCINE Unknown Completed [facility] Influenza High Dose Unknown Completed [facility] Pneumococcal Polysaccharide, PPSV23 (PNEUMOVAX) Unknown Completed [facility] SARS-COV-2 COVID-19 PFIZER VACCINE Unknown Completed [facility] PPD (TB) Unknown Completed [facility] Influenza Virus Vaccine Quad IM 3+ YRS Unknown Completed [facility] Influenza High Dose Quad Unknown Completed [facility] SARS-COV-2 COVID-19 MIGUEL-SUCROSE VACCINE 12 YRS+, BIVALENT 0.3ML, IM, (PFIZER SON TOP) Unknown Completed [facility] Influenza Virus Vaccine,quad Im,preserve Free 65+ (FLUAD) Unknown Completed [facility] Influenza High Dose Unknown Completed [facility] Pneumococcal 13 Conjugate, PCV13 (Prevnar 13) Unknown Completed [facility] Influenza Virus Vaccine Unknown Completed [facility] SARS-COV-2 COVID-19 PFIZER VACCINE Unknown Completed [facility] SARS-COV-2 COVID-19 PFIZER VACCINE Unknown Completed [facility] SARS-COV-2 COVID-19 PFIZER VACCINE Unknown Completed [facility] Influenza High Dose Unknown Completed [facility] Pneumococcal Polysaccharide, PPSV23 (PNEUMOVAX) Unknown Completed [facility] SARS-COV-2 COVID-19 PFIZER VACCINE Unknown Completed [facility] PPD (TB) Unknown Completed [facility] Influenza Virus Vaccine Quad IM 3+ YRS Unknown Completed [facility] Influenza High Dose Quad Unknown Completed [facility] SARS-COV-2 COVID-19 MIGUEL-SUCROSE VACCINE 12 YRS+, BIVALENT 0.3ML, IM, (PFIZER SON TOP) Unknown Completed [facility] Influenza Virus Vaccine,quad Im,preserve Free 65+ (FLUAD) Unknown Completed [facility] Influenza High Dose Unknown Completed [facility] Pneumococcal 13 Conjugate, PCV13 (Prevnar 13) Unknown Completed [facility] Influenza Virus Vaccine Unknown Completed [facility] SARS-COV-2 COVID-19 PFIZER VACCINE Unknown Completed [facility] SARS-COV-2 COVID-19 PFIZER VACCINE Unknown Completed [facility] SARS-COV-2 COVID-19 PFIZER VACCINE Unknown Completed [facility] Influenza High Dose Unknown Completed [facility] Pneumococcal Polysaccharide, PPSV23 (PNEUMOVAX) Unknown Completed [facility] SARS-COV-2 COVID-19 PFIZER VACCINE Unknown Completed [facility] PPD (TB) Unknown Completed [facility] Influenza Virus Vaccine Quad IM 3+ YRS Unknown Completed [facility] Influenza High Dose Quad Unknown Completed [facility] SARS-COV-2 COVID-19 MIGUEL-SUCROSE VACCINE 12 YRS+, BIVALENT 0.3ML, IM, (PFIZER SON TOP) Unknown Completed [facility] Influenza Virus Vaccine,quad Im,preserve Free 65+ (FLUAD) Unknown Completed [facility] Influenza High Dose Unknown Completed [facility] Pneumococcal 13 Conjugate, PCV13 (Prevnar 13) Unknown Completed [facility] Influenza Virus Vaccine Unknown Completed [facility] SARS-COV-2 COVID-19 PFIZER VACCINE Unknown Completed [facility] SARS-COV-2 COVID-19 PFIZER VACCINE Unknown Completed [facility] SARS-COV-2 COVID-19 PFIZER VACCINE Unknown Completed [facility] Influenza High Dose Unknown Completed [facility] Pneumococcal Polysaccharide, PPSV23 (PNEUMOVAX) Unknown Completed [facility] SARS-COV-2 COVID-19 PFIZER VACCINE Unknown Completed [facility] PPD (TB) Unknown Completed [facility] Influenza Virus Vaccine Quad IM 3+ YRS Unknown Completed [facility] Influenza High Dose Quad Unknown Completed [facility] SARS-COV-2 COVID-19 MIGUEL-SUCROSE VACCINE 12 YRS+, BIVALENT 0.3ML, IM, (PFIZER SON TOP) Unknown Completed [facility] Influenza Virus Vaccine,quad Im,preserve Free 65+ (FLUAD) Unknown Completed [facility] Influenza High Dose Unknown Completed [facility] Pneumococcal 13 Conjugate, PCV13 (Prevnar 13) Unknown Completed [facility] Influenza Virus Vaccine Unknown Completed [facility] SARS-COV-2 COVID-19 PFIZER VACCINE Unknown Completed [facility] SARS-COV-2 COVID-19 PFIZER VACCINE Unknown Completed [facility] SARS-COV-2 COVID-19 PFIZER VACCINE Unknown Completed [facility] Influenza High Dose Unknown Completed [facility] Pneumococcal Polysaccharide, PPSV23 (PNEUMOVAX) Unknown Completed [facility] SARS-COV-2 COVID-19 PFIZER VACCINE Unknown Completed [facility] PPD (TB) Unknown Completed [facility] Influenza Virus Vaccine Quad IM 3+ YRS Unknown Completed [facility] Influenza High Dose Quad Unknown Completed [facility] SARS-COV-2 COVID-19 MIGUEL-SUCROSE VACCINE 12 YRS+, BIVALENT 0.3ML, IM, (PFIZER SON TOP) Unknown Completed [facility] Influenza Virus Vaccine,quad Im,preserve Free 65+ (FLUAD) Unknown Completed [facility] Influenza High Dose Unknown Completed [facility] Pneumococcal 13 Conjugate, PCV13 (Prevnar 13) Unknown Completed [facility] Influenza Virus Vaccine Unknown Completed [facility] SARS-COV-2 COVID-19 PFIZER VACCINE Unknown Completed [facility] SARS-COV-2 COVID-19 PFIZER VACCINE Unknown Completed [facility] SARS-COV-2 COVID-19 PFIZER VACCINE Unknown Completed [facility] Influenza High Dose Unknown Completed [facility] Pneumococcal Polysaccharide, PPSV23 (PNEUMOVAX) Unknown Completed [facility] SARS-COV-2 COVID-19 PFIZER VACCINE Unknown Completed [facility] PPD (TB) Unknown Completed [facility] Influenza Virus Vaccine Quad IM 3+ YRS Unknown Completed [facility] Influenza High Dose Quad Unknown Completed [facility] SARS-COV-2 COVID-19 MIGUEL-SUCROSE VACCINE 12 YRS+, BIVALENT 0.3ML, IM, (PFIZER SON TOP) Unknown Completed [facility] Influenza Virus Vaccine,quad Im,preserve Free 65+ (FLUAD) Unknown Completed [facility] Influenza High Dose Unknown Completed [facility] Pneumococcal 13 Conjugate, PCV13 (Prevnar 13) Unknown Completed [facility] Influenza Virus Vaccine Unknown Completed [facility] SARS-COV-2 COVID-19 PFIZER VACCINE Unknown Completed [facility] SARS-COV-2 COVID-19 PFIZER VACCINE Unknown Completed [facility] SARS-COV-2 COVID-19 PFIZER VACCINE Unknown Completed [facility] Influenza High Dose Unknown Completed [facility] Pneumococcal Polysaccharide, PPSV23 (PNEUMOVAX) Unknown Completed [facility] SARS-COV-2 COVID-19 PFIZER VACCINE Unknown Completed [facility] PPD (TB) Unknown Completed [facility] Influenza Virus Vaccine Quad IM 3+ YRS Unknown Completed [facility] Influenza High Dose Quad Unknown Completed [facility] SARS-COV-2 COVID-19 MIGUEL-SUCROSE VACCINE 12 YRS+, BIVALENT 0.3ML, IM, (PFIZER SON TOP) Unknown Completed [facility] Influenza Virus Vaccine,quad Im,preserve Free 65+ (FLUAD) Unknown Completed [facility] Influenza High Dose Unknown Completed [facility] Pneumococcal 13 Conjugate, PCV13 (Prevnar 13) Unknown Completed [facility] Influenza Virus Vaccine Unknown Completed [facility] SARS-COV-2 COVID-19 PFIZER VACCINE Unknown Completed [facility] SARS-COV-2 COVID-19 PFIZER VACCINE Unknown Completed [facility] SARS-COV-2 COVID-19 PFIZER VACCINE Unknown Completed [facility] Influenza High Dose Unknown Completed [facility] Pneumococcal Polysaccharide, PPSV23 (PNEUMOVAX) Unknown Completed [facility] SARS-COV-2 COVID-19 PFIZER VACCINE Unknown Completed [facility] PPD (TB) Unknown Completed [facility] Influenza Virus Vaccine Quad IM 3+ YRS Unknown Completed [facility] Influenza High Dose Quad Unknown Completed [facility] SARS-COV-2 COVID-19 MIGUEL-SUCROSE VACCINE 12 YRS+, BIVALENT 0.3ML, IM, (PFIZER SON TOP) Unknown Completed [facility] Influenza Virus Vaccine,quad Im,preserve Free 65+ (FLUAD) Unknown Completed [facility] Influenza High Dose Unknown Completed [facility] Pneumococcal 13 Conjugate, PCV13 (Prevnar 13) Unknown Completed [facility] Influenza Virus Vaccine Unknown Completed [facility] SARS-COV-2 COVID-19 PFIZER VACCINE Unknown Completed [facility] SARS-COV-2 COVID-19 PFIZER VACCINE Unknown Completed [facility] SARS-COV-2 COVID-19 PFIZER VACCINE Unknown Completed [facility] Influenza High Dose Unknown Completed [facility] Pneumococcal Polysaccharide, PPSV23 (PNEUMOVAX) Unknown Completed [facility] SARS-COV-2 COVID-19 PFIZER VACCINE Unknown Completed [facility] PPD (TB) Unknown Completed [facility] Influenza Virus Vaccine Quad IM 3+ YRS Unknown Completed [facility] Influenza High Dose Quad Unknown Completed [facility] SARS-COV-2 COVID-19 MIGUEL-SUCROSE VACCINE 12 YRS+, BIVALENT 0.3ML, IM, (PFIZER SON TOP) Unknown Completed [facility] Influenza Virus Vaccine,quad Im,preserve Free 65+ (FLUAD) Unknown Completed [facility] Influenza High Dose Unknown Completed [facility] Pneumococcal 13 Conjugate, PCV13 (Prevnar 13) Unknown Completed [facility] Influenza Virus Vaccine Unknown Completed [facility] SARS-COV-2 COVID-19 PFIZER VACCINE Unknown Completed [facility] SARS-COV-2 COVID-19 PFIZER VACCINE Unknown Completed [facility] SARS-COV-2 COVID-19 PFIZER VACCINE Unknown Completed [facility] Influenza High Dose Unknown Completed [facility] Pneumococcal Polysaccharide, PPSV23 (PNEUMOVAX) Unknown Completed [facility] SARS-COV-2 COVID-19 PFIZER VACCINE Unknown Completed [facility] PPD (TB) Unknown Completed [facility] Influenza Virus Vaccine Quad IM 3+ YRS Unknown Completed [facility] Influenza High Dose Quad Unknown Completed [facility] SARS-COV-2 COVID-19 MIGUEL-SUCROSE VACCINE 12 YRS+, BIVALENT 0.3ML, IM, (PFIZER SON TOP) Unknown Completed [facility] Influenza Virus Vaccine,quad Im,preserve Free 65+ (FLUAD) Unknown Completed [facility] Influenza High Dose Unknown Completed [facility] Pneumococcal 13 Conjugate, PCV13 (Prevnar 13) Unknown Completed [facility] Influenza Virus Vaccine Unknown Completed [facility] SARS-COV-2 COVID-19 PFIZER VACCINE Unknown Completed [facility] SARS-COV-2 COVID-19 PFIZER VACCINE Unknown Completed [facility] SARS-COV-2 COVID-19 PFIZER VACCINE Unknown Completed [facility] Influenza High Dose Unknown Completed [facility] Pneumococcal Polysaccharide, PPSV23 (PNEUMOVAX) Unknown Completed [facility] SARS-COV-2 COVID-19 PFIZER VACCINE Unknown Completed [facility] PPD (TB) Unknown Completed [facility] Influenza Virus Vaccine Quad IM 3+ YRS Unknown Completed [facility] Influenza High Dose Quad Unknown Completed [facility] SARS-COV-2 COVID-19 MIGUEL-SUCROSE VACCINE 12 YRS+, BIVALENT 0.3ML, IM, (PFIZER SON TOP) Unknown Completed [facility] Influenza Virus Vaccine,quad Im,preserve Free 65+ (FLUAD) Unknown Completed [facility] Influenza High Dose Unknown Completed [facility] Pneumococcal 13 Conjugate, PCV13 (Prevnar 13) Unknown Completed [facility] Influenza Virus Vaccine Unknown Completed [facility] SARS-COV-2 COVID-19 PFIZER VACCINE Unknown Completed [facility] SARS-COV-2 COVID-19 PFIZER VACCINE Unknown Completed [facility] SARS-COV-2 COVID-19 PFIZER VACCINE Unknown Completed [facility] Influenza High Dose Unknown Completed [facility] Pneumococcal Polysaccharide, PPSV23 (PNEUMOVAX) Unknown Completed [facility] SARS-COV-2 COVID-19 PFIZER VACCINE Unknown Completed [facility] PPD (TB) Unknown Completed [facility] Influenza Virus Vaccine Quad IM 3+ YRS Unknown Completed [facility] Influenza High Dose Quad Unknown Completed [facility] SARS-COV-2 COVID-19 MIGUEL-SUCROSE VACCINE 12 YRS+, BIVALENT 0.3ML, IM, (PFIZER SON TOP) Unknown Completed [facility] Influenza Virus Vaccine,quad Im,preserve Free 65+ (FLUAD) Unknown Completed [facility] Influenza High Dose Unknown Completed [facility] Pneumococcal 13 Conjugate, PCV13 (Prevnar 13) Unknown Completed [facility] Influenza Virus Vaccine Unknown Completed [facility] SARS-COV-2 COVID-19 PFIZER VACCINE Unknown Completed [facility] SARS-COV-2 COVID-19 PFIZER VACCINE Unknown Completed [facility] SARS-COV-2 COVID-19 PFIZER VACCINE Unknown Completed [facility] Influenza High Dose Unknown Completed [facility] Pneumococcal Polysaccharide, PPSV23 (PNEUMOVAX) Unknown Completed [facility] SARS-COV-2 COVID-19 PFIZER VACCINE Unknown Completed [facility] PPD (TB) Unknown Completed [facility] Influenza Virus Vaccine Quad IM 3+ YRS Unknown Completed [facility] Influenza High Dose Quad Unknown Completed [facility] SARS-COV-2 COVID-19 MIGEUL-SUCROSE VACCINE 12 YRS+, BIVALENT 0.3ML, IM, (PFIZER SON TOP) Unknown Completed [facility] Influenza Virus Vaccine,quad Im,preserve Free 65+ (FLUAD) Unknown Completed [facility] Influenza High Dose Unknown Completed [facility] Pneumococcal 13 Conjugate, PCV13 (Prevnar 13) Unknown Completed [facility] Influenza Virus Vaccine Unknown Completed [facility] SARS-COV-2 COVID-19 PFIZER VACCINE Unknown Completed [facility] SARS-COV-2 COVID-19 PFIZER VACCINE Unknown Completed [facility] SARS-COV-2 COVID-19 PFIZER VACCINE Unknown Completed [facility] Influenza High Dose Unknown Completed [facility] Pneumococcal Polysaccharide, PPSV23 (PNEUMOVAX) Unknown Completed [facility] SARS-COV-2 COVID-19 PFIZER VACCINE Unknown Completed [facility] PPD (TB) Unknown Completed [facility] Influenza Virus Vaccine Quad IM 3+ YRS Unknown Completed [facility] Influenza High Dose Quad Unknown Completed [facility] SARS-COV-2 COVID-19 MIGUEL-SUCROSE VACCINE 12 YRS+, BIVALENT 0.3ML, IM, (PFIZER OSN TOP) Unknown Completed [facility] Influenza Virus Vaccine,quad Im,preserve Free 65+ (FLUAD) Unknown Completed [facility] Influenza High Dose Unknown Completed [facility] Pneumococcal 13 Conjugate, PCV13 (Prevnar 13) Unknown Completed [facility] Influenza Virus Vaccine Unknown Completed [facility] SARS-COV-2 COVID-19 PFIZER VACCINE Unknown Completed [facility] SARS-COV-2 COVID-19 PFIZER VACCINE Unknown Completed [facility] SARS-COV-2 COVID-19 PFIZER VACCINE Unknown Completed [facility] Influenza High Dose Unknown Completed [facility] Pneumococcal Polysaccharide, PPSV23 (PNEUMOVAX) Unknown Completed [facility] SARS-COV-2 COVID-19 PFIZER VACCINE Unknown Completed [facility] PPD (TB) Unknown Completed [facility] Influenza Virus Vaccine Quad IM 3+ YRS Unknown Completed [facility] Influenza High Dose Quad Unknown Completed [facility] SARS-COV-2 COVID-19 MIGUEL-SUCROSE VACCINE 12 YRS+, BIVALENT 0.3ML, IM, (PFIZER SON TOP) Unknown Completed [facility] Influenza Virus Vaccine,quad Im,preserve Free 65+ (FLUAD) Unknown Completed [facility] Influenza High Dose Unknown Completed [facility] Pneumococcal 13 Conjugate, PCV13 (Prevnar 13) Unknown Completed [facility] Influenza Virus Vaccine Unknown Completed [facility] SARS-COV-2 COVID-19 PFIZER VACCINE Unknown Completed [facility] SARS-COV-2 COVID-19 PFIZER VACCINE Unknown Completed [facility] SARS-COV-2 COVID-19 PFIZER VACCINE Unknown Completed [facility] Influenza High Dose Unknown Completed [facility] Pneumococcal Polysaccharide, PPSV23 (PNEUMOVAX) Unknown Completed [facility] SARS-COV-2 COVID-19 PFIZER VACCINE Unknown Completed [facility] PPD (TB) Unknown Completed [facility] Influenza Virus Vaccine Quad IM 3+ YRS Unknown Completed [facility] Influenza High Dose Quad Unknown Completed [facility] SARS-COV-2 COVID-19 MIGUEL-SUCROSE VACCINE 12 YRS+, BIVALENT 0.3ML, IM, (PFIZER SON TOP) Unknown Completed [facility] Influenza Virus Vaccine,quad Im,preserve Free 65+ (FLUAD) Unknown Completed [facility] Influenza High Dose Unknown Completed [facility] Pneumococcal 13 Conjugate, PCV13 (Prevnar 13) Unknown Completed [facility] Influenza Virus Vaccine Unknown Completed [facility] SARS-COV-2 COVID-19 PFIZER VACCINE Unknown Completed [facility] SARS-COV-2 COVID-19 PFIZER VACCINE Unknown Completed [facility] SARS-COV-2 COVID-19 PFIZER VACCINE Unknown Completed [facility] Influenza High Dose Unknown Completed [facility] Pneumococcal Polysaccharide, PPSV23 (PNEUMOVAX) Unknown Completed [facility] SARS-COV-2 COVID-19 PFIZER VACCINE Unknown Completed [facility] PPD (TB) Unknown Completed [facility] Influenza Virus Vaccine Quad IM 3+ YRS Unknown Completed [facility] Influenza High Dose Quad Unknown Completed [facility] SARS-COV-2 COVID-19 MIGUEL-SUCROSE VACCINE 12 YRS+, BIVALENT 0.3ML, IM, (PFIZER SON TOP) Unknown Completed [facility] Influenza Virus Vaccine,quad Im,preserve Free 65+ (FLUAD) Unknown Completed [facility] Influenza High Dose Unknown Completed [facility] Pneumococcal 13 Conjugate, PCV13 (Prevnar 13) Unknown Completed [facility] Influenza Virus Vaccine Unknown Completed [facility] SARS-COV-2 COVID-19 PFIZER VACCINE Unknown Completed [facility] SARS-COV-2 COVID-19 PFIZER VACCINE Unknown Completed [facility] SARS-COV-2 COVID-19 PFIZER VACCINE Unknown Completed [facility] Influenza High Dose Unknown Completed [facility] Pneumococcal Polysaccharide, PPSV23 (PNEUMOVAX) Unknown Completed [facility] SARS-COV-2 COVID-19 PFIZER VACCINE Unknown Completed [facility] PPD (TB) Unknown Completed [facility] Influenza Virus Vaccine Quad IM 3+ YRS Unknown Completed [facility] Influenza High Dose Quad Unknown Completed [facility] SARS-COV-2 COVID-19 MIGUEL-SUCROSE VACCINE 12 YRS+, BIVALENT 0.3ML, IM, (PFIZER SON TOP) Unknown Completed [facility] Influenza Virus Vaccine,quad Im,preserve Free 65+ (FLUAD) Unknown Completed [facility] Influenza High Dose Unknown Completed [facility] Pneumococcal 13 Conjugate, PCV13 (Prevnar 13) Unknown Completed [facility] Influenza Virus Vaccine Unknown Completed [facility] SARS-COV-2 COVID-19 PFIZER VACCINE Unknown Completed [facility] SARS-COV-2 COVID-19 PFIZER VACCINE Unknown Completed [facility] SARS-COV-2 COVID-19 PFIZER VACCINE Unknown Completed [facility] Influenza High Dose Unknown Completed [facility] Pneumococcal Polysaccharide, PPSV23 (PNEUMOVAX) Unknown Completed [facility] SARS-COV-2 COVID-19 PFIZER VACCINE Unknown Completed [facility] PPD (TB) Unknown Completed [facility] Influenza Virus Vaccine Quad IM 3+ YRS Unknown Completed [facility] Influenza High Dose Quad Unknown Completed [facility] SARS-COV-2 COVID-19 MIGUEL-SUCROSE VACCINE 12 YRS+, BIVALENT 0.3ML, IM, (PFIZER SON TOP) Unknown Completed [facility] Influenza Virus Vaccine,quad Im,preserve Free 65+ (FLUAD) Unknown Completed [facility] Influenza High Dose Unknown Completed [facility] Pneumococcal 13 Conjugate, PCV13 (Prevnar 13) Unknown Completed [facility] Influenza Virus Vaccine Unknown Completed [facility] SARS-COV-2 COVID-19 PFIZER VACCINE Unknown Completed [facility] SARS-COV-2 COVID-19 PFIZER VACCINE Unknown Completed [facility] SARS-COV-2 COVID-19 PFIZER VACCINE Unknown Completed [facility] Influenza High Dose Unknown Completed [facility] Pneumococcal Polysaccharide, PPSV23 (PNEUMOVAX) Unknown Completed [facility] SARS-COV-2 COVID-19 PFIZER VACCINE Unknown Completed [facility] PPD (TB) Unknown Completed [facility] Influenza Virus Vaccine Quad IM 3+ YRS Unknown Completed [facility] Influenza High Dose Quad Unknown Completed [facility] SARS-COV-2 COVID-19 MIGUEL-SUCROSE VACCINE 12 YRS+, BIVALENT 0.3ML, IM, (PFIZER SON TOP) Unknown Completed [facility] Influenza Virus Vaccine,quad Im,preserve Free 65+ (FLUAD) Unknown Completed [facility] Influenza High Dose Unknown Completed [facility] Pneumococcal 13 Conjugate, PCV13 (Prevnar 13) Unknown Completed [facility] Influenza Virus Vaccine Unknown Completed [facility] SARS-COV-2 COVID-19 PFIZER VACCINE Unknown Completed [facility] SARS-COV-2 COVID-19 PFIZER VACCINE Unknown Completed [facility] SARS-COV-2 COVID-19 PFIZER VACCINE Unknown Completed [facility] Influenza High Dose Unknown Completed [facility] Pneumococcal Polysaccharide, PPSV23 (PNEUMOVAX) Unknown Completed [facility] SARS-COV-2 COVID-19 PFIZER VACCINE Unknown Completed [facility] PPD (TB) Unknown Completed [facility] Influenza Virus Vaccine Quad IM 3+ YRS Unknown Completed [facility] Influenza High Dose Quad Unknown Completed [facility] SARS-COV-2 COVID-19 MIGUEL-SUCROSE VACCINE 12 YRS+, BIVALENT 0.3ML, IM, (PFIZER SON TOP) Unknown Completed [facility] Influenza Virus Vaccine,quad Im,preserve Free 65+ (FLUAD) Unknown Completed [facility] Influenza High Dose Unknown Completed [facility] Pneumococcal 13 Conjugate, PCV13 (Prevnar 13) Unknown Completed [facility] Influenza Virus Vaccine Unknown Completed [facility] SARS-COV-2 COVID-19 PFIZER VACCINE Unknown Completed [facility] SARS-COV-2 COVID-19 PFIZER VACCINE Unknown Completed [facility] SARS-COV-2 COVID-19 PFIZER VACCINE Unknown Completed [facility] Influenza High Dose Unknown Completed [facility] Pneumococcal Polysaccharide, PPSV23 (PNEUMOVAX) Unknown Completed [facility] SARS-COV-2 COVID-19 PFIZER VACCINE Unknown Completed [facility] PPD (TB) Unknown Completed [facility] Influenza Virus Vaccine Quad IM 3+ YRS Unknown Completed [facility] Influenza High Dose Quad Unknown Completed [facility] SARS-COV-2 COVID-19 MIGUEL-SUCROSE VACCINE 12 YRS+, BIVALENT 0.3ML, IM, (PFIZER SON TOP) Unknown Completed [facility] Influenza Virus Vaccine,quad Im,preserve Free 65+ (FLUAD) Unknown Completed [facility] Influenza High Dose Unknown Completed [facility] Pneumococcal 13 Conjugate, PCV13 (Prevnar 13) Unknown Completed [facility] Influenza Virus Vaccine Unknown Completed [facility] SARS-COV-2 COVID-19 PFIZER VACCINE Unknown Completed [facility] SARS-COV-2 COVID-19 PFIZER VACCINE Unknown Completed [facility] SARS-COV-2 COVID-19 PFIZER VACCINE Unknown Completed [facility] Influenza High Dose Unknown Completed [facility] Pneumococcal Polysaccharide, PPSV23 (PNEUMOVAX) Unknown Completed [facility] SARS-COV-2 COVID-19 PFIZER VACCINE Unknown Completed [facility] PPD (TB) Unknown Completed [facility] Influenza Virus Vaccine Quad IM 3+ YRS Unknown Completed [facility] Influenza High Dose Quad Unknown Completed [facility] SARS-COV-2 COVID-19 MIGUEL-SUCROSE VACCINE 12 YRS+, BIVALENT 0.3ML, IM, (PFIZER SON TOP) Unknown Completed [facility] Influenza Virus Vaccine,quad Im,preserve Free 65+ (FLUAD) Unknown Completed [facility] Influenza High Dose Unknown Completed [facility] Pneumococcal 13 Conjugate, PCV13 (Prevnar 13) Unknown Completed [facility] Influenza Virus Vaccine Unknown Completed [facility] SARS-COV-2 COVID-19 PFIZER VACCINE Unknown Completed [facility] SARS-COV-2 COVID-19 PFIZER VACCINE Unknown Completed [facility] SARS-COV-2 COVID-19 PFIZER VACCINE Unknown Completed [facility] Influenza High Dose Unknown Completed [facility] Pneumococcal Polysaccharide, PPSV23 (PNEUMOVAX) Unknown Completed [facility] SARS-COV-2 COVID-19 PFIZER VACCINE Unknown Completed [facility] PPD (TB) Unknown Completed [facility] Influenza Virus Vaccine Quad IM 3+ YRS Unknown Completed [facility] Influenza High Dose Quad Unknown Completed [facility] SARS-COV-2 COVID-19 MIGUEL-SUCROSE VACCINE 12 YRS+, BIVALENT 0.3ML, IM, (PFIZER SON TOP) Unknown Completed [facility] Influenza Virus Vaccine,quad Im,preserve Free 65+ (FLUAD) Unknown Completed [facility] Influenza High Dose Unknown Completed [facility] Pneumococcal 13 Conjugate, PCV13 (Prevnar 13) Unknown Completed [facility] Influenza Virus Vaccine Unknown Completed [facility] SARS-COV-2 COVID-19 PFIZER VACCINE Unknown Completed [facility] SARS-COV-2 COVID-19 PFIZER VACCINE Unknown Completed [facility] SARS-COV-2 COVID-19 PFIZER VACCINE Unknown Completed [facility] Influenza High Dose Unknown Completed [facility] Pneumococcal Polysaccharide, PPSV23 (PNEUMOVAX) Unknown Completed [facility] SARS-COV-2 COVID-19 PFIZER VACCINE Unknown Completed [facility] PPD (TB) Unknown Completed [facility] Influenza Virus Vaccine Quad IM 3+ YRS Unknown Completed [facility] Influenza High Dose Quad Unknown Completed [facility] SARS-COV-2 COVID-19 MIGUEL-SUCROSE VACCINE 12 YRS+, BIVALENT 0.3ML, IM, (PFIZER SON TOP) Unknown Completed [facility] Influenza Virus Vaccine,quad Im,preserve Free 65+ (FLUAD) Unknown Completed [facility] Influenza High Dose Unknown Completed [facility] Pneumococcal 13 Conjugate, PCV13 (Prevnar 13) Unknown Completed [facility] Influenza Virus Vaccine Unknown Completed [facility] SARS-COV-2 COVID-19 PFIZER VACCINE Unknown Completed [facility] SARS-COV-2 COVID-19 PFIZER VACCINE Unknown Completed [facility] SARS-COV-2 COVID-19 PFIZER VACCINE Unknown Completed [facility] Influenza High Dose Unknown Completed [facility] Pneumococcal Polysaccharide, PPSV23 (PNEUMOVAX) Unknown Completed [facility] SARS-COV-2 COVID-19 PFIZER VACCINE Unknown Completed [facility] PPD (TB) Unknown Completed [facility] Influenza Virus Vaccine Quad IM 3+ YRS Unknown Completed [facility] Influenza High Dose Quad Unknown Completed [facility] SARS-COV-2 COVID-19 MIGUEL-SUCROSE VACCINE 12 YRS+, BIVALENT 0.3ML, IM, (PFIZER SON TOP) Unknown Completed [facility] Influenza Virus Vaccine,quad Im,preserve Free 65+ (FLUAD) Unknown Completed [facility] Influenza High Dose Unknown Completed [facility] Pneumococcal 13 Conjugate, PCV13 (Prevnar 13) Unknown Completed [facility] Influenza Virus Vaccine Unknown Completed [facility] SARS-COV-2 COVID-19 PFIZER VACCINE Unknown Completed [facility] SARS-COV-2 COVID-19 PFIZER VACCINE Unknown Completed [facility] SARS-COV-2 COVID-19 PFIZER VACCINE Unknown Completed [facility] Influenza High Dose Unknown Completed [facility] Pneumococcal Polysaccharide, PPSV23 (PNEUMOVAX) Unknown Completed [facility] SARS-COV-2 COVID-19 PFIZER VACCINE Unknown Completed [facility] PPD (TB) Unknown Completed [facility] Influenza Virus Vaccine Quad IM 3+ YRS [facility] [place] [facility] High Dose Quad Unknown Completed [facility] SARS-COV-2 COVID-19 MIGUEL-SUCROSE VACCINE 12 YRS+, BIVALENT 0.3ML, IM, (PFIZER SON TOP) Unknown Completed [facility] [place] Influ[facility] Virus Vaccine,quad Im,preserve Free 65+ (FLUAD) Unknown Completed [facility] [place] Influ[facility] High Dose Unknown Completed [facility] Pneumococcal 13 Conjugate, PCV13 (Prevnar 13) Unknown Completed [facility] [place] Influenza Virus Vaccine Unknown Completed [facility] SARS-COV-2 COVID-19 PFIZER VACCINE Unknown Completed [facility] SARS-COV-2 COVID-19 PFIZER VACCINE Unknown Completed [facility] SARS-COV-2 COVID-19 PFIZER VACCINE Unknown Completed [facility] [place] Influenza High Dose Unknown Completed [facility] Pneumococcal Polysaccharide, PPSV23 (PNEUMOVAX) Unknown Completed [facility] SARS-COV-2 COVID-19 PFIZER VACCINE Unknown Completed [facility] PPD (TB) Unknown Completed [facility] [place] Influ[facility] Virus Vaccine Quad IM 3+ YRS Unknown Completed [facility] [place] Influenza High Dose Quad Unknown Completed [facility] SARS-COV-2 COVID-19 MIGUEL-SUCROSE VACCINE 12 YRS+, BIVALENT 0.3ML, IM, (PFIZER SON TOP) Unknown Completed [facility] [place] Influenza Virus Vaccine,quad Im,preserve Free 65+ (FLUAD) Unknown Completed [facility] SARS-COV-2 COVID 19 MIGUEL SUCROSE VACCINE 12+, [id number], 0.3 ML (30 MCG), IM PFIZER (SON TOP) Unknown Completed [facility] [place] Influenza High Dose Unknown Completed [facility] Pneumococcal 13 Conjugate, PCV13 (Prevnar 13) Unknown Completed [facility] [place] Influenza Virus Vaccine Unknown Completed [facility] SARS-COV-2 COVID-19 PFIZER VACCINE Unknown Completed [facility] SARS-COV-2 COVID-19 PFIZER VACCINE Unknown Completed [facility] SARS-COV-2 COVID-19 PFIZER VACCINE Unknown Completed [facility] [place] Influenza High Dose Unknown Completed [facility] Pneumococcal Polysaccharide, PPSV23 (PNEUMOVAX) Unknown Completed [facility] SARS-COV-2 COVID-19 PFIZER VACCINE Unknown Completed [facility] PPD (TB) Unknown Completed [facility] [place] Influenza Virus Vaccine Quad IM 3+ YRS Unknown Completed [facility] [place] Influenza High Dose Quad Unknown Completed [facility] SARS-COV-2 COVID-19 MIGUEL-SUCROSE VACCINE 12 YRS+, BIVALENT 0.3ML, IM, (PFIZER SON TOP) Unknown Completed [facility] [place] Influenza Virus Vaccine,quad Im,preserve Free 65+ (FLUAD) Unknown Completed [facility] SARS-COV-2 COVID 19 MIGUEL SUCROSE VACCINE 12+, , 0.3 ML (30 MCG), IM PFIZER (SON TOP) Unknown Completed [facility] [place] Influenza High Dose Unknown Completed [facility] Pneumococcal 13 Conjugate, PCV13 (Prevnar 13) Unknown Completed [facility] [place] Influenza Virus Vaccine Unknown Completed [facility] SARS-COV-2 COVID-19 PFIZER VACCINE Unknown Completed [facility] SARS-COV-2 COVID-19 PFIZER VACCINE Unknown Completed [facility] SARS-COV-2 COVID-19 PFIZER VACCINE Unknown Completed [facility] [place] Influenza High Dose Unknown Completed [facility] Pneumococcal Polysaccharide, PPSV23 (PNEUMOVAX) Unknown Completed [facility] SARS-COV-2 COVID-19 PFIZER VACCINE Unknown Completed [facility] PPD (TB) Unknown Completed [facility] [place] Influenza Virus Vaccine Quad IM 3+ YRS Unknown Completed [facility] [place] Influenza High Dose Quad Unknown Completed [facility] SARS-COV-2 COVID-19 MIGUEL-SUCROSE VACCINE 12 YRS+, BIVALENT 0.3ML, IM, (PFIZER SON TOP) Unknown Completed [facility] [place] Influenza Virus Vaccine,quad Im,preserve Free 65+ (FLUAD) Unknown Completed [facility] SARS-COV-2 COVID 19 MIGUEL SUCROSE VACCINE 12+, [id number], 0.3 ML (30 MCG), IM PFIZER (SON TOP) Unknown Completed [facility] [place] Influenza High Dose Unknown Completed [facility] Pneumococcal 13 Conjugate, PCV13 (Prevnar 13) Unknown Completed [facility] [place] Influenza Virus Vaccine Unknown Completed [facility] SARS-COV-2 COVID-19 PFIZER VACCINE Unknown Completed [facility] SARS-COV-2 COVID-19 PFIZER VACCINE Unknown Completed [facility] SARS-COV-2 COVID-19 PFIZER VACCINE Unknown Completed [facility] [place] Influenza High Dose Unknown Completed [facility] Pneumococcal Polysaccharide, PPSV23 (PNEUMOVAX) Unknown Completed [facility] SARS-COV-2 COVID-19 PFIZER VACCINE Unknown Completed [facility] PPD (TB) Unknown Completed [facility] [place] Influenza Virus Vaccine Quad IM 3+ YRS Unknown Completed [facility] [place] Influenza High Dose Quad Unknown Completed [facility] SARS-COV-2 COVID-19 MIGUEL-SUCROSE VACCINE 12 YRS+, BIVALENT 0.3ML, IM, (PFIZER SON TOP) Unknown Completed [facility] [place] Influenza Virus Vaccine,quad Im,preserve Free 65+ (FLUAD) Unknown Completed [facility] SARS-COV-2 COVID 19 MIGUEL SUCROSE VACCINE 12, [id number], 0.3 ML (30 MCG), IM PFIZER (SON TOP) Unknown Completed [facility] [place] Influenza High Dose Unknown Completed [facility] Pneumococcal 13 Conjugate, PCV13 (Prevnar 13) Unknown Completed [facility] [place] Influenza Virus Vaccine Unknown Completed [facility] SARS-COV-2 COVID-19 PFIZER VACCINE Unknown Completed [facility] SARS-COV-2 COVID-19 PFIZER VACCINE Unknown Completed [facility] SARS-COV-2 COVID-19 PFIZER VACCINE Unknown Completed [facility] [place] Influenza High Dose Unknown Completed [facility] Pneumococcal Polysaccharide, PPSV23 (PNEUMOVAX) Unknown Completed [facility] SARS-COV-2 COVID-19 PFIZER VACCINE Unknown Completed [facility] PPD (TB) Unknown Completed [facility] [place] Influenza Virus Vaccine Quad IM 3+ YRS Unknown Completed [facility] [place] Influenza High Dose Quad Unknown Completed [facility] SARS-COV-2 COVID-19 MIGUEL-SUCROSE VACCINE 12 YRS+, BIVALENT 0.3ML, IM, (PFIZER SON TOP) Unknown Completed [facility] [place] Influenza Virus Vaccine,quad Im,preserve Free 65+ (FLUAD) Unknown Completed [facility] SARS-COV-2 COVID 19 MIGUEL SUCROSE VACCINE 12+, [id number], 0.3 ML (30 MCG), IM PFIZER (SON TOP) Unknown Completed [facility] [place] Influenza High Dose Unknown Completed [facility] Pneumococcal 13 Conjugate, PCV13 (Prevnar 13) Unknown Completed [facility] [place] Influenza Virus Vaccine Unknown Completed [facility] SARS-COV-2 COVID-19 PFIZER VACCINE Unknown Completed [facility] SARS-COV-2 COVID-19 PFIZER VACCINE Unknown Completed [facility] SARS-COV-2 COVID-19 PFIZER VACCINE Unknown Completed [facility] [place] Influenza High Dose Unknown Completed [facility] Pneumococcal Polysaccharide, PPSV23 (PNEUMOVAX) Unknown Completed [facility] SARS-COV-2 COVID-19 PFIZER VACCINE Unknown Completed [facility] PPD (TB) Unknown Completed [facility] [place] Influenza Virus Vaccine Quad IM 3+ YRS Unknown Completed [facility] [place] Influenza High Dose Quad Unknown Completed [facility] SARS-COV-2 COVID-19 MIGUEL-SUCROSE VACCINE 12 YRS+, BIVALENT 0.3ML, IM, (PFIZER SON TOP) Unknown Completed [facility] [place] Influenza Virus Vaccine,quad Im,preserve Free 65+ (FLUAD) Unknown Completed [facility] SARS-COV-2 COVID 19 MIGUEL SUCROSE VACCINE 12, , 0.3 ML (30 MCG), IM PFIZER (SON TOP) Unknown Completed [facility] [place] Influenza High Dose Unknown Completed [facility] Pneumococcal 13 Conjugate, PCV13 (Prevnar 13) Unknown Completed [facility] [place] Influenza Virus Vaccine Unknown Completed [facility] SARS-COV-2 COVID-19 PFIZER VACCINE Unknown Completed [facility] SARS-COV-2 COVID-19 PFIZER VACCINE Unknown Completed [facility] SARS-COV-2 COVID-19 PFIZER VACCINE Unknown Completed [facility] [place] Influenza High Dose Unknown Completed [facility] Pneumococcal Polysaccharide, PPSV23 (PNEUMOVAX) Unknown Completed [facility] SARS-COV-2 COVID-19 PFIZER VACCINE Unknown Completed [facility] [place] PPD (TB) Unknown Completed [facility] [place] Influenza Virus Vaccine Quad IM 3+ YRS Unknown Completed [facility] [place] Influenza High Dose Quad Unknown Completed [facility] SARS-COV-2 COVID-19 MIGUEL-SUCROSE VACCINE 12 YRS+, BIVALENT 0.3ML, IM, (PFIZER SON TOP) Unknown Completed [facility] [place] Influenza Virus Vaccine,quad Im,preserve Free 65+ (FLUAD) Unknown Completed [facility] SARS-COV-2 COVID 19 MIGUEL SUCROSE VACCINE 12+, [id number], 0.3 ML (30 MCG), IM PFIZER (SON TOP) Unknown Completed [facility] [place] Influenza High Dose Unknown Completed [facility] Pneumococcal 13 Conjugate, PCV13 (Prevnar 13) Unknown Completed [facility] [place] Influenza Virus Vaccine Unknown Completed [facility] SARS-COV-2 COVID-19 PFIZER VACCINE Unknown Completed [facility] SARS-COV-2 COVID-19 PFIZER VACCINE Unknown Completed [facility] SARS-COV-2 COVID-19 PFIZER VACCINE Unknown Completed [facility] [place] Influenza High Dose Unknown Completed [facility] Pneumococcal Polysaccharide, PPSV23 (PNEUMOVAX) Unknown Completed [facility] SARS-COV-2 COVID-19 PFIZER VACCINE Unknown Completed [facility] PPD (TB) Unknown Completed [facility] [place] Influenza Virus Vaccine Quad IM 3+ YRS Unknown Completed [facility] [place] Influenza High Dose Quad Unknown Completed [facility] SARS-COV-2 COVID-19 MIGUEL-SUCROSE VACCINE 12 YRS+, BIVALENT 0.3ML, IM, (PFIZER SON TOP) Unknown Completed [facility] [place] Influenza Virus Vaccine,quad Im,preserve Free 65+ (FLUAD) Unknown Completed [facility] SARS-COV-2 COVID 19 MIGUEL SUCROSE VACCINE 12+, , 0.3 ML (30 MCG), IM PFIZER (SON TOP) Unknown Completed [facility] [place] Influenza High Dose Unknown Completed [facility] Pneumococcal 13 Conjugate, PCV13 (Prevnar 13) Unknown Completed [facility] [place] Influenza Virus Vaccine Unknown Completed [facility] SARS-COV-2 COVID-19 PFIZER VACCINE Unknown Completed [facility] SARS-COV-2 COVID-19 PFIZER VACCINE Unknown Completed [facility] SARS-COV-2 COVID-19 PFIZER VACCINE Unknown Completed [facility] [place] Influenza High Dose Unknown Completed [facility] Pneumococcal Polysaccharide, PPSV23 (PNEUMOVAX) Unknown Completed [facility] SARS-COV-2 COVID-19 PFIZER VACCINE Unknown Completed [facility] PPD (TB) Unknown Completed [facility] [place] Influenza Virus Vaccine Quad IM 3+ YRS Unknown Completed [facility] [place] Influenza High Dose Quad Unknown Completed [facility] SARS-COV-2 COVID-19 MIGUEL-SUCROSE VACCINE 12 YRS+, BIVALENT 0.3ML, IM, (PFIZER SON TOP) Unknown Completed [facility] Influenza Virus Vaccine,quad Im,preserve Free 65+ (FLUAD) Unknown Completed [facility] SARS-COV-2 COVID 19 MIGUEL SUCROSE VACCINE 12+, [id number], 0.3 ML (30 MCG), IM PFIZER (SON TOP) Unknown Completed [facility] [place] Influenza High Dose Unknown Completed [facility] Pneumococcal 13 Conjugate, PCV13 (Prevnar 13) Unknown Completed [facility] [place] Influenza Virus Vaccine Unknown Completed [facility] SARS-COV-2 COVID-19 PFIZER VACCINE Unknown Completed [facility] SARS-COV-2 COVID-19 PFIZER VACCINE Unknown Completed [facility] SARS-COV-2 COVID-19 PFIZER VACCINE Unknown Completed [facility] [place] Influenza High Dose Unknown Completed [facility] Pneumococcal Polysaccharide, PPSV23 (PNEUMOVAX) Unknown Completed [facility] SARS-COV-2 COVID-19 PFIZER VACCINE Unknown Completed [facility] [place] PPD (TB) Unknown Completed [facility] [place] Influenza Virus Vaccine Quad IM 3+ YRS Unknown Completed [facility] [place] Influenza High Dose Quad Unknown Completed [facility] SARS-COV-2 COVID-19 MIGUEL-SUCROSE VACCINE 12 YRS+, BIVALENT 0.3ML, IM, (PFIZER SON TOP) Unknown Completed [facility] [place] Influenza Virus Vaccine,quad Im,preserve Free 65+ (FLUAD) Unknown Completed [facility] SARS-COV-2 COVID 19 MIGUEL SUCROSE VACCINE 12+, [id number], 0.3 ML (30 MCG), IM PFIZER (SON TOP) Unknown Completed [facility] [place] Influenza High Dose Unknown Completed [facility] Pneumococcal 13 Conjugate, PCV13 (Prevnar 13) Unknown Completed [facility] [place] Influenza Virus Vaccine Unknown Completed [facility] SARS-COV-2 COVID-19 PFIZER VACCINE Unknown Completed [facility] SARS-COV-2 COVID-19 PFIZER VACCINE Unknown Completed [facility] SARS-COV-2 COVID-19 PFIZER VACCINE Unknown Completed [facility] [place] Influenza High Dose Unknown Completed [facility] Pneumococcal Polysaccharide, PPSV23 (PNEUMOVAX) Unknown Completed [facility] SARS-COV-2 COVID-19 PFIZER VACCINE Unknown Completed [facility] PPD (TB) Unknown Completed [facility] [place] Influenza Virus Vaccine Quad IM 3+ YRS Unknown Completed [facility] [place] Influenza High Dose Quad Unknown Completed [facility] SARS-COV-2 COVID-19 MIGUEL-SUCROSE VACCINE 12 YRS+, BIVALENT 0.3ML, IM, (PFIZER SON TOP) Unknown Completed [facility] Influenza Virus Vaccine,quad Im,preserve Free 65+ (FLUAD) Unknown Completed [facility] SARS-COV-2 COVID 19 MIGUEL SUCROSE VACCINE 12+, , 0.3 ML (30 MCG), IM PFIZER (SON TOP) Unknown Completed [facility] [place] Influenza High Dose Unknown Completed [facility] Pneumococcal 13 Conjugate, PCV13 (Prevnar 13) Unknown Completed [facility] [place] Influenza Virus Vaccine Unknown Completed [facility] SARS-COV-2 COVID-19 PFIZER VACCINE Unknown Completed [facility] SARS-COV-2 COVID-19 PFIZER VACCINE Unknown Completed [facility] SARS-COV-2 COVID-19 PFIZER VACCINE Unknown Completed [facility] [place] Influenza High Dose Unknown Completed [facility] Pneumococcal Polysaccharide, PPSV23 (PNEUMOVAX) Unknown Completed [facility] SARS-COV-2 COVID-19 PFIZER VACCINE Unknown Completed [facility] PPD (TB) Unknown Completed [facility] Influenza Virus Vaccine Quad IM 3+ YRS Unknown Completed [facility] Influenza High Dose Quad Unknown Completed [facility] SARS-COV-2 COVID-19 MIGUEL-SUCROSE VACCINE 12 YRS+, BIVALENT 0.3ML, IM, (PFIZER SON TOP) Unknown Completed [facility] Influenza Virus Vaccine,quad Im,preserve Free 65+ (FLUAD) Unknown Completed [facility] SARS-COV-2 COVID 19 MIGUEL SUCROSE VACCINE 12+, [id number], 0.3 ML (30 MCG), IM PFIZER (SON TOP) Unknown Completed [facility] Influenza High Dose Unknown Completed [facility] Pneumococcal 13 Conjugate, PCV13 (Prevnar 13) Unknown Completed [facility] Influenza Virus Vaccine Unknown Completed [facility] SARS-COV-2 COVID-19 PFIZER VACCINE Unknown Completed [facility] SARS-COV-2 COVID-19 PFIZER VACCINE Unknown Completed [facility] SARS-COV-2 COVID-19 PFIZER VACCINE Unknown Completed [facility] Influenza High Dose Unknown Completed [facility] Pneumococcal Polysaccharide, PPSV23 (PNEUMOVAX) Unknown Completed [facility] SARS-COV-2 COVID-19 PFIZER VACCINE Unknown Completed [facility] PPD (TB) Unknown Completed [facility] Influenza Virus Vaccine Quad IM 3+ YRS Unknown Completed [facility] Influenza High Dose Quad Unknown Completed [facility] SARS-COV-2 COVID-19 MIGUEL-SUCROSE VACCINE 12 YRS+, BIVALENT 0.3ML, IM, (PFIZER SON TOP) Unknown Completed [facility] Influenza Virus Vaccine,quad Im,preserve Free 65+ (FLUAD) Unknown Completed [facility] SARS-COV-2 COVID 19 MIGUEL SUCROSE VACCINE 12+, [id number], 0.3 ML (30 MCG), IM PFIZER (SON TOP) Unknown Completed [facility] Influenza High Dose Unknown Completed [facility] Pneumococcal 13 Conjugate, PCV13 (Prevnar 13) Unknown Completed [facility] Influenza Virus Vaccine Unknown Completed [facility] SARS-COV-2 COVID-19 PFIZER VACCINE Unknown Completed [facility] SARS-COV-2 COVID-19 PFIZER VACCINE Unknown Completed [facility] SARS-COV-2 COVID-19 PFIZER VACCINE Unknown Completed [facility] Influenza High Dose Unknown Completed [facility] Pneumococcal Polysaccharide, PPSV23 (PNEUMOVAX) Unknown Completed [facility] SARS-COV-2 COVID-19 PFIZER VACCINE Unknown Completed [facility] PPD (TB) Unknown Completed [facility] Influenza Virus Vaccine Quad IM 3+ YRS Unknown Completed [facility] Influenza High Dose Quad Unknown Completed [facility] SARS-COV-2 COVID-19 MIGUEL-SUCROSE VACCINE 12 YRS+, BIVALENT 0.3ML, IM, (PFIZER SON TOP) Unknown Completed [facility] Influenza Virus Vaccine,quad Im,preserve Free 65+ (FLUAD) Unknown Completed [facility] SARS-COV-2 COVID 19 MIGUEL SUCROSE VACCINE 12+, [id number], 0.3 ML (30 MCG), IM PFIZER (SON TOP) Unknown Completed [facility] Influenza High Dose Unknown Completed [facility] Pneumococcal 13 Conjugate, PCV13 (Prevnar 13) Unknown Completed [facility] [place] Influenza Virus Vaccine Unknown Completed [facility] SARS-COV-2 COVID-19 PFIZER VACCINE Unknown Completed [facility] SARS-COV-2 COVID-19 PFIZER VACCINE Unknown Completed [facility] SARS-COV-2 COVID-19 PFIZER VACCINE Unknown Completed [facility] Influenza High Dose Unknown Completed [facility] Pneumococcal Polysaccharide, PPSV23 (PNEUMOVAX) Unknown Completed [facility] SARS-COV-2 COVID-19 PFIZER VACCINE Unknown Completed [facility] PPD (TB) Unknown Completed [facility] Influenza Virus Vaccine Quad IM 3+ YRS Unknown Completed [facility] Influenza High Dose Quad Unknown Completed [facility] SARS-COV-2 COVID-19 MIGUEL-SUCROSE VACCINE 12 YRS+, BIVALENT 0.3ML, IM, (PFIZER SON TOP) Unknown Completed [facility] Influenza Virus Vaccine,quad Im,preserve Free 65+ (FLUAD) Unknown Completed [facility] SARS-COV-2 COVID 19 MIGUEL SUCROSE VACCINE 12+, [id number], 0.3 ML (30 MCG), IM PFIZER (SON TOP) Unknown Completed [facility] [place] Influenza High Dose Unknown Completed [facility] Pneumococcal 13 Conjugate, PCV13 (Prevnar 13) Unknown Completed [facility] Influenza Virus Vaccine Unknown Completed [facility] SARS-COV-2 COVID-19 PFIZER VACCINE Unknown Completed [facility] SARS-COV-2 COVID-19 PFIZER VACCINE Unknown Completed [facility] SARS-COV-2 COVID-19 PFIZER VACCINE Unknown Completed [facility] Influenza High Dose Unknown Completed [facility] Pneumococcal Polysaccharide, PPSV23 (PNEUMOVAX) Unknown Completed [facility] SARS-COV-2 COVID-19 PFIZER VACCINE Unknown Completed [facility] [place] PPD (TB) Unknown Completed [facility] Influenza Virus Vaccine Quad IM 3+ YRS Unknown Completed [facility] Influenza High Dose Quad Unknown Completed [facility] SARS-COV-2 COVID-19 MIGUEL-SUCROSE VACCINE 12 YRS+, BIVALENT 0.3ML, IM, (PFIZER SON TOP) Unknown Completed [facility] Influenza Virus Vaccine,quad Im,preserve Free 65+ (FLUAD) Unknown Completed [facility] SARS-COV-2 COVID 19 MIGUEL SUCROSE VACCINE 12+, [id number], 0.3 ML (30 MCG), IM PFIZER (SON TOP) Unknown Completed [facility] Influenza High Dose Unknown Completed [facility] Pneumococcal 13 Conjugate, PCV13 (Prevnar 13) Unknown Completed [facility] Influenza Virus Vaccine Unknown Completed [facility] SARS-COV-2 COVID-19 PFIZER VACCINE Unknown Completed [facility] SARS-COV-2 COVID-19 PFIZER VACCINE Unknown Completed [facility] SARS-COV-2 COVID-19 PFIZER VACCINE Unknown Completed [facility] [place] Influenza High Dose Unknown Completed [facility] Pneumococcal Polysaccharide, PPSV23 (PNEUMOVAX) Unknown Completed [facility] SARS-COV-2 COVID-19 PFIZER VACCINE Unknown Completed [facility] PPD (TB) Unknown Completed [facility] Influenza Virus Vaccine Quad IM 3+ YRS Unknown Completed [facility] Influenza High Dose Quad Unknown Completed [facility] SARS-COV-2 COVID-19 MIGUEL-SUCROSE VACCINE 12 YRS+, BIVALENT 0.3ML, IM, (PFIZER SON TOP) Unknown Completed [facility] Influenza Virus Vaccine,quad Im,preserve Free 65+ (FLUAD) Unknown Completed [facility] SARS-COV-2 COVID 19 MIGUEL SUCROSE VACCINE 12+, , 0.3 ML (30 MCG), IM PFIZER (SON TOP) Unknown Completed [facility] Influenza High Dose Unknown Completed [facility] Pneumococcal 13 Conjugate, PCV13 (Prevnar 13) Unknown Completed [facility] [place] Influenza Virus Vaccine Unknown Completed [facility] SARS-COV-2 COVID-19 PFIZER VACCINE Unknown Completed [facility] SARS-COV-2 COVID-19 PFIZER VACCINE Unknown Completed [facility] SARS-COV-2 COVID-19 PFIZER VACCINE Unknown Completed [facility] Influenza High Dose Unknown Completed [facility] Pneumococcal Polysaccharide, PPSV23 (PNEUMOVAX) Unknown Completed [facility] SARS-COV-2 COVID-19 PFIZER VACCINE Unknown Completed [facility] PPD (TB) Unknown [facility] [facility] Influenza Virus Vaccine Quad IM 3+ YRS Unknown Completed [facility] Influenza High Dose Quad Unknown Completed [facility] SARS-COV-2 COVID-19 MIGUEL-SUCROSE VACCINE 12 YRS+, BIVALENT 0.3ML, IM, (PFIZER SON TOP) Unknown Completed [facility] Influenza Virus Vaccine,quad Im,preserve Free 65+ (FLUAD) Unknown Completed [facility] SARS-COV-2 COVID 19 MIGUEL SUCROSE VACCINE 12+, [id number], 0.3 ML (30 MCG), IM PFIZER (SON TOP) Unknown Completed [facility] Influenza High Dose Unknown Completed [facility] Pneumococcal 13 Conjugate, PCV13 (Prevnar 13) Unknown Completed [facility] Influenza Virus Vaccine Unknown Completed [facility] SARS-COV-2 COVID-19 PFIZER VACCINE Unknown Completed [facility] SARS-COV-2 COVID-19 PFIZER VACCINE Unknown Completed [facility] SARS-COV-2 COVID-19 PFIZER VACCINE Unknown Completed [facility] Influenza High Dose Unknown Completed [facility] Pneumococcal Polysaccharide, PPSV23 (PNEUMOVAX) Unknown Completed [facility] SARS-COV-2 COVID-19 PFIZER VACCINE Unknown Completed [facility] PPD (TB) Unknown Completed [facility] Influenza Virus Vaccine Quad IM 3+ YRS Unknown Completed [facility] Influenza High Dose Quad Unknown Completed [facility] SARS-COV-2 COVID-19 MIGUEL-SUCROSE VACCINE 12 YRS+, BIVALENT 0.3ML, IM, (PFIZER SON TOP) Unknown Completed [facility] Influenza Virus Vaccine,quad Im,preserve Free 65+ (FLUAD) Unknown Completed [facility] SARS-COV-2 COVID 19 MIGUEL SUCROSE VACCINE 12+, [id number], 0.3 ML (30 MCG), IM PFIZER (SON TOP) Unknown Completed [facility] Influenza High Dose Unknown Completed [facility] Pneumococcal 13 Conjugate, PCV13 (Prevnar 13) Unknown Completed [facility] Influenza Virus Vaccine Unknown Completed [facility] SARS-COV-2 COVID-19 PFIZER VACCINE Unknown Completed [facility] SARS-COV-2 COVID-19 PFIZER VACCINE Unknown Completed [facility] SARS-COV-2 COVID-19 PFIZER VACCINE Unknown Completed [facility] Influenza High Dose Unknown Completed [facility] Pneumococcal Polysaccharide, PPSV23 (PNEUMOVAX) Unknown Completed [facility] SARS-COV-2 COVID-19 PFIZER VACCINE Unknown Completed [facility] PPD (TB) Unknown Completed [facility] Influenza Virus Vaccine Quad IM 3+ YRS Unknown Completed [facility] Influenza High Dose Quad Unknown Completed [facility] SARS-COV-2 COVID-19 MIGUEL-SUCROSE VACCINE 12 YRS+, BIVALENT 0.3ML, IM, (PFIZER SON TOP) Unknown Completed [facility] Influenza Virus Vaccine,quad Im,preserve Free 65+ (FLUAD) Unknown Completed [facility] SARS-COV-2 COVID 19 MIGUEL SUCROSE VACCINE 12+, [id number], 0.3 ML (30 MCG), IM PFIZER (SON TOP) Unknown Completed [facility] Influenza High Dose Unknown Completed [facility] Pneumococcal 13 Conjugate, PCV13 (Prevnar 13) Unknown Completed [facility] Influenza Virus Vaccine Unknown Completed [facility] SARS-COV-2 COVID-19 PFIZER VACCINE Unknown Completed [facility] SARS-COV-2 COVID-19 PFIZER VACCINE Unknown Completed [facility] SARS-COV-2 COVID-19 PFIZER VACCINE Unknown Completed [facility] Influenza High Dose Unknown Completed [facility] Pneumococcal Polysaccharide, PPSV23 (PNEUMOVAX) Unknown Completed [facility] SARS-COV-2 COVID-19 PFIZER VACCINE Unknown Completed [facility] PPD (TB) Unknown Completed [facility] Influenza Virus Vaccine Quad IM 3+ YRS Unknown Completed [facility] Influenza High Dose Quad Unknown Completed [facility] SARS-COV-2 COVID-19 MIGUEL-SUCROSE VACCINE 12 YRS+, BIVALENT 0.3ML, IM, (PFIZER SON TOP) Unknown Completed [facility] Influenza Virus Vaccine,quad Im,preserve Free 65+ (FLUAD) Unknown Completed [facility] SARS-COV-2 COVID 19 MIGUEL SUCROSE VACCINE 12+, [id number], 0.3 ML (30 MCG), IM PFIZER (SON TOP) Unknown Completed [facility] Influenza High Dose Unknown Completed [facility] Pneumococcal 13 Conjugate, PCV13 (Prevnar 13) Unknown Completed [facility] Influenza Virus Vaccine Unknown Completed [facility] SARS-COV-2 COVID-19 PFIZER VACCINE Unknown Completed [facility] SARS-COV-2 COVID-19 PFIZER VACCINE Unknown Completed [facility] SARS-COV-2 COVID-19 PFIZER VACCINE Unknown Completed [facility] Influenza High Dose Unknown Completed [facility] Pneumococcal Polysaccharide, PPSV23 (PNEUMOVAX) Unknown Completed [facility] SARS-COV-2 COVID-19 PFIZER VACCINE Unknown Completed [facility] PPD (TB) Unknown Completed [facility] Influenza Virus Vaccine Quad IM 3+ YRS Unknown Completed [facility] Influenza High Dose Quad Unknown Completed [facility] SARS-COV-2 COVID-19 MIGUEL-SUCROSE VACCINE 12 YRS+, BIVALENT 0.3ML, IM, (PFIZER SON TOP) Unknown Completed [facility] Influenza Virus Vaccine,quad Im,preserve Free 65+ (FLUAD) Unknown Completed [facility] SARS-COV-2 COVID 19 MIGUEL SUCROSE VACCINE 12+, [id number], 0.3 ML (30 MCG), IM PFIZER (SON TOP) Unknown Completed [facility] Influenza High Dose Unknown Completed [facility] Pneumococcal 13 Conjugate, PCV13 (Prevnar 13) Unknown Completed [facility] Influenza Virus Vaccine Unknown Completed [facility] SARS-COV-2 COVID-19 PFIZER VACCINE Unknown Completed [facility] SARS-COV-2 COVID-19 PFIZER VACCINE Unknown Completed [facility] SARS-COV-2 COVID-19 PFIZER VACCINE Unknown Completed [facility] Influenza High Dose Unknown Completed [facility] Pneumococcal Polysaccharide, PPSV23 (PNEUMOVAX) Unknown Completed [facility] SARS-COV-2 COVID-19 PFIZER VACCINE Unknown Completed [facility] PPD (TB) Unknown Completed [facility] Influenza Virus Vaccine Quad IM 3+ YRS Unknown Completed [facility] Influenza High Dose Quad Unknown Completed [facility] SARS-COV-2 COVID-19 MIGUEL-SUCROSE VACCINE 12 YRS+, BIVALENT 0.3ML, IM, (PFIZER SON TOP) Unknown Completed [facility] Influenza Virus Vaccine,quad Im,preserve Free 65+ (FLUAD) Unknown Completed [facility] SARS-COV-2 COVID 19 MIGUEL SUCROSE VACCINE 12+, [id number], 0.3 ML (30 MCG), IM PFIZER (SON TOP) Unknown Completed [facility] Influenza High Dose Unknown Completed [facility] Pneumococcal 13 Conjugate, PCV13 (Prevnar 13) Unknown Completed [facility] Influenza Virus Vaccine Unknown Completed [facility] SARS-COV-2 COVID-19 PFIZER VACCINE Unknown Completed [facility] SARS-COV-2 COVID-19 PFIZER VACCINE Unknown Completed [facility] SARS-COV-2 COVID-19 PFIZER VACCINE Unknown Completed [facility] Influenza High Dose Unknown Completed [facility] Pneumococcal Polysaccharide, PPSV23 (PNEUMOVAX) Unknown Completed [facility] SARS-COV-2 COVID-19 PFIZER VACCINE Unknown Completed [facility] PPD (TB) Unknown Completed [facility] Influenza Virus Vaccine Quad IM 3+ YRS Unknown Completed [facility] Influenza High Dose Quad Unknown Completed [facility] SARS-COV-2 COVID-19 MIGUEL-SUCROSE VACCINE 12 YRS+, BIVALENT 0.3ML, IM, (PFIZER SON TOP) Unknown Completed [facility] Influenza Virus Vaccine,quad Im,preserve Free 65+ (FLUAD) Unknown Completed [facility] SARS-COV-2 COVID 19 MIGUEL SUCROSE VACCINE 12+, [id number], 0.3 ML (30 MCG), IM PFIZER (SON TOP) Unknown Completed [facility] Influenza High Dose Unknown Completed [facility] Pneumococcal 13 Conjugate, PCV13 (Prevnar 13) Unknown Completed [facility] Influenza Virus Vaccine Unknown Completed [facility] SARS-COV-2 COVID-19 PFIZER VACCINE Unknown Completed [facility] SARS-COV-2 COVID-19 PFIZER VACCINE Unknown Completed [facility] SARS-COV-2 COVID-19 PFIZER VACCINE Unknown Completed [facility] Influenza High Dose Unknown Completed [facility] Pneumococcal Polysaccharide, PPSV23 (PNEUMOVAX) Unknown Completed [facility] SARS-COV-2 COVID-19 PFIZER VACCINE Unknown Completed [facility] PPD (TB) Unknown Completed [facility] Influenza Virus Vaccine Quad IM 3+ YRS Unknown Completed [facility] Influenza High Dose Quad Unknown Completed [facility] SARS-COV-2 COVID-19 MIGUEL-SUCROSE VACCINE 12 YRS+, BIVALENT 0.3ML, IM, (PFIZER SON TOP) Unknown Completed [facility] Influenza Virus Vaccine,quad Im,preserve Free 65+ (FLUAD) Unknown Completed [facility] SARS-COV-2 COVID 19 MIGUEL SUCROSE VACCINE 12+, [id number], 0.3 ML (30 MCG), IM PFIZER (SON TOP) Unknown Completed [facility] Influenza High Dose Unknown Completed [facility] Pneumococcal 13 Conjugate, PCV13 (Prevnar 13) Unknown Completed [facility] Influenza Virus Vaccine Unknown Completed [facility] SARS-COV-2 COVID-19 PFIZER VACCINE Unknown Completed [facility] SARS-COV-2 COVID-19 PFIZER VACCINE Unknown Completed [facility] SARS-COV-2 COVID-19 PFIZER VACCINE Unknown Completed [facility] Influenza High Dose Unknown Completed [facility] Pneumococcal Polysaccharide, PPSV23 (PNEUMOVAX) Unknown Completed [facility] SARS-COV-2 COVID-19 PFIZER VACCINE Unknown Completed [facility] PPD (TB) Unknown Completed [facility] Influenza Virus Vaccine Quad IM 3+ YRS Unknown Completed [facility] Influenza High Dose Quad Unknown Completed [facility] SARS-COV-2 COVID-19 MIGUEL-SUCROSE VACCINE 12 YRS+, BIVALENT 0.3ML, IM, (PFIZER SON TOP) Unknown Completed [facility] Influenza Virus Vaccine,quad Im,preserve Free 65+ (FLUAD) Unknown Completed [facility] SARS-COV-2 COVID 19 MIGUEL SUCROSE VACCINE 12+, , 0.3 ML (30 MCG), IM PFIZER (SON TOP) Unknown Completed [facility] Influenza High Dose Unknown Completed [facility] Pneumococcal 13 Conjugate, PCV13 (Prevnar 13) Unknown Completed [facility] Influenza Virus Vaccine Unknown Completed [facility] SARS-COV-2 COVID-19 PFIZER VACCINE Unknown Completed [facility] SARS-COV-2 COVID-19 PFIZER VACCINE Unknown Completed [facility] SARS-COV-2 COVID-19 PFIZER VACCINE Unknown Completed [facility] Influenza High Dose Unknown Completed [facility] Pneumococcal Polysaccharide, PPSV23 (PNEUMOVAX) Unknown Completed [facility] SARS-COV-2 COVID-19 PFIZER VACCINE Unknown Completed [facility] PPD (TB) Unknown Completed [facility] Influenza Virus Vaccine Quad IM 3+ YRS Unknown Completed [facility] Influenza High Dose Quad Unknown Completed [facility] SARS-COV-2 COVID-19 MIGUEL-SUCROSE VACCINE 12 YRS+, BIVALENT 0.3ML, IM, (PFIZER SON TOP) Unknown Completed [facility] Influenza Virus Vaccine,quad Im,preserve Free 65+ (FLUAD) Unknown Completed [facility] SARS-COV-2 COVID 19 MIGUEL SUCROSE VACCINE 12+, [id number], 0.3 ML (30 MCG), IM PFIZER (SON TOP) Unknown Completed [facility] Influenza High Dose Unknown Completed [facility] Pneumococcal 13 Conjugate, PCV13 (Prevnar 13) Unknown Completed [facility] Influenza Virus Vaccine Unknown Completed [facility] SARS-COV-2 COVID-19 PFIZER VACCINE Unknown Completed [facility] SARS-COV-2 COVID-19 PFIZER VACCINE Unknown Completed [facility] SARS-COV-2 COVID-19 PFIZER VACCINE Unknown Completed [facility] Influenza High Dose Unknown Completed [facility] Pneumococcal Polysaccharide, PPSV23 (PNEUMOVAX) Unknown Completed [facility] SARS-COV-2 COVID-19 PFIZER VACCINE Unknown Completed [facility] PPD (TB) Unknown Completed [facility] Influenza Virus Vaccine Quad IM 3+ YRS Unknown Completed [facility] Influenza High Dose Quad Unknown Completed [facility] SARS-COV-2 COVID-19 MIGUEL-SUCROSE VACCINE 12 YRS+, BIVALENT 0.3ML, IM, (PFIZER SON TOP) Unknown Completed [facility] Influenza Virus Vaccine,quad Im,preserve Free 65+ (FLUAD) Unknown Completed [facility] SARS-COV-2 COVID 19 MIGUEL SUCROSE VACCINE 12+, [id number], 0.3 ML (30 MCG), IM PFIZER (SON TOP) Unknown Completed [facility] Influenza High Dose Unknown Completed [facility] Pneumococcal 13 Conjugate, PCV13 (Prevnar 13) Unknown Completed [facility] Influenza Virus Vaccine Unknown Completed [facility] SARS-COV-2 COVID-19 PFIZER VACCINE Unknown Completed [facility] SARS-COV-2 COVID-19 PFIZER VACCINE Unknown Completed [facility] SARS-COV-2 COVID-19 PFIZER VACCINE Unknown Completed [facility] Influenza High Dose Unknown Completed [facility] Pneumococcal Polysaccharide, PPSV23 (PNEUMOVAX) Unknown Completed [facility] SARS-COV-2 COVID-19 PFIZER VACCINE Unknown Completed [facility] PPD (TB) Unknown Completed [facility] Influenza Virus Vaccine Quad IM 3+ YRS Unknown Completed [facility] Influenza High Dose Quad Unknown Completed [facility] SARS-COV-2 COVID-19 MIGUEL-SUCROSE VACCINE 12 YRS+, BIVALENT 0.3ML, IM, (PFIZER SON TOP) Unknown Completed [facility] Influenza Virus Vaccine,quad Im,preserve Free 65+ (FLUAD) Unknown Completed [facility] SARS-COV-2 COVID 19 MIGUEL SUCROSE VACCINE 12+, [id number], 0.3 ML (30 MCG), IM PFIZER (SON TOP) Unknown Completed [facility] Influenza High Dose Unknown Completed [facility] Pneumococcal 13 Conjugate, PCV13 (Prevnar 13) Unknown Completed [facility] Influenza Virus Vaccine Unknown Completed [facility] SARS-COV-2 COVID-19 PFIZER VACCINE Unknown Completed [facility] SARS-COV-2 COVID-19 PFIZER VACCINE Unknown Completed [facility] SARS-COV-2 COVID-19 PFIZER VACCINE Unknown Completed [facility] Influenza High Dose Unknown Completed [facility] Pneumococcal Polysaccharide, PPSV23 (PNEUMOVAX) Unknown Completed [facility] SARS-COV-2 COVID-19 PFIZER VACCINE Unknown Completed [facility] PPD (TB) Unknown Completed [facility] Influenza Virus Vaccine Quad IM 3+ YRS Unknown Completed [facility] Influenza High Dose Quad Unknown Completed [facility] SARS-COV-2 COVID-19 MIGUEL-SUCROSE VACCINE 12 YRS+, BIVALENT 0.3ML, IM, (PFIZER SON TOP) Unknown Completed [facility] Influenza Virus Vaccine,quad Im,preserve Free 65+ (FLUAD) Unknown Completed [facility] SARS-COV-2 COVID 19 MIGUEL SUCROSE VACCINE 12+, [id number], 0.3 ML (30 MCG), IM PFIZER (SON TOP) Unknown Completed [facility] Influenza High Dose Unknown Completed [facility] Pneumococcal 13 Conjugate, PCV13 (Prevnar 13) Unknown Completed [facility] Influenza Virus Vaccine Unknown Completed [facility] SARS-COV-2 COVID-19 PFIZER VACCINE Unknown Completed [facility] SARS-COV-2 COVID-19 PFIZER VACCINE Unknown Completed [facility] SARS-COV-2 COVID-19 PFIZER VACCINE Unknown Completed [facility] Influenza High Dose Unknown Completed [facility] Pneumococcal Polysaccharide, PPSV23 (PNEUMOVAX) Unknown Completed [facility] SARS-COV-2 COVID-19 PFIZER VACCINE Unknown Completed [facility] PPD (TB) Unknown Completed [facility] Influenza Virus Vaccine Quad IM 3+ YRS Unknown Completed [facility] Influenza High Dose Quad Unknown Completed [facility] SARS-COV-2 COVID-19 MIGUEL-SUCROSE VACCINE 12 YRS+, BIVALENT 0.3ML, IM, (PFIZER SON TOP) Unknown Completed [facility] Influenza Virus Vaccine,quad Im,preserve Free 65+ (FLUAD) Unknown Completed [facility] SARS-COV-2 COVID 19 MIGUEL SUCROSE VACCINE 12+, [id number], 0.3 ML (30 MCG), IM PFIZER (SON TOP) Unknown Completed [facility] Influenza High Dose Unknown Completed [facility] Pneumococcal 13 Conjugate, PCV13 (Prevnar 13) Unknown Completed [facility] Influenza Virus Vaccine Unknown Completed [facility] SARS-COV-2 COVID-19 PFIZER VACCINE Unknown Completed [facility] SARS-COV-2 COVID-19 PFIZER VACCINE Unknown Completed [facility] SARS-COV-2 COVID-19 PFIZER VACCINE Unknown Completed [facility] Influenza High Dose Unknown Completed [facility] Pneumococcal Polysaccharide, PPSV23 (PNEUMOVAX) Unknown Completed [facility] SARS-COV-2 COVID-19 PFIZER VACCINE Unknown Completed [facility] PPD (TB) Unknown Completed [facility] Influenza Virus Vaccine Quad IM 3+ YRS Unknown Completed [facility] Influenza High Dose Quad Unknown Completed [facility] SARS-COV-2 COVID-19 MIGUEL-SUCROSE VACCINE 12 YRS+, BIVALENT 0.3ML, IM, (PFIZER SON TOP) Unknown Completed [facility] Influenza Virus Vaccine,quad Im,preserve Free 65+ (FLUAD) Unknown Completed [facility] SARS-COV-2 COVID 19 MIGUEL SUCROSE VACCINE 12+, [id number], 0.3 ML (30 MCG), IM PFIZER (SON TOP) Unknown Completed [facility] Influenza High Dose Unknown Completed [facility] Pneumococcal 13 Conjugate, PCV13 (Prevnar 13) Unknown Completed [facility] Influenza Virus Vaccine Unknown Completed [facility] SARS-COV-2 COVID-19 PFIZER VACCINE Unknown Completed [facility] SARS-COV-2 COVID-19 PFIZER VACCINE Unknown Completed [facility] SARS-COV-2 COVID-19 PFIZER VACCINE Unknown Completed [facility] Influenza High Dose Unknown Completed [facility] Pneumococcal Polysaccharide, PPSV23 (PNEUMOVAX) Unknown Completed [facility] SARS-COV-2 COVID-19 PFIZER VACCINE Unknown Completed [facility] PPD (TB) Unknown Completed [facility] Influenza Virus Vaccine Quad IM 3+ YRS Unknown Completed [facility] Influenza High Dose Quad Unknown Completed [facility] SARS-COV-2 COVID-19 MIGUEL-SUCROSE VACCINE 12 YRS+, BIVALENT 0.3ML, IM, (PFIZER SON TOP) Unknown Completed [facility] Influenza Virus Vaccine,quad Im,preserve Free 65+ (FLUAD) Unknown Completed [facility] SARS-COV-2 COVID 19 MIGUEL SUCROSE VACCINE 12+, [id number], 0.3 ML (30 MCG), IM PFIZER (SON TOP) Unknown Completed [facility] Influenza High Dose Unknown Completed [facility] Pneumococcal 13 Conjugate, PCV13 (Prevnar 13) Unknown Completed [facility] Influenza Virus Vaccine Unknown Completed [facility] SARS-COV-2 COVID-19 PFIZER VACCINE Unknown Completed [facility] SARS-COV-2 COVID-19 PFIZER VACCINE Unknown Completed [facility] SARS-COV-2 COVID-19 PFIZER VACCINE Unknown Completed [facility] Influenza High Dose Unknown Completed [facility] Pneumococcal Polysaccharide, PPSV23 (PNEUMOVAX) Unknown Completed [facility] SARS-COV-2 COVID-19 PFIZER VACCINE Unknown Completed [facility] PPD (TB) Unknown Completed [facility] Influenza Virus Vaccine Quad IM 3+ YRS Unknown Completed [facility] Influenza High Dose Quad Unknown Completed [facility] SARS-COV-2 COVID-19 MIGUEL-SUCROSE VACCINE 12 YRS+, BIVALENT 0.3ML, IM, (PFIZER SON TOP) Unknown Completed [facility] Influenza Virus Vaccine,quad Im,preserve Free 65+ (FLUAD) Unknown Completed [facility] SARS-COV-2 COVID 19 MIGUEL SUCROSE VACCINE 12+, , 0.3 ML (30 MCG), IM PFIZER (SON TOP) Unknown Completed [facility] Influenza High Dose Unknown Completed [facility] Pneumococcal 13 Conjugate, PCV13 (Prevnar 13) Unknown Completed [facility] Influenza Virus Vaccine Unknown Completed [facility] SARS-COV-2 COVID-19 PFIZER VACCINE Unknown Completed [facility] SARS-COV-2 COVID-19 PFIZER VACCINE Unknown Completed [facility] SARS-COV-2 COVID-19 PFIZER VACCINE Unknown Completed [facility] Influenza High Dose Unknown Completed [facility] Pneumococcal Polysaccharide, PPSV23 (PNEUMOVAX) Unknown Completed [facility] SARS-COV-2 COVID-19 PFIZER VACCINE Unknown Completed [facility] PPD (TB) Unknown Completed [facility] Influenza Virus Vaccine Quad IM 3+ YRS Unknown Completed [facility] Influenza High Dose Quad Unknown Completed [facility] SARS-COV-2 COVID-19 MIGUEL-SUCROSE VACCINE 12 YRS+, BIVALENT 0.3ML, IM, (PFIZER SON TOP) Unknown Completed [facility] Influenza Virus Vaccine,quad Im,preserve Free 65+ (FLUAD) Unknown Completed [facility] SARS-COV-2 COVID 19 MIGUEL SUCROSE VACCINE 12+, , 0.3 ML (30 MCG), IM PFIZER (SON TOP) Unknown Completed [facility] Influenza High Dose Unknown Completed [facility] Pneumococcal 13 Conjugate, PCV13 (Prevnar 13) Unknown Completed [facility] Influenza Virus Vaccine Unknown Completed [facility] SARS-COV-2 COVID-19 PFIZER VACCINE Unknown Completed [facility] SARS-COV-2 COVID-19 PFIZER VACCINE Unknown Completed [facility] SARS-COV-2 COVID-19 PFIZER VACCINE Unknown Completed [facility] Influenza High Dose Unknown Completed [facility] Pneumococcal Polysaccharide, PPSV23 (PNEUMOVAX) Unknown Completed [facility] SARS-COV-2 COVID-19 PFIZER VACCINE Unknown Completed [facility] PPD (TB) Unknown Completed [facility] Influenza Virus Vaccine Quad IM 3+ YRS Unknown Completed [facility] Influenza High Dose Quad Unknown Completed [facility] SARS-COV-2 COVID-19 MIGUEL-SUCROSE VACCINE 12 YRS+, BIVALENT 0.3ML, IM, (PFIZER SON TOP) Unknown Completed [facility] Influenza Virus Vaccine,quad Im,preserve Free 65+ (FLUAD) Unknown Completed [facility] SARS-COV-2 COVID 19 MIGUEL SUCROSE VACCINE 12+, [id number], 0.3 ML (30 MCG), IM PFIZER (SON TOP) Unknown Completed [facility] Influenza High Dose Unknown Completed [facility] Pneumococcal 13 Conjugate, PCV13 (Prevnar 13) Unknown Completed [facility] Influenza Virus Vaccine Unknown Completed [facility] SARS-COV-2 COVID-19 PFIZER VACCINE Unknown Completed [facility] SARS-COV-2 COVID-19 PFIZER VACCINE Unknown Completed [facility] SARS-COV-2 COVID-19 PFIZER VACCINE Unknown Completed [facility] Influenza High Dose Unknown Completed [facility] Pneumococcal Polysaccharide, PPSV23 (PNEUMOVAX) Unknown Completed [facility] SARS-COV-2 COVID-19 PFIZER VACCINE Unknown Completed [facility] PPD (TB) Unknown Completed [facility] Influenza Virus Vaccine Quad IM 3+ YRS Unknown Completed [facility] Influenza High Dose Quad Unknown Completed [facility] SARS-COV-2 COVID-19 MIGUEL-SUCROSE VACCINE 12 YRS+, BIVALENT 0.3ML, IM, (PFIZER SON TOP) Unknown Completed [facility] Influenza Virus Vaccine,quad Im,preserve Free 65+ (FLUAD) Unknown Completed [facility] SARS-COV-2 COVID 19 MIGUEL SUCROSE VACCINE 12+, , 0.3 ML (30 MCG), IM PFIZER (SON TOP) Unknown Completed [facility] Influenza High Dose Unknown Completed [facility] Pneumococcal 13 Conjugate, PCV13 (Prevnar 13) Unknown Completed [facility] Influenza Virus Vaccine Unknown Completed [facility] SARS-COV-2 COVID-19 PFIZER VACCINE Unknown Completed [facility] SARS-COV-2 COVID-19 PFIZER VACCINE Unknown Completed [facility] SARS-COV-2 COVID-19 PFIZER VACCINE Unknown Completed [facility] Influenza High Dose Unknown Completed [facility] Pneumococcal Polysaccharide, PPSV23 (PNEUMOVAX) Unknown Completed [facility] SARS-COV-2 COVID-19 PFIZER VACCINE Unknown Completed [facility] PPD (TB) Unknown Completed [facility] Influenza Virus Vaccine Quad IM 3+ YRS Unknown Completed [facility] Influenza High Dose Quad Unknown Completed [facility] SARS-COV-2 COVID-19 MIGUEL-SUCROSE VACCINE 12 YRS+, BIVALENT 0.3ML, IM, (PFIZER SON TOP) Unknown Completed [facility] Influenza Virus Vaccine,quad Im,preserve Free 65+ (FLUAD) Unknown Completed [facility] SARS-COV-2 COVID 19 MIGUEL SUCROSE VACCINE 12+, [id number], 0.3 ML (30 MCG), IM PFIZER (SON TOP) Unknown Completed [facility] Influenza High Dose Unknown Completed [facility] Pneumococcal 13 Conjugate, PCV13 (Prevnar 13) Unknown Completed [facility] Influenza Virus Vaccine Unknown Completed [facility] SARS-COV-2 COVID-19 PFIZER VACCINE Unknown Completed [facility] SARS-COV-2 COVID-19 PFIZER VACCINE Unknown Completed [facility] SARS-COV-2 COVID-19 PFIZER VACCINE Unknown Completed [facility] Influenza High Dose Unknown Completed [facility] Pneumococcal Polysaccharide, PPSV23 (PNEUMOVAX) Unknown Completed [facility] SARS-COV-2 COVID-19 PFIZER VACCINE Unknown Completed [facility] PPD (TB) Unknown Completed [facility] Influenza Virus Vaccine Quad IM 3+ YRS Unknown Completed [facility] Influenza High Dose Quad Unknown Completed [facility] SARS-COV-2 COVID-19 MIGUEL-SUCROSE VACCINE 12 YRS+, BIVALENT 0.3ML, IM, (PFIZER SON TOP) Unknown Completed [facility] Influenza Virus Vaccine,quad Im,preserve Free 65+ (FLUAD) Unknown Completed [facility] SARS-COV-2 COVID 19 MIGUEL SUCROSE VACCINE 12+, [id number], 0.3 ML (30 MCG), IM PFIZER (SON TOP) Unknown Completed [facility] Influenza High Dose Unknown Completed [facility] Pneumococcal 13 Conjugate, PCV13 (Prevnar 13) Unknown Completed [facility] Influenza Virus Vaccine Unknown Completed [facility] SARS-COV-2 COVID-19 PFIZER VACCINE Unknown Completed [facility] SARS-COV-2 COVID-19 PFIZER VACCINE Unknown Completed [facility] SARS-COV-2 COVID-19 PFIZER VACCINE Unknown Completed [facility] Influenza High Dose Unknown Completed [facility] Pneumococcal Polysaccharide, PPSV23 (PNEUMOVAX) Unknown Completed [facility] SARS-COV-2 COVID-19 PFIZER VACCINE Unknown Completed [facility] PPD (TB) Unknown Completed [facility] Influenza Virus Vaccine Quad IM 3+ YRS Unknown Completed [facility] Influenza High Dose Quad Unknown Completed [facility] SARS-COV-2 COVID-19 MIGUEL-SUCROSE VACCINE 12 YRS+, BIVALENT 0.3ML, IM, (PFIZER SON TOP) Unknown Completed [facility] Influenza Virus Vaccine,quad Im,preserve Free 65+ (FLUAD) Unknown Completed [facility] SARS-COV-2 COVID 19 MIGUEL SUCROSE VACCINE 12+, 7629-8198, 0.3 ML (30 MCG), IM PFIZER (SON TOP) Unknown Completed [facility] Influenza High Dose Unknown Completed [facility] Pneumococcal 13 Conjugate, PCV13 (Prevnar 13) Unknown Completed [facility] Influenza Virus Vaccine Unknown Completed [facility] SARS-COV-2 COVID-19 PFIZER VACCINE Unknown Completed [facility] SARS-COV-2 COVID-19 PFIZER VACCINE Unknown Completed [facility] SARS-COV-2 COVID-19 PFIZER VACCINE Unknown Completed [facility] Influenza High Dose Unknown Completed [facility] Pneumococcal Polysaccharide, PPSV23 (PNEUMOVAX) Unknown Completed [facility] SARS-COV-2 COVID-19 PFIZER VACCINE Unknown Completed [facility] PPD (TB) Unknown Completed [facility] Influenza Virus Vaccine Quad IM 3+ YRS Unknown Completed [facility] Influenza High Dose Quad Unknown Completed [facility] SARS-COV-2 COVID-19 MIGUEL-SUCROSE VACCINE 12 YRS+, BIVALENT 0.3ML, IM, (PFIZER SON TOP) Unknown Completed [facility] Influenza Virus Vaccine,quad Im,preserve Free 65+ (FLUAD) Unknown Completed [facility] SARS-COV-2 COVID 19 MIGUEL SUCROSE VACCINE 12+, [id number], 0.3 ML (30 MCG), IM PFIZER (SON TOP) Unknown Completed [facility] Influenza High Dose Unknown Completed [facility] Pneumococcal 13 Conjugate, PCV13 (Prevnar 13) Unknown Completed [facility] Influenza Virus Vaccine Unknown Completed [facility] SARS-COV-2 COVID-19 PFIZER VACCINE Unknown Completed [facility] SARS-COV-2 COVID-19 PFIZER VACCINE Unknown Completed [facility] SARS-COV-2 COVID-19 PFIZER VACCINE Unknown Completed [facility] Influenza High Dose Unknown Completed [facility] Pneumococcal Polysaccharide, PPSV23 (PNEUMOVAX) Unknown Completed [facility] SARS-COV-2 COVID-19 PFIZER VACCINE Unknown Completed [facility] PPD (TB) Unknown Completed [facility] Influenza Virus Vaccine Quad IM 3+ YRS Unknown Completed [facility] Influenza High Dose Quad Unknown Completed [facility] SARS-COV-2 COVID-19 MIGUEL-SUCROSE VACCINE 12 YRS+, BIVALENT 0.3ML, IM, (PFIZER SON TOP) Unknown Completed [facility] Influenza Virus Vaccine,quad Im,preserve Free 65+ (FLUAD) Unknown Completed [facility] SARS-COV-2 COVID 19 MIGUEL SUCROSE VACCINE 12+, [id number], 0.3 ML (30 MCG), IM PFIZER (SON TOP) Unknown Completed [facility] Influenza High Dose Unknown Completed [facility] Pneumococcal 13 Conjugate, PCV13 (Prevnar 13) Unknown Completed [facility] Influenza Virus Vaccine Unknown Completed [facility] SARS-COV-2 COVID-19 PFIZER VACCINE Unknown Completed [facility] SARS-COV-2 COVID-19 PFIZER VACCINE Unknown Completed [facility] SARS-COV-2 COVID-19 PFIZER VACCINE Unknown Completed [facility] Influenza High Dose Unknown Completed [facility] Pneumococcal Polysaccharide, PPSV23 (PNEUMOVAX) Unknown Completed [facility] SARS-COV-2 COVID-19 PFIZER VACCINE Unknown Completed [facility] PPD (TB) Unknown Completed [facility] Influenza Virus Vaccine Quad IM 3+ YRS Unknown Completed [facility] Influenza High Dose Quad Unknown Completed [facility] SARS-COV-2 COVID-19 MIGUEL-SUCROSE VACCINE 12 YRS+, BIVALENT 0.3ML, IM, (PFIZER SON TOP) Unknown Completed [facility] Influenza Virus Vaccine,quad Im,preserve Free 65+ (FLUAD) Unknown Completed [facility] SARS-COV-2 COVID 19 MIGUEL SUCROSE VACCINE 12+, [id number], 0.3 ML (30 MCG), IM PFIZER (SON TOP) Unknown Completed [facility] Influenza High Dose Unknown Completed [facility] Pneumococcal 13 Conjugate, PCV13 (Prevnar 13) Unknown Completed [facility] Influenza Virus Vaccine Unknown Completed [facility] SARS-COV-2 COVID-19 PFIZER VACCINE Unknown Completed [facility] SARS-COV-2 COVID-19 PFIZER VACCINE Unknown Completed [facility] SARS-COV-2 COVID-19 PFIZER VACCINE Unknown Completed [facility] Influenza High Dose Unknown Completed [facility] Pneumococcal Polysaccharide, PPSV23 (PNEUMOVAX) Unknown Completed [facility] SARS-COV-2 COVID-19 PFIZER VACCINE Unknown Completed [facility] PPD (TB) Unknown Completed [facility] Influenza Virus Vaccine Quad IM 3+ YRS Unknown Completed [facility] Influenza High Dose Quad Unknown Completed [facility] SARS-COV-2 COVID-19 MIGUEL-SUCROSE VACCINE 12 YRS+, BIVALENT 0.3ML, IM, (PFIZER SON TOP) Unknown Completed [facility] Influenza Virus Vaccine,quad Im,preserve Free 65+ (FLUAD) Unknown Completed [facility] SARS-COV-2 COVID 19 MIGUEL SUCROSE VACCINE 12+, , 0.3 ML (30 MCG), IM PFIZER (SON TOP) Unknown Completed [facility] Influenza High Dose Unknown Completed [facility] Pneumococcal 13 Conjugate, PCV13 (Prevnar 13) Unknown Completed [facility] Influenza Virus Vaccine Unknown Completed [facility] SARS-COV-2 COVID-19 PFIZER VACCINE Unknown Completed [facility] SARS-COV-2 COVID-19 PFIZER VACCINE Unknown Completed [facility] SARS-COV-2 COVID-19 PFIZER VACCINE Unknown Completed [facility] Influenza High Dose Unknown Completed [facility] Pneumococcal Polysaccharide, PPSV23 (PNEUMOVAX) Unknown Completed [facility] SARS-COV-2 COVID-19 PFIZER VACCINE Unknown Completed [facility] PPD (TB) Unknown Completed [facility] Influenza Virus Vaccine Quad IM 3+ YRS Unknown Completed [facility] Influenza High Dose Quad Unknown Completed [facility] SARS-COV-2 COVID-19 MIGUEL-SUCROSE VACCINE 12 YRS+, BIVALENT 0.3ML, IM, (PFIZER SON TOP) Unknown Completed [facility] Influenza Virus Vaccine,quad Im,preserve Free 65+ (FLUAD) Unknown Completed [facility] SARS-COV-2 COVID 19 MIGUEL SUCROSE VACCINE 12+, [id number], 0.3 ML (30 MCG), IM PFIZER (SON TOP) Unknown Completed [facility] Influenza High Dose Unknown Completed [facility] Pneumococcal 13 Conjugate, PCV13 (Prevnar 13) Unknown Completed [facility] Influenza Virus Vaccine Unknown Completed [facility] SARS-COV-2 COVID-19 PFIZER VACCINE Unknown Completed [facility] SARS-COV-2 COVID-19 PFIZER VACCINE Unknown Completed [facility] SARS-COV-2 COVID-19 PFIZER VACCINE Unknown Completed [facility] Influenza High Dose Unknown Completed [facility] Pneumococcal Polysaccharide, PPSV23 (PNEUMOVAX) Unknown Completed [facility] SARS-COV-2 COVID-19 PFIZER VACCINE Unknown Completed [facility] PPD (TB) Unknown Completed [facility] Influenza Virus Vaccine Quad IM 3+ YRS Unknown Completed [facility] Influenza High Dose Quad Unknown Completed [facility] SARS-COV-2 COVID-19 MIGUEL-SUCROSE VACCINE 12 YRS+, BIVALENT 0.3ML, IM, (PFIZER SON TOP) Unknown Completed [facility] Influenza Virus Vaccine,quad Im,preserve Free 65+ (FLUAD) Unknown Completed [facility] SARS-COV-2 COVID 19 MIGUEL SUCROSE VACCINE 12+, 2060-3847, 0.3 ML (30 MCG), IM PFIZER (SON TOP) Unknown Completed [facility] Influenza High Dose Unknown Completed [facility] Pneumococcal 13 Conjugate, PCV13 (Prevnar 13) Unknown Completed [facility] Influenza Virus Vaccine Unknown Completed [facility] SARS-COV-2 COVID-19 PFIZER VACCINE Unknown Completed [facility] SARS-COV-2 COVID-19 PFIZER VACCINE Unknown Completed [facility] SARS-COV-2 COVID-19 PFIZER VACCINE Unknown Completed [facility] Influenza High Dose Unknown Completed [facility] Pneumococcal Polysaccharide, PPSV23 (PNEUMOVAX) Unknown Completed [facility] SARS-COV-2 COVID-19 PFIZER VACCINE Unknown Completed [facility] PPD (TB) Unknown Completed [facility] Influenza Virus Vaccine Quad IM 3+ YRS Unknown Completed [facility] Influenza High Dose Quad Unknown Completed [facility] SARS-COV-2 COVID-19 MIGUEL-SUCROSE VACCINE 12 YRS+, BIVALENT 0.3ML, IM, (PFIZER SON TOP) Unknown Completed [facility] Influenza Virus Vaccine,quad Im,preserve Free 65+ (FLUAD) Unknown Completed [facility] SARS-COV-2 COVID 19 MIGUEL SUCROSE VACCINE 12+, [id number], 0.3 ML (30 MCG), IM PFIZER (SON TOP) Unknown Completed [facility] Influenza High Dose Unknown Completed [facility] Pneumococcal 13 Conjugate, PCV13 (Prevnar 13) Unknown Completed [facility] Influenza Virus Vaccine Unknown Completed [facility] SARS-COV-2 COVID-19 PFIZER VACCINE Unknown Completed [facility] SARS-COV-2 COVID-19 PFIZER VACCINE Unknown Completed [facility] SARS-COV-2 COVID-19 PFIZER VACCINE Unknown Completed [facility] Influenza High Dose Unknown Completed [facility] Pneumococcal Polysaccharide, PPSV23 (PNEUMOVAX) Unknown Completed [facility] SARS-COV-2 COVID-19 PFIZER VACCINE Unknown Completed [facility] PPD (TB) Unknown Completed [facility] Influenza Virus Vaccine Quad IM 3+ YRS Unknown Completed [facility] Influenza High Dose Quad Unknown Completed [facility] SARS-COV-2 COVID-19 MIGUEL-SUCROSE VACCINE 12 YRS+, BIVALENT 0.3ML, IM, (PFIZER SON TOP) Unknown Completed [facility] Influenza Virus Vaccine,quad Im,preserve Free 65+ (FLUAD) Unknown Completed [facility] SARS-COV-2 COVID 19 MIGUEL SUCROSE VACCINE 12+, [id number], 0.3 ML (30 MCG), IM PFIZER (SON TOP) Unknown Completed [facility] Influenza High Dose Unknown Completed [facility] Pneumococcal 13 Conjugate, PCV13 (Prevnar 13) Unknown Completed [facility] Influenza Virus Vaccine Unknown Completed [facility] SARS-COV-2 COVID-19 PFIZER VACCINE Unknown Completed [facility] SARS-COV-2 COVID-19 PFIZER VACCINE Unknown Completed [facility] SARS-COV-2 COVID-19 PFIZER VACCINE Unknown Completed [facility] Influenza High Dose Unknown Completed [facility] Pneumococcal Polysaccharide, PPSV23 (PNEUMOVAX) Unknown Completed [facility] SARS-COV-2 COVID-19 PFIZER VACCINE Unknown Completed [facility] PPD (TB) Unknown Completed [facility] Influenza Virus Vaccine Quad IM 3+ YRS Unknown Completed [facility] Influenza High Dose Quad Unknown Completed [facility] SARS-COV-2 COVID-19 MIGUEL-SUCROSE VACCINE 12 YRS+, BIVALENT 0.3ML, IM, (PFIZER SON TOP) Unknown Completed [facility] Influenza Virus Vaccine,quad Im,preserve Free 65+ (FLUAD) Unknown Completed [facility] SARS-COV-2 COVID 19 MIGUEL SUCROSE VACCINE 12+, 3719-9972, 0.3 ML (30 MCG), IM PFIZER (SON TOP) Unknown Completed [facility] Influenza High Dose Unknown Completed [facility] Pneumococcal 13 Conjugate, PCV13 (Prevnar 13) Unknown Completed [facility] Influenza Virus Vaccine Unknown Completed [facility] SARS-COV-2 COVID-19 PFIZER VACCINE Unknown Completed [facility] SARS-COV-2 COVID-19 PFIZER VACCINE Unknown Completed [facility] SARS-COV-2 COVID-19 PFIZER VACCINE Unknown Completed [facility] Influenza High Dose Unknown Completed [facility] Pneumococcal Polysaccharide, PPSV23 (PNEUMOVAX) Unknown Completed [facility] SARS-COV-2 COVID-19 PFIZER VACCINE Unknown Completed [facility] PPD (TB) Unknown Completed [facility] Influenza Virus Vaccine Quad IM 3+ YRS Unknown Completed [facility] Influenza High Dose Quad Unknown Completed [facility] SARS-COV-2 COVID-19 MIGUEL-SUCROSE VACCINE 12 YRS+, BIVALENT 0.3ML, IM, (PFIZER SON TOP) Unknown Completed [facility] Influenza Virus Vaccine,quad Im,preserve Free 65+ (FLUAD) Unknown Completed [facility] SARS-COV-2 COVID 19 MIGUEL SUCROSE VACCINE 12+, 5310-9058, 0.3 ML (30 MCG), IM PFIZER (SON TOP) Unknown Completed [facility] Influenza High Dose Unknown Completed [facility] Pneumococcal 13 Conjugate, PCV13 (Prevnar 13) Unknown Completed [facility] Influenza Virus Vaccine Unknown Completed [facility] SARS-COV-2 COVID-19 PFIZER VACCINE Unknown Completed [facility] SARS-COV-2 COVID-19 PFIZER VACCINE Unknown Completed [facility] SARS-COV-2 COVID-19 PFIZER VACCINE Unknown Completed [facility] Influenza High Dose Unknown Completed [facility] Pneumococcal Polysaccharide, PPSV23 (PNEUMOVAX) Unknown Completed [facility] SARS-COV-2 COVID-19 PFIZER VACCINE Unknown Completed [facility] PPD (TB) Unknown Completed [facility] Influenza Virus Vaccine Quad IM 3+ YRS Unknown Completed [facility] Influenza High Dose Quad Unknown Completed [facility] SARS-COV-2 COVID-19 MIGUEL-SUCROSE VACCINE 12 YRS+, BIVALENT 0.3ML, IM, (PFIZER SON TOP) Unknown Completed [facility] Influenza Virus Vaccine,quad Im,preserve Free 65+ (FLUAD) Unknown Completed [facility] SARS-COV-2 COVID 19 MIGUEL SUCROSE VACCINE 12+, [id number], 0.3 ML (30 MCG), IM PFIZER (SON TOP) Unknown Completed [facility] Influenza High Dose Unknown Completed [facility] Pneumococcal 13 Conjugate, PCV13 (Prevnar 13) Unknown Completed [facility] Influenza Virus Vaccine Unknown Completed [facility] SARS-COV-2 COVID-19 PFIZER VACCINE Unknown Completed [facility] SARS-COV-2 COVID-19 PFIZER VACCINE Unknown Completed [facility] SARS-COV-2 COVID-19 PFIZER VACCINE Unknown Completed [facility] Influenza High Dose Unknown Completed [facility] Pneumococcal Polysaccharide, PPSV23 (PNEUMOVAX) Unknown Completed [facility] SARS-COV-2 COVID-19 PFIZER VACCINE Unknown Completed [facility] PPD (TB) Unknown Completed [facility] Influenza Virus Vaccine Quad IM 3+ YRS Unknown Completed [facility] Influenza High Dose Quad Unknown Completed [facility] SARS-COV-2 COVID-19 MIGUEL-SUCROSE VACCINE 12 YRS+, BIVALENT 0.3ML, IM, (PFIZER SON TOP) Unknown Completed [facility] Influenza Virus Vaccine,quad Im,preserve Free 65+ (FLUAD) Unknown Completed [facility] SARS-COV-2 COVID 19 MIGUEL SUCROSE VACCINE 12+, [id number], 0.3 ML (30 MCG), IM PFIZER (SON TOP) Unknown Completed [facility] Influenza High Dose Unknown Completed [facility] Pneumococcal 13 Conjugate, PCV13 (Prevnar 13) Unknown Completed [facility] Influenza Virus Vaccine Unknown Completed [facility] SARS-COV-2 COVID-19 PFIZER VACCINE Unknown Completed [facility] SARS-COV-2 COVID-19 PFIZER VACCINE Unknown Completed [facility] SARS-COV-2 COVID-19 PFIZER VACCINE Unknown Completed [facility] Influenza High Dose Unknown Completed [facility] Pneumococcal Polysaccharide, PPSV23 (PNEUMOVAX) Unknown Completed [facility] SARS-COV-2 COVID-19 PFIZER VACCINE Unknown Completed [facility] PPD (TB) Unknown Completed [facility] Influenza Virus Vaccine Quad IM 3+ YRS Unknown Completed [facility] Influenza High Dose Quad Unknown Completed [facility] SARS-COV-2 COVID-19 MIGUEL-SUCROSE VACCINE 12 YRS+, BIVALENT 0.3ML, IM, (PFIZER SON TOP) Unknown Completed [facility] Influenza Virus Vaccine,quad Im,preserve Free 65+ (FLUAD) Unknown Completed [facility] SARS-COV-2 COVID 19 MIGUEL SUCROSE VACCINE 12+, , 0.3 ML (30 MCG), IM PFIZER (SON TOP) Unknown Completed [facility] Influenza High Dose Unknown Completed [facility] Pneumococcal 13 Conjugate, PCV13 (Prevnar 13) Unknown Completed [facility] Influenza Virus Vaccine Unknown Completed [facility] SARS-COV-2 COVID-19 PFIZER VACCINE Unknown Completed [facility] SARS-COV-2 COVID-19 PFIZER VACCINE Unknown Completed [facility] SARS-COV-2 COVID-19 PFIZER VACCINE Unknown Completed [facility] Influenza High Dose Unknown Completed [facility] Pneumococcal Polysaccharide, PPSV23 (PNEUMOVAX) Unknown Completed [facility] SARS-COV-2 COVID-19 PFIZER VACCINE Unknown Completed [facility] PPD (TB) Unknown Completed [facility] Influenza Virus Vaccine Quad IM 3+ YRS Unknown Completed [facility] Influenza High Dose Quad Unknown Completed [facility] SARS-COV-2 COVID-19 MIGUEL-SUCROSE VACCINE 12 YRS+, BIVALENT 0.3ML, IM, (PFIZER SON TOP) Unknown Completed [facility] Influenza Virus Vaccine,quad Im,preserve Free 65+ (FLUAD) Unknown Completed [facility] SARS-COV-2 COVID 19 MIGUEL SUCROSE VACCINE 12+, [id number], 0.3 ML (30 MCG), IM PFIZER (SON TOP) Unknown Completed [facility] Influenza High Dose Unknown Completed [facility] Pneumococcal 13 Conjugate, PCV13 (Prevnar 13) Unknown Completed [facility] Influenza Virus Vaccine Unknown Completed [facility] SARS-COV-2 COVID-19 PFIZER VACCINE Unknown Completed [facility] SARS-COV-2 COVID-19 PFIZER VACCINE Unknown Completed [facility] SARS-COV-2 COVID-19 PFIZER VACCINE Unknown Completed [facility] Influenza High Dose Unknown Completed [facility] Pneumococcal Polysaccharide, PPSV23 (PNEUMOVAX) Unknown Completed [facility] SARS-COV-2 COVID-19 PFIZER VACCINE Unknown Completed [facility] PPD (TB) Unknown Completed [facility] Influenza Virus Vaccine Quad IM 3+ YRS Unknown Completed [facility] Influenza High Dose Quad Unknown Completed [facility] SARS-COV-2 COVID-19 MIGUEL-SUCROSE VACCINE 12 YRS+, BIVALENT 0.3ML, IM, (PFIZER SON TOP) Unknown Completed [facility] Influenza Virus Vaccine,quad Im,preserve Free 65+ (FLUAD) Unknown Completed [facility] SARS-COV-2 COVID 19 MIGUEL SUCROSE VACCINE 12+, [id number], 0.3 ML (30 MCG), IM PFIZER (SON TOP) Unknown Completed [facility] Influenza High Dose Unknown Completed [facility] Pneumococcal 13 Conjugate, PCV13 (Prevnar 13) Unknown Completed [facility] Influenza Virus Vaccine Unknown Completed [facility] SARS-COV-2 COVID-19 PFIZER VACCINE Unknown Completed [facility] SARS-COV-2 COVID-19 PFIZER VACCINE Unknown Completed [facility] SARS-COV-2 COVID-19 PFIZER VACCINE Unknown Completed [facility] Influenza High Dose Unknown Completed [facility] Pneumococcal Polysaccharide, PPSV23 (PNEUMOVAX) Unknown Completed [facility] SARS-COV-2 COVID-19 PFIZER VACCINE Unknown Completed [facility] PPD (TB) Unknown Completed [facility] Influenza Virus Vaccine Quad IM 3+ YRS Unknown Completed [facility] Influenza High Dose Quad Unknown Completed [facility] SARS-COV-2 COVID-19 MIGUEL-SUCROSE VACCINE 12 YRS+, BIVALENT 0.3ML, IM, (PFIZER SON TOP) Unknown Completed [facility] Influenza Virus Vaccine,quad Im,preserve Free 65+ (FLUAD) Unknown Completed [facility] SARS-COV-2 COVID 19 MIGUEL SUCROSE VACCINE 12+, 2713-2814, 0.3 ML (30 MCG), IM PFIZER (SON TOP) Unknown Completed [facility] Influenza High Dose Unknown Completed [facility] Pneumococcal 13 Conjugate, PCV13 (Prevnar 13) Unknown Completed [facility] Influenza Virus Vaccine Unknown Completed [facility] SARS-COV-2 COVID-19 PFIZER VACCINE Unknown Completed [facility] SARS-COV-2 COVID-19 PFIZER VACCINE Unknown Completed [facility] SARS-COV-2 COVID-19 PFIZER VACCINE Unknown Completed [facility] Influenza High Dose Unknown Completed [facility] Pneumococcal Polysaccharide, PPSV23 (PNEUMOVAX) Unknown Completed [facility] SARS-COV-2 COVID-19 PFIZER VACCINE Unknown Completed [facility] PPD (TB) Unknown Completed [facility] Influenza Virus Vaccine Quad IM 3+ YRS Unknown Completed [facility] Influenza High Dose Quad Unknown Completed [facility] SARS-COV-2 COVID-19 MIGUEL-SUCROSE VACCINE 12 YRS+, BIVALENT 0.3ML, IM, (PFIZER SON TOP) Unknown Completed [facility] Influenza Virus Vaccine,quad Im,preserve Free 65+ (FLUAD) Unknown Completed [facility] SARS-COV-2 COVID 19 MIGUEL SUCROSE VACCINE 12+, [id number], 0.3 ML (30 MCG), IM PFIZER (SON TOP) Unknown Completed [facility] Influenza High Dose Unknown Completed [facility] Pneumococcal 13 Conjugate, PCV13 (Prevnar 13) Unknown Completed [facility] Influenza Virus Vaccine Unknown Completed [facility] SARS-COV-2 COVID-19 PFIZER VACCINE Unknown Completed [facility] SARS-COV-2 COVID-19 PFIZER VACCINE Unknown Completed [facility] SARS-COV-2 COVID-19 PFIZER VACCINE Unknown Completed [facility] Influenza High Dose Unknown Completed [facility] Pneumococcal Polysaccharide, PPSV23 (PNEUMOVAX) Unknown Completed [facility] SARS-COV-2 COVID-19 PFIZER VACCINE Unknown Completed [facility] PPD (TB) Unknown Completed [facility] Influenza Virus Vaccine Quad IM 3+ YRS Unknown Completed [facility] Influenza High Dose Quad Unknown Completed [facility] SARS-COV-2 COVID-19 MIGUEL-SUCROSE VACCINE 12 YRS+, BIVALENT 0.3ML, IM, (PFIZER SON TOP) Unknown Completed [facility] Influenza Virus Vaccine,quad Im,preserve Free 65+ (FLUAD) Unknown Completed [facility] SARS-COV-2 COVID 19 MIGUEL SUCROSE VACCINE 12+, [id number], 0.3 ML (30 MCG), IM PFIZER (SON TOP) Unknown Completed [facility] Influenza High Dose Unknown Completed [facility] Pneumococcal 13 Conjugate, PCV13 (Prevnar 13) Unknown Completed [facility] Influenza Virus Vaccine Unknown Completed [facility] SARS-COV-2 COVID-19 PFIZER VACCINE Unknown Completed [facility] SARS-COV-2 COVID-19 PFIZER VACCINE Unknown Completed [facility] SARS-COV-2 COVID-19 PFIZER VACCINE Unknown Completed [facility] Influenza High Dose Unknown Completed [facility] Pneumococcal Polysaccharide, PPSV23 (PNEUMOVAX) Unknown Completed [facility] SARS-COV-2 COVID-19 PFIZER VACCINE Unknown Completed [facility] PPD (TB) Unknown Completed [facility] Influenza Virus Vaccine Quad IM 3+ YRS Unknown Completed [facility] Influenza High Dose Quad Unknown Completed [facility] SARS-COV-2 COVID-19 MIGUEL-SUCROSE VACCINE 12 YRS+, BIVALENT 0.3ML, IM, (PFIZER SON TOP) Unknown Completed [facility] Influenza Virus Vaccine,quad Im,preserve Free 65+ (FLUAD) Unknown Completed [facility] SARS-COV-2 COVID 19 MIGUEL SUCROSE VACCINE 12+, [id number], 0.3 ML (30 MCG), IM PFIZER (SON TOP) Unknown Completed [facility] Influenza High Dose Unknown Completed [facility] Pneumococcal 13 Conjugate, PCV13 (Prevnar 13) Unknown Completed [facility] Influenza Virus Vaccine Unknown Completed [facility] SARS-COV-2 COVID-19 PFIZER VACCINE Unknown Completed [facility] SARS-COV-2 COVID-19 PFIZER VACCINE Unknown Completed [facility] SARS-COV-2 COVID-19 PFIZER VACCINE Unknown Completed [facility] Influenza High Dose Unknown Completed [facility] Pneumococcal Polysaccharide, PPSV23 (PNEUMOVAX) Unknown Completed [facility] SARS-COV-2 COVID-19 PFIZER VACCINE Unknown Completed [facility] PPD (TB) Unknown Completed [facility] Influenza Virus Vaccine Quad IM 3+ YRS Unknown Completed [facility] Influenza High Dose Quad Unknown Completed [facility] SARS-COV-2 COVID-19 MIGUEL-SUCROSE VACCINE 12 YRS+, BIVALENT 0.3ML, IM, (PFIZER SON TOP) Unknown Completed [facility] Influenza Virus Vaccine,quad Im,preserve Free 65+ (FLUAD) Unknown Completed [facility] SARS-COV-2 COVID 19 MIGUEL SUCROSE VACCINE 12+, 9741-1299, 0.3 ML (30 MCG), IM PFIZER (SON TOP) Unknown Completed [facility] Influenza High Dose Unknown Completed [facility] Pneumococcal 13 Conjugate, PCV13 (Prevnar 13) Unknown Completed [facility] Influenza Virus Vaccine Unknown Completed [facility] SARS-COV-2 COVID-19 PFIZER VACCINE Unknown Completed [facility] SARS-COV-2 COVID-19 PFIZER VACCINE Unknown Completed [facility] SARS-COV-2 COVID-19 PFIZER VACCINE Unknown Completed [facility] Influenza High Dose Unknown Completed [facility] Pneumococcal Polysaccharide, PPSV23 (PNEUMOVAX) Unknown Completed [facility] SARS-COV-2 COVID-19 PFIZER VACCINE Unknown Completed [facility] PPD (TB) Unknown Completed [facility] Influenza Virus Vaccine Quad IM 3+ YRS Unknown Completed [facility] Influenza High Dose Quad Unknown Completed [facility] SARS-COV-2 COVID-19 MIGUEL-SUCROSE VACCINE 12 YRS+, BIVALENT 0.3ML, IM, (PFIZER SON TOP) Unknown Completed [facility] Influenza Virus Vaccine,quad Im,preserve Free 65+ (FLUAD) Unknown Completed [facility] SARS-COV-2 COVID 19 MIGUEL SUCROSE VACCINE 12+, [id number], 0.3 ML (30 MCG), IM PFIZER (SON TOP) Unknown Completed [facility] Influenza High Dose Unknown Completed [facility] Pneumococcal 13 Conjugate, PCV13 (Prevnar 13) Unknown Completed [facility] Influenza Virus Vaccine Unknown Completed [facility] SARS-COV-2 COVID-19 PFIZER VACCINE Unknown Completed [facility] SARS-COV-2 COVID-19 PFIZER VACCINE Unknown Completed [facility] SARS-COV-2 COVID-19 PFIZER VACCINE Unknown Completed [facility] Influenza High Dose Unknown Completed [facility] Pneumococcal Polysaccharide, PPSV23 (PNEUMOVAX) Unknown Completed [facility] SARS-COV-2 COVID-19 PFIZER VACCINE Unknown Completed [facility] PPD (TB) Unknown Completed [facility] Influenza Virus Vaccine Quad IM 3+ YRS Unknown Completed [facility] Influenza High Dose Quad Unknown Completed [facility] SARS-COV-2 COVID-19 MIGUEL-SUCROSE VACCINE 12 YRS+, BIVALENT 0.3ML, IM, (PFIZER SON TOP) Unknown Completed [facility] Influenza Virus Vaccine,quad Im,preserve Free 65+ (FLUAD) Unknown Completed [facility] SARS-COV-2 COVID 19 MIGUEL SUCROSE VACCINE 12+, , 0.3 ML (30 MCG), IM PFIZER (SON TOP) Unknown Completed [facility] Influenza High Dose Unknown Completed [facility] Pneumococcal 13 Conjugate, PCV13 (Prevnar 13) Unknown Completed [facility] Influenza Virus Vaccine Unknown Completed [facility] SARS-COV-2 COVID-19 PFIZER VACCINE Unknown Completed [facility] SARS-COV-2 COVID-19 PFIZER VACCINE Unknown Completed [facility] SARS-COV-2 COVID-19 PFIZER VACCINE Unknown Completed [facility] Influenza High Dose Unknown Completed [facility] Pneumococcal Polysaccharide, PPSV23 (PNEUMOVAX) Unknown Completed [facility] SARS-COV-2 COVID-19 PFIZER VACCINE Unknown Completed [facility] PPD (TB) Unknown Completed [facility] Influenza Virus Vaccine Quad IM 3+ YRS Unknown Completed [facility] Influenza High Dose Quad Unknown Completed [facility] SARS-COV-2 COVID-19 MIGUEL-SUCROSE VACCINE 12 YRS+, BIVALENT 0.3ML, IM, (PFIZER SON TOP) Unknown Completed [facility] Influenza Virus Vaccine,quad Im,preserve Free 65+ (FLUAD) Unknown Completed [facility] SARS-COV-2 COVID 19 MIGUEL SUCROSE VACCINE 12+, [id number], 0.3 ML (30 MCG), IM PFIZER (SON TOP) Unknown Completed [facility] Influenza High Dose Unknown Completed [facility] Pneumococcal 13 Conjugate, PCV13 (Prevnar 13) Unknown Completed [facility] Influenza Virus Vaccine Unknown Completed [facility] SARS-COV-2 COVID-19 PFIZER VACCINE Unknown Completed [facility] SARS-COV-2 COVID-19 PFIZER VACCINE Unknown Completed [facility] SARS-COV-2 COVID-19 PFIZER VACCINE Unknown Completed [facility] Influenza High Dose Unknown Completed [facility] Pneumococcal Polysaccharide, PPSV23 (PNEUMOVAX) Unknown Completed [facility] SARS-COV-2 COVID-19 PFIZER VACCINE Unknown Completed [facility] PPD (TB) Unknown Completed [facility] Influenza Virus Vaccine Quad IM 3+ YRS Unknown Completed [facility] Influenza High Dose Quad Unknown Completed [facility] SARS-COV-2 COVID-19 MIGUEL-SUCROSE VACCINE 12 YRS+, BIVALENT 0.3ML, IM, (PFIZER SON TOP) Unknown Completed [facility] Influenza Virus Vaccine,quad Im,preserve Free 65+ (FLUAD) Unknown Completed [facility] SARS-COV-2 COVID 19 MIGUEL SUCROSE VACCINE 12+, 8610-3311, 0.3 ML (30 MCG), IM PFIZER (SON TOP) Unknown Completed [facility] Influenza High Dose Unknown Completed [facility] Pneumococcal 13 Conjugate, PCV13 (Prevnar 13) Unknown Completed [facility] Influenza Virus Vaccine Unknown Completed [facility] SARS-COV-2 COVID-19 PFIZER VACCINE Unknown Completed [facility] SARS-COV-2 COVID-19 PFIZER VACCINE Unknown Completed [facility] SARS-COV-2 COVID-19 PFIZER VACCINE Unknown Completed [facility] Influenza High Dose Unknown Completed [facility] Pneumococcal Polysaccharide, PPSV23 (PNEUMOVAX) Unknown Completed [facility] SARS-COV-2 COVID-19 PFIZER VACCINE Unknown Completed [facility] PPD (TB) Unknown Completed [facility] Influenza Virus Vaccine Quad IM 3+ YRS Unknown Completed [facility] Influenza High Dose Quad Unknown Completed [facility] SARS-COV-2 COVID-19 MIGUEL-SUCROSE VACCINE 12 YRS+, BIVALENT 0.3ML, IM, (PFIZER SON TOP) Unknown Completed [facility] Influenza Virus Vaccine,quad Im,preserve Free 65+ (FLUAD) Unknown Completed [facility] SARS-COV-2 COVID 19 MIGUEL SUCROSE VACCINE 12+, [id number], 0.3 ML (30 MCG), IM PFIZER (SON TOP) Unknown Completed [facility] Influenza High Dose Unknown Completed [facility] Pneumococcal 13 Conjugate, PCV13 (Prevnar 13) Unknown Completed [facility] Influenza Virus Vaccine Unknown Completed [facility] SARS-COV-2 COVID-19 PFIZER VACCINE Unknown Completed [facility] SARS-COV-2 COVID-19 PFIZER VACCINE Unknown Completed [facility] SARS-COV-2 COVID-19 PFIZER VACCINE Unknown Completed [facility] Influenza High Dose Unknown Completed [facility] Pneumococcal Polysaccharide, PPSV23 (PNEUMOVAX) Unknown Completed [facility] SARS-COV-2 COVID-19 PFIZER VACCINE Unknown Completed [facility] PPD (TB) Unknown Completed [facility] Influenza Virus Vaccine Quad IM 3+ YRS Unknown Completed [facility] Influenza High Dose Quad Unknown Completed [facility] SARS-COV-2 COVID-19 MIGUEL-SUCROSE VACCINE 12 YRS+, BIVALENT 0.3ML, IM, (PFIZER SON TOP) Unknown Completed [facility] Influenza Virus Vaccine,quad Im,preserve Free 65+ (FLUAD) Unknown Completed [facility] SARS-COV-2 COVID 19 MIGUEL SUCROSE VACCINE 12+, 0901-9080, 0.3 ML (30 MCG), IM PFIZER (SON TOP) Unknown Completed [facility] Influenza High Dose Unknown Completed [facility] Pneumococcal 13 Conjugate, PCV13 (Prevnar 13) Unknown Completed [facility] Influenza Virus Vaccine Unknown Completed [facility] SARS-COV-2 COVID-19 PFIZER VACCINE Unknown Completed [facility] SARS-COV-2 COVID-19 PFIZER VACCINE Unknown Completed [facility] SARS-COV-2 COVID-19 PFIZER VACCINE Unknown Completed [facility] Influenza High Dose Unknown Completed [facility] Pneumococcal Polysaccharide, PPSV23 (PNEUMOVAX) Unknown Completed [facility] SARS-COV-2 COVID-19 PFIZER VACCINE Unknown Completed [facility] PPD (TB) Unknown Completed [facility] Influenza Virus Vaccine Quad IM 3+ YRS Unknown Completed [facility] Influenza High Dose Quad Unknown Completed [facility] SARS-COV-2 COVID-19 MIGUEL-SUCROSE VACCINE 12 YRS+, BIVALENT 0.3ML, IM, (PFIZER SON TOP) Unknown Completed [facility] Influenza Virus Vaccine,quad Im,preserve Free 65+ (FLUAD) Unknown Completed [facility] SARS-COV-2 COVID 19 MIGUEL SUCROSE VACCINE 12+, 3891-3090, 0.3 ML (30 MCG), IM PFIZER (SON TOP) Unknown Completed [facility] Influenza High Dose Unknown Completed [facility] Pneumococcal 13 Conjugate, PCV13 (Prevnar 13) Unknown Completed [facility] Influenza Virus Vaccine Unknown Completed [facility] SARS-COV-2 COVID-19 PFIZER VACCINE Unknown Completed [facility] SARS-COV-2 COVID-19 PFIZER VACCINE Unknown Completed [facility] SARS-COV-2 COVID-19 PFIZER VACCINE Unknown Completed [facility] Influenza High Dose Unknown Completed [facility] Pneumococcal Polysaccharide, PPSV23 (PNEUMOVAX) Unknown Completed [facility] SARS-COV-2 COVID-19 PFIZER VACCINE Unknown Completed [facility] PPD (TB) Unknown Completed [facility] Influenza Virus Vaccine Quad IM 3+ YRS Unknown Completed [facility] Influenza High Dose Quad Unknown Completed [facility] SARS-COV-2 COVID-19 MIGUEL-SUCROSE VACCINE 12 YRS+, BIVALENT 0.3ML, IM, (PFIZER SON TOP) Unknown Completed [facility] Influenza Virus Vaccine,quad Im,preserve Free 65+ (FLUAD) Unknown Completed [facility] SARS-COV-2 COVID 19 MIGUEL SUCROSE VACCINE 12+, 9038-1424, 0.3 ML (30 MCG), IM PFIZER (SON TOP) Unknown Completed [facility] Influenza High Dose Unknown Completed [facility] Pneumococcal 13 Conjugate, PCV13 (Prevnar 13) Unknown Completed [facility] Influenza Virus Vaccine Unknown Completed [facility] SARS-COV-2 COVID-19 PFIZER VACCINE Unknown Completed [facility] SARS-COV-2 COVID-19 PFIZER VACCINE Unknown Completed [facility] SARS-COV-2 COVID-19 PFIZER VACCINE Unknown Completed [facility] Influenza High Dose Unknown Completed [facility] Pneumococcal Polysaccharide, PPSV23 (PNEUMOVAX) Unknown Completed [facility] SARS-COV-2 COVID-19 PFIZER VACCINE Unknown Completed [facility] PPD (TB) Unknown Completed [facility] Influenza Virus Vaccine Quad IM 3+ YRS Unknown Completed [facility] Influenza High Dose Quad Unknown Completed [facility] SARS-COV-2 COVID-19 MIGUEL-SUCROSE VACCINE 12 YRS+, BIVALENT 0.3ML, IM, (PFIZER SON TOP) Unknown Completed [facility] Influenza Virus Vaccine,quad Im,preserve Free 65+ (FLUAD) Unknown Completed [facility] SARS-COV-2 COVID 19 MIGUEL SUCROSE VACCINE 12+, [id number], 0.3 ML (30 MCG), IM PFIZER (SON TOP) Unknown Completed [facility] Influenza High Dose Unknown Completed [facility] Pneumococcal 13 Conjugate, PCV13 (Prevnar 13) Unknown Completed [facility] Influenza Virus Vaccine Unknown Completed [facility] SARS-COV-2 COVID-19 PFIZER VACCINE Unknown Completed [facility] SARS-COV-2 COVID-19 PFIZER VACCINE Unknown Completed [facility] SARS-COV-2 COVID-19 PFIZER VACCINE Unknown Completed [facility] Influenza High Dose Unknown Completed [facility] Pneumococcal Polysaccharide, PPSV23 (PNEUMOVAX) Unknown Completed [facility] SARS-COV-2 COVID-19 PFIZER VACCINE Unknown Completed [facility] PPD (TB) Unknown Completed [facility] Influenza Virus Vaccine Quad IM 3+ YRS Unknown Completed [facility] Influenza High Dose Quad Unknown Completed [facility] SARS-COV-2 COVID-19 MIGUEL-SUCROSE VACCINE 12 YRS+, BIVALENT 0.3ML, IM, (PFIZER SON TOP) Unknown Completed [facility] Influenza Virus Vaccine,quad Im,preserve Free 65+ (FLUAD) Unknown Completed [facility] SARS-COV-2 COVID 19 MIGUEL SUCROSE VACCINE 12+, [id number], 0.3 ML (30 MCG), IM PFIZER (SON TOP) Unknown Completed [facility] Influenza High Dose Unknown Completed [facility] Pneumococcal 13 Conjugate, PCV13 (Prevnar 13) Unknown Completed [facility] Influenza Virus Vaccine Unknown Completed [facility] SARS-COV-2 COVID-19 PFIZER VACCINE Unknown Completed [facility] SARS-COV-2 COVID-19 PFIZER VACCINE Unknown Completed [facility] SARS-COV-2 COVID-19 PFIZER VACCINE Unknown Completed [facility] Influenza High Dose Unknown Completed [facility] Pneumococcal Polysaccharide, PPSV23 (PNEUMOVAX) Unknown Completed [facility] SARS-COV-2 COVID-19 PFIZER VACCINE Unknown Completed [facility] PPD (TB) Unknown Completed [facility] Influenza Virus Vaccine Quad IM 3+ YRS Unknown Completed [facility] Influenza High Dose Quad Unknown Completed [facility] SARS-COV-2 COVID-19 MIGUEL-SUCROSE VACCINE 12 YRS+, BIVALENT 0.3ML, IM, (PFIZER SON TOP) Unknown Completed [facility] Influenza Virus Vaccine,quad Im,preserve Free 65+ (FLUAD) Unknown Completed [facility] SARS-COV-2 COVID 19 MIGUEL SUCROSE VACCINE 12+, , 0.3 ML (30 MCG), IM PFIZER (SON TOP) Unknown [facility] [place] [facility] High Dose Unknown Completed [facility] Pneumococcal 13 Conjugate, PCV13 (Prevnar 13) Unknown Completed [facility] [place] [facility] Virus Vaccine Unknown Completed [facility] SARS-COV-2 COVID-19 PFIZER VACCINE Unknown Completed [facility] SARS-COV-2 COVID-19 PFIZER VACCINE Unknown Completed [facility] SARS-COV-2 COVID-19 PFIZER VACCINE Unknown Completed [facility] [place] [facility] High Dose Unknown Completed [facility] Pneumococcal Polysaccharide, PPSV23 (PNEUMOVAX) Unknown Completed [facility] SARS-COV-2 COVID-19 PFIZER VACCINE Unknown Completed [facility] PPD (TB) Unknown Completed [facility] [place] [facility] Virus Vaccine Quad IM 3+ YRS Unknown Completed [facility] [place] Influ[facility] High Dose Quad Unknown Completed [facility] SARS-COV-2 COVID-19 MIGUEL-SUCROSE VACCINE 12 YRS+, BIVALENT 0.3ML, IM, (PFIZER SON TOP) Unknown Completed [facility] [place] Influ[place] Virus Vaccine,quad Im,preserve Free 65+ (FLUAD) Unknown Completed [facility] SARS-COV-2 COVID 19 MIGUEL SUCROSE VACCINE 12+, [id number], 0.3 ML (30 MCG), IM PFIZER (SON TOP) Unknown Completed [facility] [place] Influ[facility] High Dose Unknown Completed [facility] Pneumococcal 13 Conjugate, PCV13 (Prevnar 13) Unknown Completed [facility] [place] Influenza Virus Vaccine Unknown Completed [facility] SARS-COV-2 COVID-19 PFIZER VACCINE Unknown Completed [facility] SARS-COV-2 COVID-19 PFIZER VACCINE Unknown Completed [facility] SARS-COV-2 COVID-19 PFIZER VACCINE Unknown Completed [facility] [place] Influenza High Dose Unknown Completed [facility] Pneumococcal Polysaccharide, PPSV23 (PNEUMOVAX) Unknown Completed [facility] SARS-COV-2 COVID-19 PFIZER VACCINE Unknown Completed [facility] PPD (TB) Unknown Completed [facility] [place] Influenza Virus Vaccine Quad IM 3+ YRS Unknown Completed [facility] [place] Influenza High Dose Quad Unknown Completed [facility] SARS-COV-2 COVID-19 MIGUEL-SUCROSE VACCINE 12 YRS+, BIVALENT 0.3ML, IM, (PFIZER SON TOP) Unknown Completed [facility] [place] Influenza Virus Vaccine,quad Im,preserve Free 65+ (FLUAD) Unknown Completed [facility] SARS-COV-2 COVID 19 MIGUEL SUCROSE VACCINE 12+, [id number], 0.3 ML (30 MCG), IM PFIZER (SON TOP) Unknown Completed [facility] [place] Influenza High Dose Unknown Completed [facility] Pneumococcal 13 Conjugate, PCV13 (Prevnar 13) Unknown Completed [facility] [place] Influenza Virus Vaccine Unknown Completed [facility] SARS-COV-2 COVID-19 PFIZER VACCINE Unknown Completed [facility] SARS-COV-2 COVID-19 PFIZER VACCINE Unknown Completed [facility] SARS-COV-2 COVID-19 PFIZER VACCINE Unknown Completed [facility] [place] Influenza High Dose Unknown Completed [facility] Pneumococcal Polysaccharide, PPSV23 (PNEUMOVAX) Unknown Completed [facility] SARS-COV-2 COVID-19 PFIZER VACCINE Unknown Completed [facility] PPD (TB) Unknown Completed [facility] [place] Influenza Virus Vaccine Quad IM 3+ YRS Unknown Completed [facility] [place] Influenza High Dose Quad Unknown Completed [facility] SARS-COV-2 COVID-19 MIGUEL-SUCROSE VACCINE 12 YRS+, BIVALENT 0.3ML, IM, (PFIZER SON TOP) Unknown Completed [facility] [place] Influenza Virus Vaccine,quad Im,preserve Free 65+ (FLUAD) Unknown Completed [facility] SARS-COV-2 COVID 19 MIGUEL SUCROSE VACCINE 12+, [id number], 0.3 ML (30 MCG), IM PFIZER (SON TOP) Unknown Completed [facility] [place] Influenza High Dose Unknown Completed [facility] Pneumococcal 13 Conjugate, PCV13 (Prevnar 13) Unknown Completed [facility] [place] Influenza Virus Vaccine Unknown Completed [facility] SARS-COV-2 COVID-19 PFIZER VACCINE Unknown Completed [facility] SARS-COV-2 COVID-19 PFIZER VACCINE Unknown Completed [facility] SARS-COV-2 COVID-19 PFIZER VACCINE Unknown Completed [facility] [place] Influenza High Dose Unknown Completed [facility] Pneumococcal Polysaccharide, PPSV23 (PNEUMOVAX) Unknown Completed [facility] SARS-COV-2 COVID-19 PFIZER VACCINE Unknown Completed [facility] PPD (TB) Unknown Completed [facility] [place] Influenza Virus Vaccine Quad IM 3+ YRS Unknown Completed [facility] [place] Influenza High Dose Quad Unknown Completed [facility] SARS-COV-2 COVID-19 MIGUEL-SUCROSE VACCINE 12 YRS+, BIVALENT 0.3ML, IM, (PFIZER SON TOP) Unknown Completed [facility] [place] Influenza Virus Vaccine,quad Im,preserve Free 65+ (FLUAD) Unknown Completed [facility] SARS-COV-2 COVID 19 MIGUEL SUCROSE VACCINE 12+, [id number], 0.3 ML (30 MCG), IM PFIZER (SON TOP) Unknown Completed [facility] [place] Influenza High Dose Unknown Completed [facility] Pneumococcal 13 Conjugate, PCV13 (Prevnar 13) Unknown Completed [facility] [place] Influenza Virus Vaccine Unknown Completed [facility] SARS-COV-2 COVID-19 PFIZER VACCINE Unknown Completed [facility] SARS-COV-2 COVID-19 PFIZER VACCINE Unknown Completed [facility] SARS-COV-2 COVID-19 PFIZER VACCINE Unknown Completed [facility] [place] Influenza High Dose Unknown Completed [facility] Pneumococcal Polysaccharide, PPSV23 (PNEUMOVAX) Unknown Completed [facility] SARS-COV-2 COVID-19 PFIZER VACCINE Unknown Completed [facility] PPD (TB) Unknown Completed [facility] [place] Influenza Virus Vaccine Quad IM 3+ YRS Unknown Completed [facility] [place] Influenza High Dose Quad Unknown Completed [facility] SARS-COV-2 COVID-19 MIGUEL-SUCROSE VACCINE 12 YRS+, BIVALENT 0.3ML, IM, (PFIZER SON TOP) Unknown Completed [facility] [place] Influenza Virus Vaccine,quad Im,preserve Free 65+ (FLUAD) Unknown Completed [facility] SARS-COV-2 COVID 19 MIGUEL SUCROSE VACCINE 12+, [id number], 0.3 ML (30 MCG), IM PFIZER (SON TOP) Unknown Completed [facility] [place] Influenza High Dose Unknown Completed [facility] Pneumococcal 13 Conjugate, PCV13 (Prevnar 13) Unknown Completed [facility] [place] Influenza Virus Vaccine Unknown Completed [facility] SARS-COV-2 COVID-19 PFIZER VACCINE Unknown Completed [facility] SARS-COV-2 COVID-19 PFIZER VACCINE Unknown Completed [facility] SARS-COV-2 COVID-19 PFIZER VACCINE Unknown Completed [facility] [place] Influenza High Dose Unknown Completed [facility] Pneumococcal Polysaccharide, PPSV23 (PNEUMOVAX) Unknown Completed [facility] SARS-COV-2 COVID-19 PFIZER VACCINE Unknown Completed [facility] PPD (TB) Unknown Completed [facility] [place] Influenza Virus Vaccine Quad IM 3+ YRS Unknown Completed [facility] [place] Influenza High Dose Quad Unknown Completed [facility] SARS-COV-2 COVID-19 MIGUEL-SUCROSE VACCINE 12 YRS+, BIVALENT 0.3ML, IM, (PFIZER SON TOP) Unknown Completed [facility] Influenza Virus Vaccine,quad Im,preserve Free 65+ (FLUAD) Unknown Completed [facility] SARS-COV-2 COVID 19 MIGUEL SUCROSE VACCINE 12+, [id number], 0.3 ML (30 MCG), IM PFIZER (SON TOP) Unknown Completed [facility] [place] Influenza High Dose Unknown Completed [facility] Pneumococcal 13 Conjugate, PCV13 (Prevnar 13) Unknown Completed [facility] [place] Influenza Virus Vaccine Unknown Completed [facility] SARS-COV-2 COVID-19 PFIZER VACCINE Unknown Completed [facility] SARS-COV-2 COVID-19 PFIZER VACCINE Unknown Completed [facility] SARS-COV-2 COVID-19 PFIZER VACCINE Unknown Completed [facility] [place] Influenza High Dose Unknown Completed [facility] Pneumococcal Polysaccharide, PPSV23 (PNEUMOVAX) Unknown Completed [facility] SARS-COV-2 COVID-19 PFIZER VACCINE Unknown Completed [facility] PPD (TB) Unknown Completed [facility] [place] Influenza Virus Vaccine Quad IM 3+ YRS Unknown Completed [facility] [place] Influenza High Dose Quad Unknown Completed [facility] SARS-COV-2 COVID-19 MIGUEL-SUCROSE VACCINE 12 YRS+, BIVALENT 0.3ML, IM, (PFIZER SON TOP) Unknown Completed [facility] [place] Influenza Virus Vaccine,quad Im,preserve Free 65+ (FLUAD) Unknown Completed [facility] SARS-COV-2 COVID 19 MIGUEL SUCROSE VACCINE 12+, [id number], 0.3 ML (30 MCG), IM PFIZER (SON TOP) Unknown Completed [facility] [place] Influenza High Dose Unknown Completed [facility] Pneumococcal 13 Conjugate, PCV13 (Prevnar 13) Unknown Completed [facility] [place] Influenza Virus Vaccine Unknown Completed [facility] SARS-COV-2 COVID-19 PFIZER VACCINE Unknown Completed [facility] SARS-COV-2 COVID-19 PFIZER VACCINE Unknown Completed [facility] SARS-COV-2 COVID-19 PFIZER VACCINE Unknown Completed [facility] [place] Influenza High Dose Unknown Completed [facility] Pneumococcal Polysaccharide, PPSV23 (PNEUMOVAX) Unknown Completed [facility] SARS-COV-2 COVID-19 PFIZER VACCINE Unknown Completed [facility] PPD (TB) Unknown Completed [facility] [place] Influenza Virus Vaccine Quad IM 3+ YRS Unknown Completed [facility] [place] Influenza High Dose Quad Unknown Completed [facility] SARS-COV-2 COVID-19 MIGUEL-SUCROSE VACCINE 12 YRS+, BIVALENT 0.3ML, IM, (PFIZER SON TOP) Unknown Completed [facility] [place] Influenza Virus Vaccine,quad Im,preserve Free 65+ (FLUAD) Unknown Completed [facility] SARS-COV-2 COVID 19 MIGUEL SUCROSE VACCINE 12+, [id number], 0.3 ML (30 MCG), IM PFIZER (SON TOP) Unknown Completed [facility] [place] Influenza High Dose Unknown Completed [facility] Pneumococcal 13 Conjugate, PCV13 (Prevnar 13) Unknown Completed [facility] [place] Influenza Virus Vaccine Unknown Completed [facility] SARS-COV-2 COVID-19 PFIZER VACCINE Unknown Completed [facility] SARS-COV-2 COVID-19 PFIZER VACCINE Unknown Completed [facility] SARS-COV-2 COVID-19 PFIZER VACCINE Unknown Completed [facility] [place] Influenza High Dose Unknown Completed [facility] Pneumococcal Polysaccharide, PPSV23 (PNEUMOVAX) Unknown Completed [facility] SARS-COV-2 COVID-19 PFIZER VACCINE Unknown Completed [facility] PPD (TB) Unknown Completed [facility] [place] Influenza Virus Vaccine Quad IM 3+ YRS Unknown Completed [facility] [place] Influenza High Dose Quad Unknown Completed [facility] SARS-COV-2 COVID-19 MIGUEL-SUCROSE VACCINE 12 YRS+, BIVALENT 0.3ML, IM, (PFIZER SON TOP) Unknown Completed [facility] Influenza Virus Vaccine,quad Im,preserve Free 65+ (FLUAD) Unknown Completed [facility] SARS-COV-2 COVID 19 MIGUEL SUCROSE VACCINE 12+, , 0.3 ML (30 MCG), IM PFIZER (SON TOP) Unknown Completed [facility] [place] Influenza High Dose Unknown Completed [facility] Pneumococcal 13 Conjugate, PCV13 (Prevnar 13) Unknown Completed [facility] [place] Influenza Virus Vaccine Unknown Completed [facility] SARS-COV-2 COVID-19 PFIZER VACCINE Unknown Completed [facility] SARS-COV-2 COVID-19 PFIZER VACCINE Unknown Completed [facility] SARS-COV-2 COVID-19 PFIZER VACCINE Unknown Completed [facility] [place] Influenza High Dose Unknown Completed [facility] Pneumococcal Polysaccharide, PPSV23 (PNEUMOVAX) Unknown Completed [facility] SARS-COV-2 COVID-19 PFIZER VACCINE Unknown Completed [facility] PPD (TB) Unknown Completed [facility] [place] Influenza Virus Vaccine Quad IM 3+ YRS Unknown Completed [facility] [place] Influenza High Dose Quad Unknown Completed [facility] SARS-COV-2 COVID-19 MIGUEL-SUCROSE VACCINE 12 YRS+, BIVALENT 0.3ML, IM, (PFIZER SON TOP) Unknown Completed [facility] [place] Influenza Virus Vaccine,quad Im,preserve Free 65+ (FLUAD) Unknown Completed [facility] SARS-COV-2 COVID 19 MIGUEL SUCROSE VACCINE 12+, [id number], 0.3 ML (30 MCG), IM PFIZER (SON TOP) Unknown Completed [facility] Vital Signs Vital Name Observation Time Observation Value Comments S ource Systolic blood pressure 2024-04-18 20:30:00 149 mm[Hg] [facility] Diastolic blood pressure 2024-04-18 20:30:00 77 mm[Hg] [facility] Heart rate 2024-04-18 20:24:00 67 /min [facility] Respiratory rate 2024-04-18 20:24:00 18 /min [facility] Body height 2024-04-18 20:24:00 157.5 cm [facility] Body weight 2024-04-18 20:24:00 78.835 kg [facility] BMI 2024-04-18 20:24:00 31.79 kg/m2 [facility] Oxygen saturation in Arterial blood by Pulse oximetry 2024-04-18 20:24:00 98 /min [facility] Systolic blood pressure 2024-03-27 23:00:00 149 mm[Hg] [facility] Diastolic blood pressure 2024-03-27 23:00:00 84 mm[Hg] [facility] Heart rate 2024-03-27 22:59:00 86 /min [facility] Body temperature 2024-03-27 22:59:00 36.39 Suzette [facility] Respiratory rate 2024-03-27 22:59:00 18 /min [facility] Body weight 2024-03-27 22:59:00 77.293 kg [facility] BMI 2024-03-27 22:59:00 31.17 kg/m2 [facility] Oxygen saturation in Arterial blood by Pulse oximetry 2024-03-27 22:59:00 99 /min [facility] Systolic blood pressure 2024-03-09 21:30:00 99 mm[Hg] [facility] Diastolic blood pressure 2024-03-09 21:30:00 52 mm[Hg] [facility] Heart rate 2024-03-09 21:28:00 88 /min [facility] Body temperature 2024-03-09 21:28:00 36.83 Suzette [facility] Respiratory rate 2024-03-09 21:28:00 18 /min [facility] Body height 2024-03-09 21:28:00 157.5 cm [facility] Body weight 2024-03-09 21:28:00 82.283 kg [facility] BMI 2024-03-09 21:28:00 33.18 kg/m2 [facility] Systolic blood pressure 2024-02-17 21:32:00 118 mm[Hg] [facility] Diastolic blood pressure 2024-02-17 21:32:00 69 mm[Hg] [facility] Heart rate 2024-02-17 21:32:00 69 /min [facility] Respiratory rate 2024-02-17 21:32:00 18 /min [facility] Body weight 2024-02-17 21:32:00 85.276 kg [facility] BMI 2024-02-17 21:32:00 34.39 kg/m2 [facility] Oxygen saturation in Arterial blood by Pulse oximetry 2024-02-17 21:32:00 98 /min [facility] Systolic blood pressure 2024-02-13 20:40:00 163 mm[Hg] [facility] Diastolic blood pressure 2024-02-13 20:40:00 75 mm[Hg] [facility] Heart rate 2024-02-13 20:39:00 78 /min [facility] Respiratory rate 2024-02-13 20:39:00 18 /min [facility] Body height 2024-02-13 20:39:00 157.5 cm [facility] Body weight 2024-02-13 20:39:00 [facility] 2024-02-13 20:39:00 34.39 kg/m2 [facility] Oxygen saturation in Arterial blood by Pulse oximetry 2024-02-13 20:39:00 95 /min [facility] Systolic blood pressure 2024-02-06 19:23:00 153 mm[Hg] [facility] Diastolic blood pressure 2024-02-06 19:23:00 80 mm[Hg] [facility] Heart rate 2024-02-06 19:23:00 97 /min [facility] Body temperature 2024-02-06 19:21:00 36.67 Suzette [facility] Respiratory rate 2024-02-06 19:21:00 18 /min [facility] Body weight 2024-02-06 19:21:00 85.367 kg [facility] BMI 2024-02-06 19:21:00 34.42 kg/m2 [facility] Oxygen saturation in Arterial blood by Pulse oximetry 2024-02-06 19:21:00 98 /min [facility] Systolic blood pressure 2024-01-26 21:13:00 163 mm[Hg] [facility] Diastolic blood pressure 2024-01-26 21:13:00 79 mm[Hg] [facility] Heart rate 2024-01-26 21:13:00 87 /min [facility] Body height 2024-01-26 21:13:00 157.5 cm [facility] Body weight 2024-01-26 21:13:00 84.687 kg [facility] BMI 2024-01-26 21:13:00 34.15 kg/m2 [facility] Oxygen saturation in Arterial blood by Pulse oximetry 2024-01-26 21:13:00 96 /min [facility] Systolic blood pressure 2024-01-18 19:19:00 129 mm[Hg] [facility] Diastolic blood pressure 2024-01-18 19:19:00 67 mm[Hg] [facility] Heart rate 2024-01-18 19:19:00 78 /min [facility] Body temperature 2024-01-18 19:19:00 36.67 Suzette [facility] Body height 2024-01-18 19:19:00 157.5 cm [facility] Body weight 2024-01-18 19:19:00 83.008 kg [facility] BMI 2024-01-18 19:19:00 33.47 kg/m2 [facility] Oxygen saturation in Arterial blood by Pulse oximetry 2024-01-18 19:19:00 98 /min [facility] Systolic blood pressure 2023-12-21 19:18:00 135 mm[Hg] [facility] Diastolic blood pressure 2023-12-21 19:18:00 66 mm[Hg] [facility] Heart rate 2023-12-21 19:18:00 84 /min [facility] Body height 2023-12-21 19:18:00 157.5 cm [facility] Body weight 2023-12-21 19:18:00 82.645 kg [facility] BMI 2023-12-21 19:18:00 33.32 kg/m2 [facility] Oxygen saturation in Arterial blood by Pulse oximetry 2023-12-21 19:18:00 98 /min [facility] Body height 2023-08-10 14:55:00 157.5 cm [facility] Body weight 2023-08-10 14:55:00 78.019 kg [facility] BMI 2023-08-10 14:55:00 31.46 kg/m2 [facility] Systolic blood pressure 2023-08-09 20:30:00 150 mm[Hg] [facility] Diastolic blood pressure 2023-08-09 20:30:00 69 mm[Hg] [facility] Heart rate 2023-08-09 20:14:00 78 /min [facility] Body height 2023-08-09 20:14:00 157.5 cm [facility] Body weight 2023-08-09 20:14:00 78.245 kg [facility] BMI 2023-08-09 20:14:00 31.55 kg/m2 [facility] Body height 2023-07-11 18:32:00 157.5 cm [facility] Systolic blood pressure 2023-07-07 17:57:00 113 mm[Hg] [facility] Diastolic blood pressure 2023-07-07 17:57:00 66 mm[Hg] [facility] Heart rate 2023-07-07 17:57:00 88 /min [facility] Respiratory rate 2023-07-07 17:57:00 18 /min [facility] Body height 2023-07-07 17:57:00 157.5 cm [facility] Body weight 2023-07-07 17:57:00 82.192 kg [facility] BMI 2023-07-07 17:57:00 33.14 kg/m2 [facility] Oxygen saturation in Arterial blood by Pulse oximetry 2023-07-07 17:57:00 97 /min [facility] Systolic blood pressure 2023-06-01 17:04:00 136 mm[Hg] [facility] Diastolic blood pressure 2023-06-01 17:04:00 75 mm[Hg] [facility] Heart rate 2023-06-01 17:04:00 78 /min [facility] Body temperature 2023-06-01 17:04:00 36.89 Suzette [facility] Body weight 2023-06-01 17:04:00 81.965 kg [facility] BMI 2023-06-01 17:04:00 33.05 kg/m2 [facility] Oxygen saturation in Arterial blood by Pulse oximetry 2023-06-01 17:04:00 98 /min [facility] Systolic blood pressure 2023-05-29 20:29:00 142 mm[Hg] [facility] Diastolic blood pressure 2023-05-29 20:29:00 71 mm[Hg] [facility] Body temperature 2023-05-29 20:27:00 36.44 Suzette [facility] Respiratory rate 2023-05-29 20:27:00 18 /min [facility] Body height 2023-05-29 20:27:00 157.5 cm [facility] Body weight 2023-05-29 20:27:00 78.472 kg [facility] BMI 2023-05-29 20:27:00 31.64 kg/m2 [facility] Oxygen saturation in Arterial blood by Pulse oximetry 2023-05-29 20:27:00 97 /min [facility] Systolic blood pressure 2023-05-19 14:18:00 144 mm[Hg] [facility] Diastolic blood pressure 2023-05-19 14:18:00 65 mm[Hg] [facility] Heart rate 2023-05-19 14:17:00 81 /[facility] Body temperature 2023-05-19 14:17:00 36.11 Suzette [facility] Respiratory rate 2023-05-19 14:17:00 16 /min [facility] Body height 2023-05-19 14:17:00 154.9 cm [facility] Body weight 2023-05-19 14:17:00 81.058 kg [facility] BMI 2023-05-19 14:17:00 33.77 kg/m2 [facility] Oxygen saturation in Arterial blood by Pulse oximetry 2023-05-19 14:17:00 96 /min [facility] Systolic blood pressure 2023-04-29 19:48:00 114 mm[Hg] [facility] Diastolic blood pressure 2023-04-29 19:48:00 75 mm[Hg] [facility] Heart rate 2023-04-29 19:48:00 89 /min [facility] Body temperature 2023-04-29 19:48:00 36.89 Suzette [facility] Respiratory rate 2023-04-29 19:48:00 18 /min [facility] Body height 2023-04-29 19:48:00 157.5 cm [facility] Body weight 2023-04-29 19:48:00 79.833 kg [facility] BMI 2023-04-29 19:48:00 32.19 kg/m2 [facility] Oxygen saturation in Arterial blood by Pulse oximetry 2023-04-29 19:48:00 96 /min [facility] Systolic blood pressure 2023-04-29 19:42:00 114 mm[Hg] [facility] Diastolic blood pressure 2023-04-29 19:42:00 75 mm[Hg] [facility] Heart rate 2023-04-29 19:42:00 89 /min [facility] Body temperature 2023-04-29 19:42:00 36.89 Suzette [facility] Respiratory rate 2023-04-29 19:42:00 18 /min [facility] Body height 2023-04-29 19:42:00 157.5 cm [facility] Body weight 2023-04-29 19:42:00 79.833 kg [facility] BMI 2023-04-29 19:42:00 32.19 kg/m2 [facility] Oxygen saturation in Arterial blood by Pulse oximetry 2023-04-29 19:42:00 96 /min [facility] Systolic blood pressure 2023-04-01 18:35:00 145 mm[Hg] [facility] Diastolic blood pressure 2023-04-01 18:35:00 70 mm[Hg] [facility] Heart rate 2023-04-01 18:35:00 73 /min [facility] Oxygen saturation in Arterial blood by Pulse oximetry 2023-04-01 18:35:00 96 /min [facility] Body temperature 2023-04-01 18:32:00 37.11 Suzette [facility] Body height 2023-04-01 18:32:00 157.5 cm [facility] Body weight 2023-04-01 18:32:00 85.775 kg [facility] BMI 2023-04-01 18:32:00 34.59 kg/m2 [facility] Systolic blood pressure 2023-03-30 16:37:00 151 mm[Hg] [facility] Diastolic blood pressure 2023-03-30 16:37:00 75 mm[Hg] [facility] Heart rate 2023-03-30 16:37:00 94 /min [facility] Body temperature 2023-03-30 16:37:00 36.28 Suzette [facility] Respiratory rate 2023-03-30 16:37:00 16 /min [facility] Body weight 2023-03-30 16:37:00 83.008 kg [facility] BMI 2023-03-30 16:37:00 35.74 kg/m2 [facility] Oxygen saturation in Arterial blood by Pulse oximetry 2023-03-30 16:37:00 96 /min [facility] Systolic blood pressure 2023-03-11 20:42:00 143 mm[Hg] [facility] Diastolic blood pressure 2023-03-11 20:42:00 84 mm[Hg] [facility] Heart rate 2023-03-11 20:42:00 80 /min [facility] Body temperature 2023-03-11 20:42:00 36.67 Suzette [facility] Respiratory rate 2023-03-11 20:42:00 18 /min [facility] Body height 2023-03-11 20:42:00 152.4 cm [facility] Body weight 2023-03-11 20:42:00 83.008 kg [facility] BMI 2023-03-11 20:42:00 35.74 kg/m2 [facility] Systolic blood pressure 2023-03-08 18:48:00 168 mm[Hg] [facility] Diastolic blood pressure 2023-03-08 18:48:00 75 mm[Hg] [facility] Heart rate 2023-03-08 18:48:00 83 /min [facility] Body height 2023-03-08 18:48:00 157.5 cm [facility] Body weight 2023-03-08 18:48:00 83.008 kg [facility] BMI 2023-03-08 18:48:00 33.47 kg/m2 [facility] Systolic blood pressure 2023-01-11 21:46:00 141 mm[Hg] [facility] Diastolic blood pressure 2023-01-11 21:46:00 70 mm[Hg] [facility] Heart rate 2023-01-11 21:45:00 84 /min [facility] Body temperature 2023-01-11 21:45:00 36.89 Suzette [facility] Respiratory rate 2023-01-11 21:45:00 18 /min [facility] Body height 2023-01-11 21:45:00 157.5 cm [facility] Body weight 2023-01-11 21:45:00 83.054 kg [facility] BMI 2023-01-11 21:45:00 33.49 kg/m2 [facility] Oxygen saturation in Arterial blood by Pulse oximetry 2023-01-11 21:45:00 98 /min [facility] Systolic blood pressure 2022-11-25 21:50:00 162 mm[Hg] [facility] Diastolic blood pressure 2022-11-25 21:50:00 82 mm[Hg] [facility] Heart rate 2022-11-25 21:50:00 71 /min [facility] Body temperature 2022-11-25 21:35:00 36.78 Suzette [facility] Respiratory rate 2022-11-25 21:35:00 18 /min [facility] Body height 2022-11-25 21:35:00 157.5 cm [facility] Body weight 2022-11-25 21:35:00 85.957 kg [facility] BMI 2022-11-25 21:35:00 34.66 kg/m2 [facility] Systolic blood pressure 2022-11-22 22:07:00 99 mm[Hg] [facility] Diastolic blood pressure 2022-11-22 22:07:00 69 mm[Hg] [facility] Heart rate 2022-11-22 22:06:00 83 /min [facility] Respiratory rate 2022-11-22 22:06:00 18 /min [facility] Body height 2022-11-22 22:06:00 157.5 cm [facility] Body weight 2022-11-22 22:06:00 85.276 kg [facility] BMI 2022-11-22 22:06:00 34.39 kg/m2 [facility] Oxygen saturation in Arterial blood by Pulse oximetry 2022-11-22 22:06:00 96 /min [facility] Systolic blood pressure 2022-10-22 21:49:00 168 mm[Hg] [facility] Diastolic blood pressure 2022-10-22 21:49:00 78 mm[Hg] [facility] Heart rate 2022-10-22 21:49:00 69 /min [facility] Body temperature 2022-10-22 21:49:00 36.28 Suzette [facility] Respiratory rate 2022-10-22 21:49:00 18 /min [facility] Body height 2022-10-22 21:49:00 157.5 cm [facility] Body weight 2022-10-22 21:49:00 86.183 kg [facility] BMI 2022-10-22 21:49:00 34.75 kg/m2 [facility] Systolic blood pressure 2022-09-13 20:25:00 178 mm[Hg] [facility] Diastolic blood pressure 2022-09-13 20:25:00 75 mm[Hg] [facility] Heart rate 2022-09-13 20:24:00 84 /min [facility] Body temperature 2022-09-13 20:24:00 36.61 Suzette [facility] Respiratory rate 2022-09-13 20:24:00 18 /min [facility] Body height 2022-09-13 20:24:00 157.5 cm [facility] Body weight 2022-09-13 20:24:00 88.451 kg [facility] BMI 2022-09-13 20:24:00 35.67 kg/m2 [facility] Body height 2022-09-06 20:38:00 157.5 cm [facility] Body weight 2022-09-06 20:38:00 89.359 kg [facility] BMI 2022-09-06 20:38:00 36.03 kg/m2 [facility] Systolic blood pressure 2022-08-31 19:51:00 153 mm[Hg] [facility] Diastolic blood pressure 2022-08-31 19:51:00 75 mm[Hg] [facility] Heart rate 2022-08-31 19:51:00 81 /min [facility] Oxygen saturation in Arterial blood by Pulse oximetry 2022-08-31 19:51:00 99 /min [facility] Body height 2022-08-31 19:40:00 157.5 cm [facility] Body weight 2022-08-31 19:40:00 89.404 kg [facility] BMI 2022-08-31 19:40:00 36.05 kg/m2 [facility] Systolic blood pressure 2022-08-13 19:54:00 152 mm[Hg] [facility] Diastolic blood pressure 2022-08-13 19:54:00 72 mm[Hg] [facility] Heart rate 2022-08-13 19:53:00 90 /min [facility] Body temperature 2022-08-13 19:53:00 36.67 Suzette [facility] Respiratory rate 2022-08-13 19:53:00 18 /min [facility] Body height 2022-08-13 19:53:00 162.6 cm [facility] Body weight 2022-08-13 19:53:00 91.173 kg [facility] BMI 2022-08-13 19:53:00 34.50 kg/m2 [facility] Systolic blood pressure 2022-07-28 21:49:00 163 mm[Hg] [facility] Diastolic blood pressure 2022-07-28 21:49:00 69 mm[Hg] [facility] Heart rate 2022-07-28 21:43:00 71 /min [facility] Respiratory rate 2022-07-28 21:43:00 18 /min [facility] Body weight 2022-07-28 21:43:00 86.183 kg [facility] BMI 2022-07-28 21:43:00 34.75 kg/m2 [facility] Oxygen saturation in Arterial blood by Pulse oximetry 2022-07-28 21:43:00 97 /min [facility] Systolic blood pressure 2022-06-09 20:59:00 146 mm[Hg] [facility] Diastolic blood pressure 2022-06-09 20:59:00 68 mm[Hg] [facility] Heart rate 2022-06-09 20:52:00 78 /min [facility] Respiratory rate 2022-06-09 20:52:00 18 /min [facility] Body weight 2022-06-09 20:52:00 86.637 kg [facility] BMI 2022-06-09 20:52:00 34.93 kg/m2 [facility] Oxygen saturation in Arterial blood by Pulse oximetry 2022-06-09 20:52:00 96 /min [facility] Procedures Procedure Date / Time Performed Performing Clinician Source POCT URINALYSIS W/O SPECIFIC GRAVITY 2024-03-09 00:00:00 Jack Rousseau [facility] POCT URINALYSIS AUTO 2024-02-17 21:27:00 Jayshree Rousseau [facility] US RETROPERITONEAL LIMITED 2024-02-13 17:55:55 Jack Rousseau [facility] XR HAND 3+ VW LEFT 2024-02-06 20:14:31 Conor Martinez [facility] XR CLAVICLE COMP BILATERAL 2024-02-06 20:14:11 Conor Espinoza [facility] XR SHOULDER 2+ VW BILATERAL 2024-02-06 20:05:20 Conor Martinez [facility] URINE CULTURE 2024-01-23 21:32:00 Jack Rousseau [facility] RICCO,POST-VOID RES,US,NON-IMAGING 2024-01-23 00:00:00 Jack Rousseau [facility] POCT URINALYSIS W/O SPECIFIC GRAVITY 2024-01-23 00:00:00 Jack Rousseau [facility] SARS-COV-2 COVID 19 MIGUEL SUCROSE VACCINE 12+, , 0.3 ML (30 MCG), IM PFIZER (SON TOP) 2023-12-21 20:02:01 Shellie Jarvis [facility] INSURANCE CORRESPONDENCE 2023-08-01 06:01:00 Doc tutu Unassigned, Destin [facility] INSURANCE CORRESPONDENCE 2023-07-22 05:01:00 Doc tutu Unassigned, Destin [facility] FLU VACC(),65+YR,0.5 ML,IM,ADJUVANTED,QUAD(FLUA D) 2023-07-07 18:34:27 Shellie Jarvis [facility] DME/SUPPLY JUSTIFICATION 2023-06-14 05:01:00 López cam Unassigned, Destin [facility] XR FEMUR 2 VW LEFT 2023-06-01 18:40:33 Thierno Boyce [facility] XR HIPS 3 VW LEFT 2023-06-01 18:40:33 Laura Boyce [facility] OP CORRESPONDENCE 2023-05-31 05:01:00 Doctor Kayy ssimini, Destin [facility] HEALTH - OTHER 2023-05-27 05:01:00 Doctor Paloma polanco, Destin [facility] MR LUMBAR SPINE WO CONTRAST 2023-05-25 17:32:37 Laura Boyce [facility] CT ABDOMEN WO CONTRAST 2023-05-10 19:55:40 Laura Boyce [facility] HEALTH - OTHER 2023-04-13 05:01:00 Doctor Paloma polanco, Destin [facility] - OTHER 2023-04-08 05:01:00 Doctor Paloma polanco, Destin [facility] DME/SUPPLY JUSTIFICATION 2023-04-06 05:01:00 Doc tor Unassigned, Destin [facility] - OTHER 2023-04-05 05:01:00 Doctor Paloma polanco, Destin [facility] PAIN MANAGEMENT AGREEMENT & INFORMED CONSENT 2023-04-01 05:01:00 Doctor Unassigned, Destin [facility] XR KNEE 3 VW BILATERAL 2023-03-30 18:18:34 Ra sara Tolentino [facility] XR HIPS 2 VW BILATERAL 2023-03-30 18:17:22 Ra sara Tolentino [facility] XR SHOULDER 2+ VW LEFT 2023-03-30 18:16:21 Ra sara Tolentino [facility] HEALTH 485 2023-03-26 05:01:00 Doctor Unass igned, Destin [facility] US ABDOMEN LIMITED 2023-02-11 20:56:00 Thierno Boyce [facility] EXTERNAL PROVIDER RECORDS 2023-01-18 05:01:00 Do ctor Unassigned, Destin [facility] AUTHORIZ[facility] 2022-11-22 06:01:00 Doctor Unassigned, Destin [facility] DEXA PERIPHERAL (FOREARM) 2022-11-10 20:13:03 Laura Alvarado [facility] DEXA AXIAL (HIP AND SPINE) 2022-11-10 20:13:03 Laura Alexander [facility] ASSIGNMENT OF BENEFITS 2022-11-10 19:06:26 Docto r Unassigned, Destin [facility] POCT URINALYSIS W/O SPECIFIC GRAVITY 2022-10-22 21:52:00 Jack Rousseau [facility] POCT URINALYSIS W/O SPECIFIC GRAVITY 2022-09-13 20:20:00 Jack Rousseau [facility] PATIENT QUESTIONNAIRE 2022-08-13 06:01:00 Doctor Unassigned, Destin [facility] POCT URINALYSIS W/O SPECIFIC GRAVITY 2022-08-13 00:00:00 Jack Rousseau [facility] ASSIGNMENT OF BENEFITS 2022-07-28 21:11:56 Docto r Unassigned, Destin [facility] REFERRAL- REQUEST/RESPONSE 2022-07-05 05:01:00 D octor Unassigned, Destin [facility] EXTERNAL PROVIDER RECORDS 2022-06-16 05:01:00 Do ctor Unassigned, Destin [facility] PPD (TB) 2022-06-09 21:21:40 Anne Marie Licea [facility] Encounters Start Date/Time End Date/Time Encounter Type Admission Type Attending Clinicians Care Facility Care Department Encounter ID Source 2024-04-18 13:19:01 Outpatient Shellie Jarvis [facility] [id number] [facility] 2024-02-29 14:56:07 Outpatient R TYRELL [facility] [place] [facility] [id number] [facility] 2021-07-27 17:45:24 Outpatient R JAYJAY SMALLS [facility] [id number] [facility] 2021-07-26 15:52:42 Outpatient JAYJAY SMALL[facility] [id number] [facility] 2024-07-20 13:30:00 2024-07-20 13:30:00 Outpatient R JACK ROUSSEAU ELISHA [facility] [id number] [facility] 2024-05-03 00:00:00 2024-05-03 13:19:[address] [facility] 1.2.840.114 350.1.13.10 4.2.7.2.686 [id number] [facility] 2024-04-24 13:00:00 2024-04-24 13:00:00 Outpatient SHELLIE AKBAR [facility] [id number] [facility] 2024-04-24 00:00:00 2024-04-24 10:26:[address] [facility] 1..840.114 350.1.13.10 4.2.7.2.686 [id number] [facility] 2024-04-22 00:00:00 2024-04-23 11:40:38 Refill Shellie Jarvis [facility] 1..840.114 350.1.13.10 4.2.7.2.686 [id number] [facility] 2024-04-23 00:00:00 2024-04-23 10:58:45 Letter (Out) [facility] 1..840.114 350.1.13.10 4.2.7.2.686 [id number] [facility] 2024-04-23 00:00:00 2024-04-23 00:00:00 (TEL) [facility] [id number] [facility] 2024-04-23 00:00:00 2024-04-23 00:00:00 (TEL) [facility] [id number] [facility] 2024-04-18 15:20:00 2024-04-18 16:33:42 Outpatient R SHELLIE JARVIS [facility] [id number] [facility] 2024-04-18 15:20:00 2024-04-18 15:40:00 Office Visit Shellie Jarvis [facility] 1..840.114 350.1.13.10 4.2.7.2.686 [id number] [facility] 2024-04-18 13:40:00 2024-04-18 13:40:00 Outpatient R SHELLIE JARVIS [facility] [id number] [facility] 2024-04-13 00:00:00 2024-04-13 15:47:52 Telephone Shellie Jarvis [facility] 1.2.840.114 350.1.13.10 4.2.7.2.686 [id number] [facility] 2024-04-06 15:00:00 2024-04-06 15:00:00 Outpatient R SHELLIE JARVIS [facility] [id number] [facility] 2024-03-27 00:00:00 2024-04-06 09:12:24 Telephone Jack Rousseau [facility] 1.2.840.114 350.1.13.10 4.2.7.2.686 [id number] [facility] 2024-04-05 00:00:00 2024-04-05 09:17:47 Telephone Shellie Jarvis Gary [facility] 1.2.840.114 350.1.13.10 4.2.7.2.686 [id number] [facility] 2024-03-30 00:00:00 2024-03-30 16:44:12 Nurse Triage Shellie Jarvis Gary [facility] OFF[facility] BU[facility] 1.2.840.114 350.1.13.10 4.2.7.2.686 [id number] [facility] 2024-03-30 16:00:00 2024-03-30 16:15:00 Photo Retoucher Visit Pob, Adc Lab Main Rosetta Ham [facility] BUILDING 1.2.840.114 350.1.13.10 4.2.7.2.686 [id number] [facility] 2024-03-30 16:00:00 2024-03-30 16:00:00 Outpatient R ROSETTA HAM [facility] [id number] [facility] 2024-03-28 13:15:00 2024-03-28 13:15:00 Outpatient R SETH DIAZ [facility] [id number] [facility] 2024-03-27 18:00:00 2024-03-27 18:18:19 Outpatient R BRENTALYX [facility] [id number] [facility] 2024-03-27 18:00:00 2024-03-27 18:18:19 Urgent Care BrentAlyx Unknown, Attending [facility] 1..840.114 350.1.13.10 4.2.7.2.686 [id number] [facility] 2024-03-27 00:00:00 2024-03-27 15:06:[address] [facility] 1..840.114 350.1.13.10 4.2.7.2.686 [id number] [facility] 2024-03-12 00:00:00 2024-03-13 09:22:08 [facility]ill [facility] 1..840.114 350.1.13.10 4.2.7.2.686 [id number] [facility] 2024-03-09 16:30:00 2024-03-09 16:59:55 Outpatient R JACK ROUSSEAU ELISHA [facility] [id number] [facility] 2024-03-09 16:30:00 2024-03-09 16:59:55 Office Visit Jack Rousseau [facility] 1..840.114 350.1.13.10 4.2.7.2.686 [id number] [facility] 2024-03-01 00:00:00 2024-03-02 08:09:[address] [facility] 1.2.840.114 350.1.13.10 4.2.7.2.686 [id number] [facility] 2024-02-29 13:45:00 2024-02-29 13:45:00 Outpatient HERLINDA JOY CRAIG [facility] [id number] [facility] 2024-01-17 00:00:00 2024-02-18 18:06:04 Patient Secure Msg Doctor Unassigned, Destin [facility] 1..840.114 350.1.13.10 4.2.7.2.686 [id number] [facility] 2024-02-17 13:00:00 2024-02-17 15:10:02 Outpatient JACK CALVERT [facility] [id number] [facility] 2024-02-17 13:00:00 2024-02-17 15:10:02 Office Visit Soham [facility] BUILDING 1..840.114 350.1.13.10 4.2.7.2.686 [id number] [facility] 2024-02-16 13:45:00 2024-02-16 13:45:00 Outpatient HERLINDA JOY CRAIG [facility] [id number] [facility] 2024-02-14 14:00:00 2024-02-14 16:59:04 Outpatient JACK CALVERT [facility] [id number] [facility] 2024-02-14 14:00:00 2024-02-14 14:15:00 Photo Retoucher [facility] 1.2.840.114 350.1.13.10 4.2.7.2.686 [id number] [facility] 2024-02-14 00:00:00 2024-02-14 12:30:10 Refill Jack Rousseau [facility] 1.2.840.114 350.1.13.10 4.2.7.2.686 [id number] [facility] 2024-02-10 00:00:00 2024-02-14 10:58:27 Patient Secure Msg Doctor Unassigned, Destin [facility] 1.2.840.114 350.1.13.10 4.2.7.2.686 [id number] [facility] 2024-02-14 00:00:00 2024-02-14 10:48:54 Case Management Jack Rousseau [facility] 1.2840.114 350.1.13.10 4.2.7.2.686 [id number] [facility] 2024-02-13 12:24:44 2024-02-13 23:59:00 Hospital Encounter Matheus , Shellie Vega [facility] 1.20.114 350.1.13.10 4.2.7.2.686 [id number] [facility] 2024-02-13 15:15:00 2024-02-13 16:19:09 Outpatient R TYRLEL [facility] [id number] [facility] 2024-02-13 15:15:00 2024-02-13 16:19:09 Office Visit Alisson [facility] BUILDING 1.20.114 350.1.13.10 4.2.7.2.686 [id number] [facility] 2024-02-13 11:30:00 2024-02-13 12:23:00 Hospital Encounter Jack Rousseau [facility] 1.2840.114 350.1.13.10 4.2.7.2.686 [id number] [facility] 2024-02-13 00:00:00 2024-02-13 09:13:08 Letter (Out) [facility] 1.284.114 350.1.13.10 4.2.7.2.686 [id number] [facility] 2024-01-06 00:00:00 2024-02-11 18:10:22 Patient Secure Msg Doctor Unassigned, Destin [facility] 1.84.114 350.1.13.10 4.2.7.2.686 [id number] [facility] 2024-02-10 00:00:00 2024-02-10 13:46:43 Telephone Jack Rousseau [facility] 1.84.114 350.1.13.10 4.2.7.2.686 [id number] [facility] 2024-02-08 14:30:00 2024-02-08 16:23:51 Outpatient R HERLINDA ROBERTS CRAIG [facility] [id number] [facility] 2024-02-08 14:30:00 2024-02-08 16:23:51 Ancillary Visit Dara Hawk Craig L [facility] 1.284.114 350.1.13.10 4.2.7.2.686 [id number] [facility] 2024-02-07 00:00:00 2024-02-07 15:48:41 Telephone Provider, Urgent Care Day [facility] 1.284.114 350.1.13.10 4.2.7.2.686 [id number] [facility] 2024-02-06 14:40:51 2024-02-06 23:59:00 Hospital Encounter Conor Martinez [facility] 1.2840.114 350.1.13.10 4.2.7.2.686 [id number] [facility] 2024-02-06 14:40:51 2024-02-06 23:59:00 Hospital Encounter Conor Martinez [facility] 1.284.114 350.1.13.10 4.2.7.2.686 [id number] [facility] 2024-02-06 14:40:50 2024-02-06 23:59:00 Hospital Encounter Conor Martinez [facility] 1.2840.114 350.1.13.10 4.2.7.2.686 [id number] [facility] 2024-02-06 15:00:00 2024-02-06 15:00:00 Outpatient R TYRELL VINSON [place] [facility] [id number] [facility] 2024-02-06 14:00:00 2024-02-06 14:54:13 Urgent Care Conor Martinez Unknown, Attending [facility] BU[facility] 1.2.840.114 350.1.13.10 4.2.7.2.686 [id number] [facility] 2024-02-02 00:00:00 2024-02-03 17:08:43 Laura Acuña [facility] [id number] 350.1.13.10 4.2.7.2.686 [id number] [facility] 2024-02-02 00:00:00 2024-02-03 14:34:[address] [facility] 1.2840.114 350.1.13.10 4.2.7.2.686 [id number] [facility] 2024-02-02 00:00:00 2024-02-02 18:35:53 Nurse Triage Vanessa Garcia [facility] [id number] 350.1.13.10 [id number] [id number] [facility] 2024-02-02 00:00:00 2024-02-02 00:00:00 Outpatient R JACK ROUSSEAU [facility] [id number] [facility] 2024-02-01 15:00:00 2024-02-01 15:00:00 Outpatient TYRELL CORNELIUS [facility] [id number] [facility] 2024-02-01 00:00:00 2024-02-01 14:00:45 Letter (Out) [facility] 1.2840.114 350.1.13.10 4.2.7.2.686 [id number] 019 [id number] [facility] 2024-01-31 00:00:00 2024-01-31 13:54:09 Telephone [facility] 1.2840.114 350.1.13.10 4.2.7.2.686 [id number] 098 [id number] [facility] 2024-01-27 00:00:00 2024-01-27 00:00:[address] [facility] 1.2840.114 350.1.13.10 4.2.7.2.686 [id number] 044 [id number] [facility] 2024-01-26 16:17:52 2024-01-26 23:59:00 Hospital Encounter Herlinda Roberts [facility] 1.840.114 350.1.13.10 4.2.7.2.686 [id number] [facility] 2024-01-26 16:15:00 2024-01-26 16:32:58 Outpatient R HERLINDA ROBERTS CRAIG [facility] [id number] [facility] 2024-01-26 16:15:00 2024-01-26 16:32:58 Office Visit Herlinda Roberts [facility] 1.840.114 350.1.13.10 4.2.7.2.686 [id number] [facility] 2024-01-24 16:15:00 2024-01-24 16:30:00 Photo Retoucher Visit Pob, Adc Lab Main Jack Rousseau [facility] BUILDING 1.840.114 350.1.13.10 4.2.7.2.686 [id number] [facility] 2024-01-24 16:15:00 2024-01-24 16:15:00 Outpatient R SOHAM JACK JACK ROUSSEAU [facility] [id number] [facility] 2024-01-24 00:00:00 2024-01-24 00:00:00 Telephone [facility] 1.840.114 350.1.13.10 4.2.7.2.686 [id number] 044 [id number] [facility] 2024-01-24 00:00:00 2024-01-24 00:00:00 Telephone Jack Rousseau [facility] BUILDING 1..840.114 350.1.13.10 4.2.7.2.686 [id number] 098 [id number] [facility] 2024-01-23 13:30:00 2024-01-23 15:24:54 Outpatient R JACK ROUSSEAU ELISHA [facility] [id number] [facility] 2024-01-23 13:30:00 2024-01-23 15:24:54 Office Visit Jack [facility] 1.2.840.114 350.1.13.10 4.2.7.2.686 [id number] 098 [id number] [facility] 2024-01-23 00:00:00 2024-01-23 00:00:00 Telephone Shellie Jarvis [facility] OFFICE BUILDING 1.2.840.114 350.1.13.10 4.2.7.2.686 [id number] 044 [id number] [facility] 2024-01-23 00:00:00 2024-01-23 00:00:00 Telephone Krystle Cleary [facility] OFFICE BUILDING 1.2.840.114 350.1.13.10 4.2.7.2.686 [id number] 044 [id number] [facility] 2024-01-22 00:00:00 2024-01-22 00:00:00 Telephone Herlinda Roberts [facility] MEDICAL OFFICE BUILDING 1.2.840.114 350.1.13.10 4.2.7.2.686 [id number] [facility] 2024-01-21 00:00:00 2024-01-21 00:00:00 Telephone MadihaKrystle Camille [facility] MEDICAL OFFICE BUILDING 1.2.840.114 350.1.13.10 4.2.7.2.686 [id number] 044 [id number] [facility] 2024-01-20 11:30:00 2024-01-20 11:30:00 Outpatient R JACK ROUSSEAU ELISHA [facility] [id number] [facility] 2024-01-20 00:00:00 2024-01-20 00:00:00 Telephone Krystle Cleary [facility] 1.2.840.114 350.1.13.10 4.2.7.2.686 [id number] 044 [id number] [facility] 2024-01-18 15:39:18 2024-01-18 23:59:00 Hospital Encounter Krystle Cleary [facility] SONI [facility] MEDICAL OFFICE BUILDING 1.840.114 350.1.13.10 4.2.7.2.686 [id number] [facility] 2024-01-18 15:24:14 2024-01-18 15:38:00 Outpatient R KRYSTLE CLEARY [facility] [id number] [facility] 2024-01-18 15:24:14 2024-01-18 15:38:00 Hospital Encounter Krystle Cleary [facility] MEDICAL OFFICE BUILDING 1.840.114 350.1.13.10 4.2.7.2.686 [id number] 809 [id number] [facility] 2024-01-18 14:00:00 2024-01-18 15:23:56 Office Visit Krystle Cleary [facility] MED[facility] OFF[facility] BUILD[facility] 1.2840.114 350.1.13.10 4.2.7.2.686 [id number] 044 [id number] [facility] 2024-01-17 14:30:00 2024-01-17 14:30:00 Outpatient R HERLINDA ROBERTS CRAIG [facility] [id number] [facility] 2024-01-17 00:00:00 2024-01-17 00:00:00 Letter (Out) [facility] 1.2.840.114 350.1.13.10 4.2.7.2.686 [id number] 019 [id number] [facility] 2024-01-16 00:00:00 2024-01-16 00:00:00 Outpatient SHELLIE AKBAR [facility] [id number] [facility] 2024-01-13 00:00:00 2024-01-13 00:00:00 Telephone Soham Jack [facility] 1.2840.114 350.1.13.10 4.2.7.2.686 [id number] 098 [id number] [facility] 2024-01-05 00:00:00 2024-01-05 00:00:00 Telephone [facility] 1.84.114 350.1.13.10 4.2.7.2.686 [id number] 044 [id number] [facility] 2023-12-26 00:00:00 2023-12-26 00:00:00 Patient Secure Msg Doctor Unassigned, [place] [facility] 1.2840.114 350.1.13.10 4.2.7.2.686 [id number] 807 [id number] [facility] 2023-12-23 00:00:00 2023-12-23 00:00:00 Patient Secure Msg Doctor Unassigned, [place] [facility] 1.2840.114 350.1.13.10 4.2.7.2.686 [id number] 019 [id number] [facility] 2023-12-22 00:00:00 2023-12-22 00:00:00 Letter (Out) [facility] 1.2840.114 350.1.13.10 4.2.7.2.686 [id number] 019 [id number] [facility] 2023-12-21 14:00:00 2023-12-21 15:17:38 Outpatient R MATHEUSMIGUEL PERDUEINE [facility] [id number] [facility] 2023-12-21 14:00:00 2023-12-21 15:17:38 Office Visit MatheusShellie perdue [facility] MEDICAL OFFICE BUILDING 1.2.840.114 350.1.13.10 4.2.7.2.686 [id number] [id number] [facility] 2023-12-21 00:00:00 2023-12-21 00:00:00 Refill Shellie Jarvis [facility] MEDICAL OFFICE BUILDING 1.2.840.114 350.1.13.10 4.2.7.2.686 [id number] 044 [id number] [facility] 2023-12-21 00:00:00 2023-12-21 00:00:00 Telephone Matheus Shellie [facility] MEDICAL OFFICE BUILDING 1.2.840.114 350.1.13.10 4.2.7.2.686 [id number] 044 [id number] [facility] 2023-12-21 00:00:00 2023-12-21 00:00:00 Telephone Shellie Jarvis [facility] MEDICAL OFFICE BUILDING 1.2.840.114 350.1.13.10 4.2.7.2.686 [id number] 044 [id number] [facility] 2023-12-13 00:00:00 2023-12-13 00:00:00 Telephone Shellie Jarvis [facility] MEDICAL OFFICE BUILDING 1.2.840.114 350.1.13.10 4.2.7.2.686 [id number] 044 [id number] [facility] 2023-12-09 00:00:00 2023-12-09 00:00:00 Refill Matheus Shellie [facility] MED[facility] OFFICE BUILDING 1.2.840.114 350.1.13.10 4.2.7.2.686 [id number] 044 [id number] [facility] 2023-12-09 00:00:00 2023-12-09 00:00:00 Nurse Triage Tosha Mendez [facility] 1.2.840.114 350.1.13.10 4.2.7.2.686 [id number] 019 [id number] [facility] 2023-11-23 00:00:00 2023-11-23 00:00:[address] [facility] MEDICAL OFFICE BUILDING 1.2.840.114 350.1.13.10 4.2.7.2.686 [id number] 044 [id number] [facility] 2023-11-21 16:30:00 2023-11-21 17:00:00 Telemedici ne Visit Jack Roussaeu [facility] 1.2.840.114 350.1.13.10 4.2.7.2.686 [id number] 098 [id number] [facility] 2023-11-21 16:30:00 2023-11-21 16:30:00 [facility] [id number] [facility] 2023-11-14 16:30:00 2023-11-14 16:30:00 [facility] [id number] [facility] 2023-11-14 00:00:00 2023-11-14 00:00:00 Letter (Out) [facility] 1.2.840.114 350.1.13.10 4.2.7.2.686 [id number] 019 [id number] [facility] 2023-11-11 00:00:00 2023-11-11 00:00:00 Telephone Matheus , [facility] OFF[facility] BUILD[facility] 1.84114 350.1.13.10 4.2.7.2.686 [id number] 044 [id number] [facility] 2023-11-10 00:00:00 2023-11-10 00:00:00 Refill AustenLaura [facility] 1.84.114 350.1.13.10 4.2.7.2.686 [id number] 044 [id number] [facility] 2023-11-09 16:45:00 2023-11-09 17:03:09 Outpatient R SHELLIE JARVIS [facility] [id number] [facility] 2023-11-09 16:45:00 2023-11-09 17:03:09 Photo Retoucher Visit Lab, Shellie Conteh [facility] OFFICE BUILDING 1.84.114 350.1.13.10 4.2.7.2.686 [id number] [facility] 2023-11-09 14:20:00 2023-11-09 14:20:00 Outpatient R SHELLIE JARVIS [facility] [id number] [facility] 2023-11-01 00:00:00 2023-11-01 00:00:00 Telephone [facility] OFFICE BUILDING 1.84.114 350.1.13.10 4.2.7.2.686 [id number] 044 [id number] [facility] 2023-11-01 00:00:00 2023-11-01 00:00:00 Refill Shellie Jarvis [facility] OFFICE BUILDING 1.84.114 350.1.13.10 4.2.7.2.686 [id number] 044 [id number] [facility] 2023-10-31 00:00:00 2023-10-31 00:00:00 Telephone Shellie Jarvis [facility] 1.2.840.114 350.1.13.10 4.2.7.2.686 [id number] 044 [id number] [facility] 2023-10-29 00:00:00 2023-10-29 00:00:00 Refill Jack Rousseau [facility] BUILDING 1.2.840.114 350.1.13.10 4.2.7.2.686 [id number] [facility] 2023-10-06 00:00:00 2023-10-06 00:00:00 Telephone Shellie Jarvis [facility] MED[facility] OFFICE BUILDING 1.2840.114 350.1.13.10 4.2.7.2.686 [id number] 044 [id number] [facility] 2023-10-05 00:00:00 2023-10-05 00:00:00 Telephone Shellie Jarvis [facility] MEDICAL OFFICE BUILDING 1.2.840.114 350.1.13.10 4.2.7.2.686 [id number] 044 [id number] [facility] 2023-10-05 00:00:00 2023-10-05 00:00:00 Telephone Shellie Jarvis [facility] MEDICAL OFFICE BUILDING 1.2.840.114 350.1.13.10 4.2.7.2.686 [id number] 044 [id number] [facility] 2023-09-27 00:00:00 2023-09-27 00:00:00 Telephone Jack Rousseau [facility] BUILDING 1.2.840.114 350.1.13.10 4.2.7.2.686 [id number] 098 [id number] [facility] 2023-09-27 00:00:00 2023-09-27 00:00:00 [address] Jarvis [address] [facility] 1.2.840.114 350.1.13.10 4.2.7.2.686 [id number] 044 [id number] [facility] 2023-09-21 00:00:00 2023-09-21 00:00:00 Telephone Jack Rousseau [facility] BUILDING 1..840.114 350.1.13.10 4.2.7.2.686 [id number] [facility] 2023-08-29 15:00:00 2023-08-29 16:59:30 [facility] [id number] 2023-08-29 15:00:00 2023-08-29 16:59:30 Telemedici ne Visit Jack Rousseau [facility] BUILDING 1..840.114 350.1.13.10 4.2.7.2.686 [id number] 098 [id number] [facility] 2023-08-24 00:00:00 2023-08-24 00:00:00 Telephone Jack Rousseau [facility] BUILDING 1..840.114 350.1.13.10 4.2.7.2.686 [id number] 098 [id number] [facility] 2023-08-15 00:00:00 2023-08-15 00:00:00 Patient Secure Msg Shellie Jarvis Gary [facility] 1..840.114 350.1.13.10 4.2.7.2.686 [id number] 044 [id number] [facility] 2023-08-15 00:00:00 2023-08-15 00:00:[address] [facility] 1.84.114 350.1.13.10 4.2.7.2.686 [id number] 044 [id number] [facility] 2023-08-11 00:00:00 2023-08-11 00:00:00 Telephone May Sauer Nathalie [facility] [facility] BUILDING 1..114 350.1.13.10 4.2.7.2.686 [id number] [facility] 2023-08-10 09:00:00 2023-08-10 10:00:00 Ancillary Visit Saira Diego Peter [facility] NAL BUILDING 1.114 350.1.13.10 4.2.7.2.686 [id number] [facility] 2023-08-10 09:00:00 2023-08-10 09:00:00 Outpatient R LAURA BOYCE [facility] [id number] [facility] 2023-08-10 00:00:00 2023-08-10 00:00:00 Patient Outreach Brooke Bland [facility] MEDICAL OFFICE BUILDING 1.84.114 350.1.13.10 4.2.7.2.686 [id number] 044 [id number] [facility] 2023-08-09 14:40:00 2023-08-09 14:57:21 Outpatient R SHELLIE JARVIS [facility] [id number] [facility] 2023-08-09 14:40:00 2023-08-09 14:57:21 Office Visit Shellie Jarvis [facility] MEDICAL OFFICE BUILDING 1.84114 350.1.13.10 4.2.7.2.686 [id number] 044 [id number] [facility] 2023-08-08 00:00:00 2023-08-08 00:00:00 Telephone Jack Rousseau [facility] 1.2.840.114 350.1.13.10 4.2.7.2.686 [id number] 098 [id number] [facility] 2023-08-01 00:00:00 2023-08-01 00:00:00 Orders Only Doctor Unassigned, [place] [facility] 1.2.840.114 350.1.13.10 4.2.7.2.686 [id number] [id number] [facility] 2023-08-01 00:00:00 2023-08-01 00:00:00 Telephone Laura Boyce [facility] 1.2.840.114 350.1.13.10 4.2.7.2.686 [id number] 044 [id number] [facility] 2023-07-26 00:00:00 2023-07-26 00:00:00 Patient Secure Msg Doctor Unassigned, [place] [facility] 1.2.840.114 350.1.13.10 4.2.7.2.686 [id number] 044 [id number] [facility] 2023-07-26 00:00:00 2023-07-26 00:00:00 Telephone Laura Boyce [facility] 1.2.840.114 350.1.13.10 4.2.7.2.686 [id number] 044 [id number] [facility] 2023-07-25 00:00:00 2023-07-25 00:00:00 Telephone Laura Boyce [facility] 1.2.840.114 350.1.13.10 4.2.7.2.686 [id number] 044 [id number] [facility] 2023-07-22 00:00:00 2023-07-22 00:00:00 Orders Only Doctor Unassigned, [place] [facility] 1.2.840.114 350.1.13.10 4.2.7.2.686 [id number] 009 [id number] [facility] 2023-07-13 12:45:00 2023-07-13 14:18:04 Outpatient R SHELLIE JARVIS [facility] [id number] [facility] 2023-07-13 12:45:00 2023-07-13 14:18:04 Photo Retoucher Visit Lab, Shellie Conteh [facility] OFFICE BUILDING 1.2.840.114 350.1.13.10 4.2.7.2.686 [id number] [facility] 2023-07-11 13:45:00 2023-07-11 14:00:00 Office [address] Seth Diaz [facility] MEDICAL OFFICE BUILDING 1.2.840.114 350.1.13.10 4.2.7.2.686 [id number] 044 [id number] [facility] 2023-07-11 13:45:00 2023-07-11 13:45:00 Outpatient R SETH DIAZ [facility] [id number] [facility] 2023-07-08 00:00:00 2023-07-08 00:00:00 Telephone Laura Boyce [facility] BUILDING 1..840.114 350.1.13.10 4.2.7.2.686 [id number] 044 [id number] [facility] 2023-07-07 13:45:00 2023-07-07 14:22:15 Outpatient R SHELLIE JARVIS [facility] [id number] [facility] 2023-07-07 13:45:00 2023-07-07 14:22:15 Photo Retoucher Visit Lab, Ang - Db Shellie Jarvis [facility] 1.2.840.114 350.1.13.10 4.2.7.2.686 [id number] 353 [id number] [facility] 2023-07-07 13:00:00 2023-07-07 13:46:19 Office Visit [facility] MEDICAL OFFICE BUILDING 1.2.840.114 350.1.13.10 4.2.7.2.686 [id number] 044 [id number] [facility] 2023-07-06 11:30:00 2023-07-06 11:30:00 Outpatient R [facility] [id number] [facility] 2023-07-04 00:00:00 2023-07-04 00:00:00 Telephone Austen [facility] 1.2.840.114 350.1.13.10 4.2.7.2.686 [id number] 044 [id number] [facility] 2023-06-27 00:00:00 2023-06-27 00:00:00 Telephone Austen [facility] BUILDING 1.2.840.114 350.1.13.10 4.2.7.2.686 [id number] 044 [id number] [facility] 2023-06-27 00:00:00 2023-06-27 00:00:00 Telephone Laura Boyce [facility] BUILDING 1.2.840.114 350.1.13.10 4.2.7.2.686 [id number] 044 [id number] [facility] 2023-06-22 00:00:00 2023-06-22 00:00:00 Telephone Austen [facility] BUILDING 1.2.840.114 350.1.13.10 4.2.7.2.686 [id number] 044 [id number] [facility] 2023-06-21 00:00:00 2023-06-21 00:00:00 Telephone Laura Boyce [facility] BUILDING 1.2.840.114 350.1.13.10 4.2.7.2.686 [id number] 044 [id number] [facility] 2023-06-17 00:00:00 2023-06-17 00:00:00 Telephone Laura Boyce [facility] 1.2.840.114 350.1.13.10 4.2.7.2.686 [id number] 044 [id number] [facility] 2023-06-17 00:00:00 2023-06-17 00:00:00 Telephone Laura Boyce [facility] 1.2.840.114 350.1.13.10 4.2.7.2.686 [id number] 044 [id number] [facility] 2023-06-15 00:00:00 2023-06-15 00:00:00 Letter (Out) Clinic, Martín [facility] 1.2.840.114 350.1.13.10 4.2.7.2.686 [id number] [facility] 2023-06-15 00:00:00 2023-06-15 00:00:00 Telephone Laura Boyce [facility] 1.2.840.114 350.1.13.10 4.2.7.2.686 [id number] 044 [id number] [facility] 2023-06-14 16:00:00 2023-06-14 16:40:00 Telemedici ne Visit Laura Boyce [facility] 1.2.840.114 350.1.13.10 4.2.7.2.686 [id number] 044 [id number] [facility] 2023-06-14 16:00:00 2023-06-14 16:00:00 Outpatient R LAURA BOYCE [facility] [id number] [facility] 2023-06-14 00:00:00 2023-06-14 00:00:00 Orders Only Doctor Unassigned, [place] [facility] 1.2.840.114 350.1.13.10 4.2.7.2.686 [id number] [facility] 2023-06-13 00:00:00 2023-06-13 00:00:00 Patient Outreach Josie Booth [facility] 1.2.840.114 350.1.13.10 4.2.7.2.686 [id number] [id number] [facility] 2023-06-13 00:00:00 2023-06-13 00:00:00 Telephone Laura Boyce [facility] 1.2.840.114 350.1.13.10 4.2.7.2.686 [id number] [id number] [facility] 2023-06-13 00:00:00 2023-06-13 00:00:00 Telephone Josie Booth [facility] 1.2.840.114 350.1.13.10 4.2.7.2.686 [id number] [facility] 2023-06-09 00:00:00 2023-06-09 00:00:00 Telephone Laura Boyce [facility] 1.2.840.114 350.1.13.10 4.2.7.2.686 [id number] [id number] [facility] 2023-06-08 15:40:00 2023-06-08 16:20:00 Telemedici ne Visit [place], [facility] 1.2.840.114 350.1.13.10 4.2.7.2.686 [id number] [facility] 2023-06-08 15:40:00 2023-06-08 15:40:00 Outpatient R LAURA BOYCE [facility] [id number] [facility] 2023-06-08 00:00:00 2023-06-08 00:00:00 Telephone [place] [facility] 1.2.840.114 350.1.13.10 4.2.7.2.686 [id number] [id number] [facility] 2023-06-06 00:00:00 2023-06-06 00:00:00 Telephone [place] [facility] 1.2.840.114 350.1.13.10 4.2.7.2.686 [id number] 044 [id number] [facility] 2023-06-03 00:00:00 2023-06-03 00:00:00 Telephone [place] [facility] 1.2.840.114 350.1.13.10 4.2.7.2.686 [id number] [id number] [facility] 2023-06-03 00:00:00 2023-06-03 00:00:00 Telephone [place] [facility] 1.2.840.114 350.1.13.10 4.2.7.2.686 [id number] [id number] [facility] 2023-06-02 00:00:00 2023-06-02 00:00:00 Telephone [place], Social Work [facility] 1.2.840.114 350.1.13.10 4.2.7.2.686 [id number] [facility] 2023-06-01 13:16:52 2023-06-01 23:59:00 Outpatient R LAURA BOYCE [facility] [id number] [facility] 2023-06-01 13:15:00 2023-06-01 23:59:00 Hospital Encounter Laura Boyce [facility] 1.2.840.114 350.1.13.10 4.2.7.2.686 [id number] [facility] 2023-06-01 11:40:00 2023-06-01 13:04:33 Office Visit Laura Boyce [facility] 1.2.840.114 350.1.13.10 4.2.7.2.686 [id number] [id number] [facility] 2023-06-01 00:00:00 2023-06-01 00:00:00 Patient Outreach Josie Booth [facility] 1.2.840.114 350.1.13.10 4.2.7.2.686 [id number] [id number] [facility] 2023-06-01 00:00:00 2023-06-01 00:00:00 Telephone Laura Boyce [facility] 1.2.840.114 350.1.13.10 4.2.7.2.686 [id number] [id number] [facility] 2023-05-31 00:00:00 2023-05-31 00:00:00 Orders Only Doctor Unassigned, [place] [facility] 1.2.840.114 350.1.13.10 4.2.7.2.686 [id number] [facility] 2023-05-29 15:35:26 2023-05-29 23:59:00 Outpatient GLAD[facility] ADAME [facility] [id number] [facility] 2023-05-29 15:35:26 2023-05-29 23:59:00 Hospital En[facility] 1.2.840.114 350.1.13.10 4.2.7.2.686 [id number] 808 [id number] [facility] 2023-05-29 15:20:00 2023-05-29 15:40:00 Urgent Care Gladys Carterronny, Jedsonglizzcorrina Unknown, Attending [facility] 1.2.840.114 350.1.13.10 4.2.7.2.686 [id number] 370 [id number] [facility] 2023-05-27 15:00:00 2023-05-27 16:49:13 Outpatient R JACK ROUSSEAU [facility] [id number] [facility] 2023-05-27 15:00:00 2023-05-27 16:49:13 Telemedici ne Visit Jack Rousseau [facility] BUILD[facility] 1..840.114 350.1.13.10 4.2.7.2.686 [id number] 098 [id number] [facility] 2023-05-27 00:00:00 2023-05-27 00:00:00 Orders Only Doctor Unassigned, Destin [facility] 1..840.114 350.1.13.10 4.2.7.2.686 [id number] 009 [id number] [facility] 2023-05-27 00:00:00 2023-05-27 00:00:00 Laura Acuña [facility] BUILD[facility] 1.2.840.114 350.1.13.10 4.2.7.2.686 [id number] 044 [id number] [facility] 2023-05-27 00:00:00 2023-05-27 00:00:00 [facility] 1.2.840.114 350.1.13.10 4.2.7.2.686 [id number] 044 [id number] [facility] 2023-05-27 00:00:00 2023-05-27 00:00:00 Telephone Laura Boyce [facility] BU[facility] 1.2.840.114 350.1.13.10 4.2.7.2.686 [id number] 044 [id number] [facility] 2023-05-25 11:39:39 2023-05-25 23:59:00 Outpatient R AUSTENLAURA [facility] [id number] [facility] 2023-05-25 11:30:00 2023-05-25 23:59:00 Hospital Encounter Austen Laura [facility] 1.2.840.114 350.1.13.10 4.2.7.2.686 [id number] 804 [id number] [facility] 2023-05-25 00:00:00 2023-05-25 00:00:00 Telephone Laura Boyce [facility] 1.2.840.114 350.1.13.10 4.2.7.2.686 [id number] [facility] 2023-05-23 00:00:00 2023-05-23 00:00:00 Telephone Josie Booth [facility] BU[facility] 1.2.840.114 350.1.13.10 4.2.7.2.686 [id number] 044 [id number] [facility] 2023-05-20 00:00:00 2023-05-20 00:00:00 Patient Outreach Josie Booth [facility] BUILD[facility] 1.2.840.114 350.1.13.10 4.2.7.2.686 [id number] 044 [id number] [facility] 2023-05-19 09:00:00 2023-05-19 10:39:55 Outpatient R LAURA BOYCE [facility] [id number] [facility] 2023-05-19 09:00:00 2023-05-19 10:39:55 Office Visit Laura Boyce [facility] NAL BUILDING 1.2.840.114 350.1.13.10 4.2.7.2.686 [id number] 044 [id number] [facility] 2023-05-19 00:00:00 2023-05-19 00:00:00 Patient Secure Msg Doctor Unassigned, Destin [facility] 1.284.114 350.1.13.10 4.2.7.2.686 [id number] 019 [id number] [facility] 2023-05-19 00:00:00 2023-05-19 00:00:00 Telephone Laura Boyce [facility] BUILD[facility] 1.2840.114 350.1.13.10 4.2.7.2.686 [id number] 044 [id number] [facility] 2023-05-18 00:00:00 2023-05-18 00:00:00 Outpatient R RADIOLOGY [facility] [id number] [facility] 2023-05-16 00:00:00 2023-05-16 00:00:00 Telephone Laura Boyce [facility] BUILD[facility] 1.2.840.114 350.1.13.10 4.2.7.2.686 [id number] 044 [id number] [facility] 2023-05-14 00:00:00 2023-05-14 00:00:00 Telephone Laura Boyce [facility] VALENTIN?GERALDINE CODEYSCOTTY MEDICAL OFFICE BUILDING 1.2.840.114 350.1.13.10 4.2.7.2.686 [id number] 370 [id number] [facility] 2023-05-12 00:00:00 2023-05-12 00:00:00 Telephone Laura Boyce [facility] BU[facility] 1.2.840.114 350.1.13.10 4.2.7.2.686 [id number] 044 [id number] [facility] 2023-05-10 14:11:51 2023-05-10 23:59:00 Hospital Encounter Laura Boyce [facility] 1.2.840.114 350.1.13.10 4.2.7.2.686 [id number] [facility] 2023-05-10 00:00:00 2023-05-10 00:00:00 Outpatient R RADIOLOGY [facility] [id number] [facility] 2023-05-03 00:00:00 2023-05-03 00:00:00 Telephone Laura Boyce [facility] 1.2.840.114 350.1.13.10 4.2.7.2.686 [id number] 044 [id number] [facility] 2023-04-29 14:40:00 2023-04-29 16:09:01 Outpatient R LAURA BOYCE [facility] [id number] [facility] 2023-04-29 14:40:00 2023-04-29 16:09:01 Office Visit Laura Boyce [facility] 1.2.840.114 350.1.13.10 4.2.7.2.686 [id number] 044 [id number] [facility] 2023-04-29 15:20:00 2023-04-29 15:40:00 Office Visit Laura Boyce [facility] 1.2.840.114 350.1.13.10 4.2.7.2.686 [id number] 044 [id number] [facility] 2023-04-28 00:00:00 2023-04-28 00:00:00 Telephone Laura Boyce [facility] BUILD[facility] 1.840.114 350.1.13.10 4.2.7.2.686 [id number] 044 [id number] [facility] 2023-04-26 00:00:00 2023-04-26 00:00:00 Telephone Austen [facility] SHARLENE LAL MEDICAL OFFICE BUILDING 1.840.114 350.1.13.10 4.2.7.2.686 [id number] 044 [id number] [facility] 2023-04-25 00:00:00 2023-04-25 00:00:00 Patient Secure Msg Doctor Unassigned, Destin [facility] 1.840.114 350.1.13.10 4.2.7.2.686 [id number] 082 [id number] [facility] 2023-04-18 14:40:00 2023-04-18 14:40:00 Outpatient [facility] [id number] [facility] 2023-04-18 00:00:00 2023-04-18 00:00:00 Telephone Austen [facility] 1.840.114 350.1.13.10 4.2.7.2.686 [id number] 044 [id number] [facility] 2023-04-13 00:00:00 2023-04-13 00:00:00 Patient Secure Msg Doctor Unassigned, Destin [facility] 1.20.114 350.1.13.10 4.2.7.2.686 [id number] 019 [id number] [facility] 2023-04-13 00:00:00 2023-04-13 00:00:00 Orders Only Doctor Unassigned, Destin [facility] 1.20.114 350.1.13.10 4.2.7.2.686 [id number] 009 [id number] [facility] 2023-04-08 00:00:00 2023-04-08 00:00:00 Telephone AustenLaura [facility] BUILD[facility] 1.2.840.114 350.1.13.10 4.2.7.2.686 [id number] 044 [id number] [facility] 2023-04-08 00:00:00 2023-04-08 00:00:00 Orders Only Doctor Unassigned, Destin [facility] 1.2.840.114 350.1.13.10 4.2.7.2.686 [id number] 009 [id number] [facility] 2023-04-06 00:00:00 2023-04-06 00:00:00 Orders Only Doctor Unassigned, Destin [facility] 1.2.840.114 350.1.13.10 4.2.7.2.686 [id number] 009 [id number] [facility] 2023-04-05 00:00:00 2023-04-05 00:00:00 Orders Only Doctor Unassigned, Destin [facility] 1.2.840.114 350.1.13.10 4.2.7.2.686 [id number] 009 [id number] [facility] 2023-04-04 00:00:00 2023-04-04 00:00:00 Telephone AustenLaura [facility] 1.2.840.114 350.1.13.10 4.2.7.2.686 [id number] 044 [id number] [facility] 2023-04-04 00:00:00 2023-04-04 00:00:00 Telephone Austen Laura [facility] BUILD[facility] 1.2.840.114 350.1.13.10 4.2.7.2.686 [id number] 044 [id number] [facility] 2023-04-01 13:20:00 2023-04-01 15:33:20 Outpatient R LAURA BOYCE [facility] [id number] [facility] 2023-04-01 13:20:00 2023-04-01 14:00:00 Office Visit [facility] 1.2.840.114 350.1.13.10 4.2.7.2.686 [id number] 044 [id number] [facility] 2023-04-01 00:00:00 2023-04-01 00:00:00 Telephone Laura Boyce [facility] BUILD[facility] 1.2.840.114 350.1.13.10 4.2.7.2.686 [id number] 044 [id number] [facility] 2023-04-01 00:00:00 2023-04-01 00:00:00 Orders Only Doctor Unassigned, Destin [facility] 1.2.840.114 350.1.13.10 4.2.7.2.686 [id number] 009 [id number] [facility] 2023-03-30 11:55:18 2023-03-30 23:59:00 Hospital Encounter Randa [facility] VALENTIN?GER[facility]DINE [facility] MEDICAL OFFICE BUILDING 1.2.840.114 350.1.13.10 4.2.7.2.686 [id number] 808 [id number] [facility] 2023-03-30 11:55:17 2023-03-30 23:59:00 Hospital Encounter Randa [facility] 1.2840.114 350.1.13.10 4.2.7.2.686 [id number] 808 [id number] [facility] 2023-03-30 11:55:17 2023-03-30 23:59:00 Hospital Encounter Ebrahim, Rania [facility]?GERALDINE LAL MEDICAL OFFICE BUILDING 1.2.114 350.1.13.10 4.2.7.2.686 [id number] 808 [id number] [facility] 2023-03-30 11:20:00 2023-03-30 11:40:00 Urgent Care Ciro Tolentino Unknown, Attending [facility]?GERALDINE LE MEDICAL OFFICE BUILDING 1.2.114 350.1.13.10 4.2.7.2.686 [id number] 370 [id number] [facility] 2023-03-30 07:30:00 2023-03-30 07:45:00 Photo Retoucher Visit Pob, Adc Lab Main Rosetta Ham [facility] 1..114 350.1.13.10 4.2.7.2.686 [id number] [facility] 2023-03-30 07:30:00 2023-03-30 07:30:00 Outpatient R ROSETTA HAM [facility] [id number] [facility] 2023-03-28 00:00:00 2023-03-28 00:00:00 Telephone Laura Boyce [facility] 1..114 350.1.13.10 4.2.7.2.686 [id number] 044 [id number] [facility] 2023-03-26 00:00:00 2023-03-26 00:00:00 Orders Only Doctor Unassigned, Destin [facility] 1..114 350.1.13.10 4.2.7.2.686 [id number] 009 [id number] [facility] 2023-03-25 00:00:00 2023-03-25 00:00:00 Telephone Laura Boyce [facility] BUILD[facility] 1..114 350.1.13.10 4.2.7.2.686 [id number] 044 [id number] [facility] 2023-03-25 00:00:00 2023-03-25 00:00:00 Telephone Laura Boyce [facility] BUILDING 1.2.840.114 350.1.13.10 4.2.7.2.686 [id number] 044 [id number] [facility] 2023-03-25 00:00:00 2023-03-25 00:00:00 Telephone Laura Boyce [facility] BUILDING 1.2.840.114 350.1.13.10 4.2.7.2.686 [id number] 044 [id number] [facility] 2023-03-24 08:20:00 2023-03-24 09:20:08 Outpatient R MERCEDRIVERALAURA SCHERER [facility] [id number] [facility] 2023-03-24 08:20:00 2023-03-24 09:20:08 Telemedici ne Visit Laura Boyce [facility] 1.2.840.114 350.1.13.10 4.2.7.2.686 [id number] 044 [id number] [facility] 2023-03-24 00:00:00 2023-03-24 00:00:00 Telephone Laura Boyce [facility] BUILD[facility] 1.2.840.114 350.1.13.10 4.2.7.2.686 [id number] 044 [id number] [facility] 2023-03-24 00:00:00 2023-03-24 00:00:00 Patient Outreach Josie Booth [facility] BUILD[facility] 1.2.840.114 350.1.13.10 4.2.7.2.686 [id number] 044 [id number] [facility] 2023-03-24 00:00:00 2023-03-24 00:00:00 Telephone Laura Boyce [facility] BUILD[facility] 1.2.840.114 350.1.13.10 4.2.7.2.686 [id number] 044 [id number] [facility] 2023-03-24 00:00:00 2023-03-24 00:00:00 Telephone Laura Boyce [facility] BUILD[facility] 1.2.840.114 350.1.13.10 4.2.7.2.686 [id number] 044 [id number] [facility] 2023-03-24 00:00:00 2023-03-24 00:00:00 Telephone Laura Boyce [facility] BUILD[facility] 1.2.840.114 350.1.13.10 4.2.7.2.686 [id number] 044 [id number] [facility] 2023-03-24 00:00:00 2023-03-24 00:00:00 Telephone [facility]UK[facility]ILD[facility] 1.2.840.114 350.1.13.10 4.2.7.2.686 [id number] 198 [id number] [facility] 2023-03-23 00:00:00 2023-03-23 00:00:00 Telephone Laura Boyce [facility] BUILD[facility] 1.2.840.114 350.1.13.10 4.2.7.2.686 [id number] 044 [id number] [facility] 2023-03-22 00:00:00 2023-03-22 00:00:00 Telephone Laura Boyce [facility] BUILD[facility] 1.2.840.114 350.1.13.10 4.2.7.2.686 [id number] 231 [id number] [facility] 2023-03-21 00:00:00 2023-03-21 00:00:00 [facility] 1.840.114 350.1.13.10 4.2.7.2.686 [id number] 198 [id number] [facility] 2023-03-18 00:00:00 2023-03-18 00:00:00 [facility] 1.84.114 350.1.13.10 4.2.7.2.686 [id number] 198 [id number] [facility] 2023-03-18 00:00:00 2023-03-18 00:00:00 Refill Deejay [facility] VALENTIN[facility] MED[facility] OFF[facility] BUILD[facility] 1.84.114 350.1.13.10 4.2.7.2.686 [id number] 198 [id number] [facility] 2023-03-17 15:30:00 2023-03-17 15:30:00 Outpatient R ANDREA VINSON [facility] [id number] [facility] 2023-03-17 00:00:00 2023-03-17 00:00:00 Refill Jack Rousseau [facility] BUILD[facility] 1.840.114 350.1.13.10 4.2.7.2.686 [id number] 098 [id number] [facility] 2023-03-17 00:00:00 2023-03-17 00:00:00 Patient Secure Msg Doctor Unassigned, Destin [facility] 1.840.114 350.1.13.10 4.2.7.2.686 [id number] 198 [id number] [facility] 2023-03-17 00:00:00 2023-03-17 00:00:00 Telephone Jack Rousseau [facility] BUILD[facility] 1.84.114 350.1.13.10 4.2.7.2.686 [id number] 098 [id number] [facility] 2023-03-17 00:00:00 2023-03-17 00:00:00 Telephone Shimon Villalba [facility] SHARLENE LAL [facility] OFFICE BUILDING 1.2.840.114 350.1.13.10 4.2.7.2.686 [id number] 198 [id number] [facility] 2023-03-17 00:00:00 2023-03-17 00:00:00 Telephone Jack Rousseau [facility] BU[facility] 1.2.840.114 350.1.13.10 4.2.7.2.686 [id number] 098 [id number] [facility] 2023-03-11 16:30:00 2023-03-11 17:00:00 Office Visit SohamJayshreeha [facility] BUILDING 1.2.840.114 350.1.13.10 4.2.7.2.686 [id number] 098 [id number] [facility] 2023-03-11 16:30:00 2023-03-11 16:30:00 Outpatient [facility] [id number] [facility] 2023-03-11 13:30:00 2023-03-11 13:30:00 Outpatient J[facility] [id number] [facility] 2023-03-10 00:00:00 2023-03-10 00:00:00 [facility] 1.2.840.114 350.1.13.10 4.2.7.2.686 [id number] 098 [id number] [facility] 2023-03-08 13:50:00 2023-03-08 23:59:00 Outpatient SHIMON LOPEZ [facility] [id number] [facility] 2023-03-08 13:15:00 2023-03-08 13:45:00 Office Visit [facility] 1.2.840.114 350.1.13.10 4.2.7.2.686 [id number] 198 [id number] [facility] 2023-02-25 00:00:00 2023-02-25 00:00:00 Telephone AustenLaura [facility] BUILD[facility] 1.2.840.114 350.1.13.10 4.2.7.2.686 [id number] 044 [id number] [facility] 2023-02-16 00:00:00 2023-02-16 00:00:00 Telephone Jack Rousseau [facility] BUILD[facility] 1.2.840.114 350.1.13.10 4.2.7.2.686 [id number] 098 [id number] [facility] 2023-02-14 11:00:00 2023-02-14 11:00:00 Outpatient R ANNE MARIE LICEA OGECHUKWU [facility] [id number] [facility] 2023-02-11 14:41:33 2023-02-11 23:59:00 Outpatient R MERCEDMANDOLAURA [facility] [id number] [facility] 2023-02-11 14:41:33 2023-02-11 23:59:00 Hospital Encounter Laura Boyce [facility] 1.2840.114 350.1.13.10 4.2.7.2.686 [id number] [id number] [facility] 2023-02-07 00:00:00 2023-02-07 00:00:00 Telephone Laura Boyce [facility] BUILDING 1.2.840.114 350.1.13.10 4.2.7.2.686 [id number] 044 [id number] [facility] 2023-02-03 13:30:00 2023-02-03 13:30:00 Outpatient R ALISSON ANDREA [facility] [id number] [facility] 2023-02-03 00:00:00 2023-02-03 00:00:00 Telephone Alisson Andrea [facility] 1.2840.114 350.1.13.10 4.2.7.2.686 [id number] 059 [id number] [facility] 2023-02-03 00:00:00 2023-02-03 00:00:00 Telephone Alisson Andrea Charity [facility] MEDICAL OFFICE BUILDING 1.2840.114 350.1.13.10 4.2.7.2.686 [id number] 059 [id number] [facility] 2023-01-18 00:00:00 2023-01-18 00:00:00 Orders Only Doctor Unassigned, Destin [facility] 1.2840.114 350.1.13.10 4.2.7.2.686 [id number] 009 [id number] [facility] 2023-01-14 00:00:00 2023-01-14 00:00:00 Letter (Out) AlissonAndrea [facility] MEDICAL OFFICE BUILDING 1.2840.114 350.1.13.10 4.2.7.2.686 [id number] 059 [id number] [facility] 2023-01-14 00:00:00 2023-01-14 00:00:00 Letter (Out) AlissonAndrea [facility] MEDICAL OFFICE BUILDING 1.2840.114 350.1.13.10 4.2.7.2.686 [id number] 059 [id number] [facility] 2023-01-14 00:00:00 2023-01-14 00:00:00 Laura Acuña [facility] 1.2840.114 350.1.13.10 4.2.7.2.686 [id number] 044 [id number] [facility] 2023-01-11 16:00:00 2023-01-11 17:13:24 Outpatient R LAURA BOYCE [facility] [id number] [facility] 2023-01-11 16:00:00 2023-01-11 17:13:24 Office Visit Laura Boyce [facility] BUILD[facility] 1.2.840.114 350.1.13.10 4.2.7.2.686 [id number] 044 [id number] [facility] 2023-01-07 00:00:00 2023-01-07 00:00:00 Patient Secure Msg Andrea Vinson [facility] MEDICAL [facility] BUILDING 1.2.840.114 350.1.13.10 4.2.7.2.686 [id number] 059 [id number] [facility] 2023-01-05 00:00:00 2023-01-05 00:00:00 Telephone Andrea Vinson [facility] MEDICAL [facility] BUILDING 1.2.840.114 350.1.13.10 4.2.7.2.686 [id number] 059 [id number] [facility] 2022-12-27 00:00:00 2022-12-27 00:00:00 Letter (Out) Andrea Vinson [facility] MEDICAL [facility] BUILDING 1.2840.114 350.1.13.10 4.2.7.2.686 [id number] 059 [id number] [facility] 2022-12-24 00:00:00 2022-12-24 00:00:00 Telephone Andrea Vinson [facility] 1.2840.114 350.1.13.10 4.2.7.2.686 [id number] 059 [id number] [facility] 2022-12-24 00:00:00 2022-12-24 00:00:00 Patient Secure Msg Alisson Andrea Nash [facility] OFFICE BUILDING 1..840.114 350.1.13.10 4.2.7.2.686 [id number] 059 [id number] [facility] 2022-12-22 08:00:00 2022-12-22 13:24:00 Outpatient R ANDREA VINSON [facility] [id number] [facility] 2022-12-15 16:30:00 2022-12-15 16:30:00 Outpatient R ALISSON ANDREA [facility] [id number] [facility] 2022-12-13 16:30:00 2022-12-13 16:30:00 Outpatient R ANDREA VINSON [facility] [id number] [facility] 2022-12-01 00:00:00 2022-12-01 00:00:00 Telephone Andrea Vinson [facility] 1.840.114 350.1.13.10 4.2.7.2.686 [id number] 059 [id number] [facility] 2022-11-30 00:00:00 2022-11-30 00:00:00 Telephone Andrea V[facility] 1..840.114 350.1.13.10 4.2.7.2.686 [id number] [facility] 2022-11-26 16:00:00 2022-11-26 16:30:00 Telemedici ne Visit Jack Rousseau [facility] 1..840.114 350.1.13.10 4.2.7.2.686 [id number] [facility] 2022-11-26 16:00:00 2022-11-26 16:00:00 Outpatient R JACK ROUSSEAU [facility] [id number] [facility] 2022-11-25 15:30:00 2022-11-25 16:37:48 Outpatient R ALISSONBROOKSY [facility] [id number] [facility] 2022-11-25 15:30:00 2022-11-25 16:37:48 Office Visit AlissonBrookssondra [facility] 1.114 350.1.13.10 4.2.7.2.686 [id number] [facility] 2022-11-22 16:00:00 2022-11-22 16:30:00 [facility]medici ne [facility] 1..114 350.1.13.10 4.2.7.2.686 [id number] [facility] 2022-11-22 15:30:00 2022-11-22 16:24:24 Outpatient R HARRIET TINAJERO [facility] [id number] [facility] 2022-11-22 15:30:00 2022-11-22 16:24:24 Office Visit Harriet Tinajero [facility] 1..114 350.1.13.10 4.2.7.2.686 [id number] [facility] 2022-11-22 00:00:00 2022-11-22 00:00:00 Orders Only Doctor Unassigned, [place] [facility] 1.114 350.1.13.10 4.2.7.2.686 [id number] [facility] 2022-11-19 16:30:00 2022-11-19 16:30:00 Outpatient R ANNE MARIE LICEA OGECHUKWU [facility] [id number] [facility] 2022-11-16 16:00:00 2022-11-16 16:00:00 Outpatient R ANNE MARIE LICEA OGECHUKWU [facility] [id number] [facility] 2022-11-10 13:09:58 2022-11-10 23:59:00 Hospital Encounter Laura Boyce [facility] 1.2.840.114 350.1.13.10 4.2.7.2.686 [id number] [facility] 2022-11-10 13:09:09 2022-11-10 23:59:00 Outpatient R LAURA BOYCE [facility] [id number] [facility] 2022-11-10 13:09:09 2022-11-10 23:59:00 Hospital Encounter Laura Boyce [facility] 1.2840.114 350.1.13.10 4.2.7.2.686 [id number] [facility] 2022-11-10 00:00:00 2022-11-10 00:00:00 Orders Only Doctor Unassigned, [place] [facility] 1.2840.114 350.1.13.10 4.2.7.2.686 [id number] [facility] 2022-11-04 00:00:00 2022-11-04 00:00:00 Patient Secure Msg Doctor Unassigned, [place] [facility] 1.2840.114 350.1.13.10 4.2.7.2.686 [id number] [facility] 2022-10-22 15:30:00 2022-10-22 17:00:47 Outpatient R JACK ROUSSEAU [facility] [id number] [facility] 2022-10-22 15:30:00 2022-10-22 17:00:47 Office Visit Jack Rousseau [facility] 1.2840.114 350.1.13.10 4.2.7.2.686 [id number] [facility] 2022-10-13 00:00:00 2022-10-13 00:00:00 Telephone [facility] 1.2.840.114 350.1.13.10 4.2.7.2.686 [id number] [facility] 2022-10-13 00:00:00 2022-10-13 00:00:00 Telephone [facility]ayshree [facility] [facility] 1.2.840.114 350.1.13.10 4.2.7.2.686 [id number] 098 [id number] [facility] 2022-10-06 00:00:00 2022-10-06 00:00:00 Telephone Jayshree Rousseauha [facility] 1.2.840.114 350.1.13.10 4.2.7.2.686 [id number] 098 [id number] [facility] 2022-10-05 00:00:00 2022-10-05 00:00:00 Telephone Team, [facility] 1.2.840.114 350.1.13.10 4.2.7.2.686 [id number] [id number] [facility] 2022-10-04 00:00:00 2022-10-04 00:00:00 Outpatient LAURA DEAN [facility] [id number] [facility] 2022-10-04 00:00:00 2022-10-04 00:00:00 RefLaura Cunningham [facility] 1.2.840.114 350.1.13.10 4.2.7.2.686 [id number] 044 [id number] [facility] 2022-09-22 00:00:00 2022-09-22 00:00:00 Telephone Soham Jack [facility] 1.2.840.114 350.1.13.10 4.2.7.2.686 [id number] 098 [id number] [facility] 2022-09-13 14:00:00 2022-09-13 15:03:22 Outpatient R JAYSHREE ROUSSEAUHA [facility] [id number] [facility] 2022-09-13 14:00:00 2022-09-13 15:03:22 Office Visit Jack Rousseau [facility] 1.2840.114 350.1.13.10 4.2.7.2.686 [id number] 098 [id number] [facility] 2022-09-13 00:00:00 2022-09-13 00:00:00 Telephone Team, [facility] 1.2840.114 350.1.13.10 4.2.7.2.686 [id number] 082 [id number] [facility] 2022-09-07 00:00:00 2022-09-07 00:00:00 Telephone Laura Boyce [facility] 1.2.840.114 350.1.13.10 4.2.7.2.686 [id number] 044 [id number] [facility] 2022-09-07 00:00:00 2022-09-07 00:00:00 Telephone Laura Boyce [facility] 1.2840.114 350.1.13.10 4.2.7.2.686 [id number] 044 [id number] [facility] 2022-09-06 14:30:00 2022-09-06 14:45:00 Office Visit Shimon Villalba [facility] VALENTIN[facility] 1.2.840.114 350.1.13.10 4.2.7.2.686 [id number] [facility] 2022-09-06 14:30:00 2022-09-06 14:30:00 Outpatient R SHIMON VILLALBA [facility] [id number] [facility] 2022-09-06 00:00:00 2022-09-06 00:00:00 Telephone Deejay [facility] 1.2.840.114 350.1.13.10 4.2.7.2.686 [id number] [facility] 2022-09-06 00:00:00 2022-09-06 00:00:00 [facility]ill [facility] 1.2.840.114 350.1.13.10 4.2.7.2.686 [id number] 044 [id number] [facility] 2022-09-01 00:00:00 2022-09-01 00:00:00 Refill Austen [facility] BUILDING 1.2.840.114 350.1.13.10 4.2.7.2.686 [id number] 044 [id number] [facility] 2022-08-31 13:55:00 2022-08-31 14:27:00 Outpatient Corrina DEEJAY SHIMON [facility] [id number] [facility] 2022-08-31 13:30:00 2022-08-31 14:00:00 Office Visit Deejay [facility]IN[facility] 1.2.840.114 350.1.13.10 4.2.7.2.686 [id number] [facility] 2022-08-26 00:00:00 2022-08-26 00:00:00 Refill Austen [facility] BUILDING 1.2.840.114 350.1.13.10 4.2.7.2.686 [id number] 044 [id number] [facility] 2022-08-26 00:00:00 2022-08-26 00:00:00 Telephone [facility] S[facility] POLL[facility] 1.2.840.114 350.1.13.10 4.2.7.2.686 [id number] [facility] 2022-08-26 00:00:00 2022-08-26 00:00:00 Telephone [facility] 1.2.840.114 350.1.13.10 4.2.7.2.686 [id number] 044 [id number] [facility] 2022-08-25 14:00:00 2022-08-25 14:15:00 Office Visit Martir Bhatti, [facility] 1.2.840.114 350.1.13.10 4.2.7.2.686 [id number] [facility] 2022-08-25 14:00:00 2022-08-25 14:00:00 Outpatient R XIN MORLEY [facility] [id number] [facility] 2022-08-25 00:00:00 2022-08-25 00:00:00 Telephone [facility] 1.2.840.114 350.1.13.10 4.2.7.2.686 [id number] 044 [id number] [facility] 2022-08-24 00:00:00 2022-08-24 00:00:00 Telephone Laura Boyce [facility] 1.2.840.114 350.1.13.10 4.2.7.2.686 [id number] 044 [id number] [facility] 2022-08-13 13:00:00 2022-08-13 15:07:38 Outpatient R JACK ROUSSEAU [facility] [id number] [facility] 2022-08-13 13:00:00 2022-08-13 15:07:38 Office Visit [facility] 1.840.114 350.1.13.10 4.2.7.2.686 [id number] 098 [id number] [facility] 2022-08-13 00:00:00 2022-08-13 00:00:00 Orders Only Doctor Unassigned, [place] [facility] 1..114 350.1.13.10 4.2.7.2.686 [id number] [id number] [facility] 2022-08-12 10:45:00 2022-08-12 10:45:00 Outpatient R HERLINDA ROBERTS [facility] [id number] [facility] 2022-08-06 14:00:00 2022-08-06 14:00:00 Outpatient R JACK ROUSSEAU [facility] [id number] [facility] 2022-08-03 15:20:00 2022-08-03 15:20:00 Outpatient R LAURA BOYCE [facility] [id number] [facility] 2022-07-29 00:00:00 2022-07-29 00:00:00 Telephone Anne Marie Licea [facility] 1..840.114 350.1.13.10 4.2.7.2.686 [id number] [facility] 2022-07-28 16:00:00 2022-07-28 17:55:11 Outpatient R ANNE MARIE LICEA OGECHUKWU [facility] [id number] [facility] 2022-07-28 16:00:00 2022-07-28 17:55:11 Office Visit Jordon Liceacrow [facility] 1.840.114 350.1.13.10 4.2.7.2.686 [id number] 044 [id number] [facility] 2022-07-28 00:00:00 2022-07-28 00:00:00 Orders Only Doctor Unassigned, [place] [facility] 1.2.840.114 350.1.13.10 4.2.7.2.686 [id number] [facility] 2022-07-20 00:00:00 2022-07-20 00:00:00 Refill Laura Boyce [facility] 1.2.840.114 350.1.13.10 4.2.7.2.686 [id number] 044 [id number] [facility] 2022-07-19 00:00:00 2022-07-19 00:00:00 Refill Laura Boyce [facility] 1.2.840.114 350.1.13.10 4.2.7.2.686 [id number] 044 [id number] [facility] 2022-07-13 00:00:00 2022-07-13 00:00:00 Telephone Laura Boyce [facility] 1.2.840.114 350.1.13.10 4.2.7.2.686 [id number] 044 [id number] [facility] 2022-07-05 00:00:00 2022-07-05 00:00:00 Telephone Laura Boyce [facility] 1.2.840.114 350.1.13.10 4.2.7.2.686 [id number] 044 [id number] [facility] 2022-07-05 00:00:00 2022-07-05 00:00:00 Orders Only Doctor Unassigned, [place] [facility] 1.2.840.114 350.1.13.10 4.2.7.2.686 [id number] [id number] [facility] 2022-07-02 08:40:00 2022-07-02 09:20:00 Telemedici ne Visit Mercedmando Laura [facility] 1.2.840.114 350.1.13.10 4.2.7.2.686 [id number] 044 [id number] [facility] 2022-07-02 08:40:00 2022-07-02 08:40:00 Outpatient R MERCEDRIVERALAURA SCHERER [facility] [id number] [facility] 2022-07-02 00:00:00 2022-07-02 00:00:00 Telephone Austen Laura [facility] 1.2.840.114 350.1.13.10 4.2.7.2.686 [id number] 044 [id number] [facility] 2022-06-16 00:00:00 2022-06-16 00:00:00 Orders Only Doctor Unassigned, [place] [facility] 1.2.840.114 350.1.13.10 4.2.7.2.686 [id number] [id number] [facility] 2022-06-15 00:00:00 2022-06-15 00:00:00 Telephone Laura Boyce [facility] 1.2.840.114 350.1.13.10 4.2.7.2.686 [id number] 044 [id number] [facility] 2022-06-15 00:00:00 2022-06-15 00:00:00 Telephone Laura Boyce [facility] 1.2.840.114 350.1.13.10 4.2.7.2.686 [id number] 044 [id number] [facility] 2022-06-11 15:00:00 2022-06-11 15:20:00 Nurse Visit Nurse, [place] Edmando Laura [facility] 1.2.840.114 350.1.13.10 4.2.7.2.686 [id number] 044 [id number] [facility] 2022-06-11 15:00:00 2022-06-11 15:00:00 Outpatient R LAURA BOYCE [facility] [id number] [facility] 2022-06-10 00:00:00 2022-06-10 00:00:00 Telephone Laura Boyce [facility] 1.2.840.114 350.1.13.10 4.2.7.2.686 [id number] 044 [id number] [facility] 2022-06-10 00:00:00 2022-06-10 00:00:00 Telephone [facility] 1.2.840.114 350.1.13.10 4.2.7.2.686 [id number] 044 [id number] [facility] 2022-06-09 15:30:00 2022-06-09 16:19:43 Office Visit Anne Marie Licea [facility] 1.2.840.114 350.1.13.10 4.2.7.2.686 [id number] 044 [id number] [facility] 2022-06-09 15:30:00 2022-06-09 16:19:43 Outpatient R ANNE MARIE LICEA OGECHUKWU [facility] [id number] [facility] 2022-06-09 15:30:00 2022-06-09 15:30:00 Outpatient R ANNE MARIE LICEA OGECHUKWU [facility] [id number] [facility] 2022-05-18 14:00:00 2022-05-18 14:49:52 Outpatient R RACHEL MCDOWELL [facility] [id number] [facility] 2022-05-18 14:00:00 2022-05-18 14:49:52 Office Visit Korey Peres Lindy Skye [facility] 1.2840.114 350.1.13.10 4.2.7.2.686 [id number] [facility] 2022-05-18 14:00:00 2022-05-18 14:49:52 Outpatient R RACHEL MCDOWELL [facility] [id number] [facility] 2022-05-18 00:00:00 2022-05-18 00:00:00 Telephone Austen [facility] 1.2.840.114 350.1.13.10 4.2.7.2.686 [id number] 044 [id number] [facility] 2022-05-12 14:26:25 2022-05-12 23:59:00 Hospital Encounter Austen [facility] 1.2.840.114 350.1.13.10 4.2.7.2.686 [id number] [facility] 2022-05-12 14:25:07 2022-05-12 14:25:07 Outpatient R [facility] [id number] [facility] 2022-05-12 14:25:07 2022-05-12 14:25:07 Hospital Encounter Austen [facility] 1.2.840.114 350.1.13.10 4.2.7.2.686 [id number] [facility] 2022-05-11 00:00:00 2022-05-11 00:00:00 [facility] 1.2.840.114 350.1.13.10 4.2.7.2.686 [id number] 044 [id number] [facility] 2022-05-03 00:00:00 2022-05-03 00:00:00 Telephone [facility] 1.2.840.114 350.1.13.10 4.2.7.2.686 [id number] [id number] [facility] 2022-04-30 16:00:00 2022-04-30 16:58:23 Outpatient R LAURA BOYCE [facility] [id number] [facility] 2022-04-30 16:00:00 2022-04-30 16:58:23 Office Visit Laura Boyce [facility] 1.2.840.114 350.1.13.10 4.2.7.2.686 [id number] [id number] [facility] 2022-04-30 16:00:00 2022-04-30 16:58:23 Outpatient R LAURA BOYCE [facility] [id number] [facility] 2022-04-30 16:00:00 2022-04-30 16:00:00 Outpatient R LAURA BOYCE [facility] [id number] [facility] 2022-04-30 15:40:00 2022-04-30 16:00:00 Office Visit Laura Boyce [facility] 1.2.840.114 350.1.13.10 4.2.7.2.686 [id number] [facility] 2022-04-30 15:40:00 2022-04-30 15:40:00 Outpatient R LAURA BOYCE [facility] [id number] [facility] 2022-04-05 00:00:00 2022-04-05 00:00:00 Orders Only Doctor Unassigned, [place] [facility] 1.2.840.114 350.1.13.10 4.2.7.2.686 [id number] [facility] 2022-03-30 13:20:00 2022-03-30 13:20:00 Outpatient R MERCEDRIVERALAURA SCHERER [facility] [id number] [facility] 2022-03-30 00:00:00 2022-03-30 00:00:00 Telephone [facility] Boy[facility] CARRILLOIO N[facility]ILD[facility] 1.2.840.114 350.1.13.10 4.2.7.2.686 [id number] 044 [id number] [facility] 2022-03-25 00:00:00 2022-03-25 00:00:00 Telephone Laura Boyce [facility] GRIMM [facility] 1.2.840.114 350.1.13.10 4.2.7.2.686 [id number] 044 [id number] [facility] 2022-03-24 00:00:00 2022-03-24 00:00:00 Telephone Laura Boyce [facility] 1.2.840.114 350.1.13.10 4.2.7.2.686 [id number] 044 [id number] [facility] 2022-03-23 00:00:00 2022-03-23 00:00:00 Telephone Laura Boyce [facility] 1.2.840.114 350.1.13.10 4.2.7.2.686 [id number] 044 [id number] [facility] 2022-03-17 10:30:00 2022-03-17 12:22:52 Office Visit Korey Peres Michael G [facility] 1.2.840.114 350.1.13.10 4.2.7.2.686 [id number] 027 [id number] [facility] 2022-03-17 10:30:00 2022-03-17 12:22:52 Outpatient ASHLEIGH BESS [facility] [id number] [facility] 2022-03-17 10:30:00 2022-03-17 10:30:00 Outpatient ASHLEIGH BESS [facility] [id number] [facility] 2022-02-26 00:00:00 2022-02-26 00:00:00 Telephone [facility] 1.2.840.114 350.1.13.10 4.2.7.2.686 [id number] [facility] 2022-02-19 00:00:00 2022-02-19 00:00:00 Telephone Laura Boyce [facility] 1.2.840.114 350.1.13.10 4.2.7.2.686 [id number] 044 [id number] [facility] 2022-01-28 15:20:00 2022-01-28 16:39:15 Outpatient R MERCEDLAURA GILMORE [facility] [id number] [facility] 2022-01-28 15:20:00 2022-01-28 16:39:15 Office Visit Laura Boyce [facility] 1.2.840.114 350.1.13.10 4.2.7.2.686 [id number] [facility] 2022-01-28 15:20:00 2022-01-28 16:39:15 Outpatient R LAURA BOYCE [facility] [id number] [facility] 2022-01-18 15:00:00 2022-01-18 15:00:00 Outpatient SETH HARRIS [facility] [id number] [facility] 2022-01-18 15:00:00 2022-01-18 15:00:00 Outpatient SETH HARRIS [facility] [id number] [facility] 2022-01-15 00:00:00 2022-01-15 00:00:00 Telephone Veselka, Babatunde [facility]ENTIN[facility] 1.2.840.114 350.1.13.10 4.2.7.2.686 [id number] 044 [id number] [facility] 2022-01-15 00:00:00 2022-01-15 00:00:00 Telephone Babatunde Vitale [facility] 1.2.840.114 350.1.13.10 4.2.7.2.686 [id number] 044 [id number] [facility] 2022-01-04 00:00:00 2022-01-04 00:00:00 Telephone Babatunde Vitale [facility] 1.2.840.114 350.1.13.10 4.2.7.2.686 [id number] 044 [id number] [facility] 2021-09-26 00:00:00 2021-09-26 00:00:00 Refill Babatunde Vitale [facility] 1.2.840.114 350.1.13.10 4.2.7.2.686 [id number] 044 [id number] [facility] 2021-09-07 15:31:17 2021-09-07 16:10:23 Office Visit Babatunde Vitale [facility] 1.2.840.114 350.1.13.10 4.2.7.2.686 [id number] 044 [id number] [facility] 2021-09-07 15:30:00 2021-09-07 16:10:23 Outpatient BABATUNDE BENNETT [facility] [id number] [facility] 2021-07-20 15:12:37 2021-07-20 23:59:00 Outpatient BABATUNDE BENNETT [facility] [id number] [facility] 2021-07-20 15:00:00 2021-07-20 23:59:00 Hospital Encounter Babatunde Vitale [facility] 1.2.840.114 350.1.13.10 4.2.7.2.686 [id number] [facility] 2021-07-08 00:00:00 2021-07-08 00:00:00 Telephone Iam [facility]?Geraldine le Medical Office Building 1.2.840.114 350.1.13.10 4.2.7.2.686 [id number] 044 [id number] [facility] 2021-07-07 00:00:00 2021-07-07 00:00:00 Telephone Iam [facility]?Geraldine [facility] Medical Office Building 1.2.840.114 350.1.13.10 4.2.7.2.686 [id number] 044 [id number] [facility] 2021-07-06 00:00:00 2021-07-06 00:00:00 Telephone Iam [facility]?Geraldine le Medical Office Building 1.2.840.114 350.1.13.10 4.2.7.2.686 [id number] 044 [id number] [facility] 2021-06-29 09:22:17 2021-06-29 09:22:26 Imm/Inj Visit Nurse, Sammie García ImmunizatiYaya Zhang [facility] Professio nal Building 1.2.840.114 350.1.13.10 4.2.7.2.686 [id number] [facility] 2021-06-29 09:10:00 2021-06-29 09:10:00 Outpatient YAYA HERNANDEZ [facility] [id number] [facility] 2021-06-24 13:30:00 2021-06-24 13:30:00 Outpatient YAYA HERNANDEZ [facility] [id number] [facility] 2021-06-04 00:00:00 2021-06-04 00:00:00 Babatunde Hidalgo [facility] Valentin?Geraldine lal Medical Office Building 1.2.840.114 350.1.13.10 4.2.7.2.686 [id number] 044 [id number] [facility] 2021-06-02 00:00:00 2021-06-02 00:00:00 Babatunde Hidalgo [facility] Valentin?Geraldine lal Medical Office Building 1.2840.114 350.1.13.10 4.2.7.2.686 [id number] 044 [id number] [facility] 2021-05-27 08:03:00 2021-05-27 10:47:00 Hospital Encounter [facility] Jayjay [facility] 1.2.840.114 350.1.13.10 4.2.7.2.686 [id number] [facility] 2021-05-27 08:03:00 2021-05-27 10:47:00 Hospital Encounter TurnerJayjay [facility] 1.2.840.114 350.1.13.10 4.2.7.2.686 [id number] [facility] 2021-05-27 09:29:00 2021-05-27 10:08:00 Surgery TurnerJayjay [facility] 1.2.840.114 350.1.13.10 4.2.7.2.686 [id number] [facility] 2021-05-26 11:25:25 2021-05-26 11:40:25 Laboratory Only Only, Adc Test OhJay[facility] 1.2.840.114 350.1.13.10 4.2.7.2.686 [id number] [facility] 2021-05-26 11:25:25 2021-05-26 11:40:25 Laboratory Only Only, Adc Test Jayjay Smalls [facility] 1..114 350.1.13.10 4.2.7.2.686 [id number] [facility] 2021-05-26 11:24:22 2021-05-26 11:39:22 Photo Retoucher Visit Pob, Adc Lab Main Jayjay Smalls [facility] Building 1.114 350.1.13.10 4.2.7.2.686 [id number] [facility] 2021-05-26 10:45:00 2021-05-26 10:45:00 Outpatient R JAYJAY SMALLS [facility] [id number] [facility] 2021-05-26 00:00:00 2021-05-26 00:00:00 Orders Only Doctor Unassigned, [place] [facility] 1.0.114 350.1.13.10 4.2.7.2.686 [id number] [id number] [facility] 2021-05-26 00:00:00 2021-05-26 00:00:00 Orders Only Doctor Unassigned, [place] [facility] 1.0.114 350.1.13.10 4.2.7.2.686 [id number] [id number] [facility] 2021-05-06 00:00:00 2021-05-06 00:00:00 Babatunde Hidalgo [facility] .114 350.1.13.10 4.2.7.2.686 [id number] [id number] [facility] 2021-04-15 00:00:00 2021-04-15 00:00:00 Babatunde Hidalgo [facility] .114 350.1.13.10 4.2.7.2.686 [id number] 044 [id number] [facility] 2021-04-14 00:00:00 2021-04-14 [facility] 1.0.114 350.1.13.10 4.2.7.2.686 [id number] 044 [id number] [facility] 2021-04-13 00:00:00 2021-04-13 00:00[facility] 1.114 350.1.13.10 4.2.7.2.686 [id number] 044 [id number] [facility] 2021-04-09 00:00:00 2021-04-09 00:00:00 Orders Only Doctor Unassigned, [place] [facility] 1..114 350.1.13.10 4.2.7.2.686 [id number] [id number] [facility] 2021-04-03 00:00:00 2021-04-03 00:00:00 [facility]..114 350.1.13.10 4.2.7.2.686 [id number] 044 [id number] [facility] 2021-04-02 00:00:00 2021-04-02 00:00:[facility] .0.114 350.1.13.10 4.2.7.2.686 [id number] [id number] [facility] 2021-03-31 00:00:00 2021-03-31 00:00:00 Orders Only Doctor Unassigned, [place] [facility] 1.0.114 350.1.13.10 4.2.7.2.686 [id number] [id number] [facility] 2021-03-26 00:00:00 2021-03-26 00:00:00 Telephone Babatunde Vitale [facility] 1..114 350.1.13.10 4.2.7.2.686 [id number] 044 [id number] [facility] 2021-03-26 00:00:00 2021-03-26 00:00:00 Refill Babatunde Vitale [facility] 1..114 350.1.13.10 4.2.7.2.686 [id number] 044 [id number] [facility] 2021-03-24 00:00:00 2021-03-24 00:00:00 Telephone Babatunde Vitale [facility] 1.114 350.1.13.10 4.2.7.2.686 [id number] 044 [id number] [facility] 2021-03-18 10:00:00 2021-03-18 10:00:00 Outpatient R JAYJAY SMALLS [facility] [id number] [facility] 2021-03-17 10:00:00 2021-03-17 10:00:00 Outpatient R [facility] [id number] [facility] 2021-03-12 08:30:27 2021-03-12 09:00:27 Office Visit Babatunde Vitale [facility] ..114 350.1.13.10 4.2.7.2.686 [id number] 044 [id number] 2021-03-12 08:30:27 2021-03-12 09:00:27 Office Visit Babatunde Vitale [facility] 1..114 350.1.13.10 4.2.7.2.686 [id number] [id number] [facility] 2021-03-12 08:45:00 2021-03-12 08:45:00 Outpatient BABATUNDE BENNETT [facility] [id number] [facility] 2021-02-24 00:00:00 2021-02-24 00:00:00 RefBabatunde Sidhu [facility] 1.2840.114 350.1.13.10 4.2.7.2.686 [id number] 044 [id number] [facility] 2021-02-18 07:17:00 2021-02-18 10:23:00 Hospital Encounter Jayjay Smalls [facility] 1.2840.114 350.1.13.10 4.2.7.2.686 [id number] [facility] 2021-02-18 08:47:00 2021-02-18 09:28:00 Surgery Oh Jayjay Camille [facility] 1.2840.114 350.1.13.10 4.2.7.2.686 [id number] [facility] 2021-02-17 12:19:16 2021-02-17 12:34:16 Laboratory Only Only, Adc Test Oh Jayjay Obrien [facility] 1.2840.114 350.1.13.10 4.2.7.2.686 [id number] [facility] 2021-02-17 11:15:00 2021-02-17 11:15:00 Outpatient R JAYJAY SMALLS [facility] [id number] [facility] 2021-02-17 00:00:00 2021-02-17 00:00:00 Orders Only Doctor Unassigned, [place] [facility] 1.0.114 350.1.13.10 4.2.7.2.686 [id number] [facility] 2021-02-13 00:00:00 2021-02-13 00:00:00 Telephone Babatunde Vitale [facility] Office Building One 1.114 350.1.13.10 4.2.7.2.686 [id number] [facility] 2021-02-13 00:00:00 2021-02-13 00:00:00 Telephone Babatunde Vitale [facility] Office Building One 1.114 350.1.13.10 4.2.7.2.686 [id number] [facility] 2021-02-11 14:15:00 2021-02-11 14:15:00 Outpatient BABATUNDE BENNETT [facility] [id number] [facility] 2021-02-09 16:52:09 2021-02-09 17:07:09 Photo Retoucher Visit Pob, Adc Lab Jayjay Mayfield [facility] Building 1.114 350.1.13.10 4.2.7.2.686 [id number] [facility] 2021-02-09 16:36:15 2021-02-09 16:51:15 Office Visit Babatunde Vitale [facility] Office Building One 1.114 350.1.13.10 4.2.7.2.686 [id number] [facility] 2021-02-09 15:45:00 2021-02-09 15:45:00 Outpatient JAYJAY HUITRON [facility] [id number] [facility] 2021-02-09 00:00:00 2021-02-09 00:00:00 Orders Only Doctor Unassigned, [place] [facility] 1.114 350.1.13.10 4.2.7.2.686 [id number] [facility] 2021-02-08 00:00:00 2021-02-08 00:00:00 Refcornelius Babatunde Vitale [facility] Office Building One 1.114 350.1.13.10 4.2.7.2.686 [id number] [facility] 2021-02-06 11:29:14 2021-02-06 11:51:37 Photo Retoucher Visit Lab, Adc Fam Flyb Eric Angelica Gonzalez [facility] Office Building One 1.114 350.1.13.10 4.2.7.2.686 [id number] [facility] 2021-02-06 11:20:00 2021-02-06 11:20:00 Outpatient R [facility] [id number] [facility] 2021-02-06 08:20:00 2021-02-06 08:20:00 Outpatient R BABATUNDE VITALE [facility] [id number] [facility] 2021-02-05 11:18:53 2021-02-05 11:44:13 Office Visit Babatunde Vitale [facility] Office Building One .114 350.1.13.10 4.2.7.2.686 [id number] [facility] 2021-02-05 11:00:00 2021-02-05 11:00:00 Outpatient R BABATUNDE VITALE [facility] [id number] [facility] 2021-02-05 00:00:00 2021-02-05 00:00:00 Letter (Out) Doctor Unassigned, [place] [facility] 1.114 350.1.13.10 4.2.7.2.686 [id number] [facility] 2021-01-28 13:45:00 2021-01-28 13:45:00 Outpatient Corrina EFRAÍNLENNYPREET BABATUNDE [facility] [id number] [facility] 2021-01-23 00:00:00 2021-01-23 00:00:00 Stephane Vitale [facility] Office Building One 1.84.114 350.1.13.10 4.2.7.2.686 [id number] [facility] 2021-01-22 00:00:00 2021-01-22 00:00:00 Telephone Babatunde Vitale [facility] Office Building One 1.84.114 350.1.13.10 4.2.7.2.686 [id number] [facility] 2020-11-20 13:00:00 2020-11-20 13:00:00 Outpatient LUCILA HAWTHORNE [facility] [id number] [facility] 2020-11-15 00:00:00 2020-11-15 00:00:00 Stephane Vitale [facility] Office Building One 1..114 350.1.13.10 4.2.7.2.686 [id number] [facility] 2020-11-14 00:00:00 2020-11-14 00:00:00 Telephone Babatunde Vitale [facility] Office Building One 1.84.114 350.1.13.10 4.2.7.2.686 [id number] [facility] 2020-10-23 12:00:00 2020-10-23 12:00:00 Outpatient LUCILA HAWTHORNE [facility] [id number] [facility] 2020-10-16 00:00:00 2020-10-16 00:00:00 Orders Only Doctor Unassigned, [place] [facility] 1.2.840.114 350.1.13.10 4.2.7.2.686 [id number] [facility] 2020-09-22 13:50:36 2020-09-22 14:05:36 Office Visit Babatunde Vitale [facility] Office Building One 1.114 350.1.13.10 4.2.7.2.686 [id number] [facility] 2020-09-22 13:45:00 2020-09-22 13:45:00 Outpatient R GALLOPREETBABATUNDE [facility] [id number] [facility] 2020-09-15 00:00:00 2020-09-15 00:00:00 Refcornelius Vitale [facility] Office Building One 1.114 350.1.13.10 4.2.7.2.686 [id number] [facility] 2020-07-30 00:00:00 2020-07-30 00:00:00 Refill Iam [facility] Office Building One 1.114 350.1.13.10 4.2.7.2.686 [id number] [facility] 2020-07-23 16:00:00 2020-07-23 16:00:00 Outpatient R BABATUNDE VITALE [facility] [id number] [facility] 2020-07-14 00:00:00 2020-07-14 00:00:00 Refill Iam [facility] Office Building One 1.114 350.1.13.10 4.2.7.2.686 [id number] [facility] 2020-05-27 15:20:00 2020-05-27 23:59:00 Hospital Encounter IamBabatunde [facility] 1.2.840.114 350.1.13.10 4.2.7.2.686 [id number] [facility] 2020-05-27 00:00:00 2020-05-27 00:00:00 Outpatient Corrina IAM BABATUNDE [facility] [id number] [facility] 2020-05-12 00:00:00 2020-05-12 00:00:00 Telephone Iam [facility] Office Building One 1.114 350.1.13.10 4.2.7.2.686 [id number] [facility] 2020-05-05 00:00:00 2020-05-05 00:00:00 Telephone Iam [facility] Office Building One 1.114 350.1.13.10 4.2.7.2.686 [id number] [facility] 2020-04-24 00:00:00 2020-04-24 00:00:00 Refill Iam [facility] Office Building One 1.114 350.1.13.10 4.2.7.2.686 [id number] [facility] 2020-03-17 14:15:00 2020-03-17 14:15:00 Outpatient BABATUNDE BENNETT [facility] [id number] [facility] 2020-03-17 00:00:00 2020-03-17 00:00:00 Telephone Iam [facility] Office Building One 1.114 350.1.13.10 4.2.7.2.686 [id number] [facility] 2020-03-12 00:00:00 2020-03-12 00:00:00 Orders Only Doctor Unassigned, [place] [facility] 1.114 350.1.13.10 4.2.7.2.686 [id number] [facility] 2020-03-11 00:00:00 2020-03-11 00:00:00 Telephone Iam [facility] Office Building One 1.2840.114 350.1.13.10 4.2.7.2.686 [id number] [facility] 2020-03-05 00:00:00 2020-03-05 [facility] 1.2840.114 350.1.13.10 4.2.7.2.686 [id number] [facility] 2019-12-28 00:00:00 2019-12-28 [facility]:00[facility] 1.2840.114 350.1.13.10 4.2.7.2.686 [id number] [facility] 2019-11-05 00:00:00 2019-11-05 00:00:00 Orders Only Doctor Unassigned, [place] [facility] 1.2.840.114 350.1.13.10 4.2.7.2.686 [id number] [facility] 2019-10-18 00:00:00 2019-10-18 00:00:00 Orders Only Doctor Unassigned, [place] [facility] 1.2.840.114 350.1.13.10 4.2.7.2.686 [id number] [facility] 2019-10-16 00:00:00 2019-10-16 00:00:00 [facility] 1.2840.114 350.1.13.10 4.2.7.2.686 [id number] [facility] 2019-10-16 00:00:00 2019-10-16 00:00:00 Telephone Babatunde Vitale [facility] Office Building One 1.2.840.114 350.1.13.10 4.2.7.2.686 [id number] [facility] 2019-09-24 00:00:00 2019-09-24 00:00:00 Orders Only Doctor Unassigned, [place] [facility] 1.2.840.114 350.1.13.10 4.2.7.2.686 [id number] [facility] 2019-05-15 00:00:00 2019-05-15 00:00:00 Telephone Babatunde Vitale [facility] Office Building One 1.2.840.114 350.1.13.10 4.2.7.2.686 [id number] [facility] 2019-04-27 13:30:00 2019-04-27 23:59:00 Hospital Encounter Babatunde Vitale [facility] 1.2.840.114 350.1.13.10 4.2.7.2.686 [id number] [facility] 2019-04-27 14:46:45 2019-04-27 15:44:27 Office Visit Babatunde Vitale [facility] Office Building One 1.2.840.114 350.1.13.10 4.2.7.2.686 [id number] [facility] 2019-04-27 13:00:00 2019-04-27 13:29:00 Hospital Encounter Babatunde Vitale [facility] 1.2.840.114 350.1.13.10 4.2.7.2.686 [id number] [facility] 2019-04-20 13:30:00 2019-04-20 23:59:00 Hospital Encounter Babatunde Vitale [facility] 1..114 350.1.13.10 4.2.7.2.686 [id number] [facility] 2019-04-20 00:00:00 2019-04-20 00:00:00 Orders Only Doctor Unassigned, [place] [facility] 1.840.114 350.1.13.10 4.2.7.2.686 [id number] [facility] Results Test Description Test Time Test Comments Results Result Co mments Source [facility] w/o Specific [id number] 21:26:00* Test Item Value Reference Range Interpretation Comme nts POCT PH U (test code = 3254) 5 mg/dl 5-8 POCT U LEUK EST (test code = 3263) trace Negative - Negative POCT U NIT (test code = 3262) negative Negative - Negati ve POCT U PROT (test code = 3259) negative Negative - Negat hernesto POCT U GLU (test code = 3256) normal Negative - Negati ve POCT U KETONE (test code = 3258) negative Negative - Neg ative POCT U BLD (test code = 3257) negative Negative - Negati ve [facility] Urinalysis, [id number] 21:28:00 * Test Item Value Reference Range Interpretation Comme nts POCT U SP GRAV (test code = 3255) 1.025 mg/dl 1.005-1.025 POCT PH U (test code = 3254) 7.0 mg/dl 5-8 POCT U LEUK EST (test code = 3263) Negative Negative - Negative POCT U NIT (test code = 3262) Negative Negative - Negati ve POCT U PROT (test code = 3259) 30 Negative - Negative POCT U GLU (test code = 3256) Negative Negative - Negati ve POCT U KETONE (test code = 3258) Negative Negative - Negative POCT U UROBILI (test code = 3260) 0.2 mg/dl 0.2-1 POCT U BILI (test code = 3261) Negative Negative - Negative POCT U BLD (test code = 3257) Negative Negative - Negati ve POCT U COLOR (test code = 3266) yellow POCT U APPEAR (test code = 3267) clear [facility] Urinalysis, [id number] 21:28:00 * Test Item Value Reference Range Interpretation Comme nts POCT U SP GRAV (test code = 3255) 1.025 mg/dl 1.005-1.025 POCT PH U (test code = 3254) 7.0 mg/dl 5-8 POCT U LEUK EST (test code = 3263) Negative Negative - Negative POCT U NIT (test code = 3262) Negative Negative - Negati ve POCT U PROT (test code = 3259) 30 Negative - Negative POCT U GLU (test code = 3256) Negative Negative - Negati ve POCT U KETONE (test code = 3258) Negative Negative - Negative POCT U UROBILI (test code = 3260) 0.2 mg/dl 0.2-1 POCT U BILI (test code = 3261) Negative Negative - Negative POCT U BLD (test code = 3257) Negative Negative - Negati ve POCT U COLOR (test code = 3266) yellow POCT U APPEAR (test code = 3267) clear [facility] Urinalysis, [id number] 21:28:00 * Test Item Value Reference Range Interpretation Comme nts POCT U SP GRAV (test code = 3255) 1.025 mg/dl 1.005-1.025 POCT PH U (test code = 3254) 7.0 mg/dl 5-8 POCT U LEUK EST (test code = 3263) Negative Negative - Negative POCT U NIT (test code = 3262) Negative Negative - Negati ve POCT U PROT (test code = 3259) 30 Negative - Negative POCT U GLU (test code = 3256) Negative Negative - Negati ve POCT U KETONE (test code = 3258) Negative Negative - Negative POCT U UROBILI (test code = 3260) 0.2 mg/dl 0.2-1 POCT U BILI (test code = 3261) Negative Negative - Negative POCT U BLD (test code = 3257) Negative Negative - Negati ve POCT U COLOR (test code = 3266) yellow POCT U APPEAR (test code = 3267) clear [facility] Urinalysis, [id number] 21:28:00 * Test Item Value Reference Range Interpretation Comme nts POCT U SP GRAV (test code = 3255) 1.025 mg/dl 1.005-1.025 POCT PH U (test code = 3254) 7.0 mg/dl 5-8 POCT U LEUK EST (test code = 3263) Negative Negative - Negative POCT U NIT (test code = 3262) Negative Negative - Negati ve POCT U PROT (test code = 3259) 30 Negative - Negative POCT U GLU (test code = 3256) Negative Negative - Negati ve POCT U KETONE (test code = 3258) Negative Negative - Negative POCT U UROBILI (test code = 3260) 0.2 mg/dl 0.2-1 POCT U BILI (test code = 3261) Negative Negative - Negative POCT U BLD (test code = 3257) Negative Negative - Negati ve POCT U COLOR (test code = 3266) yellow POCT U APPEAR (test code = 3267) clear [facility] RETROPERITONEAL [id number] 20:18:17 ORDERING PHYSICIAN: PRABHJOT ROUSSEAU HISTORY: renal insufficiency . TECHNIQUE: Son scale and color Doppler ultrasound images of the kidneysand urinary bladder were obtained. COMPARISON: None. FINDINGS: Right kidney measures 4.7 x 4.7 x 10.8 cm in size. There is nohydronephrosis. ? There is normal cortical thickness and echotexture. Asmall renal cortical cyst of the lower pole measures 1.9 cm longaxis. ? ? Left kidney measures 5.1 x 4.8 x 9.6 cm in size. There is nohydronephrosis. ? There is normal cortical thickness and echotexture. Asmall renal cortical cysts of the lower pole measures 2 cmlong axis.Immediately adjacent to it is a small 7 mm calculus. Another cyst ofsimilar size is incomp letely imaged, partially shadowed on the transversecine. Bladder is normal. ?Bilateral ureteral jets are seen. Visualized abdominal aorta is unremarkable. [facility] HAND 3+ VW [id number] 21:06:18ORDERING PHYSICIAN: CONOR MARTINEZ. HISTORY: left hand pain s/p fall four days ago TECHNIQUE: 3 views COMPARISON: None. FINDINGS: There is mild negative ulnar variance. There is severe first metacarpaljoint space narrowing and spurring. Small ossified loose bodies are seenwithin the joint. Mild ulnocarpal chondrocalcinosis is present.[facility] CLAVICLE COMP [id number] 21:05:29ORDERING PHYSICIAN: CONOR MARTINEZ. HISTORY: clavicle pain bilaterally fell four days ago. TECHNIQUE: 2 views each clavicle COMPARISON: None. FINDINGS: On the right, alignment is anatomic. A metallic anchor is seen at theundersurface of the acromion. Mild acromioclavicular spurring is present.No fracture is identified. On the left, alignment is anatomic. There is mild acromioclavicularspurring. No fracture is identified. Small foci of calcific tendinopathyare seen at the distal supraspinatus. [facility] SHOULDER 2+ VW [id number] 21:04:15 ORDERING PHYSICIAN: CONOR MARTINEZ. HISTORY: c/o pain bilateral shoulder s/p fall four days ago TECHNIQUE: 2 views each shoulder COMPARISON: None. FINDINGS: Right shoulder alignment is anatomic. A metallic anchor is seen at theundersurface of the acromion. Remodeling of the superolateral humeral headis noted. No acute fracture is identified. There is mild acromioclavicularspurring. Left shoulder alignment is anatomic. No fracture is identified. There ismild acromioclavicular spurring. Small foci of calcific tendinopathy areseen at the distal supraspinatusUnChildress Regional Medical CenterMEAS,POST-VOID RES,US,[id number] 19:43:00* Test Item Value Reference Range Interpretation Comme nts PVR (URINE VOLUME) (test code = 5193) 0 ml 0-100 [facility],POST-VOID RES,US,[id number] 19:43:00* Test Item Value Reference Range Interpretation Comme nts PVR (URINE VOLUME) (test code = 5193) 0 ml 0-100 [facility],POST-VOID RES,US,[id number] 19:43:00* Test Item Value Reference Range Interpretation Comme nts PVR (URINE VOLUME) (test code = 5193) 0 ml 0-100 [facility],POST-VOID RES,US,[id number] 19:43:00* Test Item Value Reference Range Interpretation Comme nts PVR (URINE VOLUME) (test code = 5193) 0 ml 0-100 [facility] Urinalysis w/o Specific [id number] 19:42:00* Test Item Value Reference Range Interpretation Comme nts POCT PH U (test code = 3254) 6 mg/dl 5-8 POCT U LEUK EST (test code = 3263) negative Negative - Negative POCT U NIT (test code = 3262) negative Negative - Negati ve POCT U PROT (test code = 3259) trace Negative - Negat hernesto POCT U GLU (test code = 3256) negative Negative - Negati ve POCT U KETONE (test code = 3258) negative Negative - Neg ative POCT U BLD (test code = 3257) negative Negative - Negati ve [facility] Urinalysis w/o Specific [id number] 19:42:00* Test Item Value Reference Range Interpretation Comme nts POCT PH U (test code = 3254) 6 mg/dl 5-8 POCT U LEUK EST (test code = 3263) negative Negative - Negative POCT U NIT (test code = 3262) negative Negative - Negati ve POCT U PROT (test code = 3259) trace Negative - Negat hernesto POCT U GLU (test code = 3256) negative Negative - Negati ve POCT U KETONE (test code = 3258) negative Negative - Neg ative POCT U BLD (test code = 3257) negative Negative - Negati ve [facility] Ur[facility] w/o Specific [id number] 19:42:00* Test Item Value Reference Range Interpretation Comme nts POCT PH U (test code = 3254) 6 mg/dl 5-8 POCT U LEUK EST (test code = 3263) negative Negative - Negative POCT U NIT (test code = 3262) negative Negative - Negati ve POCT U PROT (test code = 3259) trace Negative - Negat hernesto POCT U GLU (test code = 3256) negative Negative - Negati ve POCT U KETONE (test code = 3258) negative Negative - Neg ative POCT U BLD (test code = 3257) negative Negative - Negati ve [facility] Urinalysis w/o Specific [id number] 19:42:00* Test Item Value Reference Range Interpretation Comme nts POCT PH U (test code = 3254) 6 mg/dl 5-8 POCT U LEUK EST (test code = 3263) negative Negative - Negative POCT U NIT (test code = 3262) negative Negative - Negati ve POCT U PROT (test code = 3259) trace Negative - Negat hernesto POCT U GLU (test code = 3256) negative Negative - Negati ve POCT U KETONE (test code = 3258) negative Negative - Neg ative POCT U BLD (test code = 3257) negative Negative - Negati ve [facility] URINALYSIS W/O SPECIFIC [id number] 21:53:00* Test Item Value Reference Range Interpretation Comme nts POCT PH U (test code = 3254) 5 mg/dl 5-8 POCT U LEUK EST (test code = 3263) negative Negative - Negative POCT U NIT (test code = 3262) negative Negative - Negative POCT U PROT (test code = 3259) Negative - Negative POCT U GLU (test code = 3256) negative Negative - Negative POCT U KETONE (test code = 3258) negative Negative - Negative POCT U BLD (test code = 3257) negative Negative - Negative ARVIN (test code = ARVIN) Per order PVR by bladder scan = ?16 ml. Results reported to provider. [facility] URINALYSIS W/O SPECIFIC [id number] 21:53:00* Test Item Value Reference Range Interpretation Comme nts POCT PH U (test code = 3254) 5 mg/dl 5-8 POCT U LEUK EST (test code = 3263) negative Negative - Negative POCT U NIT (test code = 3262) negative Negative - Negative POCT U PROT (test code = 3259) Negative - Negative POCT U GLU (test code = 3256) negative Negative - Negative POCT U KETONE (test code = 3258) negative Negative - Negative POCT U BLD (test code = 3257) negative Negative - Negative ARVIN (test code = ARVIN) Per order PVR by bladder scan = ?16 ml. Results reported to provider. [facility] URINALYSIS W/O SPECIFIC [id number] 21:53:00* Test Item Value Reference Range Interpretation Comme nts POCT PH U (test code = 3254) 5 mg/dl 5-8 POCT U LEUK EST (test code = 3263) negative Negative - Negative POCT U NIT (test code = 3262) negative Negative - Negative POCT U PROT (test code = 3259) Negative - Negative POCT U GLU (test code = 3256) negative Negative - Negative POCT U KETONE (test code = 3258) negative Negative - Negative POCT U BLD (test code = 3257) negative Negative - Negative ARVIN (test code = ARVIN) Per order PVR by bladder scan = ?16 ml. Results reported to provider. [facility] URINALYSIS W/O SPECIFIC [id number] 20:21:00* Test Item Value Reference Range Interpretation Comme nts POCT PH U (test code = 3254) 5 mg/dl 5-8 POCT U LEUK EST (test code = 3263) negative Negative - Negative POCT U NIT (test code = 3262) negative Negative - Negative POCT U PROT (test code = 3259) POCT U GLU (test code = 3256) negative Negative - Negative POCT U KETONE (test code = 3258) negative Negative - Negative POCT U BLD (test code = 3257) negative Negative - Negative ARVIN (test code = ARVIN) Per order PVR by bladder scan = ?30 ml. Results reported to provider. [facility] URINALYSIS W/O SPECIFIC [id number] 20:21:00* Test Item Value Reference Range Interpretation Comme nts POCT PH U (test code = 3254) 5 mg/dl 5-8 POCT U LEUK EST (test code = 3263) negative Negative - Negative POCT U NIT (test code = 3262) negative Negative - Negative POCT U PROT (test code = 3259) POCT U GLU (test code = 3256) negative Negative - Negative POCT U KETONE (test code = 3258) negative Negative - Negative POCT U BLD (test code = 3257) negative Negative - Negative ARVIN (test code = ARVIN) Per order PVR by bladder scan = ?30 ml. Results reported to provider. [facility] URINALYSIS W/O SPECIFIC [id number] 19:55:00* Test Item Value Reference Range Interpretation Comme nts POCT PH U (test code = 3254) 5 mg/dl 5-8 POCT U LEUK EST (test code = 3263) neg Negative - Negative POCT U NIT (test code = 3262) neg Negative - Negati ve POCT U PROT (test code = 3259) ++ Negative - Negat hernesto POCT U GLU (test code = 3256) neg Negative - Negati ve POCT U KETONE (test code = 3258) neg Negative - Neg ative POCT U BLD (test code = 3257) neg Negative - Negati ve [facility] URINALYSIS W/O SPECIFIC [id number] 19:55:00* Test Item Value Reference Range Interpretation Comme nts POCT PH U (test code = 3254) 5 mg/dl 5-8 POCT U LEUK EST (test code = 3263) neg Negative - Negative POCT U NIT (test code = 3262) neg Negative - Negati ve POCT U PROT (test code = 3259) ++ Negative - Negat hernesto POCT U GLU (test code = 3256) neg Negative - Negati ve POCT U KETONE (test code = 3258) neg Negative - Neg ative POCT U BLD (test code = 3257) neg Negative - Negati ve [facility] URINALYSIS W/O SPECIFIC [id number] 19:55:00* Test Item Value Reference Range Interpretation Comme nts POCT PH U (test code = 3254) 5 mg/dl 5-8 POCT U LEUK EST (test code = 3263) neg Negative - Negative POCT U NIT (test code = 3262) neg Negative - Negati ve POCT U PROT (test code = 3259) ++ Negative - Negat hernesto POCT U GLU (test code = 3256) neg Negative - Negati ve POCT U KETONE (test code = 3258) neg Negative - Neg ative POCT U BLD (test code = 3257) neg Negative - Negati ve [facility] Notes Date/Time Note Provider Source 2024-05-03 13:17:30 Patient notified of all and verbalized understanding to all. T [facility] 2024-05-03 13:14:40 I sent antibiotic eye drops Must be seen in office or UC if symptoms not improved or worsen in next 1-2 days Shellie Jarvis MD T [facility] 2024-05-03 12:55:14 Patient reports right eye was pink and crusty this am and now left eye is pink with some blurring to vision. OV was offered, patient declined stating is is a taxing effort to drive self and she requires extra planning to come in. Please review and advise. [facility] 2024-05-03 10:27:13 Patient is returning call she missed from the clinic. Please advise. Henderson [facility] 2024-05-03 09:59:44 Attempted to contact patient, no answer, Unable to leave message. Kathrin Washington RN [facility] 2024-05-03 09:27:00 Patient states she has pink eye and is requesting a prescription for [facility] drops. [facility] 09[facility]24 Patient reporting pain 10/ r/t sciatica to BLE and is having trouble walking/resting. She denied falls/injuries, stated pain is chronic, but worsened yesterday. F/U appt for today was cancelled d/t taxing effort to leave her home. Please review and advise. Please review and sign if appropriate: Last office visit: 04/18/24 Requested Prescriptions Pending Prescriptions Disp Refills tiZANidine 2 mg tablet 60 tablet 1 Sig: Take 1 tablet by mouth every 6 (six) hours as needed for Pain (scale 7-10) (muscle spasm). Last refill date: 12/21/23 Notes: Lumbar radiculopathy, chronic - Primary Chronic pain syndrome T [facility] 2024-04-24 08:07:35 Sara Duran is a 73 year old female is calling stating having muscle spasm and has to sleep on stomach. Cancelled appt for today, walking is a issue due to muscle spasm. Please call the patient Lopez [facility] 2024-04-24 08:06:01 Sara Duran is a 73 year old female is calling needing refill Tizanidine 2mg [id number] - [place] - [address] [employer] [employer] [address] [place] [address] [facility] 2024-04-23 11:39:13 Images from the original note were not included. Notes: discontinued 12/21/23 Last Refilled: [facility][id number] - [place], [place] - [address] AT [facility] [address] Recent Visits Date Type Provider Dept 04/18/24 Office Visit Shellie Jarvis MD [facility] 01/18/24 Office Visit Krystle Cleary PA [facility] 12/21/23 Office Visit Shellie Jarvis MD [facility] 08/09/23 Office Visit Shellie Jarvis MD [facility] 07/07/23 Office Visit Shellie Jarvis MD [facility] 06/01/23 Office Visit Laura Boyce MD [facility] 05/19/23 Office Visit Laura Boyce MD [facility] 04/29/23 Office Visit Laura Boyce MD [facility] 04/29/23 Office Visit Laura Boyce MD [facility] 04/01/23 Office Visit Laura Boyce MD [facility] Showing recent visits within past 540 days with a meds authorizing provider and meeting all other requirements Future Appointments Date Type Provider Dept 04/24/24 Appointment Shellie Jarvis MD [facility] 07/20/24 Appointment Jenny Guzmán MD [facility] Showing future appointments within next 150 days with a meds authorizing provider and meeting all other requirements Name from pharmacy: TIZANIDINE 2MG TABLETS Will file in chart as: TIZANIDINE 2 mg tablet The original prescription was discontinued on 12/21/2023 by Shellie Jarvis MD for the following reason: Reorder. Renewing this prescription may not be appropriate. Sig: TAKE 1 TABLET BY MOUTH EVERY 6 HOURS NEEDED FOR SEVERE PAIN OR MUSCLE SPASM Disp: 60 tablet Refills: 1 (Pharmacy requested: Not specified) Start: 04/22/2024 Class: eRX Non-formulary For: Lumbar radiculopathy, chronic; Chronic pain syndrome Last ordered: 4 months ago (12/21/2023) by Shellie Jarvis MD Last refill: 01/30/2024 Rx #: [id number]|0|1 Provider Review Required Owcljs4904/23/2024 07:38 AM Protocol Details This refill cannot be delegated Valid encounter within last 12 months To be filled at: [facility][id number] - [place] - [address] [facility] [email or web address] Sachi Tabor MA [facility] 2024-04-13 15:03:32 Sara Duran is a 73 year old female Pt returning call to clinic. No recent or open TE. Did confirm appt on 04/18/24. Perla Rodriguez [facility] 2024-04-05 20:44:38 Rerouting for review and close Ariadne Harrison [facility] 2024-04-05 08:46:59 Please review, complete, and sign if appropriate. [facility] 2024-04-05 08:40:41 Sara Duran is a 73 year old female Ellen called because the pt has an appt with a patching machine operator today and they need a referral due to the pt HMO plan. She said its just a follow up appt. Please advise Dr. Rosetta Ham [address] [place] [address] Perla Rodriguez [facility] 2024-04-03 18:10:20 Rerouting for review and close [facility] 2024-03-30 16:00:00 Images from the original note were not included. Venipuncture collection performed by clean technique on the right hand. Total of 1 attempts were made. Slight pressure and a bandage/dressing were applied to the site(s). The patient experienced no complications. The following specimens were processed according to instructions and sent to [facility] per lab order on 03/30/2024 : LT BLUE 1 SST RED 2 LAV PPT DK GREEN (LiHep) DK GREEN (SodH) SON DK BLUE (K2) DK BLUE (S) ACD Blood Culture NIPT/NTD Patient has been identified by and name and was provided with cup, antiseptic towelette, and clean catch instructions. 3 urine specimen(s) sent. Unpreserved Urine Culture Aptima tube Other urine [facility] 2024-03-30 15:36:00 Regarding: Pt states she is feeling depressed and having memory loss ----- Message from [place] sent at 03/30/2024 3:33 PM CDT ----- Pt states she is feeling depressed and having memory loss Cari Vargas RN [facility] 2024-03-30 15:36:00 Nurse's Note: 1540 Sara Duran is a 73 year old female. Received call from patient. Patient states she's been having depression and memory loss. She's at the hospital now to have blood work done. She's due to see Dr. Ham. She's concerned about the depression and memory loss. Patient states she's been feeling anxious for about 2 months. She denies thoughts of self harm or wanting to harm someone else. Has been taking prevagen for years. The memory loss has been off and on for the last 2 months as well. She states she forgets appointments and the days of the weeks but not peoples names. She lacks energy and does not feel like cleaning and sometimes does not feel like getting out of bed but does shower and take care of herself. Adult Triage Assessment Last Clinic Visit: 01/18/24 Primary Symptom: depression Onset / Duration: 2 months Location / Description: generalized Pain / Severity: sciatic nerve pain for over a year, 5/10 Associated Symptoms: loss of appetite, "not wanting to get out of bed", memory loss Fever / Method: denies Hydration: no changes Treatment so far: prevagen Effect on ADL's: lack of energy, does minimum activities LMP: n/a Pre-existing condition / Immunocompromised: htn, asthma, prediabetes Reason for Disposition [1] Depression AND [2] getting worse (e.g., sleeping poorly, less able to do activities of daily living) Protocols used: [id number] After assessment and triage, patient advised to see provider within 24 hours and recommended she go to the ER for worsening symptoms. Patient given strong 911 warnings for any thoughts of self harm. Cari Vargas RN 03/30/2024 4:25 PM [facility] 2024-03-28 16:01:28 Name and verified. Pt wanted Dr. Rousseau to be her PC as Matheus is leaving. Explained to pt that Dr. Rousseau is only a UroGyn specialist. Pt verbalized understanding. Wants a recommendation from Dr. Rousseau. BRANDI NOVAK RN 03/28/2024 4:04 PM Brandi Novak RN [facility] 2024-03-27 16:25:26 Patient calling states she needs to speak to Dr. Jack Rousseau in regards to follow-up from her botox injections a few weeks back. Declined to give any additional details. [facility] 2024-03-27 15:05:04 Spoke with patient and relayed that she would need to be seen in clinic. Patient has an appointment with Dr. Diaz tomorrow 03/28. Advised patient to go to urgent care or Ed if symptoms worsen. Patient voiced understanding. Kathrin Washington RN [facility] 2024-03-27 14:59:45 OV required thanks [facility] 2024-03-27 14:32:21 Spoke with patient she stated that she had spicy sausage about a week age and has had diarrhea ever since. She stated that she is staying hydrated with Pedialyte. She reports that she she has tried Imodium and it has not helped. Please review and advise Patient has an appointment tomorrow with . [facility] 2024-03-27 14:21:31 Sara Duran is a 73 year old female calling in requesting medication to assist with diarrhea x1 week.Please advise Navarro Vargas [facility] 2024-03-12 09:59:29 Outpatient Medication Detail Disp Refills Start End VIVIANA ergocalciferol, vitamin d2, 1,250 mcg (50,000 unit) capsule 26 capsule 1 02/27/2023 -- No Sig: Take 1 capsule by mouth weekly. Sent to pharmacy as: ergocalciferol (vitamin D2) 1,250 mcg (50,000 unit) capsule (CALCIFEROL) Class: eRX Route: Oral Order: [id number] Date/Time Signed: 02/27/2023 13:00 E-Prescribing Status: Receipt confirmed by pharmacy (02/27/2023 1:00 PM CDT) Associated Diagnoses Senile osteopenia Order Associated Providers Name NPI Ordering Provider Laura Boyce MD [[id number]] [id number] Authorizing Provider Laura Boyce MD [[id number]] [id number] Pharmacy [facility][id number] - [place], [place] - [address] AT [facility] [employer] [address] Recent Visits Date Type Provider Dept 01/18/24 Office Visit Krystle Cleary PA [facility] 12/21/23 Office Visit Shellie Jarvis MD [facility] 08/09/23 Office Visit Shellie Jarvis MD [facility] 07/07/23 Office Visit Shellie Jarvis MD [facility] 06/01/23 Office Visit Laura Boyce MD [facility] 05/19/23 Office Visit Laura Boyce MD [facility] 04/29/23 Office Visit Laura Boyce MD [facility] 04/29/23 Office Visit Laura Boyce MD [facility] 04/01/23 Office Visit Laura Boyce MD [facility] 01/11/23 Office Visit Laura Boyce MD [facility] Showing recent visits within past 540 days with a meds authorizing provider and meeting all other requirements Future Appointments Date Type Provider Dept 03/16/24 Appointment Shellie Jarvis MD [facility] Showing future appointments within next 150 days with a meds authorizing provider and meeting all other requirements [facility] 2024-03-12 09:52:27 Pt is currently established with , no longer pt, message forwarded to [facility]. Donna Martin RN [facility] 2024-03-12 08:07:59 Images from the original note were not included. Maren Frye [facility] 2024-03-02 07:09:16 Outpatient Medication Detail Disp Refills Start End VIVIANA Diclofenac Sodium (VOLTAREN) 1 % gel 100 g 4 04/01/2023 -- No Sig: Apply to area(s) 4 (four) times daily. Apply 4 g qid Sent to pharmacy as: diclofenac 1 % topical gel Class: eRX Route: Topical Order: [id number] Date/Time Signed: 04/01/2023 14:27 E-Prescribing Status: Receipt confirmed by pharmacy (04/01/2023 2:28 PM CDT) Recent Visits Date Type Provider Dept 01/18/24 Office Visit Krystle Cleary PA [facility] 12/21/23 Office Visit Shellie Jarvis MD [facility] 08/09/23 Office Visit Shellie Jarvis MD [facility] 07/07/23 Office Visit Shellie Jarvis MD [facility] 06/01/23 Office Visit Laura Boyce MD [facility] 05/19/23 Office Visit Laura Boyce MD [facility] 04/29/23 Office Visit Laura Boyce MD [facility] 04/29/23 Office Visit Laura Boyce MD [facility] 04/01/23 Office Visit Laura Boyce MD [facility] 01/11/23 Office Visit Laura Boyce MD [facility] Showing recent visits within past 540 days with a meds authorizing provider and meeting all other requirements Future Appointments Date Type Provider Dept 03/16/24 Appointment Shellie Jarvis MD [facility] Showing future appointments within next 150 days with a meds authorizing provider and meeting all other requirements [facility] 2024-03-01 17:20:57 Sara Duran is a 73 year old female Pt is requesting refill for rx Diclofenac Sodium (VOLTAREN) 1 % gel Thank you Bruno Montana [facility] 2024-02-17 13:00:00 Addended by: DANIELLE MCMILLAN LVN on: 02/17/2024 04:56 PM Modules accepted: Orders [facility] 2024-02-17 13:00:00 Addended by: JACK ROUSSEAU MD on: 02/17/2024 05:59 PM Modules accepted: Orders T [facility] 2024-02-14 14:00:00 Images from the original note were not included. Venipuncture collection performed by clean technique on the back of right hand. Total of 1 attempts were made. Slight pressure and a bandage/dressing were applied to the site(s). The patient experienced no complications. The following specimens were processed according to instructions and sent to [facility] laboratories per lab order on TODAY: LT BLUE SST RED LAV PPT LT GREEN (LiHep) 1 DK GREEN (SodH) SON DK BLUE (K2) DK BLUE (S) ACD Blood Culture NIPT/NTD T [facility] 2024-02-14 12:31:41 Addended by: JACK ROUSSEAU MD on: 02/14/2024 12:31 PM Modules accepted: Orders T [facility] 2024-02-14 10:58:54 Per patient, she has lost her medication trimethoprim 100 mg tablet. She is asking for a refill. Felipa Gooden MA [facility] 2024-02-13 15:15:00 Addended by: DANIELLE MCMILLAN LVN on: 02/13/2024 04:51 PM Modules accepted: Orders [facility] 2024-02-10 13:45:09 PA was submitted for Botox. Approved. EOC# [id number]. BRANDI NOVAK RN 02/10/2024 1:46 PM Brandi Novak RN [facility] 2024-02-07 15:48:03 Pt informed no fracture, degenerative changes noted. Pt verbalized understanding. Follow up with PCP as needed Mary Ann Zaragoza RN [facility] 2024-02-07 15:24:04 Copied from [facility] #[id number]. Topic: Clinical - Results >> February 07, 2024 3:22 PM Patient Youth Care Professional wrote: Sara Duran is a 73 year old female calling in requesting xray results.Please adivse Navarro Vargas [facility] 2024-02-03 14:26:54 Sara Duran is a 73 year old female and said she will go to as a walk in. Pt also made an appt for Tuesday in the clinic. Future Appointments Date Time Provider Department Center 02/06/2024 1:30 PM Seth Diaz MD ADBUTMTommie REYES Angie Dsouza [facility] 2024-02-03 13:09:16 Images from the original note were not included. Routed to provider for review. Unable to refill per ambulatory refill guidelines. Notes: gabapentin 300 mg capsule Sig: Take 1 capsule by mouth in the morning and 1 capsule at noon and 1 capsule in the evening. Disp: 270 capsule Refills: 1 Start: 02/02/2024 Class: eRX For: Lumbar radiculopathy, chronic Last ordered: 5 months ago (08/09/2023) by Shellie Jarvis MD [facility]ath[facility] Rrewsr6102/02/2024 03:32 PM Protocol Details Manual Review: Verify no changes in dose in the last 3 months Valid encounter within last 12 months To be filled at: [facility][id number] - [place], [place] - [address] [facility] & [address] Last Refilled: 11/02/23 Recent Visits Date Type Provider Dept 01/18/24 Office Visit Krystle Cleary PA [facility] 12/21/23 Office Visit Shellie Jarvis MD [facility] 08/09/23 Office Visit Shellie Jarvis MD [facility] 07/07/23 Office Visit hSellie Jarvis MD [facility] 06/01/23 Office Visit Laura Boyce MD [facility] 05/19/23 Office Visit Laura Boyce MD [facility] 04/29/23 Office Visit Laura Boyce MD [facility] 04/29/23 Office Visit Laura Boyce MD [facility] 04/01/23 Office Visit Laura Boyce MD [facility] 01/11/23 Office Visit Laura Boyce MD [facility] Showing recent visits within past 540 days with a meds authorizing provider and meeting all other requirements Future Appointments Date Type Provider Dept 03/22/24 Appointment Shellie Jarvis MD [facility] Showing future appointments within next 150 days with a meds authorizing provider and meeting all other requirements Harriet Bentley MA [facility] 2024-02-03 08:57:51 LMTCB including directions from Provider Becky Salazar LVN 02/03/2024 T [facility] 2024-02-03 08:40:04 UC or ER now for BP check, schedule with me soonest available thanks T [facility] 2024-02-03 08:05:02 Please review and advise. NOV 03/22/24 T [facility] 2024-02-02 18:26:00 Regardinyof blood pressure drop / fainted fell out chair / shoulder and arm pain ----- Message from Jerrica Simmons sent at 02/02/2024 6:24 PM CDT ----- Sara Duran is a 73 year old female blood pressure drop / fainted fell out chair / shoulder and arm pain Vanessa Garcia RN [facility] 2024-02-02 18:26:00 Attempted to return pt call x2. Both attempts went to . Message left to remove any blocks and attempted again. Second call went to . Message left with AC phone number to call back if assistance is still needed. Vanessa Garcia RN Reason for Disposition Message left on identified voice mail Protocols used: No Contact or Duplicate Contact [id number] [facility] 2024-02-02 18:12:26 Sara Duran is a 73 year old female Wanted to notify that her blood pressure drop and fainted fell out of chair .She is having Shoulder pain left wanting an x ray referral please assist . Offered to speak with nurses accepted Jerrica Simmons [facility] 2024-02-02 15:31:56 Images from the original note were not included. [facility] 2024-01-31 13:52:30 Images from the original note were not included. Jack Rousseau MD P [facility] Womens Nurse Please inform patient that creatinine is still elevated and may be too high for use to proceed with elective botox procedure. I recommend she speak with Nephrology for clearance. She will need to complete this prior to schedule procedure. Thank you! Contacted patient. Patient notified of results. Patient states she will reach out to patching machine operator. Lab orders and meds sent to patching machine operator via fax. Delon Bland RN 01/31/2024 1:54 PM Delon Bland RN [facility] 2024-01-27 16:54:13 Name and verified. Pt advised of change of medication. Verbalized understanding. BRANDI NOVAK RN 01/27/2024 4:55 PM Brandi Novak RN [facility] 2024-01-27 14:21:56 Will prescribe a different antibiotic. Please inform pt Thank you! [facility] 2024-01-27 12:28:40 Notes: Please Review Last Refilled: 6 months ago (07/07/2023) traMADoL 50 mg tablet Take 1 tablet by mouth every 6 (six) hours as needed. Dispense: Not specified By: Doctor Unassigned, [place] Recent Visits Date Type Provider Dept 01/18/24 Office Visit Krystle Cleary PA [facility] 12/21/23 Office Visit Shellie Jarvis MD [facility] 08/09/23 Office Visit Shellie Jarvis MD [facility] 07/07/23 Office Visit Shellie Jarvis MD [facility] 06/01/23 Office Visit Laura Boyce MD [facility] Medicine 05/19/23 Office Visit Laura Boyce MD [facility] 04/29/23 Office Visit Laura Boyce MD [facility] 04/29/23 Office Visit Lauar Boyce MD [facility] 04/01/23 Office Visit Laura Boyce MD [facility] Medicine 01/11/23 Office Visit Laura Boyce MD [facility] Showing recent visits within past 540 days with a meds authorizing provider and meeting all other requirements Future Appointments Date Type Provider Dept 03/22/24 Appointment Shellie Jarvis MD [facility] Showing future appointments within next 150 days with a meds authorizing provider and meeting all other requirements Maria Luz Person [facility] 2024-01-27 11:49:18 Copied from [facility] #[id number]. Topic: Clinical - Medical Advice >> January 27, 2024 11:48 AM Patient Youth Care Professional wrote: Patient is requesting a refill of traMADoL 50 mg tablet. Patient has 6 pills left. Richard Henderson [facility] 2024-01-24 16:15:00 Images from the original note were not included. Venipuncture collection performed by clean technique on the left hand. Total of 1 attempts were made. Slight pressure and a bandage/dressing were applied to the site(s). The patient experienced no complications. The following specimens were processed according to instructions and sent to [facility] per lab order on 01/24/2024: LT BLUE SST 1 RED LAV PPT DK GREEN (LiHep) DK GREEN (SodH) SON DK BLUE (K2) DK BLUE (S) ACD Blood Culture NIPT/NTD [facility] 2024-01-24 15:04:24 Images from the original note were not included. Maria Luz Naya 01/23/2024 9:18 AM CDT Contacted patient. Patient notified of results per provider. Verbalized understanding. GARRETT Baumann 01/21/2024 9:47 AM CDT Suspect fracture of humeral head, age indeterminate. No dislocation. Recommend wearing arm sling. Do not recommend going to chiropractor at this time. Recommend seeing ortho. I will refer. GARRETT Baumann 01/23/2024 9:34 PM CDT Xray for chronic knee pain. Did fall on knees. Has osteoarthritis. Swelling present and suspected joint effusion. Sent in [employer] carole for knee pain and sciatica. Follow-up with ortho. Avoid nsaids. Take with food. Joycelyn Benavides LVN [facility] 2024-01-24 13:19:50 Please review and advise. MERRY 01/18/24 Pt reports B shoulder pain and completed Xray to right shoulder at last OV. She is requesting Xray be completed to Left shoulder prior to Dr. Clark visit on 01/25. Please review and advise. [facility] 2024-01-24 13:17:57 Sara Duran is a 73 year old female Patient is calling stating prescription have penicillin in it and she is allergic. Needing alternative. Please advise [id number] - [place], [place] [address] [facility] [address] [facility] [address] [place] [address] Mick Genao [facility] 2024-01-24 13:05:43 Sara Duran is a 73 year old female Pt said her Left shoulder is in pain and is requesting an XR order for her left shoulder. Please advise. Perla Rodriguez [facility] 2024-01-23 13:45:47 Left detailed message on personal voicemail to hold PT until seen by Ortho. To call clinic if she had any other question. Kathrin Washington RN [facility] 2024-01-23 13:30:00 Addended by: SHA HOWELL on: 01/23/2024 04:33 PM Modules accepted: Orders [facility] 2024-01-23 13:30:00 Addended by: JACK ROUSSEAU MD on: 01/27/2024 02:28 PM Modules accepted: Orders [facility] 2024-01-23 09:34:43 Copied from [facility] #[id number]. Topic: Clinical - Order >> Jan 23, 2024 9:33 AM Patient Youth Care Professional wrote: Sara Duran is a 73 year old female Pt calling in wanting to know if she has to hold off on pt until she sees ortho.Please advise and contact pt. [phone] (home) Mary Tinajero [facility] 2024-01-23 07:57:14 Patient schedule 01/26/24 Brittany Lackey [facility] 2024-01-22 21:19:23 Sara Duran is a 73 year old female Pt is calling to schedule her appt with the orthopedic per referral her appt should on a STAT aapt.she is requesting to schedule her with any orthopedic provider tomorrow afternoon since she has an appt with uro/wet mixer in the afternoon. Please call pt to give her an earlier appt.@ [phone] (home) Vicki Schmitt [facility] 2024-01-20 11:22:08 Sara Duran is a 73 year old female Pt would like to discus her xray results Zoie Hunt [facility] 2024-01-17 11:04:43 Pt scheduled for 01/20/24. Silvia Manriquez [facility] 2024-01-13 16:19:50 Sara Duran is a 73 year old female Pt calling stating she would like to schedule botox injection [phone] (home) Cheko Rutherford [facility] 2024-01-06 08:58:34 Left a detailed message on personal Voice mail. Will also send a Salsifyt message. Kathrin Washington RN [facility] 2024-01-05 17:23:53 Referral ordered No we do not need to do that us at this time Shellie Jarvis MD [facility] 2024-01-05 16:36:37 Patient is requesting new order be placed for colonoscopy-never completed. She also states never completed doppler study ordered per Dr. Boyce last year and is questioning the need to complete. If recommended per Dr. Jarvis, please reorder if previous order is . Please review, complete, and sign if appropriate. Patient notified to contact medical records for release of MRI/US results completed last year and verbalized understanding. [facility] 2024-01-05 16:28:55 Patient is returning call from the clinic Mary Lorenz [facility] 2024-01-05 16:26:25 LMTCB Becky Salazar LVN 01/05/2024 T [facility] 2024-01-05 10:54:34 Sara Duran Would like to request a colonoscopy and vascular lab order for lower extremities. She is also scheduled to see external provider for spine on 01/13/24 and would like the results of the MRI and US done last year sent to him before her appointment Patient was also given the contact number to schedule mammogram. Please call patient back Yessi Romero [facility] 2023-12-22 10:36:16 Yes the patient has stopped methocarbamol due to side effects. She should find a safe way to discard that medication Shellie Jarvis MD T [facility] 2023-12-22 08:54:40 Please review and advise. [facility] 2023-12-21 17:02:15 Copied from [facility] #[id number]. Topic: Clinical - Medical Advice >> Dec 21, 2023 5:01 PM Patient Youth Care Professional wrote: [facility] [place] is calling in regards tiZANidine 2 mg tablet (ZANAFLEX) to verify if Dr Jarvis is aware that the patient has methocarbemol at home Please advise [id number] - [place] - [address] [facility] [employer] & Consumer Agent Portal (CAP) [place] [address] Dandre Altman [facility] 2023-12-21 16:26:18 Please re-send transmission failed earlier T [facility] 2023-12-21 16:24:46 Sara Duran is a 73 year old female Pt was seen today and a prescription for tizanidine was sent to the pharmacy but they have not received it. The patient is requesting that it be sent again. Julieth Cantu [facility] 2023-12-21 08:07:05 Medication refilled per policy: Last office visit: 08/09/23 Next office visit: 12/21/23 Requested Prescriptions Pending Prescriptions Disp Refills ALLOPURINOL 100 mg tablet [Pharmacy Med Name: ALLOPURINOL 100MG TABLETS] 90 tablet 1 Sig: TAKE 1 TABLET BY MOUTH EVERY MORNING Last fill date: 07/07/23 Labs: Recent Labs 11/09/23 1659 URICACID 6.8* Notes: Idiopathic chronic gout without tophus, unspecified site [facility] 2023-12-14 08:23:13 Patient notified of all and will f/u in office on 12/26. [facility] 2023-12-13 17:23:25 OV is required for controlled substances Shellie Jarvis MD [facility] 2023-12-13 14:50:57 Please review and advise. [facility] Joycelyn Benavides LVN [facility] 2023-12-13 14:35:58 Sara Duran is a 73 year old female that is still in a great deal of pain due to not seeing pain mgmt because they're not covered by insurance. The pt states that she called The pt is requesting the followin) tramadol refill 2) robaxin (or something else because she has to cut in half) [id number] - [place] [address] [facility] [employer] & Consumer Agent Portal (CAP) [address] [address] Kayy Ricardo [facility] 2023-12-09 16:10:53 Please review and sign if appropriate: *Listed as historical med Last office visit: 08/09/23 Next office visit: 12/27/23 Requested Prescriptions Pending Prescriptions Disp Refills traMADoL 50 mg tablet Sig: Take 1 tablet by mouth every 6 (six) hours as needed. Notes: Lumbar radiculopathy, chronic [facility] 2023-12-09 15:58:02 Sara Duran is a 73 year old female is requesting a refill of tramadol. Please advise. [facility][id number] - [place], [place] - [address] [facility] [employer] & Consumer Agent Portal (CAP) [address] [place] [address] Kayy Silva [facility] 2023-12-09 15:55:00 Regarding: ankle/feet edema x 3-4 weeks ----- Message from Kayy Silva sent at 12/09/2023 3:55 PM CDT ----- Sara Duran is a 73 year old female Tosha Sparks RN [facility] 2023-12-09 15:55:00 Adult Triage Assessment Last Clinic Visit: 11/17/23 Nephrology Primary Symptom: 2+ pitting edema lower legs Onset / Duration: 3 weeks Location / Description: Ankles and feet Pain / Severity: 0/10 If they get really swollen, they have some pain, but none now Associated Symptoms: Sciatic nerve pain , no difficulty breathing, or other edema Fever / Method: None Hydration: Drinking fluids well, voiding as normal Treatment so far: Took Lasix 20 mg 1 hr ago Effect on ADL's: Has progressed to a cane from being immobile LMP: NA Pre-existing condition / Immunocompromised: Chronic Kidney disease Reason for Disposition [1] MILD swelling of both ankles (i.e., pedal edema) AND [2] new onset or worsening Protocols used: Leg Swelling and [id number] Patient calling concerned of new edema of bilateral feet and ankle edema. She is asking if it is ok to take Lasix. Informed that I can not advise, but will forward an encounter to Dr. Jarvis for review. She has placed a call to her patching machine operator, but they are on vacation this week. Encouraged to present to for any worsening symptoms. [facility] 2023-12-09 15:55:00 I see lasix 80 mg on her medication list, is this prescribed by her patching machine operator? How often does she take it Ok to offer OV Shellie Jarvis MD [facility] 2023-12-09 15:55:00 Contacted patient who reports she is unsure which medications she is taking at this time as he reports the Sleeve Wheel Maker changed her medications. She has a follow-up on 12/15/23 and will verify which medications she is taking. She will bring a list to her upcoming visit with Dr. Jarvis on 12/21/23. Joycelyn Benavides LVN 12/14/2023 10:20 AM [facility] Joycelyn Benavides [facility] 2023-11-23 16:52:28 Please review and sign if appropriate [facility] 2023-11-23 16:29:35 Copied from [facility] #[id number]. Topic: Clinical - Referral >> Nov 23, 2023 4:25 PM Kate Team wrote: Patient is requesting a referral to: Dept: Pain Management Reason for referral: Sciatic Nerve Pain Duration of problem: 9 months Internal / External referral: Internal/External Name of provider / location patient requesting: Dr. Babatunde Velasco Phone number: [phone] Fax number: n/a Appt already scheduled?: No If yes, date of appt.: n/a EL OILER Richard Henderson [facility] 2023-11-11 14:09:59 Please review and sign if appropriate MERRY 08/09/23 NOV 12/27/23 [facility] 2023-11-11 12:37:54 Sara Duran is a 73 year old female Agneles with Dr Fatoumata TERRELL is calling for referral for nephrology. [place] states the referral they had from provider is and need it to be updated. NPI-[id number] fax [phone] Patient has scheduled appointment for 11-17-23 O Booth [facility] 2023-11-10 10:33:31 Images from the original note were not included. Requested Renewals ezetimibe (ZETIA) 10 mg tablet Sig: Take 1 tablet by mouth in the morning. Disp: 90 tablet Refills: 1 Start: 11/10/2023 Class: eRX For: Dyslipidemia Last ordered: 7 months ago (04/01/2023) by Laura Boyce MD Antilipid: Sterol Transport Inhibitors [id number]/10/2023 08:46 AM Protocol Details Valid encounter within last 12 months AST in normal range and within 360 days ALT in normal range and within 360 days HDL within 360 days LDL within 360 days Total Cholesterol within 360 days Triglycerides within 360 days To be filled at: [id number] - [place], [place] - [address] [facility] Recent Visits Date Type Provider Dept 08/09/23 Office Visit Shellie Jarvis MD [facility] 07/07/23 Office Visit Shellie Jarvis MD [facility] 06/01/23 Office Visit Laura Boyce MD [facility] 05/19/23 Office Visit Laura Boyce MD [facility] Medicine 04/29/23 Office Visit Laura Boyce MD [facility] Medicine 04/29/23 Office Visit Laura Boyce MD [facility] Medicine 04/01/23 Office Visit Laura Byoce MD [facility] 01/11/23 Office Visit Laura Boyce MD [facility] 11/22/22 Office Visit Harriet Tinajero FNP [facility] 07/28/22 Office Visit Anne Marie Licea NP [facility] Showing recent visits within past 540 days with a meds authorizing provider and meeting all other requirements Future Appointments Date Type Provider Dept 12/27/23 Appointment Shellie Jarvis MD [facility] Showing future appointments within next 150 days with a meds authorizing provider and meeting all other requirements O Benavides LVN [facility] 2023-11-10 08:46:17 Images from the original note were not included. EL OILER [facility] 2023-11-09 16:45:00 Images from the original note were not included. Venipuncture collection performed by clean technique on the right hand. Total of 1 attempts were made. Slight pressure and a bandage/dressing were applied to the site(s). The patient experienced no complications. The following specimens were processed according to instructions and [facility] per lab order on 11/09/2023: LT BLUE SST RST-3 RED LAV 2 PPT DK GREEN (LiHep) LIGHT GREEN-1 DK GREEN (SodH) SON DK BLUE (K2) DK BLUE (S) ACD Blood Culture NIPT/NTD Patient has been identified by and name and was provided with cup, antiseptic towelette, and clean catch instructions. 4 urine specimen(s) sent. Unpreserved 2 Urine Culture 2 Aptima tube Other urine [facility] 2023-11-02 17:40:13 Orders for Mobility device received from [employer]. [facility] 2023-11-01 13:15:51 Recent Visits Date Type Provider Dept 08/09/23 Office Visit Shellie Jarvis MD [facility] 07/07/23 Office Visit Shellie Jarvis MD [facility] 06/01/23 Office Visit Laura Boyce MD [facility] 05/19/23 Office Visit Laura Boyce MD [facility] 04/29/23 Office Visit Laura Boyce MD [facility] Medicine 04/29/23 Office Visit Laura Boyce MD [facility] 04/01/23 Office Visit Laura Boyce MD [facility] 01/11/23 Office Visit Laura Boyce MD [facility] Showing recent visits within past 540 days with a meds authorizing provider and meeting all other requirements Future Appointments Date Type Provider Dept 11/09/23 Appointment Shellie Jarvis MD [facility] Showing future appointments within next 150 days with a meds authorizing provider and meeting all other requirements [facility] 2023-11-01 12:41:47 Sara Duran is a 73 year old female is calling for the following: DME-- [employer] [facility] [phone] office # No fax number wheelchair cushion [employer] [phone] office # [phone] fax Wheelchair [employer] [phone] office # Anything cpap related O Brennerah Ricardo [facility] 2023-11-01 12:08:05 Sara Duran is a 73 year old female Would like to have Cyclobenzaprine 5 mg prescribed Please contact pt if necessary [phone] (home) [facility][id number] - [place], [place] - [address] [employer] Consumer Agent Portal (CAP) O Altman [facility] 2023-11-01 12:05:11 Sara Duran is a 73 year old female Would like orders for wheel chair sent to : [facility] p [phone] f patient will call back with fax number O Altman [facility] 2023-11-01 11:41:00 Forms not recd and to be re faxed per Patt. [facility] 2023-10-31 13:36:41 Sara Duran is a 73 year old female Patt with [employer] is requesting clarification that the order for a wheelchair was received by the clinic. Please advise. [phone] O Henderson [facility] 2023-10-17 14:15:35 Patient provided with update regarding coverage and notified denial has been received per [employer] [facility], [employer] [facility], [employer], and [employer]. Patient encouraged to contact insurance to provide with name of covering DME and verbalized understanding. Patient to callback with requested information. [facility] 2023-10-12 09:19:56 [place] order initiated on 10/12/2023 [facility] 2023-10-07 11:51:53 Please send order via parachut to DME for wheelchair cushion, dx: M54.16, R 26.81, M17.0 [facility] 2023-10-06 10:13:05 Please review and advise. [facility] 2023-10-06 08:59:02 Sara Duran is a 73 year old female requesting for you to order a good wheelchair cushion. Pls give her a call, thanks. She is expecting a call back. [facility] Tara Vargas [facility] 2023-10-05 17:50:56 Order submitted via [place] to [employer] on 10/05/2023. [facility] 2023-10-05 12:38:56 Please send DME as requested thank you [facility] 2023-10-05 12:24:21 Please review and advise. O Benavides LVN [facility] 2023-10-05 12:02:12 Noted, will complete through suture sign. O Stevens MA [facility] 2023-10-05 11:53:42 Sara Duran is a 73 year old female Pt is requesting for new standard wheel chair order to go through a different equipment [employer]. Please send to [place] Pt can be reached at [phone] O Tinajero [facility] 2023-10-05 11:41:45 Sara Druan is a 73 year old female Danielle with a [employer] home health calling stating suture sign was rejected for home health orders for pt not being a pt of Dr. Lam. System is showing she was a pt but this is back from june when Pt was with him. Please advise O Tinajero [facility] 2023-10-03 09:13:46 Spoke with patient. Patient states she does NOT have glaucoma. Patient advised that an alternative has been sent to her pharmacy as requested. Patient scheduled for 6 week telehealth appointment. Delon Bland RN 10/03/2023 9:14 AM O Bland RN [facility] 2023-09-30 09:00:12 Images from the original note were not included. [facility] Dorina Faust [facility] 2023-09-28 13:32:14 Please review and advise. [facility] 2023-09-28 11:10:39 Due to elevated bps I do not recommend Myrbetriq We can try Trospium Please confirm that pt does not have glaucoma (elevated pressures in eye) Please schedule telehealth visit (in the 430 slot) in 6 weeks Thank you! [facility] 2023-09-27 17:02:49 Sara Duran is a 73 year old female Pt is requesting re for new standard wheel chair Pt can be reached at [phone] Thank you [facility] Bruno Montana [facility] 2023-09-27 16:57:25 Sara Duran is a 73 year old female Pt is requesting alternate for vibegron (GEMTESA) 75 mg Tab,states she is experiencing trouble receiving rx without coupon due to cost Thank you [facility] Bruno Montana [facility] 2023-09-22 12:20:43 Please use AZO for symptoms relief. If no improvement, she can start Macrobid, prescription sent to pharmacy Due to mobility issues, will defer urine culture. Thank you! [facility] 2023-09-21 15:09:13 Pt says she has uti burning sensation since the of this week EL OILER Alana Rosario [facility] 2023-06-14 10:04:11 Formatting of this n ote might be different from the original. Phone call concerns reviewed with Dr. Boyce. He would like to have telehealth visit with patient today. Scheduled for 4 pm. Informed pt; she verbalizes understanding and will be available for the visit. Angelica Ho RN [facility] 2023-06-13 15:40:27 Formatting of this n ote might be different from the original. Pt calling back to inform us that [employer] will deliver to her home for DME. She also has the reference number and agent number for the [employer] rep who stated she qualified for the power wheelchair so that we can reach out to them if needed for anything. Agent ID: [id number], reference number: [id number]. [facility] 2023-06-13 14:36:23 Formatting of this n ote might be different from the original. 1150 phone call to patient to discuss concerns regarding DME. Pt is very upset and frustrated that it has taken so long to get the equipment and meds that she needs for her comfort/pain relief. She has been in a lot of pain recently, pain "20 out of 10" and feels that although the physician cares a lot, she is not being listened to. Equipment needs: Standard power wheelchair ([employer] just let her know she qualifies for one), will need order Shower chair-Florina Stevens MA submitted order via [place] to [employer]. She confirmed this company accepts [employer] Regarding her pain: Methocarbamol-she has been taking 2 tabs at a time every 6 hours and this dose has given her better relief. She is requesting new rx Pt is requesting lidocaine patch-her sister had some left and she tried and this is also giving her better relief than the licocaine-prilocaine cream which wipes off too easy I apologized for delay in responding to her needs. Provided my name and direct office number for further issues ([phone], Angelica Vinson, nurse clinical operations manager). Routed call to Dr. Boyce for review. [facility] 2023-06-13 12:03:29 Formatting of this n ote might be different from the original. DME sent [place], sent to [facility]. Shower chair. Alyx Stevens MA [facility] 2023-06-13 10:35:07 Formatting of this n ote might be different from the original. DME sent to [place], sent to [facility] [place]. Shower Chair Called patient to inform her DME for shower chair has been sent. She was very upset when I told her it was sent to [facility] and that she is still waiting for her wheelchair from [facility]. Patient states [facility] does not send any supply's due to her insurance. When doing her DME and was choosing a supplier [facility] was covered by her insurance and that's why DME was done with them. Patient was being very ugly on the phone and told patient multiply times if she wants another supplier she will need to call to find out what will expect her insurance, patient wanted me to give her a list but I don't have a list and she would have to call herself and then give us a call once she find one. Patient was stated "we needed better communication within one another and accuracy staff, since we don't know what we were doing". Informed patient I was the only staff in the clinic and was trying to get everyone taken care of in a timely manner. Put the patient on hold and patient had hung up the phone. [facility] 2023-06-13 09:48:16 Formatting of this n ote might be different from the original. Patient would like to speak with a nurse regarding the orders for wheelchair and a shower chair. She's very upset and in pain. Phuong Hernandez [facility] 2023-06-09 15:11:56 Formatting of this n ote might be different from the original. Pt calling the clinic to let the dr know that she called [facility] and they said the will approve the orders for the home physical therapy 5 days a week Taran Paulino [facility] 2023-06-09 14:18:35 Formatting of this n ote might be different from the original. Pt calling to make sure orders were put in for a shower chair and the physical therapy. Pt would also like an order for a floor mat to be put in because of her fall history. As well as a handle for her to get in and out of the bath [facility] 2023-06-08 16:37:50 Formatting of this n ote might be different from the original. Pt has appt for telemed with Dr Boyce today. Josie Chao RN [facility] 2023-06-08 16:08:24 Formatting of this n ote might be different from the original. Fall noted. STAT ER advised for proper care and evaluation. On MERRY, had discussed need for in-patient rehab for patient due to poor endurance and recurrent falls. At the time patient reported she would consider rehab and discuss with her family. Okay to add to Telehealth schedule today, but ER visit is highly encouraged due to unknown nature of fall. [facility] 2023-06-08 14:26:47 Formatting of this n ote might be different from the original. Pt calling back saying is not going to make an appointment. She will not be doing anything but a telehealth visit. They only thing she said he can do for her is prescribe her more pain medicine Taran Paulino [facility] 2023-06-08 09:10:29 Formatting of this n ote might be different from the original. Patient was informed, per Dr. Drake patient need to be evaluated by pain management. Alyx Stevens MA [facility] 2023-06-08 09:09:47 Formatting of this n ote might be different from the original. Noted, please view pervious encounter. Provider was informed. Alyx Stevens MA [facility] 2023-06-08 09:03:32 Formatting of this n ote might be different from the original. Spoke with patient, while on the phone with the patient. Patient informed me "she had a fall and was still on the floor, unable to get up". Pain scale rate per patient was 20 instead 1-10. Talked to Dr. Drake and per Dr. Drake he informed me to tell patient to call EMS or to come into office for a visit to get a shot. No medication will be sent, Patient was referred to pain management for further treatment for pain. Call was then transferred to Betsey Quinones RN to take further action with the call and to asset the patient. Alyx Stevens MA [facility] 2023-06-08 08:49:32 Formatting of this n ote might be different from the original. Spoke with patient stated " I slid out the bed my sciatic nerve and I can put on panties and it hurts to get on my knees because my bottom is inflamed and I sleep on my stomach and I woke up this morning every time I move my left leg so I call and find out. Patient. I called ya'll to order something not to help me get up off the floor. You are not going to call EMS ill get someone else to help me. I just want him to order me something for pain." Recommendations: advised patient she needed to go to ER for evaluation and treatment. Patient refused ER advise, EMS, and appointment for today. Patient is wanting Dr. Boyce to order something for pain. Routing encounter to provider for further review and advise. Betsey Quinones RN [facility] 2023-06-08 08:21:00 Formatting of this n ote might be different from the original. Pt called and states that she is so much pain. She couldn't sleep last night because she is in so much pain. She states that she is needing something for her pain. She cannot even get out of her bed. She is requesting to speak with a nurse. Please advise. Cait Escobedo [facility] 2023-06-07 17:34:51 Formatting of this n ote might be different from the original. Patient is to see Pain clinic for proper evaluation and care. Colchicine is only indicated for gout. [facility] 2023-06-06 18:04:45 Formatting of this n ote might be different from the original. Sara Duran is a 73 year old female Carla is calling from [facility] wanted to provide notification pt has experienced fall 06-05-23 Carla can be reached at [phone] Thank you Bruno Montana [facility] 2023-06-06 10:28:08 Formatting of this n ote might be different from the original. Spoke with patient, patient informed me she had a fall last week and hurt her Hip again, informed her of lab results. Patient wants to know if she can take Colchicine 0.6 mg for pain since she is not allowed to take any pain medication per Dr. Drake in [facility]. Patient does not need a refill on Lidocaine, patient picked up prescription from pharmacy at [facility]. [facility] 2023-06-06 10:06:29 Formatting of this n ote might be different from the original. Attempted to call Carla no answer, Will inform provider. No further action need to be done. Alyx Stevens MA [facility] 2023-06-06 08:21:33 Formatting of this n ote might be different from the original. Re-routing to correct clinic. Joycelyn Benavides LVN 06/06/2023 8:21 AM Joycelyn Benavides [employer] [facility] 2023-06-04 09:20:34 Formatting of this n ote is different from the original. Rx was sent as noted, let patient know, and to follow-up as scheduled. STAT ER guidelines if worsening symptoms. methocarbamoL 500 mg tablet 180 tablet 1 06/01/2023 No Sig: Take 1 tablet by mouth 3 (three) times daily as needed (Chronic Pain and muscle spasms). Sent to pharmacy as: methocarbamoL 500 mg tablet (ROBAXIN) Class: eRX Route: Oral Order: [id number] Date/Time Signed: 06/01/2023 12:38 E-Prescribing Status: Receipt confirmed by pharmacy (06/01/2023 12:38 PM CDT) [facility] 2023-06-03 18:28:53 Formatting of this n ote is different from the original. Sara Duran is a 73 year old female Requesting LIDOCAINE 5% OIN in larger tubes. Please call [facility] Mail Delivery - [facility] [address] Carmen Booth [facility] 2023-06-03 14:32:19 Formatting of this n ote might be different from the original. Carla Salazar, physical therapist, called to inform clinic that she missed appointment today due to having to go to pain doctor appointment. Please advise. Call back number: [phone] Cait Escobedo [facility] 2023-06-02 10:28:32 Formatting of this n ote might be different from the original. SW attempted to contact Patient (Sara Duran p: [phone]) by phone regarding order/consult for [facility]facility [facility]; recording received "vm full/cannot accept messages". (X3). Josie Booth LCSW, [facility] Cobol Engineer- Pulmonology Physician Management [facility]ics [facility] ,and [place] Pager: [phone] Em: [email or web address] Josie Booth LCSW [facility] 2023-06-02 09:31:28 Formatting of this n ote might be different from the original. Sara Duran is a 73 year old female Pt returning call from the social worker school Josie Booth. Please advise. Perla Rodriguez [facility] 2023-06-01 15:33:31 Formatting of this n ote might be different from the original. Sara Duran is a 73 year old female Pt is returning a miss call. Zoie Hunt [facility] 2023-06-01 12:57:24 Formatting of this n ote might be different from the original. Seen in clinic today, per Dr. Boyce there is a plan of care in place. Suellen Medina RN [facility] 2023-05-31 13:35:43 Formatting of this n ote might be different from the original. Called patient, unable to leave as mailbox is full. Suellen Medina RN [facility] 2023-05-31 12:57:08 Formatting of this n ote is different from the original. Medication Concerns/Fall Chronic pain syndrome - Complicated by Chronic midline low back pain with bilateral sciatica, Spasm of paraspinal muscle, Arthritis, multiple joint involvement, Chronic midline thoracic back pain, Chronic pain of both lower extremities, Chronic pain of both knees, Right hand pain, Complex regional pain syndrome type 1 affecting right hand - Chronic and stable. Methocarbamol was discontinued - Advised to stay active as tolerated and consider water exercise. - Avoid sitting for prolonged periods of time. - Advised to maintain good hydration, at least 64 ounces daily. - Anticipatory guidance and patient education discussed. - Patient is established with Pain medicine, follow up as scheduled. - TENS unit and electrodes Cmpk; Take 1 Units in the morning. M54.41. use daily on affected areas. Brand as covered by insurance Dispense: 1 Each; Refill: 0 - tens unit electrodes (TENS UNITS ELECTRODES) 2X2 " Pads; Use as directed Dispense: 1 Kit; Refill: 1 - Continue on Cyclobenzaprine 5mg TID, Gabapentin 300mg BID, Voltaren Gel PRN, Lidocaine Gel PRN Please clarify if patient is taking cyclobenzaprine or Tizanidine [cannot take both]. Advise ER/Urgent care STAT if worsening symptoms. Patient is to complete PT via . Laura Boyce MD, MPH Manager Mechanical Maintenance, Department of Family Medicine [facility] 05/31/2023 12:59 PM Future Appointments In 2 months Laura Boyce MD [facility], [facility] 2023-05-31 09:18:37 Formatting of this n ote is different from the original. methocarbamoL 500 mg tablet (Discontinued) 360 tablet 1 04/01/2023 04/05/2023 No Sig: Take 1 tablet by mouth 4 (four) times daily Fell off pt med list. Routing to provider for refill. Mary Lemon LVN 05/31/2023 9:19 AM Mary Lemon [facility] 2023-05-31 09:04:46 Formatting of this n ote is different from the original. Pt requesting refill on methocarbamoL 500 mg tablet (Discontinued) 360 tablet 1 04/01/2023 04/05/2023 No Sig: Take 1 tablet by mouth 4 (four) times daily Stated that she is in pain and unable to get pharmacy to fill. Pt had fall on 05/29 and went to . [id number] - [place] - [address] AT [employer] Also faxing MRI results to pain management MD Dr Silver. Faxed [phone], confirmation received. Mary Lemon LVN 05/31/2023 9:15 AM Mary Lemon [facility] 2023-05-30 10:48:59 Formatting of this n ote might be different from the original. Sara Duran is a 73 year old female [facility] [place] calling to inform physician of a fall 05/26/23 and let physician know that patient is running low on pain medication. Please call [facility] #[id number] - [place], [place] - [address] [employer] [employer] [address] [place] [address] Josie Olivarez [facility] 2023-05-27 10:57:48 Formatting of this n ote might be different from the original. Pt says she had one MRI done want to make sure this is going to be sent to her pain specialist and want to discuss the 2ND MRI she needs Alana Rosario [facility] 2023-05-25 15:03:19 Formatting of this n ote might be different from the original. Pt is checking the status. Contact pt before to confirm dosage. Contact pt when it has been processed. Angle Leggett [facility] 2023-05-25 11:30:00 Formatting of this n ote might be different from the original. 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 Continue with plan of care as discussed, will discuss in detail at follow-up. [facility] 2023-05-25 10:09:59 Formatting of this n ote might be different from the original. Pt returning call to clinic Taran Zelaya Paulino [facility] 2023-05-25 10:04:57 Formatting of this n ote might be different from the original. Pt calling to get refill of medication methocarbamoL 500 mg tablet Taran Mendeziggs [facility] 2023-05-24 15:03:50 Formatting of this n ote might be different from the original. Attempted to call patient, no answer, unable to LVM Alyx Stevens MA [facility] 2023-05-23 14:45:09 Formatting of this n ote might be different from the original. Patient (Sara Duran p: [phone]) requesting order for "Vascular Ultrasound" to be sent to Radiology. Patient requesting to BOTH Ultrasound and MRI to be completed same day (05/25/23) -only have transportation on that day. Patient requesting call for assistance. Thank you, Josie Booth LCSW, [facility] Cobol Engineer- Pulmonology Physician Management [facility] Based [facility], [place], [place] ,and [place] Pager: [phone] Em: [email or web address] Josie Booth [facility] 2023-05-23 11:11:43 Formatting of this n ote might be different from the original. Spoke with patient verbalized understanding the order is placed. Currently waiting on SW and insurance approval. Suellen Medina RN [facility] 2023-05-23 09:06:40 Formatting of this n ote might be different from the original. Patient returned call to nurse Suellen. Phuong Hernandez [facility] 2023-05-23 08:26:26 Formatting of this n ote might be different from the original. Called patient, unable to leave , mailbox full [facility] 2023-05-19 16:24:54 Formatting of this n ote might be different from the original. Please let patient know that HH order completed on prior visit 03/24/2023, pending insurance approval and patient's choice of vendor. Consult/Referral to Cobol Engineer completed. [facility] 2023-05-19 16:10:20 Formatting of this n ote might be different from the original. Routing to provider, Please advise if orders can be placed. JANIE KELLER MA 05/19/2023 4:11 PM Janie Keller MA [facility] 2023-05-19 16:08:02 Formatting of this n ote might be different from the original. Attempted to call pt, N/A, left vm to call clinic back. Last results in her chart were given to her in OV per . JANIE KELLER MA 05/19/2023 4:09 PM Janie Keller MA [facility] 2023-05-19 11:02:06 Formatting of this n ote might be different from the original. Patient is requesting an order for a home health provider to help her at home. She is requesting a call back to let her know if he can order. She was seen today and forgot to mention to Dr. Boyce. Anamaria Monte [facility] 2023-05-16 15:11:42 Formatting of this n ote might be different from the original. Called patient to get her on the schedule--she will call us back once she finds out her daughter's availability to bring her to the appointment. Shahida Lizama [facility] 2023-05-16 09:21:06 Formatting of this n ote might be different from the original. Pt called needing her results. Pt asked that if your planning on calling her on May [birth year], that's her birthday and she doesn't want any bad news that day. Please advise Mery Hyde [facility] 2023-05-14 13:36:30 Formatting of this n ote might be different from the original. IMPRESSION 1. There is a large hypodense mass within the central liver at the junction of the left and right hepatic lobes which demonstrates patchy internal calcification. This mass measures 9.2 x 7.7 x 6.47 m. While this may result from a large hepatic hemangioma, mucinous metastatic adenocarcinoma would be in the differential diagnosis. Dynamic contrast enhanced MRI is recommended for further characterization. 2. A right adrenal adenoma is present. 3. Bilateral renal cysts are present. 4. Hysterectomy has been performed. I have placed orders for MRI of abdomen. Based on CT recommendations Please see if patient prefers to make appointment to discuss [facility] 2023-05-14 11:22:44 Formatting of this n ote might be different from the original. Can patient come in to appointment to discuss results and reasoning for MRI needed? TOOL REPAIRER BENCH-FAMILY MIDLEVEL PROVIDER [facility] 2023-05-13 08:46:22 Formatting of this n ote might be different from the original. Re-routing to correct clinic. Joycelyn Benavides LVN 05/13/2023 8:46 AM Joycelyn Benavides LVN [facility] 2023-05-12 17:25:09 Formatting of this n ote might be different from the original. Sara Duran is a 72 year old female Patient is calling to see if she needs to come in and discuss results from CT scan. Please advise. Patient also she states she drove 20 miles for an Xray and "they" said they didn't have them and she doesn't want to do another XRAY. Patient states she doesn't know why they cant find them. Please advise. Henry Smith [facility] 2023-05-03 15:06:34 Formatting of this n ote might be different from the original. Called patient no answer, unable to LVM. Referral has been placed for patient on 04-05-2023, here is the number for our referral department [phone] to be scheduled. Alyx Stevens MA [facility] 2023-05-03 12:09:12 Formatting of this n ote might be different from the original. Patient calling for status of referral. She said she is in so much pain and can't even function. Please call as soon as possible. Phuong Hernandez [facility] 2023-05-03 11:09:56 Formatting of this n ote might be different from the original. Pt called following up on referral request. She states that she is in much pain and cannot function and do her daily acts of living. Please advise. Call back number: [phone] Cait Escobedo [facility] 2023-05-03 10:08:55 Formatting of this n ote might be different from the original. Pt is calling want referral to pain specialist Dr. Nicole Silver #[phone] Sciatic nerve pain Alana Rosario [facility] 2023-05-03 08:40:33 Formatting of this n ote might be different from the original. Printed and faxed referral to [facility] Dr.Charles Smalls NPI-[id number] Address: [address] [place] [address] [address], [place] [address] [phone] [facility] [id number] Suellen Medina RN [facility] 2023-05-02 22:32:09 Formatting of this n ote might be different from the original. Consult/Referral Routine eye exam - CONSULT/REFERRAL OPHTHALMOLOGY [facility] 2023-04-29 14:40:00 Addended by: LAURA ALEXANDER on: 05/02/2023 05:55 PM Modules accepted: Orders [facility] 2023-04-28 15:16:26 Formatting of this n ote might be different from the original. Routing to [facility] and Dr. Boyce for further assistance Rosmery Bojorquez MA [facility] 2023-04-28 09:49:40 Formatting of this n ote might be different from the original. Faith with [facility] in [place] is requesting a new referral for patient to see Dr.Charles Smalls NPI-[id number] Address: [address] [place] [address] [address], [place] [address] [phone] [facility] [id number] Navarro Vargas [facility] 2023-04-27 11:24:44 Formatting of this n ote might be different from the original. Called patient, No answer, Unable to LVM. Voice mailbox is full. Betsey Quinones RN [facility] 2023-04-26 10:01:41 Formatting of this n ote might be different from the original. Re-routing to correct clinic. Joycelyn Benavides LVN 04/26/2023 10:01 AM Joycelyn Benavides LVN [facility] 2023-04-26 10:00:09 Formatting of this n ote might be different from the original. Sara Duran is a 72 year old female Patient needing a call back in regards o vascular US questions. Please advise Renee Garcia [facility] 2023-04-18 11:50:01 Formatting of this n ote might be different from the original. [facility] vital sign alert Suellen Medina RN [facility] 2023-04-14 16:09:59 Formatting of this n ote might be different from the original. Acknowledged. Continue with PT/OT to increase stamina and improve endurance. RTC if worsening symptoms. ER STAT if clinic closed. Will monitor [facility] 2023-04-08 14:45:35 Formatting of this n ote might be different from the original. Daren with [facility] is calling says pt has lost 10lbs in the last 2 weeks. Pt stopped taken her Robaxin because she thinks this caused her last fall Alana Rosario [facility]
[2024-05-30 14:31] LABS: Absolute Lymphocytes (CBC) 1.3 K/uL (0.7-4.9); Absolute Monocytes 1.2 K/uL (0.1-1.3); Hematocrit 35.7 % (36.0-45.0); Hemoglobin 11.5 g/dL (12.0-15.0); Lymphocytes % 6.2 % (15.3-44.8); MCH 30.1 pg (27.0-35.0); MCHC 32.2 g/dL (32.0-36.0); MCV 93.6 fL (80-100); MPV 10.7 fL (7.6-11.3); Monocytes % 6.1 % (3.3-12.3); Neutrophils % 87.7 % (41.7-73.7); Nucleated Red Blood Cells % 0.1 % (0-0); Platelets 218 thou/uL (152-406); RBC Red Blood Cell Count 3.82 M/uL (3.86-4.86); Red Cell Distribution Width 15.9 % (12.1-15.2)
[2024-05-30 14:42] LABS: PT Prothrombin Time 12.5 SECONDS (9.4-12.5); PTT, Activated Partial Thromb 25.8 SECONDS (24.3-36.9); Protime INR 1.12
[2024-05-30] MEDS ORDERED: levETIRAcetam 1,500 MG in NA CHLORIDE 0.9% 100 ML IV ONE (15:00)
[2024-05-30 15:02] LABS: Specific Gravity 1.015 (1.005-1.030); Sqamous Epithelial 20-50 /HPF (None Seen); Urine Bacteria <20 /HPF (<20); Urine Bilirubin NEGATIVE (Negative); Urine Blood 2+ (Negative); Urine Clarity Extremely Turbid (Clear); Urine Color Yellow (Yellow); Urine Culture Reflex Order NOT NEEDED; Urine Glucose NEGATIVE (Negative); Urine Ketones NEGATIVE (Negative); Urine Microscopic Reflex YN ORDER UMIC; Urine Mucus Slight /HPF (None Seen); Urine Nitrite NEGATIVE (Negative); Urine Protein 3+ (Negative); Urine RBC <5 /HPF (None Seen); Urine Urobilinogen Normal (Normal)
[2024-05-30 15:03] LABS: Albumin 3.6 g/dL (3.4-5.0); Albumin/Globulin Ratio 1.3 (1.1-1.8); Anisocytosis 1+; Bilirubin Total 0.6 mg/dL (0.2-1.0); Blood Morphology Comment NOTED (NOT SEEN); Globulin 2.8 g/dL (2.3-3.5); Platelet Estimate ADEQ; Protein, Total 6.4 g/dL (6.4-8.2); White Blood Cell Scan OK (OK)
[2024-05-30 15:09] LABS: Barbiturates NEGATIVE (NEGATIVE); Benzodiazepines NEGATIVE (NEGATIVE); Cocaine NEGATIVE (NEGATIVE); METHAMPHETAM NEGATIVE (NEGATIVE); Methadone NEGATIVE (NEGATIVE); Opiates NEGATIVE (NEGATIVE); Phencyclidine NEGATIVE (NEGATIVE); THC Cannibis NEGATIVE (NEGATIVE)
[2024-05-30] MEDS ORDERED: NA CHLORIDE 0.9% 1,000 ML ONE (15:25)
--- NOTE | 2024-05-30 16:01 | RAD REPORT ---
EXAM DESCRIPTION: CT - Head Brain Wo Cont - 05/30/2024 3:39 pm CLINICAL HISTORY: Seizure COMPARISON: None TECHNIQUE: Computed axial tomography of the head was obtained. IV contrast was not requested. All CT scans are performed using dose optimization technique as appropriate and may include automated exposure control or mA/KV adjustment according to patient size. FINDINGS: 16 millimeter mass along right frontal convexity. A portion is calcified. There is surroun ding vasogenic edema. Additional 10 millimeter density along the right frontal convexity anteriorly. No surrounding edema. Mild to moderate dilatation third ventricle. Moderate dilatation lateral ventricles. Mild to moderate low-density within the periventricular white matter. This could be secondary to a edema from the hyd rocephalus or ischemic changes secondary to small vessel disease An intracranial bleed is not seen Empty sella turcica No extra-axial fluid collection is noted. Fluid within the sinuses/ mastoids is not seen. IMPRESSION: Moderate hydrocephalus. 16 millimeter mass along the right frontal convexity with surrounding vasogenic edema. Additional sma ller density along the right frontal convexity. These may represent meningiomas. It is recommended th at patient have an MRI of the brain with contrast for further evaluation
--- NOTE | 2024-05-30 16:07 | RAD REPORT ---
EXAM DESCRIPTION: CT - C Spine Wo Con - 05/30/2024 3:43 pm CLINICAL HISTORY: Neck swelling COMPARISON: None TECHNIQUE: Computed axial tomography of the cervical spine were obtained with sagittal and coronal r econstruction images generated and reviewed. All CT scans are performed using dose optimization technique as appropriate and may include automated exposure control or mA/KV adjustment according to patient size. FINDINGS: A cervical fracture is not seen. No dislocation. Mild anterior subluxation C4 on C5. Mild posterior subluxation of C6 on C7. Spondylosis most marked C6-7 resulting in moderate right and xbqk-fi-hybemzgl left foraminal stenosis . Mild central spinal stenosis present IMPRESSION: A cervical fracture is not seen. Spondylosis most marked C6-7 resulting in moderate right foraminal stenosis If the patient continues have symptoms to suggest spinal cord/spinal canal pathology then MRI would b e recommended.
[2024-05-30] MEDS ORDERED: NA CHLORIDE 0.9% 100 ML ONE (16:17)
[2024-05-30] MEDS ORDERED: Meropenem 1000 MG/VIAL IV ONE (16:17)
--- NOTE | 2024-05-30 16:18 | RAD REPORT ---
EXAM DESCRIPTION: CT - Chest Abd Pelvis Wo Con - 05/30/2024 3:43 pm CLINICAL HISTORY: Chest and abdominal pain status post fall COMPARISON: CT chest 2020 TECHNIQUE: Computed axial tomography of the chest, abdomen and pelvis was obtained. Oral contrast wa s given. IV contrast was not requested. All CT scans are performed using dose optimization technique as appropriate and may include automated exposure control or mA/KV adjustment according to patient size. FINDINGS: The evaluation of mediastinum, gaby, vessels and solid organs is limited secondary to the lack of IV contrast administration Right lower lobe opacity. No mediastinal hematoma. A pleural effusion is not present. A pericardial effusion is not seen. 7 centimeter low-density mass within the liver containing calcification has decreased size and may se quela of a hematoma. Spleen, pancreas, adrenals and kidneys do not demonstrate an acute traumatic injury. 3.3 centimeter right adrenal mass Hounsfield unit 21 has increased size since the prior exam. 1.2 kelly timeter low-density lesion right kidney probably a cyst. Delgado catheter within bladder. Gross bladder abnormality noted. No evidence of diverticulitis. Endotracheal tube with its tip 1 centimeter above josue. Nasogastric tube stomach 11 millimeter sclerosis within the sacrum IMPRESSION: Right lower lobe opacity could represent atelectasis or pneumonia Endotracheal tube with its tip 1 centimeter above the josue No acute traumatic injury involving chest, abdomen/ pelvis 3.3 centimeter right adrenal mass has enlarged. I suspect it represents an adenoma. However, it is re commended that the patient have a nonemergent MRI of the adrenal gland for further evaluation. 11 millimeter area sclerosis within the sacrum nonspecific. Follow-up x-ray in 3 months is recommende d for re-evaluation
--- NOTE | 2024-05-30 16:30 | ER ---
Nurse's Notes [facility] Name: Sara Duran Age: 74 yrs Sex: Female : 1950 Arrival Date: 05/30/2024 Time: 13:57 Bed 3 Private MD: Diagnosis: Brain Mass;Hydrocephalus;Vasogenic edema;Septic shock Presentation: 05/30 14:15 Chief complaint: EMS states: Pt brought in via EMS, INTUBATED. Per EMS, pt's neighbor dd2 found her lying on the floor having seizure like activity. EMS state several seizure activity on scene. Pt was hypotensive 60/40, O2 SAT 80%. Pt was intubated with a 7.5, 23 cm at the lip. Pt has IO Rt LE patent. RT facial/eye swelling noted. Coronavirus screen: At this time, the client does not indicate any symptoms associated with coronavirus-19. Ebola Screen: No symptoms or risks identified at this time. Initial Sepsis Screen: Does the patient meet any 2 criteria? Systolic BP < 90 mmHg. Altered Mental Status. Yes Does the patient have a suspected source of infection? No. Patient's initial sepsis screen is negative. Risk Assessment: Do you want to hurt yourself or someone else? Unable to obtain. Onset of symptoms is unknown. Care prior to arrival: Oral intubation, Medication(s) given: Versed 5 MG x1, Ativan 2 mg x1, Ketamine 150 mg x1, Rocuronium 75 mg x2, Levophed drip started at 10 mcg/min, Epinephrine 3 push dose 20 meq Glucose check: 80 Oxygen administered. via AMBU bag. 14:15 Method Of Arrival: EMS: [facility] dd2 14:15 Acuity: ISIAH 2 dd2 14:37 Care prior to arrival: Rt LE IO 25mm flushes, patent. Lt LE 45mm not patent, removed on dd2 arrival. Triage Assessment: 14:37 General: Appears ill, Behavior is unresponsive. Pain: Unable to use pain scale. Patient dd2 is intubated. Neuro: Level of Consciousness is unresponsive, pt is intubated. Seizure activity reported prior to arrival. Historical: - Allergies: 15:17 TETRACYCLINES; ph 15:17 Codeine; ph 15:17 CLAVULANIC ACID; ph 15:17 Azithromycin; ph 15:17 cefepime; ph 15:17 Amoxicillin; ph - Home Meds: 17:34 gabapentin 300 mg oral capsule 1 cap 3 times per day [Active]; hydralazine 25 mg Oral ph tablet 1 tab 3 times per day [Active]; methocarbamol 500 mg Oral tablet 4 times per day [Active]; telmisartan 20 mg oral tablet nightly [Active]; carvedilol 25 mg oral tablet 2 tab 2 times per day [Active]; torsemide 20 mg oral tablet 1 tab daily [Active]; ezetimibe 10 mg oral tablet 1 tab daily [Active]; furosemide 20 mg Oral tablet 1 tab daily [Active]; allopurinol 300 mg Oral tablet 1 tab daily [Active]; - PMHx: 17:34 Hypercholesterolemia; Hypertensive disorder; ph - Immunization history:: Adult Immunizations unknown. - Infectious Disease History:: unable to obtain. - Social history:: Smoking status: unknown. - History obtained from: EMS. - Unable to obtain history due to: obtunded state, patient is on ventilator. Screenin:16 [facility] ED Fall Risk Assessment (Adult) History of falling in the last 3 months, ph including since admission Yes- fall prone (multiple falls) (3 pts) Confusion or Disorientation No (0 pts) Intoxicated or Sedated Yes (3 pts) Impaired Gait No (0 pts) Mobility Assist Device Used No (0 pt) Altered Elimination No (0 pt) Score/Fall Risk Level 3 or more points = High Risk Oriented to surroundings, Maintained a safe environment, Hourly rounding (assess needs \T\ fall precautionary measures) done. Abuse screen: Denies threats or abuse. Denies injuries from another. Nutritional screening: No deficits noted. Tuberculosis screening: No symptoms or risk factors identified. Assessment: 15:00 General: Behavior is unresponsive. Pain: Unable to use pain scale. Patient is ph unresponsive. Neuro: Level of Consciousness is unresponsive, Oriented to none. Cardiovascular: Capillary refill < 3 seconds in bilateral fingers Patient's skin is warm and dry. Respiratory: Airway via oral intubation Respiratory pattern is symmetrical, Ventilator assessment: ET Tube: 7.5 23 cm at lip. Tidal Volume: 450 Respiratory Rate: 16 FiO2: 40% PEEP: 5 HOB > 30 degrees. GI: Abdomen is non-distended. Derm: Skin is normal. 15:36 Reassessment: Pt taken for CT, accompanied by Agueda RN, and RT. ph 16:22 Reassessment: Patient appears in no apparent distress at this time. No changes from ph previously documented assessment. Patient and/or family updated on plan of care and expected duration. Pain level reassessed. 18:54 Reassessment: Patient appears in no apparent distress at this time. No changes from ph previously documented assessment. 19:10 General: Behavior is unresponsive. Pain: Unable to use pain scale. Patient is lg3 unresponsive. Neuro: Level of Consciousness is unresponsive, Oriented to none. Cardiovascular: Capillary refill < 3 seconds Clubbing of nail beds is absent Patient's skin is warm and dry. Respiratory: Airway via oral intubation Respiratory pattern is symmetrical, Ventilator assessment: Tidal Volume: 450 Respiratory Rate: 16 FiO2: 40% PEEP: 5 HOB > 30 degrees. GI: Abdomen is round non-distended. : Delgado in place to gravity drainage. Derm: Skin is intact, Skin is dry, Skin is normal, Skin temperature is warm. Vital Signs: 14:15 BP 156 / 94; Pulse 105; Resp 16; Temp 98(A); Pulse Ox 100% ; FiO2 60 %; Weight 73.03 dd2 kg; Height 5 ft. 2 in. ; 15:14 Temp 99; ph 15:18 BP 127 / 100; Pulse 102; Resp 16 A; Temp 99(Ca); Pulse Ox 100% on ETT vent; FiO2 40 %; ph 16:00 BP 179 / 105; Pulse 92; Resp 16; Temp 98.8; Pulse Ox 100% on ETT vent; FiO2 40 %; ph 16:22 BP 187 / 78; Pulse 111; Resp 16; Temp 98.1; Pulse Ox 100% on ETT vent; FiO2 40 %; ph 17:01 BP 155 / 89; Pulse 106; Resp 16; Pulse Ox 100% on ETT vent; FiO2 40 %; ph 17:42 BP 207 / 105; Pulse 128; Resp 16 A; Temp 98.3(Ca); Pulse Ox 100% on ETT vent; FiO2 40 %;ph 18:00 BP 116 / 73; Pulse 98; Resp 16; Temp 98.6; Pulse Ox 100% on ETT vent; FiO2 40 %; ph 18:30 BP 137 / 92; Pulse 91; Resp 16; Pulse Ox 100% on ETT vent; FiO2 40 %; ph 18:55 BP 181 / 109; Pulse 107; Resp 16; Temp 99(Ca); Pulse Ox 100% on ETT vent; FiO2 40 %; ph 19:15 BP 184 / 101; Pulse 101; Resp 16 A; Pulse Ox 100% on ETT vent; FiO2 40 %; lg3 20:15 BP 179 / 97; Pulse 104; Resp 16 A; Temp 98.8(Ca); Pulse Ox 100% on ETT vent; FiO2 40 %; lg3 14:15 Body Mass Index 29.45 (73.03 kg, 157.48 cm) dd2 Jeniffer Coma Score: 14:37 Eye Response: none(1). Modifying Factors: Intubated. Motor Response: none(1). Verbal dd2 Response: none(1). Total: 3. 19:10 Eye Response: none(1). Motor Response: none(1). Verbal Response: none(1). Total: 3. lg3 ED Course: 14:10 Patient arrived in ED. dd2 14:14 Margarita Self MD is Attending Physician. sd2 14:15 Initial lab(s) drawn, by ED staff, sent to lab. Urine collected: Delgado catheter ph specimen, cloudy, EKG done, by ED staff, reviewed by Margarita Self MD. 14:20 NGT: inserted 16 Fr. other via oral route verified placement of air over stomach. ko1 14:33 Delgado cath inserted, using sterile technique, 16 Fr., by ia, balloon inflated, to ph gravity drainage, urine specimen collected. 14:36 Triage completed. dd2 14:37 Arm band placed on left wrist. Patient placed in an exam room, on a stretcher, on dd2 oxygen, on cardiac care unit nurse, on pulse oximetry, ventilator. 14:45 Inserted saline lock: 20 gauge in left EJ, using aseptic technique. Blood collected. ko1 Flushed with 10 mL NS. 15:03 Notified ED physician of a critical lab result(s). lactate 2.6. ll1 15:10 Chest Single View XRAY In Process Unspecified. EDMS 15:14 Mago Ayala, RN is Primary Nurse. ph 15:17 Patient has correct armband on for positive identification. Placed in gown. Bed in low ph position. Call light in reach. Side rails up X2. Client placed on continuous cardiac and pulse oximetry monitoring. NIBP monitoring applied. conveyor monitor on. Warm blanket given. 15:41 CT Head Brain wo Cont In Process Unspecified. EDMS 15:45 CT C Spine In Process Unspecified. EDMS 15:45 CT Chest Abdomen Pelvis W/O Contrast In Process Unspecified. EDMS 16:26 Seizure precautions initiated. ph 16:35 Zoran Wilson contacted to initiate transfer, on hold for 28 minutes, spoke with stiven Jung. 17:08 No provider procedures requiring assistance completed. Patient transferred, IV remains ph in place. 17:16 Was asked to please hold during transfer initiation, on hold for 7 minutes advised at ty capacity. 17:35 Accessed peripheral vein via ultrasound, utilizing dynamic ultrasound technique Blood cm10 collected. Clean \T\ dry. Dressing intact. Good blood return. Flushes easily. 20G left upper arm/. [facility] on hold for 17 minutes, spoke ty with Deanne. 17:59 Notified ED physician of a critical lab result(s). lactate 2.6. ll1 18:42 Called by [facility] only available facility with neuro is [facility], family of patient ty asked if facility is okay, family advised they wish to be in [facility]. 18:46 [id number] with [facility]. ty 18:50 Family advised [facility] is acceptable as to not postpone care. ty 19:10 IV is patent, with good blood return, Flushed. lg3 19:10 Bed in low position. Client placed on continuous cardiac and pulse oximetry monitoring. lg3 NIBP monitoring applied. conveyor monitor on. Door closed. Noise minimized. Warm blanket given. Linen changed. Family accompanied patient. 19:22 MOT and FS faxed to [facility]. ty Administered Medications: 15:00 Drug: Keppra IV 20 mg/kg IV at bolus once; not to exceed 2,500 milligrams administer ko1 over 15 minutes Route: IV; Rate: bolus; Site: left jugular; 15:30 Follow up: Response: No adverse reaction; IV Status: Completed infusion; IV Intake: ko1 100ml 15:59 Drug: NS 0.9% IV (30 ml/kg) 30 ml/kg IV at bolus once; Sepsis Protocol Route: IV; Rate: ko1 bolus; Site: left jugular; 17:00 Follow up: Response: No adverse reaction; IV Status: Completed infusion; IV Intake: ph 1000ml ; received 1L NS from EMS 16:25 Not Given (Other Intervention Used): ertapenem1 grams IVPB once over 30 mins; (mix in ph 100 mL NS) 16:25 Drug: Meropenem IV 1 grams IV at calculated rate once; (mix in NS 100 mL) Route: IV; ph Rate: calculated rate; Site: left jugular; 17:00 Follow up: Response: No adverse reaction; IV Status: Completed infusion; IV Intake: ph 100ml 16:50 Drug: Decadron - Dexamethasone IVP 10 mg IVP once Route: IVP; Site: left jugular; ph 17:59 Follow up: Response: No adverse reaction ph 17:00 Drug: vancoMYCIN IVPB 1.5 grams IVPB at calculated rate once Route: IVPB; Rate: ph calculated rate; Site: left jugular; 19:13 Follow up: Response: No adverse reaction; IV Status: Completed infusion; IV Intake: ph 500ml 17:59 Drug: Labetalol IV 10 mg IV at bolus once Route: IV; Rate: bolus; Site: left ph antecubital; 20:46 Follow up: Response: Blood pressure is lowered; IV Status: Completed infusion lg3 Medication: 15:17 VIS not applicable for this client. ph Point of Care Testing: Blood Glucose: 14:37 Blood Glucose: 71 mg/dL; dd2 Ranges: Intake: 15:30 IV: 100ml; Total: 100ml. ko1 17:00 IV: 1000ml; Total: 1100ml. ph 17:00 IV: 100ml; Total: 1200ml. ph 19:13 IV: 500ml; Total: 1700ml. ph Outcome: 16:29 ER care complete, transfer ordered by . sd2 20:44 Transferred by ground EMS to [facility], Transfer form completed. lg3 20:44 critical 20:44 Discharge instructions given to family, Instructed on the need for transfer, 20:45 Patient left the ED. lg3 Signatures: Dispatcher [employer] EDMago Lynn RN RN ph Able, Lacie, RN RN lg3 Dez Lemus RN RN ll1 Dunlop, Stephanie, MD MD sd2 Agueda Robertson RN RN ko1 Bridget Bentley RN RN cmMusa Couch DIANA, RN RN dd2 Corrections: (The following items were deleted from the chart) 14:40 14:36 Allergies: Adhesives; dd2 dd2 14:40 14:36 Allergies: Azithromycin; dd2 dd2 14:40 14:36 Allergies: Codeine; dd2 dd2 14:40 14:36 Allergies: Suprax; dd2 dd2 14:40 14:36 Allergies: TETRACYCLINES; dd2 dd2 14:40 14:36 PMHx: Asthma; dd2 dd2 14:40 14:36 PMHx: Hyperlipidemia; dd2 dd2 14:40 14:36 PMHx: Hypertension; dd2 dd2 14:46 14:25 NGT: inserted 16 Fr. other via oral route verified placement of air over stomach, ko1 ph 17:06 15:00 Respiratory: Airway via oral intubation Respiratory pattern is symmetrical, ph Ventilator assessment: Tidal Volume: 450 Respiratory Rate: 16 FiO2: 40% PEEP: 5 HOB > 30 degrees. ph 17:11 15:18 BP 127 / 100; Pulse 102bpm; Resp 16bpm; Assisted; Pulse Ox 100% ET / Ventilator ph FiO2 50%; Temp 99F Catheter; ph 17:11 16:00 BP 179 / 105; Pulse 92bpm; Resp 16bpm; Pulse Ox 100% ET / Ventilator FiO2 50%; ph Temp 98.8F; ph 17:11 16:22 BP 187 / 78; Pulse 111bpm; Resp 16bpm; Pulse Ox 100% ET / Ventilator FiO2 50%; ph Temp 98.1F; ph 17:11 17:01 BP 155 / 89; Pulse 106bpm; Resp 16bpm; Pulse Ox 100% ET / Ventilator; ph ph 18:03 18:00 Pulse 98bpm; Resp 16bpm; Pulse Ox 100% ET / Ventilator FiO2 40%; Temp 98.6F; ph ph 18:18 17:57 [facility] called to initiate patient transfer, on hold for XXXX minutes, ty spoke with XXXX ty 20:37 20:30 General: Pt taken to CT accompanied by Shirley ALLEN, and RT. lg3 lg3
--- NOTE | 2024-05-30 16:30 | EDPHYS ---
Physician Documentation [facility] Name: Sara Duran Age: 74 yrs Sex: Female : 1950 Arrival Date: 05/30/2024 Time: 13:57 Bed 3 Private MD: ED Physician Margarita Self HPI: 05/30 15:25 This 74 yrs old Black Female presents to ER via EMS with complaints of Seizure, Altered sd2 Mental Status. 15:25 74 yo F presents via EMS with CC of seizure activity and AMS. She was found down by a sd2 neighbor with seizure-like activity and EMS was called. The patient per family at the scene does not have a history of prior seizures. EMS reports that the patient had 10 to 20-second episodes of seizure-like activity with them. They gave a multitude of medications including Ativan, Valium and push dose epinephrine and placed the patient on Levophed. You can see the full amount of each medication given including meds given for intubation and the nurses chart which was reviewed. The patient arrives with ET tube in place. NG tube was attempted to be placed by EMS as well. IO was also placed in both lower extremities with only the right lower extremity likely being patent. Further hx limited at this time. . Historical: - Allergies: 15:17 TETRACYCLINES; ph 15:17 Codeine; ph 15:17 CLAVULANIC ACID; ph 15:17 Azithromycin; ph 15:17 cefepime; ph 15:17 Amoxicillin; ph - Home Meds: 17:34 gabapentin 300 mg oral capsule 1 cap 3 times per day [Active]; hydralazine 25 mg Oral ph tablet 1 tab 3 times per day [Active]; methocarbamol 500 mg Oral tablet 4 times per day [Active]; telmisartan 20 mg oral tablet nightly [Active]; carvedilol 25 mg oral tablet 2 tab 2 times per day [Active]; torsemide 20 mg oral tablet 1 tab daily [Active]; ezetimibe 10 mg oral tablet 1 tab daily [Active]; furosemide 20 mg Oral tablet 1 tab daily [Active]; allopurinol 300 mg Oral tablet 1 tab daily [Active]; - PMHx: 17:34 Hypercholesterolemia; Hypertensive disorder; ph - Immunization history:: Adult Immunizations unknown. - Infectious Disease History:: unable to obtain. - Social history:: Smoking status: unknown. - History obtained from: EMS. - Unable to obtain history due to: obtunded state, patient is on ventilator. ROS: 15:25 Unable to obtain ROS due to patient is on ventilator, sd2 Exam: 15:25 Eyes: PERRL, normal conjunctiva bilaterally Chest/axilla: Normal chest wall sd2 appearance and motion. Nontender with no deformity. Cardiovascular: Tachycardic rate and regular rhythm with a normal S1 and S2. No gallops, murmurs, or rubs. 2+ distal pulses. Respiratory: Lungs have equal breath sounds bilaterally, clear to auscultation and percussion. No rales, rhonchi or wheezes noted. No increased work of breathing, no retractions or nasal flaring. Abdomen/GI: Soft, non-tender, with normal bowel sounds. No guarding or rebound. No evidence of tenderness throughout. Skin: Warm, dry with normal turgor. Normal color with no rashes, no lesions, and no evidence of cellulitis. MS/ Extremity: Pulses equal, no cyanosis. Neurovascular intact. Full, normal range of motion. Neuro: GCS 3T, no purposeful movement noted but pt did receive Rocuronium LOGISTICS OPERATIONS MANAGER 15:25 Constitutional: The patient appears well developed, well nourished, obviously ill, 15:25 Head/face: R eyelid swelling noted. 15:42 ECG was reviewed by the Attending Physician. Sinus tachycardia, rate 116, no STEMI sd2 criteria, ST depressions noted in lateral leads Vital Signs: 14:15 BP 156 / 94; Pulse 105; Resp 16; Temp 98(A); Pulse Ox 100% ; FiO2 60 %; Weight 73.03 dd2 kg; Height 5 ft. 2 in. ; 15:14 Temp 99; ph 15:18 BP 127 / 100; Pulse 102; Resp 16 A; Temp 99(Ca); Pulse Ox 100% on ETT vent; FiO2 40 %; ph 16:00 BP 179 / 105; Pulse 92; Resp 16; Temp 98.8; Pulse Ox 100% on ETT vent; FiO2 40 %; ph 16:22 BP 187 / 78; Pulse 111; Resp 16; Temp 98.1; Pulse Ox 100% on ETT vent; FiO2 40 %; ph 17:01 BP 155 / 89; Pulse 106; Resp 16; Pulse Ox 100% on ETT vent; FiO2 40 %; ph 17:42 BP 207 / 105; Pulse 128; Resp 16 A; Temp 98.3(Ca); Pulse Ox 100% on ETT vent; FiO2 40 %;ph 18:00 BP 116 / 73; Pulse 98; Resp 16; Temp 98.6; Pulse Ox 100% on ETT vent; FiO2 40 %; ph 18:30 BP 137 / 92; Pulse 91; Resp 16; Pulse Ox 100% on ETT vent; FiO2 40 %; ph 18:55 BP 181 / 109; Pulse 107; Resp 16; Temp 99(Ca); Pulse Ox 100% on ETT vent; FiO2 40 %; ph 19:15 BP 184 / 101; Pulse 101; Resp 16 A; Pulse Ox 100% on ETT vent; FiO2 40 %; lg3 20:15 BP 179 / 97; Pulse 104; Resp 16 A; Temp 98.8(Ca); Pulse Ox 100% on ETT vent; FiO2 40 %; lg3 14:15 Body Mass Index 29.45 (73.03 kg, 157.48 cm) dd2 Jeniffer Coma Score: 14:37 Eye Response: none(1). Modifying Factors: Intubated. Motor Response: none(1). Verbal dd2 Response: none(1). Total: 3. 19:10 Eye Response: none(1). Motor Response: none(1). Verbal Response: none(1). Total: 3. lg3 MDM: 14:14 Patient medically screened. sd2 15:25 Differential diagnosis: cerebral vascular accident, drug overdose, cardiac arrhythmia, sd2 seizure, TIA, among others. Data reviewed: vital signs, nurses notes, EMS record, lab test result(s), EKG, radiologic studies. I considered the following discharge prescriptions or medication management in the emergency department Medications were administered in the Emergency Department. See MAR. Historians other than the Patient: EMS: provides initial report. 18:08 Post IV fluid administration reassessment for Sepsis: Client prescribed 30 mL/kg IVF. sd2 Sepsis focused reassessment complete. Focused assessment performed: May 30, 2024 at 17:00 Heart: Regular rate/rhythm. Tachycardia noted. Lungs: noted to be clear bilaterally. Capillary refill examination performed. Capillary refill noted to be < 2 seconds. Peripheral pulse evaluation performed. Pedal Peripheral pulses noted to be 3+ normal. Skin examination performed. Skin examination noted to be unremarkable. Current patient vital signs reviewed: Yes. Counseling: I had a detailed discussion with the patient and/or guardian regarding the historical points, exam findings, and any diagnostic results supporting the discharge/admit diagnosis, lab results, radiology results, the need to transfer to another facility, for higher level of care. 18:10 ED course: [facility] previously called for transfer per patient's daughter's request sd2 and they are at capacity. They would now prefer [facility] for transfer. Pt needing transfer for NSG and higher level of care. . ED course: Levophed no longer needed and has been off for approximately 2 hours with HTN noted.. 18:48 ED course: Doc to doc performed with Dr. Riley, NSG at [facility], who accepts sd2 the patient to the Neuro ICU at [facility]. . 05/30 14:15 Order name: CBC with Diff; Complete Time: 15:23 sd2 05/30 14:15 Order name: CMP; Complete Time: 15:23 sd2 05/30 14:15 Order name: Lactate w/ 2H reflex if indic.; Complete Time: 15:23 sd2 05/30 14:15 Order name: Protime (+inr); Complete Time: 14:46 sd2 05/30 14:15 Order name: Ptt, Activated; Complete Time: 14:46 sd2 05/30 14:15 Order name: Urinalysis w/ reflexes; Complete Time: 15:23 sd2 05/30 14:15 Order name: Procalcitonin; Complete Time: 15:23 sd2 05/30 14:15 Order name: UDS; Complete Time: 15:23 sd2 05/30 14:15 Order name: CK; Complete Time: 15:23 sd2 05/30 14:24 Order name: Glucose, Ancillary Testing; Complete Time: 14:46 EDMS 05/30 14:37 Order name: CBC Smear Scan; Complete Time: 15:23 EDMS 05/30 17:03 Order name: Ghost Lactate-NO COLLECT Timer; Complete Time: 17:06 EDMS 05/30 18:00 Order name: Lactate Sepsis 2 HR Follow-up; Complete Time: 18:17 EDMS 05/30 14:15 Order name: Chest Single View XRAY; Complete Time: 18:17 sd05/30 14:17 Order name: CT Head Brain wo Cont; Complete Time: 16:35 sd05/30 15:36 Order name: CT C Spine; Complete Time: 16:35 sd05/30 15:36 Order name: CT Chest Abdomen Pelvis W/O Contrast; Complete Time: 16:35 sd05/30 14:15 Order name: EKG; Complete Time: 14:16 05/30 14:15 Order name: Accucheck; Complete Time: 14:43 05/30 14:15 Order name: Cardiac monitoring; Complete Time: 14:43 05/30 14:15 Order name: EKG - Nurse/Tech; Complete Time: 15:18 sd05/30 14:15 Order name: IV Saline Lock - Large Bore; Complete Time: 14:43 05/30 14:15 Order name: Labs collected and sent; Complete Time: 14:43 05/30 14:15 Order name: O2 Per Protocol; Complete Time: 14:43 05/30 14:15 Order name: O2 Sat Monitoring; Complete Time: 14:43 05/30 14:15 Order name: Vital Signs; Complete Time: 14:43 05/30 17:30 Order name: Misc. Order: Please pull back ETT 2cm; Complete Time: 18:52 ph Administered Medications: 15:00 Drug: Keppra IV 20 mg/kg IV at bolus once; not to exceed 2,500 milligrams administer ko1 over 15 minutes Route: IV; Rate: bolus; Site: left jugular; 15:30 Follow up: Response: No adverse reaction; IV Status: Completed infusion; IV Intake: ko1 100ml 15:59 Drug: NS 0.9% IV (30 ml/kg) 30 ml/kg IV at bolus once; Sepsis Protocol Route: IV; Rate: ko1 bolus; Site: left jugular; 17:00 Follow up: Response: No adverse reaction; IV Status: Completed infusion; IV Intake: ph 1000ml ; received 1L NS from EMS 16:25 Not Given (Other Intervention Used): ertapenem1 grams IVPB once over 30 mins; (mix in ph 100 mL NS) 16:25 Drug: Meropenem IV 1 grams IV at calculated rate once; (mix in NS 100 mL) Route: IV; ph Rate: calculated rate; Site: left jugular; 17:00 Follow up: Response: No adverse reaction; IV Status: Completed infusion; IV Intake: ph 100ml 16:50 Drug: Decadron - Dexamethasone IVP 10 mg IVP once Route: IVP; Site: left jugular; ph 17:59 Follow up: Response: No adverse reaction ph 17:00 Drug: vancoMYCIN IVPB 1.5 grams IVPB at calculated rate once Route: IVPB; Rate: ph calculated rate; Site: left jugular; 19:13 Follow up: Response: No adverse reaction; IV Status: Completed infusion; IV Intake: ph 500ml 17:59 Drug: Labetalol IV 10 mg IV at bolus once Route: IV; Rate: bolus; Site: left ph antecubital; 20:46 Follow up: Response: Blood pressure is lowered; IV Status: Completed infusion lg3 Point of Care Testing: Blood Glucose: 14:37 Blood Glucose: 71 mg/dL; dd2 Ranges: Critical Glucose Levels:Adult <50 mg/dl or >400 mg/dl <40 mg/dl or >180 mg/dl Disposition: 18:48 Chart complete. sd2 Disposition Summary: 05/30/24 16:29 Transfer Ordered Notes: Reason: Higher level of care sd2 Condition: Serious sd2 Problem: new sd2 Symptoms: are unchanged sd2 Transfer Location: [facility](05/30/24 18:49) sd2 Accepting Physician: Dr. Alex Leong(05/30/24 20:45) lg3 Diagnosis - Brain Mass sd2 - Hydrocephalus sd2 - Vasogenic edema sd2 - Septic shock sd2 Forms: - Medication Reconciliation Form sd2 - SBAR form sd2 Critical care time excluding procedures: 18:56 Critical care time: Bedside Care: 75 minutes, Consultation: 20 minutes, Family sd2 Intervention: 20 minutes. Total time: 115 minutes Signatures: Dispatcher [employer] EDMago Lynn RN Shirley Hernandez ph, RN RN lg3 Margarita Self MD MD sd2 Agueda Robertson RN RN ko1 MANUEL BRENNAN RN RN dd2 Corrections: (The following items were deleted from the chart) 14:16 14:16 Chest Single View+RAD.RAD.BRZ ordered. EDMS EDMS 14:40 14:36 Allergies: Adhesives; dd2 dd2 14:40 14:36 Allergies: Azithromycin; dd2 dd2 14:40 14:36 Allergies: Codeine; dd2 dd2 14:40 14:36 Allergies: Suprax; dd2 dd2 14:40 14:36 Allergies: TETRACYCLINES; dd2 dd2 14:40 14:36 PMHx: Asthma; dd2 dd2 14:40 14:36 PMHx: Hyperlipidemia; dd2 dd2 14:40 14:36 PMHx: Hypertension; dd2 dd2 15:36 15:36 C Spine Wo Con+CT.RAD.BRZ ordered. EDMS EDMS 15:36 15:36 Chest Abdomen Pelvis Wo Con+CT.RAD.BRZ ordered. EDMS EDMS 18:49 16:29 Accepting MD sd2 sd2 18:49 16:29 [facility] sd2 sd2 20:45 18:49 Dr. Alex Leong sd2 lg3
[2024-05-30] MEDS ORDERED: dexAMETHasone 10 MG/ML VIAL ONE (16:47)
[2024-05-30] MEDS ORDERED: VANCOMYCIN 1.5 GM in NA CHLORIDE 0.9% 500 ML IVPB ONE (17:00)
[2024-05-30] MEDS ORDERED: LABETALOL 20 MG/4ML SYRINGE IV ONE (17:56)
--- NOTE | 2024-05-30 18:14 | RAD REPORT ---
EXAM DESCRIPTION: [place] Single View05/30/2024 3:08 pm CLINICAL HISTORY: Intubation COMPARISON: 2020 FINDINGS: Endotracheal tube with its tip 1 centimeter the josue Nasogastric tube within stomach Mild right basilar lung opacity may represent atelectasis or pneumonia Heart is mildly enlarged Due to technical issues the exam could not be dictated until now. A preliminary report was given to [facility] emergency room
[2024-05-30] MEDS ORDERED: MIDAZOLAM HCL 0 ML ONE (19:53)
[2024-05-30 21:11] VITALS: O2SAT 100
[2024-05-30 21:32] VITALS: BP 179/97; TEMP 98.8
--- NOTE | 2024-06-01 14:12 | EKG ---
Test Date: 2024-05-30 Test Time: 14:52:07 Hospice Patient Care Secretary: PH MEASUREMENT RESULTS: Intervals: Rate: 116 GA: 160 QRSD: 86 QT: 366 QTc: 508 [place]: P: 71 GA: 160 QRS: 59 T: 101 INTERPRETIVE STATEMENTS: Sinus tachycardia ST & T wave abnormality, consider lateral ischemia Abnormal ECG Compared to ECG 03/23/2021 11:31:34 ST (T wave) deviation now present Possible ischemia now present Sinus rhythm no longer present Electronically Signed On 06-01-24 14:08:03 CDT by Jose Evans
== END 2024-05-30 20:45 | disposition short-term general hospital (02) ==
LOC: ER 13:57
DX: G93.89 Other specified disorders of brain (principal); A41.9 Sepsis, unspecified organism; R65.21 Severe sepsis with septic shock; G91.9 Hydrocephalus, unspecified; G93.6 Cerebral edema; I10 Essential (primary) hypertension; E78.00 Pure hypercholesterolemia, unspecified
CPT/HCPCS: 93005; 85025; 81001; 36415; 82550; 85610; 82947; 83605 ×2; 85730; 80053; 84145; 80307; 70450; 71250; 72125; 74176; 71045; 51702; 99291; 99292; 94002; J1953; J1100; J2185; J7040; J7030; 43753; 87040; J2250